=== PATIENT | male | born 1970 | race American Indian/Alaskan Native ===

== ENCOUNTER 2016-04-27 10:09 | Emergency (ER) | payer SELFPAY ==
[2016-04-27 11:15] LABS: Basophils % (Auto) 0.6 % (0.0-1.8); Eosinophils % (Auto) 4.9 % (0.0-4.3); Hematocrit 36.7 % (35.5-45.6); Hemoglobin 12.3 gm/dl (11.8-15.2); Mean Corpuscular HGB Conc 33 % (32-34); Mean Corpuscular Hemoglobin 30 pg (28-32); Mean Corpuscular Volume 91 fl (84-94); Platelet Count 304 K/mm3 (140-440); Red Blood Count 4.06 M/mm3 (3.65-5.03); Red Cell Distribution Width 14.2 % (13.2-15.2); White Blood Count 8.9 K/mm3 (4.5-11.0)
[2016-04-27 11:16] LABS: Anion Gap 15 mmol/L; Blood Urea Nitrogen 4 mg/dL (9-20); Calcium 8.8 mg/dL (8.4-10.2); Carbon Dioxide 24 mmol/L (22-30); Chloride 100.2 mmol/L (98-107); Glucose 64 mg/dL (75-100); Potassium 3.5 mmol/L (3.6-5.0); Sodium 136 mmol/L (137-145)
--- NOTE | 2016-04-27 12:10 | Emergency Department Report ---
HPI - General Chief Complaint: Psych Time Seen by Provider: 04/27/16 11:38 - HPI HPI: Room 14 The patient is a 45-year-old male presenting with chief complaint of auditory and visual hallucinations. Patient has a history of schizophrenia and states she's been on Zyprexa for approximately 1 month. The patient states for the past 3-4 days he's had auditory and visual hallucinations. The patient states the auditory hallucinations with voices that tell him to "give up trying to be somebody in life" and "to give up living." The patient states he has not attempted to harm himself and does not have a plan. The patient states he has had visual hallucinations that include "images of people and alligators." The patient states he went to [facility] last night and was seen in the emergency department both told that he "couldn't get in to [place]." Location: Mental state Duration: 3-4 days Quality: Hallucinations Severity: Severe Modifying factors: [see above] Context: [see above] Mode of transportation: [not driving] ED Past Medical Hx - Past Medical History Hx Psychiatric Treatment: Yes Additional medical history: schizophrenia - Surgical History Additional Surgical History: Back surgery - Family History Family history: no significant - Social History Smoking Status: Current Every Day Smoker Substance Use Type: None - Medications Home Medications: Home Medications Medication Instructions Recorded Confirmed Last Taken Type OLANzapine [ZyPREXA] 30 mg PO QHS 03/16/16 03/16/16 3 Months Ago History ED Review of Systems ROS: Stated complaint: SCHIZOPHRENIA Other details as noted in HPI Comment: All other systems reviewed and negative Constitutional: denies: chills, fever Eyes: denies: eye pain, eye discharge, vision change ENT: denies: ear pain, throat pain Respiratory: denies: cough, shortness of breath, wheezing Cardiovascular: denies: chest pain, palpitations Endocrine: no symptoms reported Gastrointestinal: denies: abdominal pain, nausea, diarrhea Genitourinary: denies: urgency, dysuria Musculoskeletal: denies: back pain, joint swelling, arthralgia Skin: denies: rash, lesions Neurological: denies: headache, weakness, paresthesias Psychiatric: auditory hallucinations, visual hallucinations, suicidal thoughts. denies: anxiety, depression Hematological/Lymphatic: denies: easy bleeding, easy bruising Physical Exam - Physical Exam Vital Signs: Vital Signs 04/27/16 10:20 Temperature 97.8 F Pulse Rate 96 H Respiratory 18 Rate Blood Pressure 138/84 O2 Sat by Pulse 100 Oximetry Physical Exam: GENERAL: The patient is well-developed well-nourished male sleeping on stretcher not appearing to be in acute distress. [] HEENT: Normocephalic. Atraumatic. Extraocular motions are intact. Patient has moist mucous membranes. NECK: Supple. No meningitic signs are noted. There is no adenopathy noted. CHEST/LUNGS: Clear to auscultation. There is no respiratory distress noted. HEART/CARDIOVASCULAR: Regular. There is no tachycardia. There is no gallop rub or murmur. ABDOMEN: Abdomen is soft, nontender. Patient has normal bowel sounds. There is no abdominal distention. SKIN: There is no rash. There is no edema. There is no diaphoresis. NEURO: The patient is awake, alert, and oriented. The patient is cooperative. The patient has normal speech MUSCULOSKELETAL: There is no evidence of acute injury. ED Course Vital Signs 04/27/16 10:20 Temperature 97.8 F Pulse Rate 96 H Respiratory 18 Rate Blood Pressure 138/84 O2 Sat by Pulse 100 Oximetry ED Medical Decision Making - Lab Data Result diagrams: 04/27/16 10:48 04/27/16 10:48 Laboratory Tests 04/27/16 04/27/16 04/27/16 10:48 10:48 10:48 WBC 8.9 RBC 4.06 Hgb 12.3 Hct 36.7 MCV 91 MCH 30 MCHC 33 RDW 14.2 Plt Count 304 Lymph % (Auto) 30.5 [place] % (Auto) 9.0 H Eos % (Auto) 4.9 H Baso % (Auto) 0.6 Lymph # 2.7 [place] # 0.8 Eos # 0.4 Baso # 0.1 Seg Neutrophils % 55.0 Seg Neutrophils # 4.9 Sodium 136 L Potassium 3.5 L Chloride 100.2 Carbon Dioxide 24 Anion Gap 15 BUN 4 L Creatinine 1.0 Estimated GFR > 60 BUN/Creatinine Ratio 4.00 Glucose 64 L Calcium 8.8 Urine Color Urine Turbidity Urine pH Ur Specific [place] Urine Protein Urine Glucose (UA) Urine Ketones Urine Blood Urine Nitrite Urine Bilirubin Urine Urobilinogen Ur Leukocyte Esterase Urine WBC (Auto) Urine RBC (Auto) U Epithel Cells (Auto) Calcium Oxalate Crystal Urine Mucus Salicylates Urine Opiates Screen Urine Methadone Screen Acetaminophen Ur Barbiturates Screen Ur Phencyclidine Scrn Ur Amphetamines Screen U Benzodiazepines Scrn Urine Cocaine Screen U Marijuana (THC) Screen Drugs of Abuse Note Plasma/Serum Alcohol < 0.01 04/27/16 04/27/16 04/27/16 10:48 10:48 12:00 WBC RBC Hgb Hct MCV MCH MCHC RDW Plt Count Lymph % (Auto) [place] % (Auto) Eos % (Auto) Baso % (Auto) Lymph # [place] # Eos # Baso # Seg Neutrophils % Seg Neutrophils # Sodium Potassium Chloride Carbon Dioxide Anion Gap BUN Creatinine Estimated GFR BUN/Creatinine Ratio Glucose Calcium Urine Color Yellow Urine Turbidity Clear Urine pH 5.0 Ur Specific [place] 1.018 Urine Protein <15 mg/dl Urine Glucose (UA) Neg Urine Ketones Tr Urine Blood Sm Urine Nitrite Neg Urine Bilirubin Neg Urine Urobilinogen < 2.0 Ur Leukocyte Esterase Neg Urine WBC (Auto) 3.0 Urine RBC (Auto) 3.0 U Epithel Cells (Auto) < 1.0 Calcium Oxalate Crystal 2+ Urine Mucus Few Salicylates < 0.3 L Urine Opiates Screen Urine Methadone Screen Acetaminophen < 15.0 Ur Barbiturates Screen Ur Phencyclidine Scrn Ur Amphetamines Screen U Benzodiazepines Scrn Urine Cocaine Screen U Marijuana (THC) Screen Drugs of Abuse Note Plasma/Serum Alcohol 04/27/16 12:00 WBC RBC Hgb Hct MCV MCH MCHC RDW Plt Count Lymph % (Auto) [place] % (Auto) Eos % (Auto) Baso % (Auto) Lymph # [place] # Eos # Baso # Seg Neutrophils % Seg Neutrophils # Sodium Potassium Chloride Carbon Dioxide Anion Gap BUN Creatinine Estimated GFR BUN/Creatinine Ratio Glucose Calcium Urine Color Urine Turbidity Urine pH Ur Specific [place] Urine Protein Urine Glucose (UA) Urine Ketones Urine Blood Urine Nitrite Urine Bilirubin Urine Urobilinogen Ur Leukocyte Esterase Urine WBC (Auto) Urine RBC (Auto) U Epithel Cells (Auto) Calcium Oxalate Crystal Urine Mucus Salicylates Urine Opiates Screen Presumptive negative Urine Methadone Screen Presumptive negative Acetaminophen Ur Barbiturates Screen Presumptive negative Ur Phencyclidine Scrn Presumptive negative Ur Amphetamines Screen Presumptive negative U Benzodiazepines Scrn Presumptive negative Urine Cocaine Screen Presumptive negative U Marijuana (THC) Screen Presumptive negative Drugs of Abuse Note Disclamer Plasma/Serum Alcohol - Differential Diagnosis schizophrenia, auditory hallucinations Critical care attestation.: If time is entered above; I have spent that time in minutes in the direct care of this critically ill patient, excluding procedure time. ED Disposition Clinical Impression: Schizophrenia, Hallucination, visual, Auditory hallucinations Disposition: DC/TX PSY HOSP/PSY UNIT Is pt being admited?: No Does the pt Need Aspirin: No Condition: Fair Referrals: PRIMARY CARE, [Primary Care Provider] - 3-5 Days Time of Disposition: 14:17 (awaiting acceptance)
[2016-04-27 12:32] LABS: Urine Drugs of Abuse Note Disclamer
[2016-04-27 12:51] LABS: Bilirubin,Urine NEG (Negative); Blood,Urine SM (Negative); Ketones,Urine TR mg/dL (Negative); Leukocyte Esterase,Urine NEG (Negative); Mucus,Urine FEW /HPF; Nitrite,Urine NEG (Negative); Protein,Urine <15 mg/dL mg/dL (Negative); Urobilinogen,Urine < 2.0 mg/dL (<2.0)
[2016-04-28] MEDS ORDERED: K-DUR PO ONE (13:44)
--- NOTE | 2016-04-28 13:45 | Emergency Department Report ---
Blank Doc - Documentation Documentation: Vital signs reviewed. Pt remains stable. Nurses notes reviwed and pt remains cooperative during ed stay. Continues to Hear voices. PO potassium ordered for mild hypokalemia. Awaiting placement.
--- NOTE | 2016-04-30 17:29 | Emergency Department Report ---
Blank Doc - Documentation Documentation: Nursing notes and vital signs reviewed. Patient awaiting placement.
--- NOTE | 2016-05-01 05:43 | Event Note ---
Date: 05/01/16 Vital signs reviewed. No recent events. Awaiting psychiatric placement. Vital Signs 04/27/16 04/27/16 04/28/16 10:20 20:00 09:10 Temperature 97.8 F 98.4 F 98.3 F Pulse Rate 96 H 75 74 Respiratory 18 18 18 Rate Blood Pressure 138/84 Blood Pressure 98/63 110/55 [Left] O2 Sat by Pulse 100 98 98 Oximetry 04/29/16 04/29/16 04/29/16 08:15 08:30 22:00 Temperature 98.3 F 98.5 F Pulse Rate 73 79 Respiratory 16 16 18 Rate Blood Pressure Blood Pressure 166/105 139/74 [Left] O2 Sat by Pulse 98 98 98 Oximetry 04/30/16 04/30/16 07:37 12:01 Temperature 97.5 F L 97.8 F Pulse Rate 63 75 Respiratory 20 20 Rate Blood Pressure Blood Pressure 186/115 161/94 [Left] O2 Sat by Pulse 99 98 Oximetry
--- NOTE | 2016-05-02 04:52 | Event Note ---
Date: 05/02/16 Vital signs reviewed. Awaiting psychiatric placement. No recent events. Vital Signs 04/27/16 04/27/16 04/28/16 10:20 20:00 09:10 Temperature 97.8 F 98.4 F 98.3 F Pulse Rate 96 H 75 74 Respiratory 18 18 18 Rate Blood Pressure 138/84 Blood Pressure 98/63 110/55 [Left] O2 Sat by Pulse 100 98 98 Oximetry 04/29/16 04/29/16 04/29/16 08:15 08:30 22:00 Temperature 98.3 F 98.5 F Pulse Rate 73 79 Respiratory 16 16 18 Rate Blood Pressure Blood Pressure 166/105 139/74 [Left] O2 Sat by Pulse 98 98 98 Oximetry 04/30/16 04/30/16 05/01/16 07:37 12:01 06:55 Temperature 97.5 F L 97.8 F Pulse Rate 63 75 76 Respiratory 20 20 17 Rate Blood Pressure Blood Pressure 186/115 161/94 175/94 [Left] O2 Sat by Pulse 99 98 99 Oximetry 05/01/16 05/01/16 15:58 21:12 Temperature 97.8 F Pulse Rate 76 66 Respiratory 16 18 Rate Blood Pressure Blood Pressure 154/100 169/103 [Left] O2 Sat by Pulse 99 100 Oximetry
[2016-05-02 17:42] VITALS: BP 144/84
== END 2016-05-02 21:30 ==
LOC: ED 10:09 → EEVIPCON 10:09 → ED 05-02 21:30
DX: F20.9 Schizophrenia, unspecified (principal); R44.0 Auditory hallucinations; R44.1 Visual hallucinations; F17.200 Nicotine dependence, unspecified, uncomplicated
CPT/HCPCS: 36415; 80048; 80307; 81001; 85025; 99285; G0480; 80320

== ENCOUNTER 2016-07-20 02:20 | Emergency (ER) | payer SELFPAY ==
[2016-07-20 03:18] LABS: Basophils % (Auto) 0.8 % (0.0-1.8); Eosinophils % (Auto) 3.9 % (0.0-4.3); Hematocrit 39.1 % (35.5-45.6); Mean Corpuscular HGB Conc 33 % (32-34); Mean Corpuscular Hemoglobin 31 pg (28-32); Mean Corpuscular Volume 93 fl (84-94); Platelet Count 284 K/mm3 (140-440); Red Cell Distribution Width 14.1 % (13.2-15.2); White Blood Count 7.7 K/mm3 (4.5-11.0)
[2016-07-20 03:24] LABS: Anion Gap 17 mmol/L; BUN/Creatinine Ratio 5.55; Blood Urea Nitrogen 5 mg/dL (9-20); Calcium 8.7 mg/dL (8.4-10.2); Carbon Dioxide 23 mmol/L (22-30); Chloride 103.6 mmol/L (98-107); Glucose 113 mg/dL (75-100); Potassium 3.4 mmol/L (3.6-5.0); Sodium 140 mmol/L (137-145)
[2016-07-20] MEDS ORDERED: K-DUR PO ONE (10:24)
--- NOTE | 2016-07-20 13:47 | Emergency Department Report ---
ED Psych HPI - General Chief Complaint: Psych Stated Complaint: MED REFILL PSYCH Time Seen by Provider: 07/20/16 10:23 Source: patient, EMS Mode of arrival: Ambulatory Limitations: No Limitations - History of Present Illness Initial Comments: 45-year-old male with a past medical history schizophrenia presents to the hospital complaining of auditory and visual hallucinations times one month. Patient has been noncompliant with his psychiatric medications 1 month. Patient is supposed to be on Zyprexa and Risperdal. He denies having any current psychiatrist. He doesn't have any physical complaints. He denies suicidal homicidal ideation. - Related Data Home Medications Medication Instructions Recorded Confirmed Last Taken OLANzapine [ZyPREXA] 30 mg PO QHS 03/16/16 07/20/16 3 Months Ago risperiDONE [RisperDAL] 2 mg PO QHS 07/20/16 07/20/16 Unknown Allergies Allergy/AdvReac Type Severity Reaction Status Date / Time egg Allergy Unknown Verified 06/28/15 10:28 ED Review of Systems ROS: Stated complaint: MED REFILL PSYCH Other details as noted in HPI Comment: All other systems reviewed and negative Other: Constitutional: No fevers chills or weight loss Eyes: No eye pain visual changes or discharge ENT: No ear pain or throat pain Neck: Denies pain Respiratory: Denies cough wheezing shortness of breath Cardiovascular: Denies chest pain, palpitations, syncope GI: Denies abdominal pain, nausea, vomiting, diarrhea : Denies dysuria, urinary frequency, or urgency Musculoskeletal: Denies back pain Skin: Denies rash, lesions, erythema Neurologic: Denies headache, numbness, weakness Psychiatric: Denies suicidal ideation ED Past Medical Hx - Past Medical History Previous Medical History?: Yes Hx Psychiatric Treatment: Yes Additional medical history: schizophrenia - Surgical History Past Surgical History?: No Additional Surgical History: Back surgery - Social History Smoking Status: Current Every Day Smoker Substance Use Type: None - Medications Home Medications: Home Medications Medication Instructions Recorded Confirmed Last Taken Type OLANzapine [ZyPREXA] 30 mg PO QHS 03/16/16 07/20/16 3 Months Ago History risperiDONE [RisperDAL] 2 mg PO QHS 07/20/16 07/20/16 Unknown History ED Physical Exam - General Limitations: No Limitations - Other Other exam information: General: No limitations, patient is alert in no acute distress Head exam: Atraumatic, normocephalic Eyes exam: Normal appearance ENT: Moist mucous membrane, normal oropharynx Neck exam: Normal inspection, full range of motion Respiratory exam: Clear to auscultation bilateral, no wheezes, rales, crackles Cardiovascular: Normal rate and rhythm, normal heart sounds Abdomen: Soft, nondistended, and nontender, with normal bowel sounds, no rebound, or guarding Extremity: Full range of motion normal inspection no deformity Back: Normal Inspection, full range of motion, no tenderness Neurologic: Alert, oriented x3, cranial nerves intact, no motor or sensory deficit Psychiatric: normal affect, normal mood Skin: Warm, dry, intact ED Course Vital Signs 07/20/16 07/20/16 02:27 22:49 Temperature 98.4 F 98.0 F Pulse Rate 66 72 Respiratory 18 20 Rate Blood Pressure 155/93 158/95 [Right] O2 Sat by Pulse 100 100 Oximetry - Reevaluation(s) Reevaluation #1: 07/20/16 13:47 Potassium given for mild hypokalemia Reevaluation #2: 07/20/16 13:49 Mental health evaluation was discussed approximately 11 AM. My concern is represcribed Zyprexa in a patient who has poor follow-up. Patient requires monitoring while taking this medication. I'm currently awaiting mental health evaluation by [facility] psychiatrist is the medication recommendation. UA and UDS is pending Reevaluation #3: 07/20/16 14:43 urine results reviewed and unremarkable - Consultations Consultation #1: 07/20/16 13:49 Awaiting mental health evaluation ED Medical Decision Making - Lab Data Result diagrams: 07/20/16 02:52 07/20/16 02:52 Lab Results 07/20/16 07/20/16 07/20/16 Range/Units 02:52 02:52 02:52 WBC 7.7 (4.5-11.0) K/mm3 RBC 4.20 (3.65-5.03) M/mm3 Hgb 13.0 (11.8-15.2) gm/dl Hct 39.1 (35.5-45.6) % MCV 93 (84-94) fl MCH 31 (28-32) pg MCHC 33 (32-34) % RDW 14.1 (13.2-15.2) % Plt Count 284 (140-440) K/mm3 Lymph % (Auto) 29.3 (13.4-35.0) % [place] % (Auto) 6.0 (0.0-7.3) % Eos % (Auto) 3.9 (0.0-4.3) % Baso % (Auto) 0.8 (0.0-1.8) % Lymph # 2.3 (1.2-5.4) K/mm3 [place] # 0.5 (0.0-0.8) K/mm3 Eos # 0.3 (0.0-0.4) K/mm3 Baso # 0.1 (0.0-0.1) K/mm3 Seg Neutrophils % 60.0 (40.0-70.0) % Seg Neutrophils # 4.6 (1.8-7.7) K/mm3 Sodium 140 (137-145) mmol/L Potassium 3.4 L (3.6-5.0) mmol/L Chloride 103.6 (98-107) mmol/L Carbon Dioxide 23 (22-30) mmol/L Anion Gap 17 mmol/L BUN 5 L (9-20) mg/dL Creatinine 0.9 (0.8-1.5) mg/dL Estimated GFR > 60 ml/min BUN/Creatinine Ratio 5.55 % Glucose 113 H (75-100) mg/dL Calcium 8.7 (8.4-10.2) mg/dL Plasma/Serum Alcohol < 0.01 (0-0.07) gm% - Medical Decision Making Patient is stable and resting during ED stay. He is medically cleared for discharge. He denies suicidal homicidal ideation does not need emergent inpatient treatment although he does have psychosis he is calm and cooperative in the ED. Plan to refill his medication pending psychiatric approval given the fact that patient is on Zyprexa as well as Risperdal. - Differential Diagnosis psychosis, medication noncompliance, substance Critical Care Time: No Critical care attestation.: If time is entered above; I have spent that time in minutes in the direct care of this critically ill patient, excluding procedure time. ED Disposition Clinical Impression: Schizophrenia, Hallucinations, Noncompliance with medication regimen Disposition: DISCHARGED TO HOME OR SELFCARE Is pt being admited?: No Condition: Stable Instructions: Schizophrenia (ED) Additional Instructions: Take the medication as prescribed. Follow up with psychiatry as an outpatient. Return if symptoms worsen Referrals: [facility] [Outside] - 3-5 Days md debora [Other] - 3-5 Days Time of Disposition: 15:30 (s/o to Dr Tejada, pt can be d/clem after psych med recomendation)
[2016-07-20 13:57] LABS: Urine Drugs of Abuse Note Disclamer
[2016-07-20 14:02] LABS: Bilirubin,Urine NEG (Negative); Blood,Urine NEG (Negative); Ketones,Urine NEG (Negative); Leukocyte Esterase,Urine TR (Negative); Mucus,Urine FEW /HPF; Nitrite,Urine NEG (Negative); Protein,Urine <15 mg/dL mg/dL (Negative); Urobilinogen,Urine < 2.0 mg/dL (<2.0)
--- NOTE | 2016-07-20 18:47 | Consultation ---
History of Present Illness - Reason for Consult Consult date: 07/20/16 Reason for consult: psychosis Medications and Allergies Allergies Allergy/AdvReac Type Severity Reaction Status Date / Time egg Allergy Unknown Verified 06/28/15 10:28 Home Medications Medication Instructions Recorded Confirmed Last Taken Type OLANzapine [ZyPREXA] 30 mg PO QHS 03/16/16 07/20/16 3 Months Ago History risperiDONE [RisperDAL] 2 mg PO QHS 07/20/16 07/20/16 Unknown History Mental Status Exam - Vital signs Last Vital Signs Temp 98.4 F 07/20/16 02:27 Pulse 66 07/20/16 02:27 Resp 18 07/20/16 02:27 BP 155/93 07/20/16 02:27 Pulse Ox 100 07/20/16 02:27 Results Result Diagrams: 07/20/16 02:52 07/20/16 02:52 Abnormal lab results 07/20/16 Range/Units 02:52 Potassium 3.4 L (3.6-5.0) mmol/L BUN 5 L (9-20) mg/dL Glucose 113 H (75-100) mg/dL All other labs normal. Assessment and Plan Assessment and plan: CHIEF COMPLAINT IN PATIENTS WORDS: " i'm hearing voices" HISTORY OF PRESENT ILLNESS REQUIRING ADMISSION TO INPATIENT LEVEL OF CARE: (Describe the onset of Illness, Intensity of Symptoms, and Circumstances Leading to Admission) This is a 45 year-old undomiciled male who reports a formal PPH of Schizophrenia who presented secondary to increasing symptoms psychosis and contacts of medication nonadherence. Patient notes he has been experiencing worsening mood consistently about 4 weeks, in addition to his voices. Last medication use was about a month ago. Although the patient currently reports he is taking Zyprexa and risperidone he is unable to give a linear timeline of when he last took his medications and what his last medication name and dose was. PSYCHIATRIC REVIEW OF SYSTEMS: Depression: sad/withdrawn, sleep difficulties Jesica: none noted (no euphoria, no grandiosity) Psychosis: +AV, No VH. denies delusions Anxiety/ OCD/ PTSD: Worries about being homeless Suicidality: no SI Other Self-Injurious Behavior: Denies Violent/ Aggressive Behavior: no aggression CURRENT MEDICATIONS: ( Psychiatric and Non-psychiatric ) Not taking any medications currently ALLERGIES: NKDA PAST PSYCHIATRIC HISTORY: ( Prior Treatment, Precipitating Factors, Diagnosis, and Course of Treatment ) Inpatient: Patient does not recall Outpatient: at [facility] Prior SA: patient denies Prior SIB: Denies PAST PSYCHIATRIC MEDICATION TRIALS: Risperidone Zyprexa MEDICAL HISTORY: (Chronic and Acute Illnesses, Current Medical Treatment, Recent Hospitalizations) none noted HISTORY OF TRAUMA/ABUSE: Patient denies on clinical interview DRUG / ALCOHOL ABUSE HISTORY: Denies EtOH use Denies use of other illicit substances Detoxification / Withdrawal: none noted on clinical examination SOCIAL HISTORY: (Educational Level, Employment, Support System, Interpersonal Relationships) Homeless, lives on the streets FAMILY HISTORY: Psychiatric/Substance Abuse Patient denies on clinical interview MENTAL STATUS EXAM: Consciousness: alert and responding to external stimuli General Appearance: casually dressed, no acute distress Eye Contact: limited Attitude / Behavior: cooperative Sensorium: clear Psychomotor & Musculoskeletal Activity: reduced Mood: depressed Affect: constricted Speech / Language: reduced rate Thought Processes: organized, logical, linear Thought Content: no SI, no HI, intrusive thoughts Perception: no AVH Orientation: person, place, time and situation Concentration/Attention WORLD backwards: DLROW Memory Immediate Digit Span (6-5-1-9-3-1-5): [id number] Memory Recent (Objects: Lamp, Umbrella, and Telephone) Patient Response: could not provide Memory Remote (Name as many presidents as you can starting with current one and going backwards) Patient Response: could not provide Judgment What would you do if you smelled smoke in a crowded movie theater?: poor/impulsive Insight: fair Intelligence Vocabulary, general fund of knowledge, educational level : Average Capacity of ADLs: Independent STRENGTHS: seeking help PSYCHOSOCIAL AND ENVIRONMENTAL STRESSORS: Poor overall health due to chronic mental illness, non-Adherence to medications ADMITTING DIAGNOSES Psychiatric: Schizophrenia Plan: - Start risperidone 1 mg hs - Reevaluate tomorrow to obtain further information made in the treatment process - Engage social science teacher to help patient with finding a stable place to live
[2016-07-20] MEDS ORDERED: RisperDAL PO SCH (22:00)
[2016-07-20 22:51] VITALS: BP 158/95
== END 2016-07-20 22:49 | disposition home or self-care (01) ==
LOC: ED 02:20
DX: F20.9 Schizophrenia, unspecified (principal); R44.0 Auditory hallucinations; R44.1 Visual hallucinations; Z91.14 Patient's other noncompliance with medication regimen; F17.200 Nicotine dependence, unspecified, uncomplicated
CPT/HCPCS: 36415; 80048; 80307; 81001; 85025; 99284; G0480; 80320

== ENCOUNTER 2016-11-30 22:40 | Emergency (ER) | payer SELFPAY ==
[2016-12-01 01:14] VITALS: BP 154/100
== END 2016-12-01 02:10 | disposition left against medical advice (07) ==
LOC: ED 22:40
DX: Z53.21 Procedure and treatment not carried out due to patient leaving prior to being seen by health care provider (principal)

== ENCOUNTER 2016-12-06 00:03 | Emergency (ER) | payer SELFPAY ==
[2016-12-06 00:25] VITALS: BP 167/99
[2016-12-06 01:11] LABS: Basophils % (Auto) 0.5 % (0.0-1.8); Eosinophils % (Auto) 3.5 % (0.0-4.3); Hematocrit 38.1 % (35.5-45.6); Hemoglobin 12.5 gm/dl (11.8-15.2); Mean Corpuscular HGB Conc 33 % (32-34); Mean Corpuscular Hemoglobin 30 pg (28-32); Mean Corpuscular Volume 91 fl (84-94); Red Cell Distribution Width 14.6 % (13.2-15.2); White Blood Count 9.7 K/mm3 (4.5-11.0)
[2016-12-06 01:16] LABS: Platelet Count 271 K/mm3 (140-440)
[2016-12-06 01:29] LABS: Anion Gap 16 mmol/L; BUN/Creatinine Ratio 7.77; Blood Urea Nitrogen 7 mg/dL (9-20); Carbon Dioxide 25 mmol/L (22-30); Chloride 102.4 mmol/L (98-107); Glucose 99 mg/dL (75-100); Potassium 3.8 mmol/L (3.6-5.0); Sodium 140 mmol/L (137-145)
== END 2016-12-06 05:45 | disposition left against medical advice (07) ==
LOC: ED 00:03
DX: F20.9 Schizophrenia, unspecified (principal); Z53.21 Procedure and treatment not carried out due to patient leaving prior to being seen by health care provider
CPT/HCPCS: 36415; 80048; 85025; G0480; 80320

== ENCOUNTER 2016-12-06 22:10 | Emergency (ER) | payer SELFPAY ==
[2016-12-06 22:17] VITALS: BP 159/86
[2016-12-06 22:52] LABS: Basophils % (Auto) 0.5 % (0.0-1.8); Eosinophils % (Auto) 3.8 % (0.0-4.3); Hematocrit 36.3 % (35.5-45.6); Mean Corpuscular HGB Conc 33 % (32-34); Mean Corpuscular Hemoglobin 30 pg (28-32); Mean Corpuscular Volume 91 fl (84-94); Platelet Count 276 K/mm3 (140-440); Red Blood Count 3.98 M/mm3 (3.65-5.03); Red Cell Distribution Width 14.6 % (13.2-15.2); White Blood Count 8.4 K/mm3 (4.5-11.0)
[2016-12-06 23:01] LABS: Anion Gap 18 mmol/L; Blood Urea Nitrogen 6 mg/dL (9-20); Calcium 8.7 mg/dL (8.4-10.2); Carbon Dioxide 22 mmol/L (22-30); Chloride 101.2 mmol/L (98-107); Glucose 88 mg/dL (75-100); Potassium 3.4 mmol/L (3.6-5.0); Sodium 138 mmol/L (137-145)
--- NOTE | 2016-12-07 00:44 | Emergency Department Report ---
HPI - General Chief Complaint: Psych Time Seen by Provider: 12/06/16 23:27 - HPI HPI: This is a 46-year-old [place] male presents to the emergency department with the complaint of continued auditory and visual hallucinations secondary to his schizophrenia. He says he used to be on Zyprexa but has not been taking it or had any of this medication since April. He says that this was a time where he receives some type of a referral for both medication and a psychiatrist says he has not received his check at an therefore cannot afford an appointment. He denies any suicidal or homicidal ideations. He says that the hallucinations are not specific and he cannot describe them. ED Past Medical Hx - Past Medical History Hx Psychiatric Treatment: Yes Additional medical history: schizophrenia - Surgical History Additional Surgical History: Back surgery - Social History Smoking Status: Current Every Day Smoker Substance Use Type: None - Medications Home Medications: Home Medications Medication Instructions Recorded Confirmed Last Taken Type OLANzapine [ZyPREXA] 30 mg PO QHS 03/16/16 07/20/16 3 Months Ago History risperiDONE [RisperDAL] 2 mg PO QHS 07/20/16 07/20/16 Unknown History ED Review of Systems ROS: Stated complaint: MH Other details as noted in HPI Comment: All other systems reviewed and negative Constitutional: denies: chills, fever Eyes: denies: eye pain, eye discharge, vision change ENT: denies: ear pain, throat pain Respiratory: denies: cough, shortness of breath, wheezing Cardiovascular: denies: chest pain, palpitations Gastrointestinal: denies: abdominal pain, nausea, diarrhea Genitourinary: denies: urgency, dysuria Musculoskeletal: denies: back pain, joint swelling, arthralgia Skin: denies: rash, lesions Neurological: denies: headache, weakness, paresthesias Psychiatric: auditory hallucinations, visual hallucinations. denies: homicidal thoughts, suicidal thoughts Physical Exam - Physical Exam Vital Signs: Vital Signs 12/06/16 22:15 Temperature 99.3 F Pulse Rate 89 Respiratory 18 Rate Blood Pressure 159/86 O2 Sat by Pulse 95 Oximetry Physical Exam: GENERAL: The patient is well-developed well-nourished. HENT: Normocephalic. Atraumatic. Patient has moist mucous membranes. EYES: Extraocular motions are intact. Pupils equal reactive to light bilaterally. NECK: Supple. Trachea is midline. CHEST/LUNGS: Clear to auscultation. There is no respiratory distress noted. HEART/CARDIOVASCULAR: Regular. There is no tachycardia. There is no gallop rub or murmur. ABDOMEN: Abdomen is soft, nontender. Patient has normal bowel sounds. There is no abdominal distention. SKIN: Skin is warm and dry. NEURO: The patient is awake, alert, and oriented. The patient is cooperative. The patient has no focal neurologic deficits. The patient has normal speech. MUSCULOSKELETAL: There is no tenderness or deformity. There is no limitation range of motion. There is no evidence of acute injury. ED Course Vital Signs 12/06/16 22:15 Temperature 99.3 F Pulse Rate 89 Respiratory 18 Rate Blood Pressure 159/86 O2 Sat by Pulse 95 Oximetry ED Medical Decision Making - Lab Data Result diagrams: 12/06/16 22:24 12/06/16 22:24 - Medical Decision Making 46-year-old male with history of paranoid schizophrenia presents with continued hallucinations. He denies any suicidal or homicidal ideations. He is calm and cognizant and does not appear to be responding to any internal stimuli at this time. Vital signs stable. Labs are unremarkable. He appears to be able to function appropriately. He does not appear to be a candidate A 1013. The behavioral health came in and did an assessment and agrees. He'll be given referrals for a [facility] and any referrals from psych and will be discharged home. Encouraged to return with any worsening symptoms or any acute distress. Critical Care Time: No Critical care attestation.: If time is entered above; I have spent that time in minutes in the direct care of this critically ill patient, excluding procedure time. ED Disposition Clinical Impression: Hallucinations, History of schizophrenia Hypertension Qualifiers: Hypertension type: essential hypertension Qualified Code(s): I10 - Essential ( primary) hypertension Disposition: DC-01 TO HOME OR SELFCARE Is pt being admited?: No Condition: Stable Instructions: Schizophrenia (ED), Hypertension (ED) Additional Instructions: Please follow up with the [facility] facility or any other referrals given to you by the behavioral counselor. I have also given you a referral for a local clinic that you can use as a primary care facility. Return to the emergency Department with any worsening of your symptoms are any acute distress. Referrals: PRIMARY CAREMD [Primary Care Provider] - 3-5 Days [facility] [Outside] - 3-5 Days [facility] [Outside] - 3-5 Days Time of Disposition: 01:55
== END 2016-12-07 03:55 | disposition home or self-care (01) ==
LOC: ED 22:10
DX: F20.9 Schizophrenia, unspecified (principal); I10 Essential (primary) hypertension; F17.210 Nicotine dependence, cigarettes, uncomplicated
CPT/HCPCS: 36415; 80048; 85025; 99284; G0480; 80320

== ENCOUNTER 2016-12-11 21:36 | Emergency (ER) | payer SELFPAY ==
[2016-12-11 22:42] LABS: Basophils % (Auto) 0.6 % (0.0-1.8); Eosinophils % (Auto) 3.8 % (0.0-4.3); Hematocrit 37.3 % (35.5-45.6); Hemoglobin 12.4 gm/dl (11.8-15.2); Mean Corpuscular HGB Conc 33 % (32-34); Mean Corpuscular Hemoglobin 30 pg (28-32); Mean Corpuscular Volume 91 fl (84-94); Platelet Count 290 K/mm3 (140-440); Red Cell Distribution Width 13.9 % (13.2-15.2); White Blood Count 6.7 K/mm3 (4.5-11.0)
[2016-12-11 22:49] LABS: Anion Gap 17 mmol/L; BUN/Creatinine Ratio 4.44; Blood Urea Nitrogen 4 mg/dL (9-20); Calcium 8.8 mg/dL (8.4-10.2); Carbon Dioxide 22 mmol/L (22-30); Glucose 92 mg/dL (75-100); Potassium 3.4 mmol/L (3.6-5.0); Sodium 135 mmol/L (137-145)
[2016-12-12 04:09] LABS: Urine Drugs of Abuse Note Disclamer
[2016-12-12 04:29] LABS: Bilirubin,Urine NEG (Negative); Blood,Urine SM (Negative); Ketones,Urine NEG (Negative); Leukocyte Esterase,Urine NEG (Negative); Mucus,Urine FEW /HPF; Nitrite,Urine NEG (Negative); Protein,Urine <15 mg/dL mg/dL (Negative); Urobilinogen,Urine < 2.0 mg/dL (<2.0); WBC,Urine < 1.0 /HPF (0.0-6.0)
[2016-12-12 07:07] LABS: Albumin 3.9 g/dL (3.9-5); Albumin/Globulin Ratio 1.1 %; Bilirubin,Total 0.4 mg/dL (0.1-1.2); Total Protein 7.6 g/dL (6.3-8.2)
[2016-12-12 07:11] LABS: Bilirubin,Direct 0.2 mg/dL (0-0.2); Bilirubin,Indirect 0.2 mg/dL
--- NOTE | 2016-12-12 07:12 | Cat Scan Report ---
CT scan of head without IV contrast: History: AMS. Findings: Ventricles are normal in size and midline in location. No evidence of acute ischemia, hemorrhage or mass. No extra-axial fluid collection. Normal brainstem and cerebellum. Normal sinuses and mastoid cells. Impression: No acute intracranial abnormality.
--- NOTE | 2016-12-12 07:20 | Emergency Department Report ---
ED General Adult HPI - General Chief complaint: Psych Stated complaint: MED CLEARANCE Time Seen by Provider: 12/12/16 06:28 Source: patient Mode of arrival: Ambulatory Limitations: No Limitations - History of Present Illness Initial comments: Patient is essentially noncommunicative gentleman that lays with his eyes closed. He has a history of schizophrenia. He told triage that he was hearing voices telling him to hurt himself. "Has no plan. States homeless." -: unknown Associated Symptoms: denies other symptoms - Related Data Home Medications Medication Instructions Recorded Confirmed Last Taken OLANzapine [ZyPREXA] 30 mg PO QHS 03/16/16 07/20/16 3 Months Ago risperiDONE [RisperDAL] 2 mg PO QHS 07/20/16 07/20/16 Unknown Allergies Allergy/AdvReac Type Severity Reaction Status Date / Time egg Allergy Unknown Verified 06/28/15 10:28 ED Review of Systems ROS: Stated complaint: MED CLEARANCE Other details as noted in HPI Comment: Unobtainable due to pts medical conditions Respiratory: denies: wheezing Endocrine: no symptoms reported Gastrointestinal: denies: diarrhea Musculoskeletal: denies: joint swelling, arthralgia Neurological: denies: headache, weakness, paresthesias Psychiatric: as per HPI Hematological/Lymphatic: denies: easy bruising ED Past Medical Hx - Past Medical History Hx Arthritis: Yes Hx Psychiatric Treatment: Yes Additional medical history: schizophrenia - Surgical History Past Surgical History?: Yes Additional Surgical History: Back surgery - Social History Smoking Status: Current Every Day Smoker Substance Use Type: None - Medications Home Medications: Home Medications Medication Instructions Recorded Confirmed Last Taken Type OLANzapine [ZyPREXA] 30 mg PO QHS 03/16/16 07/20/16 3 Months Ago History risperiDONE [RisperDAL] 2 mg PO QHS 07/20/16 07/20/16 Unknown History ED Physical Exam - General Limitations: No Limitations General appearance: in no apparent distress, lethargic - Head Head exam: Present: atraumatic, normocephalic - Eye Eye exam: Present: normal appearance. Absent: scleral icterus - ENT ENT exam: Present: mucous membranes moist - Neck Neck exam: Present: normal inspection. Absent: tenderness, meningismus - Respiratory Respiratory exam: Present: normal lung sounds bilaterally. Absent: respiratory distress - Cardiovascular Cardiovascular Exam: Present: regular rate, normal rhythm. Absent: systolic murmur, diastolic murmur, rubs, gallop - GI/Abdominal GI/Abdominal exam: Present: soft, normal bowel sounds. Absent: distended, tenderness, guarding, rebound - Rectal Rectal exam: Present: deferred - Extremities Exam Extremities exam: Present: normal inspection - Back Exam Back exam: Present: normal inspection - Neurological Exam Neurological exam: Present: altered, oriented X3, CN II-XII intact (as testable) . Absent: motor sensory deficit - Psychiatric Psychiatric exam: Present: normal affect, normal mood - Skin Skin exam: Present: warm, dry, intact, normal color. Absent: rash ED Course Vital Signs 12/11/16 12/12/16 12/12/16 22:07 03:42 05:57 Temperature 98.1 F 98.1 F Pulse Rate 89 80 Respiratory 20 18 18 Rate Blood Pressure 167/100 156/101 Blood Pressure [Right] O2 Sat by Pulse 99 99 98 Oximetry 12/12/16 08:26 Temperature 98.6 F Pulse Rate 66 Respiratory 18 Rate Blood Pressure Blood Pressure 105/56 [Right] O2 Sat by Pulse 98 Oximetry - Reevaluation(s) Reevaluation #1: It would appear that the patient's lack of responsiveness and lethargy is likely secondary to his psychiatric disorder. Now with standing that a CT of his head was obtained. Most likely his disposition will be psychiatric. 12/12/16 07:21 ED Medical Decision Making - Lab Data Result diagrams: 12/11/16 22:20 12/11/16 22:20 Laboratory Results - last 24 hr 12/11/16 12/11/16 12/11/16 22:20 22:20 22:20 WBC 6.7 RBC 4.10 Hgb 12.4 Hct 37.3 MCV 91 MCH 30 MCHC 33 RDW 13.9 Plt Count 290 Lymph % (Auto) 35.7 H [place] % (Auto) 7.8 H Eos % (Auto) 3.8 Baso % (Auto) 0.6 Lymph # 2.4 [place] # 0.5 Eos # 0.3 Baso # 0.0 Seg Neutrophils % 52.1 Seg Neutrophils # 3.5 Sodium 135 L Potassium 3.4 L Chloride 99.0 Carbon Dioxide 22 Anion Gap 17 BUN 4 L Creatinine 0.9 Estimated GFR > 60 BUN/Creatinine Ratio 4.44 Glucose 92 Calcium 8.8 Total Bilirubin Direct Bilirubin Indirect Bilirubin AST ALT Alkaline Phosphatase Total Protein Albumin Albumin/Globulin Ratio Urine Color Urine Turbidity Urine pH Ur Specific [place] Urine Protein Urine Glucose (UA) Urine Ketones Urine Blood Urine Nitrite Urine Bilirubin Urine Urobilinogen Ur Leukocyte Esterase Urine WBC (Auto) Urine RBC (Auto) U Epithel Cells (Auto) Urine Mucus Urine Opiates Screen Urine Methadone Screen Ur Barbiturates Screen Ur Phencyclidine Scrn Ur Amphetamines Screen U Benzodiazepines Scrn Urine Cocaine Screen U Marijuana (THC) Screen Drugs of Abuse Note Plasma/Serum Alcohol < 0.01 12/11/16 12/12/16 12/12/16 22:20 03:28 03:28 WBC RBC Hgb Hct MCV MCH MCHC RDW Plt Count Lymph % (Auto) [place] % (Auto) Eos % (Auto) Baso % (Auto) Lymph # [place] # Eos # Baso # Seg Neutrophils % Seg Neutrophils # Sodium Potassium Chloride Carbon Dioxide Anion Gap BUN Creatinine Estimated GFR BUN/Creatinine Ratio Glucose Calcium Total Bilirubin 0.40 Direct Bilirubin 0.2 Indirect Bilirubin 0.2 AST 18 ALT 13 Alkaline Phosphatase 66 Total Protein 7.6 Albumin 3.9 Albumin/Globulin Ratio 1.1 Urine Color Yellow Urine Turbidity Clear Urine pH 6.0 Ur Specific [place] 1.003 Urine Protein <15 mg/dl Urine Glucose (UA) Neg Urine Ketones Neg Urine Blood Sm Urine Nitrite Neg Urine Bilirubin Neg Urine Urobilinogen < 2.0 Ur Leukocyte Esterase Neg Urine WBC (Auto) < 1.0 Urine RBC (Auto) 6.0 U Epithel Cells (Auto) 1.0 Urine Mucus Few Urine Opiates Screen Presumptive negative Urine Methadone Screen Presumptive negative Ur Barbiturates Screen Presumptive negative Ur Phencyclidine Scrn Presumptive negative Ur Amphetamines Screen Presumptive negative U Benzodiazepines Scrn Presumptive negative Urine Cocaine Screen Presumptive negative U Marijuana (THC) Screen Presumptive negative Drugs of Abuse Note Disclamer Plasma/Serum Alcohol - Radiology Data Radiology results: report reviewed (CT of the head no acute process) Critical care attestation.: If time is entered above; I have spent that time in minutes in the direct care of this critically ill patient, excluding procedure time. ED Disposition Clinical Impression: Homelessness, Acute psychosis, Medical clearance for psychiatric admission Schizophrenia Qualifiers: Schizophrenia type: unspecified Qualified Code(s): F20.9 - Schizophrenia, unspecified Disposition: DC/TX-65 PSY HOSP/PSY UNIT Is pt being admited?: No Does the pt Need Aspirin: No Condition: Stable Referrals: PRIMARY CARE, [Primary Care Provider] - 3-5 Days Time of Disposition: 08:49
[2016-12-12] MEDS ORDERED: ALUM-MAG HYDROX-SIMETH 200-200-20MG/5ML PO PRN (08:50)
[2016-12-12] MEDS ORDERED: MILK OF MAGNESIA PO PRN (08:50)
[2016-12-12] MEDS ORDERED: TYLENOL PO PRN (08:50)
[2016-12-12] MEDS: GEODON PO SCH ×2 (09:56→21:58)
[2016-12-13] MEDS: GEODON PO SCH ×2 (10:16→22:14)
--- NOTE | 2016-12-13 12:35 | Consultation ---
History of Present Illness - Reason for Consult Consult date: 12/13/16 Reason for consult: Mental Health Evaluation Requesting physician: JHOAN MCKEON - Chief Complaint Chief complaint: "What do you want" - History of Present Psychiatric Illness Patient is essentially noncommunicative gentleman that lays with his eyes closed. He has a history of schizophrenia. He told triage that he was hearing voices telling him to hurt himself. Today patient is calm and cooperative with a tangential thought process. He stated he was "suicidal" because of the voices that he hear telling him to kill himself. Patient has no plan at this time how he would kill himself. He would not confirm or deny past suicide attempts when asked. During the conversation, the patient was distracted possibly responding to some type of stimuli. His answers to questions were not logical. He did deny HI's and VH's. He stated that the voices can be "loud" in his ear. He would not state if he use recreational drugs and consume alcohol (etoh). UDS is negative and alcohol serum WNL. Medications and Allergies Allergies Allergy/AdvReac Type Severity Reaction Status Date / Time egg Allergy Unknown Verified 06/28/15 10:28 Home Medications Medication Instructions Recorded Confirmed Last Taken Type OLANzapine [ZyPREXA] 30 mg PO QHS 03/16/16 07/20/16 3 Months Ago History risperiDONE [RisperDAL] 2 mg PO QHS 07/20/16 07/20/16 Unknown History Active Meds: Active Medications Acetaminophen (Tylenol) 650 mg PO Q4HR PRN PRN Reason: Pain MILD(1-3)/Fever >100.5/NGUYEN Al Hydrox/Mg Hydrox/Simethicone (Alum-Mag Hydrox-Simeth [id number]/5ml) 30 ml PO Q4HR PRN PRN Reason: Indigestion Magnesium Hydroxide (Milk Of Magnesia) 30 ml PO Q12HR PRN PRN Reason: Constipation Ziprasidone (Geodon) 40 mg PO BID ALFA Last Admin: 12/13/16 10:16 Dose: 40 mg Past psychiatric history - Past Medical History Past Medical History: No medical history Past Surgical History: Other (Back surgery) - past Psychiatric treatment and history Psych: Schizophrenia psychiatric treatment history: Multiple inpatient psy settings. Unable to obtain a [facility] psy hx. - Social History Social history: other (Homeless) Mental Status Exam - Vital signs Last Vital Signs Temp 98.5 F 12/13/16 10:00 Pulse 68 12/13/16 10:00 Resp 20 12/13/16 11:58 BP 141/84 12/13/16 10:00 Pulse Ox 98 12/13/16 11:58 - Exam Narrative exam: ROS: (+) psychosis MSE: Appearance: cooperative Behavior: regular eye contact Speech: low rate and tone Mood: dysphoric Affect: labile Thought Process: tangential Thought Content: denies SI/HI's and VH's, intermittent AH's Motor Activity: ambulatory Cognition: A/O x3 Insight: limited Judgment: limited Results Result Diagrams: 12/11/16 22:20 12/11/16 22:20 All other labs normal. Assessment and Plan Assessment and plan: Impression: Historical Dx: Schizophrenia. Unspecified Mood DO with psychotic features. Today patient is calm and cooperative with a tangential thought process. Patient has SI's. Patient experiencing AH's. DDx: Shizoaffective DO, R/O Bipolar Recommendation/Plan: Continue 1013 with placement to inpatient psy services. Continue Geodon 40 mg PO BID for mood/psychotic symptoms. Discussed possible metabolic side effects of Geodon with patient.
[2016-12-14] MEDS: GEODON PO SCH ×2 (10:30→22:05)
[2016-12-15] MEDS: GEODON PO SCH ×2 (09:50→21:37)
[2016-12-15] MEDS ORDERED: GEODON IM ONE ×2 (15:22→15:26)
--- NOTE | 2016-12-16 10:48 | Progress Note ---
Subjective - Reason for Consult Consult date: 12/16/16 Reason for consult: Psychiatry Follow-up - Chief Complaint Chief complaint: "What is going on" Patient is essentially noncommunicative gentleman that lays with his eyes closed. He has a history of schizophrenia. He told triage that he was hearing voices telling him to hurt himself. Today patient is calm and cooperative with a tangential thought process. He would not confirm or deny SI's. He stated that the voices "come and go sometimes." Patient had to be redirected several times during the conversation to keep him engaged, possibly responding to some type of stimuli. He denies HI's and VH's. He denies any side effects of his medications. Mental Status Exam - Vital signs Last Vital Signs Temp 98.3 F 12/15/16 22:00 Pulse 61 12/15/16 22:00 Resp 18 12/15/16 22:00 BP 149/97 12/15/16 22:00 Pulse Ox 98 12/15/16 22:00 - Exam Narrative exam: MSE: Appearance: cooperative Behavior: regular eye contact Speech: low rate and tone Mood: dysphoric Affect: labile Thought Process: tangential Thought Content: denies HI's and VH's, intermittent AH's, Passive SI's Motor Activity: ambulatory Cognition: A/O x3 Insight: limited Judgment: limited Assessment and Plan Impression: Historical Dx: Schizophrenia. Unspecified Mood DO with psychotic features. Today patient is calm and cooperative with a tangential thought process. Patient has passive SI's. Patient experiencing intermittent AH's. Recommendation/Plan: Continue 1013 with placement to [facility] today. Continue Geodon 40 mg PO BID for mood/psychotic symptoms. Discussed possible metabolic side effects of Geodon with patient.
[2016-12-16 12:29] VITALS: BP 155/91
== END 2016-12-16 12:33 ==
LOC: EEVIPCON 21:36 → ED 21:36
DX: F20.9 Schizophrenia, unspecified (principal); F29 Unspecified psychosis not due to a substance or known physiological condition; Z59.0 Homelessness; M19.90 Unspecified osteoarthritis, unspecified site; F17.200 Nicotine dependence, unspecified, uncomplicated; Z91.012 Allergy to eggs
CPT/HCPCS: 36415; 70450; 80048; 80074; 80307; 81001; 85025; 99285; G0480; J3486; 80320

== ENCOUNTER 2016-12-30 22:41 | Emergency (ER) | payer SELFPAY | END 2016-12-30 23:45 | disposition left against medical advice (07) | LOC: ED 22:41 | DX: Z53.21 Procedure and treatment not carried out due to patient leaving prior to being seen by health care provider (principal) ==

== ENCOUNTER 2017-01-12 23:34 | Emergency (ER) | payer SELFPAY | END 2017-01-13 | disposition left against medical advice (07) | LOC: ED 23:34 | DX: Z00.8 Encounter for other general examination (principal); Z53.21 Procedure and treatment not carried out due to patient leaving prior to being seen by health care provider ==

== ENCOUNTER 2017-07-04 02:01 | Emergency (ER) | payer OTHER ==
[2017-07-04 04:29] LABS: BUN/Creatinine Ratio 8; Blood Urea Nitrogen 7 mg/dL (9-20); Calcium 8.5 mg/dL (8.4-10.2); Hemolysis Index 2
[2017-07-04 04:48] LABS: Basophils % (Auto) 0.5 % (0.0-1.8); Eosinophils # (Auto) 0.3 K/mm3 (0.0-0.4); Eosinophils % (Auto) 3.3 % (0.0-4.3); Hematocrit 36.8 % (35.5-45.6); Hemoglobin 12.4 gm/dl (11.8-15.2); Lymphocytes # (Auto) 2.2 K/mm3 (1.2-5.4); Lymphocytes % (Auto) 26.1 % (13.4-35.0); Mean Corpuscular HGB Conc 34 % (32-34); Mean Corpuscular Hemoglobin 31 pg (28-32); Mean Corpuscular Volume 91 fl (84-94); Monocytes # (Auto) 0.6 K/mm3 (0.0-0.8); Monocytes % (Auto) 6.9 % (0.0-7.3); Platelet Count 272 K/mm3 (140-440); Red Blood Count 4.05 M/mm3 (3.65-5.03); Red Cell Distribution Width 14.2 % (13.2-15.2)
[2017-07-04 06:58] LABS: Amorphous Crystals,Urine Few; Bilirubin,Urine NEG (Negative); Blood,Urine NEG (Negative); Color,Urine Yellow (Yellow); Hyaline Casts,Urine 3 /LPF; Mucus,Urine FEW /HPF; Protein,Urine <15 mg/dL mg/dL (Negative); Urobilinogen,Urine < 2.0 mg/dL (<2.0)
[2017-07-04 07:04] LABS: Amphetamine Screen,Urine PRESUMPTIVE NEGATIVE; Benzodiazepines Screen,Urine PRESUMPTIVE NEGATIVE; Cannabinoid Screen,Urine PRESUMPTIVE NEGATIVE; Cocaine Screen,Urine PRESUMPTIVE NEGATIVE; Methadone Screen,Urine PRESUMPTIVE NEGATIVE; Opiate Screen,Urine PRESUMPTIVE NEGATIVE
--- NOTE | 2017-07-04 07:28 | Emergency Department Report ---
ED Psych HPI - General Chief Complaint: Psych Stated Complaint: MH Time Seen by Provider: 07/04/17 07:23 Source: patient Mode of arrival: Ambulatory - History of Present Illness Initial Comments: History of schizophrenia question compliance with meds here states worsening psychosis with auditory hallucination ? SI ? HI" I need to see the psych doctor ", no very cooperative w/ questions or exam but no med c/o, awake and alert no acute distress afebrile and no airway problems MD Complaint: suicidal ideation, feels depressed -: Gradual, unknown Associated Psychiatric Symptoms: depression, auditory hallucinations Quality: intermittent - Related Data Home Medications Medication Instructions Recorded Confirmed Last Taken No Known Home Medications [No 12/14/16 12/14/16 Unknown Reported Home Medications] Allergies Allergy/AdvReac Type Severity Reaction Status Date / Time egg Allergy Unknown Verified 06/28/15 10:28 ED Review of Systems ROS: Stated complaint: MH Other details as noted in HPI Comment: Unobtainable due to pts medical conditions (patient acutely psychotic " further questioning) Gastrointestinal: denies: diarrhea, constipation, hematemesis, melena Musculoskeletal: denies: joint swelling, arthralgia Skin: denies: pruritus Neurological: denies: headache, weakness, numbness, paresthesias, confusion, abnormal gait, vertigo Psychiatric: anxiety, depression, auditory hallucinations ED Past Medical Hx - Past Medical History Hx Arthritis: Yes Hx Psychiatric Treatment: Yes Additional medical history: schizophrenia - Surgical History Additional Surgical History: Back surgery - Social History Smoking Status: Current Every Day Smoker Substance Use Type: None - Medications Home Medications: Home Medications Medication Instructions Recorded Confirmed Last Taken Type No Known Home Medications [No 12/14/16 12/14/16 Unknown History Reported Home Medications] ED Physical Exam - General Limitations: No Limitations General appearance: alert, in no apparent distress, anxious - Head Head exam: Present: atraumatic, normocephalic - Eye Eye exam: Present: PERRL, EOMI - ENT ENT exam: Present: normal exam, normal orophraynx - Neck Neck exam: Present: normal inspection. Absent: tenderness, meningismus - Respiratory Respiratory exam: Present: normal lung sounds bilaterally. Absent: respiratory distress, wheezes, rales, rhonchi, stridor - Cardiovascular Cardiovascular Exam: Present: regular rate, normal rhythm - GI/Abdominal GI/Abdominal exam: Present: soft. Absent: guarding, rebound, rigid, mass, pulsatile mass - Extremities Exam Extremities exam: Present: normal inspection, normal capillary refill. Absent: pedal edema, joint swelling - Back Exam Back exam: Present: normal inspection. Absent: CVA tenderness (L), muscle spasm , paraspinal tenderness, vertebral tenderness - Neurological Exam Neurological exam: Present: alert, oriented X3, CN II-XII intact. Absent: motor sensory deficit - Psychiatric Psychiatric exam: Present: depressed, agitated, anxious, other (delusional with paranoid and flight of ideas) - Skin Skin exam: Absent: cyanosis, diaphoretic, erythema, urticaria, vesicles ED Course Vital Signs 07/04/17 07/04/17 03:48 06:42 Temperature 98.5 F Pulse Rate 80 Respiratory 18 18 Rate Blood Pressure 142/89 O2 Sat by Pulse 100 Oximetry ED Medical Decision Making - Lab Data Result diagrams: 07/04/17 03:59 07/04/17 03:59 - Medical Decision Making Patient is medically cleared he will need psych evaluation he was placed on 1013 given the nature of his psychosis with possible SIADH and gravely disabled Critical care attestation.: If time is entered above; I have spent that time in minutes in the direct care of this critically ill patient, excluding procedure time. ED Disposition Clinical Impression: Schizophrenia, Medical clearance for psychiatric admission, Acute psychosis Disposition: DC/TX-65 PSY HOSP/PSY UNIT Is pt being admited?: No Condition: Stable Referrals: PRIMARY CARE, [Primary Care Provider] - 3-5 Days Time of Disposition: 11:05
--- NOTE | 2017-07-04 12:24 | Consultation ---
History of Present Illness - Reason for Consult Consult date: 07/04/17 Reason for consult: Mental Health Evaluation Requesting physician: KRUNAL ALMODOVAR - Chief Complaint Chief complaint: "The voices" - History of Present Psychiatric Illness 46 y.o. AA male presenting to [facility] for AH's. This patient is known to me. Today the patient is calm, but vague during the assessment. He is adamant about hearing voices, but could not say what the voices are saying. He stated that he cannot think because of the voices. He did state taking Zyprexa in the past, but have not taken his medication in weeks. He denies SI/HI's and VH's. He would not confirm or deny recreational drug use or alcohol consumption (etoh). He kept his head underneath the bed sheets the entire interview. Medications and Allergies Allergies Allergy/AdvReac Type Severity Reaction Status Date / Time egg Allergy Unknown Verified 06/28/15 10:28 Home Medications Medication Instructions Recorded Confirmed Last Taken Type No Known Home Medications [No 12/14/16 12/14/16 Unknown History Reported Home Medications] Past psychiatric history - Past Medical History Past Medical History: No medical history Past Surgical History: Other (Back Surgery) - past Psychiatric treatment and history psychiatric treatment history: Multiple Inpatient settings. He cannot confirm or deny a fam psy hx. - Social History Social history: other (Homeless) Mental Status Exam - Vital signs Last Vital Signs Temp 98.5 F 07/04/17 03:48 Pulse 80 07/04/17 03:48 Resp 18 07/04/17 06:42 BP 142/89 07/04/17 03:48 Pulse Ox 100 07/04/17 03:48 - Exam Narrative exam: MSE: Appearance: calm Behavior: regular eye contact Speech: regular rate and tone Mood: "I don't know" Affect: normal Thought Process: circumstantial Thought Content: denies SI/HI's and VH's Motor Activity: ambulatory Cognition: A/O x 3 Insight: poor Judgment: poor Results Result Diagrams: 07/04/17 03:59 07/04/17 03:59 Abnormal lab results 07/04/17 07/04/17 07/04/17 Range/Units 03:59 03:59 03:59 BUN 7 L (9-20) mg/dL Glucose 101 H (75-100) mg/dL Salicylates < 0.3 L (2.8-20.0) mg/dL Acetaminophen < 5.0 L (10.0-30.0) ug/mL All other labs normal. Assessment and Plan Assessment and plan: Impression: Unspecified Psychosis. Today the patient is calm, but vague during the assessment. UDS is negative. DDx: R/O Bipolar DO, Schizophrenia Recommendation/Plan: Continue 1013 with placement to inpatient psy services. Start Zyprexa 5 mg PO HS for psychosis. Discussed possible metabolic side effects of Zyprexa with patient.
--- NOTE | 2017-07-06 11:53 | Progress Note ---
Subjective - Reason for Consult Consult date: 07/06/17 Reason for consult: Psychiatry Follow-up - Chief Complaint Chief complaint: "I am okay" 46 y.o. AA male presenting to [facility] for AH's. This patient is known to me. Today the patient is calm and cooperative during the assessment. He stated that the voices has "ceased." Per the staff, no behavioral disturbances since his admission. Also, they stated that the patient is completing his ADL's. He denies SI/HI's and AVH's. He denies any side effects of his medication. He stated being homeless. Mental Status Exam - Vital signs Last Vital Signs Temp 98.4 F 07/05/17 21:00 Pulse 72 07/05/17 21:00 Resp 18 07/05/17 21:00 BP 142/86 07/05/17 21:00 Pulse Ox 97 07/05/17 21:00 - Exam Narrative exam: MSE: Appearance: calm, cooperative Behavior: regular eye contact Speech: regular rate and tone Mood: "a lot better" Affect: normal Thought Process: linear Thought Content: denies SI/HI's and AVH's Motor Activity: ambulatory Cognition: A/O x 3 Insight: fair Judgment: fair Assessment and Plan Impression: Unspecified Psychosis. Today the patient is calm and cooperative during the assessment. UDS is negative. DDx: R/O Bipolar DO, Schizophrenia Recommendation/Plan: Rescind 1013. Continue Zyprexa 5 mg PO HS for psychosis. Discussed possible metabolic side effects of Zyprexa with patient. The patient can follow up with [facility] for outpatient psy services. Veterinary Epidemiologist involvement, the patient is homeless.
[2017-07-07 11:10] VITALS: BP 129/70
== END 2017-07-07 09:30 | disposition home or self-care (01) ==
LOC: ED 02:01
DX: F20.9 Schizophrenia, unspecified (principal); M19.90 Unspecified osteoarthritis, unspecified site; F17.200 Nicotine dependence, unspecified, uncomplicated; Z91.012 Allergy to eggs; Z59.0 Homelessness; Z79.899 Other long term (current) drug therapy
CPT/HCPCS: 36415; 80048; 80307; 81001; 85025; 99284; G0480; 80320

== ENCOUNTER 2017-07-10 00:48 | Emergency (ER) | payer SELFPAY ==
[2017-07-10 03:50] LABS: Basophils % (Auto) 0.6 % (0.0-1.8); Eosinophils # (Auto) 0.3 K/mm3 (0.0-0.4); Eosinophils % (Auto) 4.2 % (0.0-4.3); Hematocrit 38.3 % (35.5-45.6); Hemoglobin 13.2 gm/dl (11.8-15.2); Lymphocytes # (Auto) 2.2 K/mm3 (1.2-5.4); Lymphocytes % (Auto) 32.5 % (13.4-35.0); Mean Corpuscular HGB Conc 34 % (32-34); Mean Corpuscular Hemoglobin 31 pg (28-32); Mean Corpuscular Volume 91 fl (84-94); Monocytes # (Auto) 0.5 K/mm3 (0.0-0.8); Monocytes % (Auto) 7.4 % (0.0-7.3); Platelet Count 268 K/mm3 (140-440); Red Blood Count 4.23 M/mm3 (3.65-5.03); Red Cell Distribution Width 13.9 % (13.2-15.2)
[2017-07-10 03:59] LABS: BUN/Creatinine Ratio 9; Blood Urea Nitrogen 7 mg/dL (9-20); Calcium 8.6 mg/dL (8.4-10.2); Hemolysis Index 2
--- NOTE | 2017-07-10 06:26 | Emergency Department Report ---
HPI - HPI HPI: The patient is a 46-year-old male with a history of schizophrenia, who presents for evaluation of mental health. The patient reports 1 day of constant and severe auditory or visual hallucinations. The patient denies fever, headache, unexplained weight loss or weight gain, heat or cold intolerance, skin, hair, or nail changes, neuro deficits, homicidal ideations, or or suicidal ideations. <JOESPH BOBO P - Last Filed: 07/10/17 06:26> <MAIK DUENAS - Last Filed: 07/10/17 12:20> - General Chief Complaint: Psych Time Seen by Provider: 07/10/17 06:13 ED Past Medical Hx - Past Medical History Previous Medical History?: Yes Hx Arthritis: Yes Hx Psychiatric Treatment: Yes Additional medical history: schizophrenia - Surgical History Past Surgical History?: Yes Additional Surgical History: Back surgery - Social History Smoking Status: Former Smoker Substance Use Type: None <JOESPH BOBO - Last Filed: 07/10/17 06:26> <MAIK DUENAS - Last Filed: 07/10/17 12:20> - Medications Home Medications: Home Medications Medication Instructions Recorded Confirmed Last Taken Type No Known Home Medications [No 12/14/16 07/05/17 Unknown History Reported Home Medications] ED Review of Systems ROS: Stated complaint: MH EVAL Other details as noted in HPI Constitutional: denies: fever ENT: denies: throat or neck pain Respiratory: denies: cough, shortness of breath Cardiovascular: denies: chest pain Endocrine: denies unexplained weight loss or gain Gastrointestinal: denies: abdominal pain, nausea Genitourinary: denies: dysuria Musculoskeletal: denies: leg swelling Skin: denies: rash Neurological: denies: headache Hematological/Lymphatic: denies: easy bleeding or easy bruising Psych: Reports hallucinations denies sadness or hopelessness <JOESPH BOBO - Last Filed: 07/10/17 06:26> ROS: Stated complaint: MH EVAL Other details as noted in HPI <MAIK DUENAS - Last Filed: 07/10/17 12:20> Physical Exam - Physical Exam Vital Signs: Vital Signs 07/10/17 07/10/17 01:38 03:52 Temperature 97.9 F Pulse Rate 77 Respiratory 16 16 Rate Blood Pressure 158/100 O2 Sat by Pulse 98 Oximetry Physical Exam: General: well-nourished, well-developed, no acute distress Head: Normocephalic, atraumatic Eyes: normal sclera ENT: Mucous membranes are pink and moist Neck: trachea midline, neck supple, No neck stiffness, no cervical adenopathy Respiratory: Breath sounds equal bilaterally, no wheezing, rales, or rhonchi Cardio: S1 and S2 present, no murmurs, rubs, gallops, capillary refill is brisk Abdomen: Normoactive bowel sounds, soft abdomen, no rigidity, no guarding or rebound tenderness Chest WALL/Back: No tenderness to palpation of the chest wall, no CVA tenderness with percussion Musc: No pitting edema Skin: No rash Neuro: no facial drooping, normal speech Psych: Flat affect, normal insight, no delusions, no suicidal or homicidal ideations at this time <JOESPH BOBO P - Last Filed: 07/10/17 06:26> - Physical Exam Vital Signs: Vital Signs 07/10/17 07/10/17 07/10/17 01:38 03:52 08:52 Temperature 97.9 F 98.2 F Pulse Rate 77 71 Respiratory 16 16 16 Rate Blood Pressure 158/100 Blood Pressure 127/71 [Right] O2 Sat by Pulse 98 94 Oximetry <MAIK DUENAS C - Last Filed: 07/10/17 12:20> ED Course Vital Signs 07/10/17 07/10/17 01:38 03:52 Temperature 97.9 F Pulse Rate 77 Respiratory 16 16 Rate Blood Pressure 158/100 O2 Sat by Pulse 98 Oximetry <JOESPH BOBO P - Last Filed: 07/10/17 06:26> Vital Signs 07/10/17 07/10/17 07/10/17 01:38 03:52 08:52 Temperature 97.9 F 98.2 F Pulse Rate 77 71 Respiratory 16 16 16 Rate Blood Pressure 158/100 Blood Pressure 127/71 [Right] O2 Sat by Pulse 98 94 Oximetry - Consultations Consultation #1: 07/10/17 11:17 Pt was seen and evaluated by mental health and is 1013 was not deemed necessary by mental health provider. Dr. Bobo initial physician and also did not sign a 1013. Patient will be provided outpatient referral admitted to health services as provided by mental health provider. <MAIK DUENAS - Last Filed: 07/10/17 12:20> ED Medical Decision Making - Lab Data Result diagrams: 07/10/17 03:23 07/10/17 03:23 - Medical Decision Making The patient was seen and examined by myself. The patient is placed on a gambling monitor and continuous pulse ox. On initial evaluation, the patient was found to be in no distress. Labs are obtained. Lab results are grossly unremarkable. The patient is medically clear. Mental health is consulted. Mental health evaluation and urinalysis is pending. If found to be at baseline and not exhibiting signs or symptoms consistent with acute psychosis or risk of harm to himself or others on evaluation by mental health, I would agree that the patient is stable for discharge and outpatient follow-up. Assess, a 1013 will not be completely at this time, unless deemed necessary by mental health. The patient's care is transferred to the [facility] morning shift ED physician. <JOESPH BOBO P - Last Filed: 07/10/17 06:26> - Lab Data Result diagrams: 07/10/17 03:23 07/10/17 03:23 <MAIK DUENAS - Last Filed: 07/10/17 12:20> Critical care attestation.: If time is entered above; I have spent that time in minutes in the direct care of this critically ill patient, excluding procedure time. <JOESPH BOBO P - Last Filed: 07/10/17 06:26> Critical care attestation.: If time is entered above; I have spent that time in minutes in the direct care of this critically ill patient, excluding procedure time. <MAIK DUENAS - Last Filed: 07/10/17 12:20> ED Disposition Is pt being admited?: No Does the pt Need Aspirin: No <JOESPH BOBO P - Last Filed: 07/10/17 06:26> Is pt being admited?: No Does the pt Need Aspirin: No Time of Disposition: 12:19 <MAIK DUENAS - Last Filed: 07/10/17 12:20> Clinical Impression: Schizophrenia Disposition: DC-01 TO HOME OR SELFCARE Condition: Undetermined Instructions: Schizophrenia (ED) Additional Instructions: Follow-up with any of the mental health clinics provided. [facility] - [facility]-5 Days
[2017-07-10 09:13] LABS: Bilirubin,Urine NEG (Negative); Blood,Urine SM (Negative); Color,Urine Yellow (Yellow); Mucus,Urine FEW /HPF; Protein,Urine <15 mg/dL mg/dL (Negative); Urobilinogen,Urine < 2.0 mg/dL (<2.0)
[2017-07-10 09:32] LABS: Amphetamine Screen,Urine PRESUMPTIVE NEGATIVE; Benzodiazepines Screen,Urine PRESUMPTIVE NEGATIVE; Cannabinoid Screen,Urine PRESUMPTIVE NEGATIVE; Cocaine Screen,Urine PRESUMPTIVE NEGATIVE; Methadone Screen,Urine PRESUMPTIVE NEGATIVE; Opiate Screen,Urine PRESUMPTIVE NEGATIVE
--- NOTE | 2017-07-10 12:05 | Emergency Department Report ---
Blank Doc - Documentation Documentation: Patient is a 46-year-old man was evaluated by mental health and deemed to be a nonsuicidal risk non-homicidal risk no need for a 1013 and stable for discharge for outpatient psychiatric care. Patient denies suicidal or homicidal ideation patient denies audio and visual hallucinations. Patient appears to be psychiatrically stable. Patient is ready for discharge. 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 He is once again being provided OP resources for continuous psych care. It is incumbent upon this pt to exhibit self care. SDM Following is a list of referral facilities for your convenience, please contact the facility of your choice for your continued psychological and psychosocial concerns.
[2017-07-10 15:11] VITALS: BP 122/82
== END 2017-07-10 11:00 | disposition home or self-care (01) ==
LOC: ED 00:48 → EEVIPCON 00:48 → ED 11:00
DX: F20.9 Schizophrenia, unspecified (principal); M19.90 Unspecified osteoarthritis, unspecified site; Z87.891 Personal history of nicotine dependence
CPT/HCPCS: 36415; 80048; 80307; 81001; 85025; 99284; G0480; 80320

== ENCOUNTER → 2017-07-28 22:52 | Emergency (ER) | payer SELFPAY | END | disposition left against medical advice (07) | LOC: ED 22:52 | DX: Z00.8 Encounter for other general examination (principal); Z53.21 Procedure and treatment not carried out due to patient leaving prior to being seen by health care provider ==

== ENCOUNTER 2017-08-04 22:14 | Emergency (ER) | payer OTHER ==
[2017-08-05 01:48] LABS: Basophils # (Auto) 0.1 K/mm3 (0.0-0.1); Basophils % (Auto) 0.9 % (0.0-1.8); Eosinophils # (Auto) 0.4 K/mm3 (0.0-0.4); Eosinophils % (Auto) 4.7 % (0.0-4.3); Hematocrit 34.4 % (35.5-45.6); Lymphocytes # (Auto) 2.2 K/mm3 (1.2-5.4); Lymphocytes % (Auto) 28.2 % (13.4-35.0); Mean Corpuscular HGB Conc 35 % (32-34); Mean Corpuscular Hemoglobin 32 pg (28-32); Mean Corpuscular Volume 90 fl (84-94); Monocytes # (Auto) 0.5 K/mm3 (0.0-0.8); Monocytes % (Auto) 6.9 % (0.0-7.3); Platelet Count 234 K/mm3 (140-440); Red Blood Count 3.82 M/mm3 (3.65-5.03); Red Cell Distribution Width 14.2 % (13.2-15.2)
[2017-08-05 01:56] LABS: BUN/Creatinine Ratio 7; Blood Urea Nitrogen 6 mg/dL (9-20); Calcium 8.6 mg/dL (8.4-10.2); Hemolysis Index 7
[2017-08-05 02:32] LABS: Bilirubin,Urine NEG (Negative); Blood,Urine NEG (Negative); Color,Urine Yellow (Yellow); Mucus,Urine FEW /HPF; Protein,Urine <15 mg/dL mg/dL (Negative)
[2017-08-05 02:34] LABS: Amphetamine Screen,Urine PRESUMPTIVE NEGATIVE; Benzodiazepines Screen,Urine PRESUMPTIVE NEGATIVE; Cannabinoid Screen,Urine PRESUMPTIVE NEGATIVE; Cocaine Screen,Urine PRESUMPTIVE NEGATIVE; Methadone Screen,Urine PRESUMPTIVE NEGATIVE; Opiate Screen,Urine PRESUMPTIVE NEGATIVE
--- NOTE | 2017-08-05 05:15 | Emergency Department Report ---
ED Psych HPI - General Chief Complaint: Psych Stated Complaint: MH Time Seen by Provider: 08/05/17 01:57 Source: patient Mode of arrival: Ambulatory - History of Present Illness Initial Comments: We'll speak admitted for worsening auditory hallucinations with suicidal ideation was recently discharged and had his neuroleptic but says he is getting worse it's not having any medical complaints of chest pain no abdominal pain no headache no focal neural complaints MD Complaint: suicidal ideation, feels depressed -: Gradual, days(s) Associated Psychiatric Symptoms: depression, racing thoughts, auditory hallucinations Quality: intermittent Improves With: none Worsens With: none If Self Harm: admits thoughts of - Related Data Home Medications Medication Instructions Recorded Confirmed Last Taken No Known Home Medications [No 12/14/16 07/05/17 Unknown Reported Home Medications] Allergies Allergy/AdvReac Type Severity Reaction Status Date / Time egg Allergy Unknown Verified 06/28/15 10:28 ED Review of Systems ROS: Stated complaint: MH Other details as noted in HPI Comment: All other systems reviewed and negative Constitutional: denies: diaphoresis, fever, malaise Eyes: denies: eye discharge, vision change ENT: denies: dental pain, hearing loss, epistaxis Respiratory: denies: shortness of breath, SOB with exertion, SOB at rest, stridor Cardiovascular: denies: chest pain, palpitations, dyspnea on exertion, orthopnea , edema, syncope Gastrointestinal: denies: abdominal pain, nausea, vomiting, diarrhea, constipation, hematemesis, melena, hematochezia Genitourinary: denies: testicular pain Musculoskeletal: denies: joint swelling, arthralgia Neurological: denies: headache, weakness, numbness, paresthesias, confusion, abnormal gait Psychiatric: anxiety, depression, auditory hallucinations, suicidal thoughts ED Past Medical Hx - Past Medical History Previous Medical History?: Yes Hx Arthritis: Yes Hx Psychiatric Treatment: Yes (schizophrenic) Additional medical history: schizophrenia - Surgical History Past Surgical History?: Yes Additional Surgical History: Back surgery - Social History Smoking Status: Current Every Day Smoker - Medications Home Medications: Home Medications Medication Instructions Recorded Confirmed Last Taken Type No Known Home Medications [No 12/14/16 07/05/17 Unknown History Reported Home Medications] ED Physical Exam - General Limitations: No Limitations General appearance: alert, in no apparent distress, anxious - Head Head exam: Present: atraumatic, normocephalic - Eye Eye exam: Present: PERRL, EOMI - ENT ENT exam: Present: normal exam, normal orophraynx - Neck Neck exam: Present: normal inspection. Absent: tenderness, meningismus - Respiratory Respiratory exam: Present: normal lung sounds bilaterally. Absent: respiratory distress, wheezes, rales, rhonchi, stridor, chest wall tenderness, accessory muscle use, decreased breath sounds, prolonged expiratory - Cardiovascular Cardiovascular Exam: Present: regular rate, normal rhythm - GI/Abdominal GI/Abdominal exam: Present: soft. Absent: distended, tenderness, guarding, rebound, rigid, mass, pulsatile mass - Extremities Exam Extremities exam: Present: normal inspection, full ROM, normal capillary refill. Absent: tenderness, pedal edema, joint swelling, calf tenderness - Back Exam Back exam: Present: normal inspection - Neurological Exam Neurological exam: Present: alert, oriented X3, CN II-XII intact. Absent: motor sensory deficit - Psychiatric Psychiatric exam: Present: depressed, agitated, anxious, manic, suicidal ideation - Skin Skin exam: Absent: cyanosis, diaphoretic, erythema, urticaria, vesicles, petechiae ED Course Vital Signs 08/04/17 08/05/17 23:50 00:09 Temperature 98.9 F 98.9 F Pulse Rate 94 H 94 H Respiratory 18 18 Rate Blood Pressure 165/99 165/99 O2 Sat by Pulse 98 96 Oximetry ED Medical Decision Making - Lab Data Result diagrams: 08/05/17 01:23 08/05/17 01:23 - Medical Decision Making Left wrist studies are unremarkable patient is medically cleared for psychiatric evaluation for worsening and progression of his psychosis with his suicidal ideation Critical care attestation.: If time is entered above; I have spent that time in minutes in the direct care of this critically ill patient, excluding procedure time. ED Disposition Clinical Impression: Suicidal ideation, Psychosis Disposition: DC/TX-65 PSY HOSP/PSY UNIT Is pt being admited?: No Condition: Stable Referrals: PRIMARY CARE, [Primary Care Provider] - 3-5 Days Time of Disposition: 05:15
--- NOTE | 2017-08-06 13:13 | Progress Note ---
Subjective - Reason for Consult Consult date: 08/06/17 Reason for consult: Initial Psychiatric Evaluation Mental Status Exam - Vital signs Last Vital Signs Temp 98 F 08/06/17 07:30 Pulse 80 08/06/17 07:30 Resp 16 08/06/17 07:30 BP 129/69 08/06/17 07:30 Pulse Ox 100 08/06/17 07:30
--- NOTE | 2017-08-07 06:44 | Consultation ---
History of Present Illness - Reason for Consult Consult date: 08/06/17 Reason for consult: Initial Psychiatric Evaluation - Chief Complaint Chief complaint: " Hearing voices and seeing things real bad" - History of Present Psychiatric Illness Patient is a 46 year old AAM who presents to the emergency room with psychosis. PPHx of Schizophrenia. Patient is known to provider. Patient has multiple inpatient psychiatric hospitalizations. Patient is anxious to discharge. During the assessment patient is responding to internal stimuli. Today patient endorses visual hallucinations of images of people on the wall. He reports medication compliance with Invega Sustenna Qmonthly injections. Per patient he received last dose 2 weeks ago. Thought content impoverished. He reports good energy, good appetite, and good sleep. He denies SI/HI. Current Psychiatric Medication: Invega Sustenna- dose unknown Past Psychiatric History: Schizophrenia ( Age 23); More than 20 inpatient psychiatric hospitalizations; No outpatient psychiatrist per patient; 1-2 suicide attempts (jump over bridge and attempted to shoot self). History of Trauma/Abuse: Patient denies sexual, physical, and mental abuse. Drug/Alcohol Abuse: Patient denies sexual, physical, and mental abuse. Social History: Some college; social Security- $600; lives in hotel at extended stay on [facility]; no children; single. Family History: Patient denies. Medications and Allergies Allergies Allergy/AdvReac Type Severity Reaction Status Date / Time egg Allergy Unknown Verified 06/28/15 10:28 Home Medications Medication Instructions Recorded Confirmed Last Taken Type No Known Home Medications [No 12/14/16 08/06/17 Unknown History Reported Home Medications] Mental Status Exam - Vital signs Last Vital Signs Temp 99.0 F 08/07/17 03:09 Pulse 78 08/07/17 03:09 Resp 18 08/07/17 03:09 BP 136/84 08/07/17 03:09 Pulse Ox 98 08/07/17 03:09 - Exam Narrative exam: Mental Status Exam General Appearance: Causally Dressed-hospital gown, poorly groomed Eye Contact: Intermittent Orientation: Alert and oriented x 3 ( person, place, time) Attitude/Behavior: Cooperative Sensorium: Distracted Psychomotor & Musculoskeletal Activity: WNL Mood: "Ready to go." Anxious. Affect: Constricted Speech/Language: Mumbling, evasive/guarded Thought Processes: Circumstantial, tangential Thought Content: Impoverished Perception: + AH ( responding to internal stimuli/internally preoccupied) + VH ( images of people on the wall) Concentration/Attention: Impaired Suicidal Ideations/Plan: Patient denies Homicidal Ideations/Plan: Patient denies Results Result Diagrams: 08/05/17 01:23 08/05/17 01:23 All other labs normal. Assessment and Plan Assessment and plan: Impression: Patient is a 46 year old AAM who presents to the emergency room with psychosis. PPHx of Schizophrenia. Today patient presents anxious and psychotic. During the assessment patient is responding to internal stimuli. He denies SI/HI. DDx: Schizophrenia Recommendations/Plan: 1. Continue 1013 and reassess in 24 hours. 2. Assist with placement to inpatient psychiatric services. 3. Continue with his Invega Sustenna monthly injections. 4. Add Zyprexa 5mg po QHS for mood/psychosis. 5. Patient educated on metabolic side effects to medication. Patient verbalizes full understanding. 6. Will monitor mood, psychosis, sleep, appetite, compliance, and side effects.
--- NOTE | 2017-08-07 13:15 | Progress Note ---
Subjective - Reason for Consult Consult date: 08/07/17 Reason for consult: Psychiatry Follow-up - Chief Complaint Chief complaint: "I am ready to go" 46 y.o. AA male presenting to the ER for hearing voices and SI's. This patient is known to me. Today the patient is calm and cooperative during the assessment. He stated that he came to he ER to get his Invega injection. He stated once he arrived to the ER he felt suicidal. He stated that the voices was loud in his ear. The patient stated that the voices have "ceased" and he is no longer suicidal. He denies SI/HI's and AVH's. Mental Status Exam - Vital signs Last Vital Signs Temp 97.5 F L 08/07/17 10:00 Pulse 75 08/07/17 10:00 Resp 18 08/07/17 12:54 BP 156/99 08/07/17 10:00 Pulse Ox 98 08/07/17 10:00 - Exam Narrative exam: MSE: Appearance: calm, cooperative, disheveled Behavior: regular eye contact Speech: regular rate and tone Mood: "okay" Affect: normal Thought Process: circumstantial Thought Content: denies SI/HI's and AVH's Motor Activity: lying in bed Cognition: A/O x 3 Insight: variable Judgment: variable Assessment and Plan Impression: Unspecified Psychosis. Today the patient is calm and cooperative during the assessment. UDS is negative. DDx: R/O Bipolar DO, Schizophrenia, Schizoaffective DO, R/O MDD with psychosis Recommendation/Plan: Evaluate 1013 in 24 hours to determine proper dispo. Continue Zyprexa 5 mg PO HS for mood/psychosis. Discussed possible metabolic side effects of Zyprexa with patient.
--- NOTE | 2017-08-08 10:38 | Progress Note ---
Subjective - Reason for Consult Consult date: 08/08/17 Reason for consult: Psychiatry Follow-up - Chief Complaint Chief complaint: "Can I leave today" 46 y.o. AA male presenting to the ER for hearing voices and SI's. This patient is known to me. Today the patient is calm and cooperative during the assessment. He stated that he refused the Zyprexa last night because he thought he would be discharged. He stated that he will follow up with [facility] for his monthly Invega injection. He denies SI/HI's and AVH's. Mental Status Exam - Vital signs Last Vital Signs Temp 98.5 F 08/07/17 21:42 Pulse 75 08/07/17 21:42 Resp 14 08/07/17 21:42 BP 157/99 08/07/17 21:42 Pulse Ox 95 08/07/17 21:42 - Exam Narrative exam: MSE: Appearance: calm, cooperative Behavior: regular eye contact Speech: regular rate and tone Mood: "okay" Affect: normal Thought Process: circumstantial Thought Content: denies SI/HI's and AVH's Motor Activity: lying in bed Cognition: A/O x 3 Insight: fair Judgment: fair Assessment and Plan Impression: Unspecified Psychosis. Today the patient is calm and cooperative during the assessment. UDS is negative. The patient is no threat to self. DDx: R/O Bipolar DO, Schizophrenia, Schizoaffective DO, R/O MDD with psychosis Recommendation/Plan: Rescind 1013. The patient receives the monthly Invega injection. Per the patient, his last injection was 2 weeks ago ([facility]). He stated that he will return to the [facility] for his monthly Invega Injection. Also, he can follow up with [facility] for outpatient psy services.
[2017-08-08 12:10] VITALS: BP 151/98
== END 2017-08-08 12:41 ==
LOC: ED 22:14 → EEVIPCON 22:14 → ED 08-08 12:41
DX: F29 Unspecified psychosis not due to a substance or known physiological condition (principal); F32.9 Major depressive disorder, single episode, unspecified; M19.90 Unspecified osteoarthritis, unspecified site; F20.9 Schizophrenia, unspecified; F17.200 Nicotine dependence, unspecified, uncomplicated; Z91.012 Allergy to eggs
CPT/HCPCS: 36415; 80048; 80307; 81001; 85025; 99284; G0480; 80320

== ENCOUNTER 2017-08-27 19:25 | Emergency (ER) | payer SELFPAY | END 2017-08-27 19:27 | disposition left against medical advice (07) | LOC: ED 19:25 | DX: Z00.8 Encounter for other general examination (principal); Z53.21 Procedure and treatment not carried out due to patient leaving prior to being seen by health care provider ==

== ENCOUNTER 2017-09-01 23:36 | Emergency (ER) | payer SELFPAY ==
[2017-09-02 04:46] VITALS: BP 130/83
== END 2017-09-01 23:40 | disposition left against medical advice (07) ==
LOC: ED 23:36
DX: Z00.8 Encounter for other general examination (principal); Z53.21 Procedure and treatment not carried out due to patient leaving prior to being seen by health care provider

== ENCOUNTER → 2017-09-10 21:35 | Emergency (ER) | payer SELFPAY | END | disposition left against medical advice (07) | LOC: ED 21:35 | DX: Z00.8 Encounter for other general examination (principal); Z53.21 Procedure and treatment not carried out due to patient leaving prior to being seen by health care provider ==

== ENCOUNTER 2017-09-13 00:01 | Emergency (ER) | payer SELFPAY | END 2017-09-13 00:30 | disposition left against medical advice (07) | LOC: ED 00:01 | DX: Z00.8 Encounter for other general examination (principal); Z53.21 Procedure and treatment not carried out due to patient leaving prior to being seen by health care provider ==

== ENCOUNTER → 2017-09-15 03:35 | Emergency (ER) | payer SELFPAY | END | disposition left against medical advice (07) | LOC: ED 03:35 | DX: Z00.8 Encounter for other general examination (principal); Z91.012 Allergy to eggs; Z53.21 Procedure and treatment not carried out due to patient leaving prior to being seen by health care provider ==

== ENCOUNTER 2017-09-21 20:50 | Emergency (ER) | payer SELFPAY ==
[2017-09-22 02:41] VITALS: BP 160/89
== END 2017-09-22 02:54 | disposition left against medical advice (07) ==
LOC: ED 20:50
DX: Z00.8 Encounter for other general examination (principal); Z53.21 Procedure and treatment not carried out due to patient leaving prior to being seen by health care provider

== ENCOUNTER 2017-09-25 21:35 | Emergency (ER) | payer SELFPAY | END 2017-09-25 22:00 | disposition left against medical advice (07) | LOC: ED 21:35 | DX: J00 Acute nasopharyngitis [common cold] (principal); Z53.21 Procedure and treatment not carried out due to patient leaving prior to being seen by health care provider ==

== ENCOUNTER 2017-09-28 22:30 | Emergency (ER) | payer SELFPAY | END 2017-09-29 00:19 | disposition left against medical advice (07) | LOC: ED 22:30 | DX: J00 Acute nasopharyngitis [common cold] (principal); Z53.21 Procedure and treatment not carried out due to patient leaving prior to being seen by health care provider ==

== ENCOUNTER 2017-10-22 21:11 | Emergency (ER) | payer SELFPAY ==
[2017-10-22 22:24] VITALS: BP 148/88
== END 2017-10-23 | disposition left against medical advice (07) ==
LOC: ED 21:11
DX: J00 Acute nasopharyngitis [common cold] (principal); Z53.21 Procedure and treatment not carried out due to patient leaving prior to being seen by health care provider

== ENCOUNTER 2018-01-01 20:05 | Emergency (ER) | payer OTHER ==
[2018-01-01 23:34] LABS: Basophils % (Auto) 0.5 % (0.0-1.8); Eosinophils # (Auto) 0.4 K/mm3 (0.0-0.4); Eosinophils % (Auto) 5.3 % (0.0-4.3); Hematocrit 35.4 % (35.5-45.6); Hemoglobin 12.1 gm/dl (11.8-15.2); Lymphocytes % (Auto) 26.6 % (13.4-35.0); Mean Corpuscular HGB Conc 34 % (32-34); Mean Corpuscular Hemoglobin 31 pg (28-32); Mean Corpuscular Volume 91 fl (84-94); Monocytes # (Auto) 0.7 K/mm3 (0.0-0.8); Monocytes % (Auto) 9.5 % (0.0-7.3); Platelet Count 279 K/mm3 (140-440); Red Blood Count 3.91 M/mm3 (3.65-5.03); Red Cell Distribution Width 14.7 % (13.2-15.2)
--- NOTE | 2018-01-01 23:43 | Emergency Department Report ---
HPI - General Chief Complaint: Psych Time Seen by Provider: 01/01/18 23:34 - HPI HPI: Room 14 The patient is a 47-year-old male presenting with chief complaint auditory and visual hallucinations. The patient states she has a history of schizophrenia but has been off Zyprexa for 2 years. The patient states he comes in today because he's had auditory hallucinations where he hears people or whether or not he should live or . The patient states he wonders if he should go on living. Patient also states he's has visual hallucinations which is people in the [place]. Patient denies any attempts at harming himself Location: Mental state Duration: 2 years Quality: Auditory and visual hallucinations, suicidal ideation Severity:. Severe Modifying factors: [see above] Context: [see above] Mode of transportation: [not driving] ED Past Medical Hx - Past Medical History Previous Medical History?: Yes Hx Arthritis: Yes Hx Psychiatric Treatment: Yes (schizophrenic) Additional medical history: schizophrenia - Surgical History Past Surgical History?: No Additional Surgical History: Back surgery - Family History Family history: no significant - Social History Smoking Status: Heavy Tobacco Smoker (3 packs daily) Substance Use Type: None (denies illicit drug use), Alcohol (occasional) - Medications Home Medications: Home Medications Medication Instructions Recorded Confirmed Last Taken Type No Known Home Medications [No 12/14/16 08/06/17 Unknown History Reported Home Medications] ED Review of Systems ROS: Stated complaint: COLD SX Other details as noted in HPI Constitutional: no symptoms reported Eyes: denies: eye pain ENT: denies: throat pain Respiratory: no symptoms reported Cardiovascular: denies: chest pain Endocrine: no symptoms reported Gastrointestinal: denies: abdominal pain Genitourinary: denies: dysuria Musculoskeletal: denies: back pain Neurological: denies: headache Psychiatric: auditory hallucinations, visual hallucinations Physical Exam - Physical Exam Vital Signs: Vital Signs 01/01/18 01/01/18 21:28 23:06 Temperature 98.5 F 98.5 F Pulse Rate 82 82 Respiratory 16 18 Rate Blood Pressure 143/84 Blood Pressure 143/84 [Right] O2 Sat by Pulse 99 99 Oximetry Physical Exam: GENERAL: The patient is well-developed male sitting on stretcher not appearing to be in acute distress. Poor hygiene HEENT: Normocephalic. Atraumatic. Extraocular motions are intact. Patient has moist mucous membranes. NECK: Supple. Trachea midline CHEST/LUNGS: Clear to auscultation. There is no respiratory distress noted. HEART/CARDIOVASCULAR: Regular. There is no tachycardia. There is no gallop rub or murmur. ABDOMEN: Abdomen is soft, nontender. Patient has normal bowel sounds. There is no abdominal distention. SKIN: There is no rash. There is no edema. There is no diaphoresis. NEURO: The patient is awake, alert, and oriented. The patient is cooperative. The patient has normal speech MUSCULOSKELETAL: There is no evidence of acute injury. ED Course Vital Signs 01/01/18 01/01/18 21:28 23:06 Temperature 98.5 F 98.5 F Pulse Rate 82 82 Respiratory 16 18 Rate Blood Pressure 143/84 Blood Pressure 143/84 [Right] O2 Sat by Pulse 99 99 Oximetry ED Medical Decision Making - Lab Data Result diagrams: 01/01/18 23:12 01/01/18 23:12 Laboratory Tests 01/01/18 01/01/18 01/01/18 23:12 23:12 23:12 WBC RBC Hgb Hct MCV MCH MCHC RDW Plt Count Lymph % (Auto) [place] % (Auto) Eos % (Auto) Baso % (Auto) Lymph # [place] # Eos # Baso # Seg Neutrophils % Seg Neutrophils # Sodium 138 Potassium 3.3 L Chloride 102.0 Carbon Dioxide 28 Anion Gap 11 BUN 7 L Creatinine 1.1 Estimated GFR > 60 BUN/Creatinine Ratio 6 Glucose 113 H Calcium 8.8 Urine Color Urine Turbidity Urine pH Ur Specific [place] Urine Protein Urine Glucose (UA) Urine Ketones Urine Blood Urine Nitrite Urine Bilirubin Urine Urobilinogen Ur Leukocyte Esterase Urine WBC (Auto) Urine RBC (Auto) U Epithel Cells (Auto) Urine Mucus Salicylates < 0.3 L Urine Opiates Screen Urine Methadone Screen Acetaminophen < 5.0 L Ur Barbiturates Screen Ur Phencyclidine Scrn Ur Amphetamines Screen U Benzodiazepines Scrn Urine Cocaine Screen U Marijuana (THC) Screen Drugs of Abuse Note Plasma/Serum Alcohol 01/01/18 01/01/18 01/01/18 23:12 23:12 Unknown WBC 7.3 RBC 3.91 Hgb 12.1 Hct 35.4 L MCV 91 MCH 31 MCHC 34 RDW 14.7 Plt Count 279 Lymph % (Auto) 26.6 [place] % (Auto) 9.5 H Eos % (Auto) 5.3 H Baso % (Auto) 0.5 Lymph # 2.0 [place] # 0.7 Eos # 0.4 Baso # 0.0 Seg Neutrophils % 58.1 Seg Neutrophils # 4.3 Sodium Potassium Chloride Carbon Dioxide Anion Gap BUN Creatinine Estimated GFR BUN/Creatinine Ratio Glucose Calcium Urine Color Yellow Urine Turbidity Clear Urine pH 6.0 Ur Specific [place] 1.017 Urine Protein <15 mg/dl Urine Glucose (UA) Neg Urine Ketones Neg Urine Blood Neg Urine Nitrite Neg Urine Bilirubin Neg Urine Urobilinogen 4.0 Ur Leukocyte Esterase Neg Urine WBC (Auto) < 1.0 Urine RBC (Auto) 2.0 U Epithel Cells (Auto) 1.0 Urine Mucus Few Salicylates Urine Opiates Screen Urine Methadone Screen Acetaminophen Ur Barbiturates Screen Ur Phencyclidine Scrn Ur Amphetamines Screen U Benzodiazepines Scrn Urine Cocaine Screen U Marijuana (THC) Screen Drugs of Abuse Note Plasma/Serum Alcohol < 0.01 01/01/18 Unknown WBC RBC Hgb Hct MCV MCH MCHC RDW Plt Count Lymph % (Auto) [place] % (Auto) Eos % (Auto) Baso % (Auto) Lymph # [place] # Eos # Baso # Seg Neutrophils % Seg Neutrophils # Sodium Potassium Chloride Carbon Dioxide Anion Gap BUN Creatinine Estimated GFR BUN/Creatinine Ratio Glucose Calcium Urine Color Urine Turbidity Urine pH Ur Specific [place] Urine Protein Urine Glucose (UA) Urine Ketones Urine Blood Urine Nitrite Urine Bilirubin Urine Urobilinogen Ur Leukocyte Esterase Urine WBC (Auto) Urine RBC (Auto) U Epithel Cells (Auto) Urine Mucus Salicylates Urine Opiates Screen Presumptive negative Urine Methadone Screen Presumptive negative Acetaminophen Ur Barbiturates Screen Presumptive negative Ur Phencyclidine Scrn Presumptive negative Ur Amphetamines Screen Presumptive negative U Benzodiazepines Scrn Presumptive negative Urine Cocaine Screen Presumptive negative U Marijuana (THC) Screen Presumptive negative Drugs of Abuse Note Disclamer Plasma/Serum Alcohol - Differential Diagnosis schizophrenia, Critical care attestation.: If time is entered above; I have spent that time in minutes in the direct care of this critically ill patient, excluding procedure time. ED Disposition Clinical Impression: Hallucination, visual, Schizophrenia, Medical clearance for psychiatric admission, Passive suicidal ideations, Hypokalemia Disposition: DC/TX-65 PSY HOSP/PSY UNIT Is pt being admited?: No Does the pt Need Aspirin: No Condition: Serious Referrals: PRIMARY CARE, [Primary Care Provider] - 3-5 Days Time of Disposition: 01:46 (awaiting acceptance)
[2018-01-02 00:02] LABS: BUN/Creatinine Ratio 6; Blood Urea Nitrogen 7 mg/dL (9-20); Calcium 8.8 mg/dL (8.4-10.2); Hemolysis Index 0
[2018-01-02 00:41] LABS: Bilirubin,Urine NEG (Negative); Blood,Urine NEG (Negative); Color,Urine Yellow (Yellow); Mucus,Urine FEW /HPF; Protein,Urine <15 mg/dL mg/dL (Negative); WBC,Urine < 1.0 /HPF (0.0-6.0)
[2018-01-02 00:49] LABS: Amphetamine Screen,Urine PRESUMPTIVE NEGATIVE; Benzodiazepines Screen,Urine PRESUMPTIVE NEGATIVE; Cannabinoid Screen,Urine PRESUMPTIVE NEGATIVE; Cocaine Screen,Urine PRESUMPTIVE NEGATIVE; Methadone Screen,Urine PRESUMPTIVE NEGATIVE; Opiate Screen,Urine PRESUMPTIVE NEGATIVE
[2018-01-02] MEDS ORDERED: K-DUR PO ONE (01:45)
[2018-01-02 14:15] VITALS: BP 131/77
--- NOTE | 2018-01-02 14:15 | Consultation ---
History of Present Illness - Reason for Consult Consult date: 01/02/18 Reason for consult: Mental Health Evaluation Requesting physician: RONY GALVIN - Chief Complaint Chief complaint: 'I'm hearing voices" - History of Present Psychiatric Illness 47-year-old AA male presenting to the ER for psychosis. Today the patient is calm, but disorganized during the assessment. He looked away the entire time during the interview. His answers to questions were not logical. He stated that the voices are driving him "crazy." The patient had to be redirected several times to keep him on topic. He would not confirm or deny SI's. He denies HI's and VH's. He stated that his sleep have been altered the past couple days. He denies a poor appetite. He denies recreational drug use and alcohol consumption (etoh). He stated that he have not taken his medications (Zyprexa) in weeks. Medications and Allergies Allergies Allergy/AdvReac Type Severity Reaction Status Date / Time egg Allergy Unknown Verified 09/22/17 02:22 Home Medications Medication Instructions Recorded Confirmed Last Taken Type No Known Home Medications [No 12/14/16 01/02/18 Unknown History Reported Home Medications] Active Meds: Active Medications Olanzapine (Zyprexa) 20 mg PO QHS ALFA Last Admin: 01/02/18 01:17 Dose: 20 mg Past psychiatric history - Past Medical History Past Medical History: arthritis Past Surgical History: No surgical history - past Psychiatric treatment and history psychiatric treatment history: Several inpatient psy services. Denies a fam psy hx. - Social History Social history: other (Homeless) Mental Status Exam - Vital signs Last Vital Signs Temp 97.7 F 01/02/18 08:00 Pulse 63 01/02/18 08:00 Resp 20 01/02/18 08:00 BP 120/76 01/02/18 08:00 Pulse Ox 96 01/02/18 08:00 - Exam Narrative exam: MSE: Appearance: calm, disheveled Behavior: poor eye contact Speech: regular rate and low tone Mood: "alright" Affect: flat Thought Process: disorganized Thought Content: denies HI's and VH's, delusional Motor Activity: sitting up in the bed Cognition: A/O x3 Insight: poor Judgment: poor Results Result Diagrams: 01/01/18 23:12 01/01/18 23:12 Abnormal lab results 01/01/18 01/01/18 01/01/18 Range/Units 23:12 23:12 23:12 Hct (35.5-45.6) % [place] % (Auto) (0.0-7.3) % Eos % (Auto) (0.0-4.3) % Potassium 3.3 L (3.6-5.0) mmol/L BUN 7 L (9-20) mg/dL Glucose 113 H (75-100) mg/dL Salicylates < 0.3 L (2.8-20.0) mg/dL Acetaminophen < 5.0 L (10.0-30.0) ug/mL 01/01/18 Range/Units 23:12 Hct 35.4 L (35.5-45.6) % [place] % (Auto) 9.5 H (0.0-7.3) % Eos % (Auto) 5.3 H (0.0-4.3) % Potassium (3.6-5.0) mmol/L BUN (9-20) mg/dL Glucose (75-100) mg/dL Salicylates (2.8-20.0) mg/dL Acetaminophen (10.0-30.0) ug/mL All other labs normal. Assessment and Plan Assessment and plan: Impression: Unspecified Psychosis. Today the patient is calm, but disorganized during the assessment. UDS is negative. DDx: Schizophrenia, R/O Bipolar DO with psychosis Recommendation/Plan: Continue 1013. Dispo: The patient will be transferred to [facility] today for outpatient psy services. Will staff with Dr Kemp.
== END 2018-01-02 15:15 ==
LOC: EEVIPCON 20:05 → ED 20:05
DX: F20.9 Schizophrenia, unspecified (principal); E87.6 Hypokalemia; M19.90 Unspecified osteoarthritis, unspecified site; F17.200 Nicotine dependence, unspecified, uncomplicated; F10.10 Alcohol abuse, uncomplicated; Z91.012 Allergy to eggs
CPT/HCPCS: 36415; 80048; 80307; 81001; 85025; 99285; G0480; 80320

== ENCOUNTER 2018-05-10 01:43 | Emergency (ER) | payer OTHER ==
[2018-05-10 03:21] LABS: Basophils # (Auto) 0.1 K/mm3 (0.0-0.1); Basophils % (Auto) 0.9 % (0.0-1.8); Eosinophils # (Auto) 0.4 K/mm3 (0.0-0.4); Eosinophils % (Auto) 6.5 % (0.0-4.3); Hematocrit 40.3 % (35.5-45.6); Hemoglobin 13.4 gm/dl (11.8-15.2); Lymphocytes # (Auto) 2.3 K/mm3 (1.2-5.4); Lymphocytes % (Auto) 39.9 % (13.4-35.0); Mean Corpuscular HGB Conc 33 % (32-34); Mean Corpuscular Volume 92 fl (84-94); Monocytes # (Auto) 0.5 K/mm3 (0.0-0.8); Monocytes % (Auto) 9.3 % (0.0-7.3); Platelet Count 293 K/mm3 (140-440); Red Blood Count 4.36 M/mm3 (3.65-5.03); Red Cell Distribution Width 14.4 % (13.2-15.2)
[2018-05-10 03:55] LABS: BUN/Creatinine Ratio 8; Blood Urea Nitrogen 8 mg/dL (9-20); Calcium 9.3 mg/dL (8.4-10.2); Hemolysis Index 5
--- NOTE | 2018-05-10 04:08 | Emergency Department Report ---
HPI - General Chief Complaint: Psych Time Seen by Provider: 05/10/18 03:55 - HPI HPI: Room 11 The patient is a 47-year-old male presenting with a chief complaint of auditory and visual hallucinations. The patient states she has a history of paranoid josiah izophrenia but has been out of Zyprexa for approximately 3 months. The patient states for the past 3 months he's had auditory and visual hallucinations. The patient states his auditory hallucinations including voices telling him about how to live his life and about his quality of life. The patient states his visual hallucinations including seeing images people and sometimes a [place]. Patient denies suicidal or homicidal ideation Location: Mental state Duration: [See above] Quality: Hallucinations Severity:. Moderate Modifying factors: [see above] Context: [see above] Mode of transportation: [not driving] ED Past Medical Hx - Past Medical History Hx Psychiatric Treatment: Yes (schizophrenia) Additional medical history: schizophrenia - Family History Family history: no significant - Social History Smoking Status: Current Every Day Smoker (2 packs per day) Substance Use Type: None (denies illicit drug use) - Medications Home Medications: Home Medications Medication Instructions Recorded Confirmed Last Taken Type RX: No Known Home Medications [No 12/14/16 01/02/18 Unknown History Reported Home Medications] ED Review of Systems ROS: Stated complaint: SCHIZOPHRENIA Other details as noted in HPI Constitutional: no symptoms reported Eyes: denies: eye pain ENT: denies: throat pain Respiratory: no symptoms reported Cardiovascular: denies: chest pain Endocrine: no symptoms reported Gastrointestinal: denies: abdominal pain Genitourinary: denies: dysuria Musculoskeletal: denies: back pain Neurological: denies: headache Psychiatric: auditory hallucinations, visual hallucinations. denies: homicidal thoughts, suicidal thoughts Physical Exam - Physical Exam Vital Signs: Vital Signs 05/10/18 05/10/18 05/10/18 01:56 02:17 03:54 Temperature 97.7 F 97.7 F 98.8 F Pulse Rate 81 83 84 Respiratory 18 18 18 Rate Blood Pressure 161/109 161/109 Blood Pressure 130/81 [Right] O2 Sat by Pulse 100 100 98 Oximetry Physical Exam: GENERAL: The patient is well-developed well-nourished male lying on stretcher not appearing to be in acute distress. Poor Hygiene HEENT: Normocephalic. Atraumatic. Extraocular motions are intact. Patient has moist mucous membranes. NECK: Supple. Trachea midline CHEST/LUNGS: Clear to auscultation. There is no respiratory distress noted. HEART/CARDIOVASCULAR: Regular. There is no tachycardia. There is no gallop rub or murmur. ABDOMEN: Abdomen is soft, nontender. Patient has normal bowel sounds. There is no abdominal distention. SKIN: There is no rash. There is no diaphoresis. NEURO: The patient is awake, alert, and oriented. The patient is cooperative. The patient has normal speech and gait. MUSCULOSKELETAL: There is no evidence of acute injury. ED Course Vital Signs 05/10/18 05/10/18 05/10/18 01:56 02:17 03:54 Temperature 97.7 F 97.7 F 98.8 F Pulse Rate 81 83 84 Respiratory 18 18 18 Rate Blood Pressure 161/109 161/109 Blood Pressure 130/81 [Right] O2 Sat by Pulse 100 100 98 Oximetry ED Medical Decision Making - Lab Data Result diagrams: 05/10/18 02:26 05/10/18 02:26 - Differential Diagnosis schizophrenia Critical care attestation.: If time is entered above; I have spent that time in minutes in the direct care of this critically ill patient, excluding procedure time. ED Disposition Clinical Impression: Schizophrenia, Psychosis Disposition: DC-01 TO HOME OR SELFCARE Is pt being admited?: No Does the pt Need Aspirin: No Condition: Stable Instructions: Brief Psychotic Disorder (ED) Additional Instructions: Return if your suicidal or homicidal or if you're having auditory or visual hallucinations Referrals: [facility] [Outside] - 3-5 Days PRIMARY CARE, [Primary Care Provider] - 3-5 Days
[2018-05-10 12:31] LABS: Bilirubin,Urine NEG (Negative); Blood,Urine NEG (Negative); Color,Urine Yellow (Yellow); Hyaline Casts,Urine 6 /LPF; Mucus,Urine 1+ /HPF; Protein,Urine <15 mg/dL mg/dL (Negative)
[2018-05-10 12:39] LABS: Amphetamine Screen,Urine PRESUMPTIVE NEGATIVE; Benzodiazepines Screen,Urine PRESUMPTIVE NEGATIVE; Cannabinoid Screen,Urine PRESUMPTIVE NEGATIVE; Cocaine Screen,Urine PRESUMPTIVE NEGATIVE; Methadone Screen,Urine PRESUMPTIVE NEGATIVE; Opiate Screen,Urine PRESUMPTIVE NEGATIVE
--- NOTE | 2018-05-10 13:09 | Consultation ---
History of Present Illness - Reason for Consult Consult date: 05/10/18 Reason for consult: Initial Psychiatric Evaluation - Chief Complaint Chief complaint: " Hearing voices and seeing things" - History of Present Psychiatric Illness The patient is a 47-year-old male that presents to [facility] with auditory and visual hallucinations. Patient is known to provider. Patient has PPHx of schizophrenia, paranoid type. Today the patient is calm and cooperative during the assessment. Patient is very lethargic throughout the assessment. Patient has been without Zyprexa for approximately 3 months. Patient states the auditory hallucinations are telling him to commit suicide. Patient endorses paranoid delusions that people are out to harm him and visual hallucinations of "women." He reports appropriate sleep and appetite. He denies SI/HI's. Current Psychiatric Medications: Zyprexa 30mg po QHS- mood/psychosis. Noncompliant x 3 months. Past Psychiatric History: schizophrenia, paranoid type (age 25); More than 15 previous inpatient psychiatric hospitalizations ( [facility], [facility]); no outpatient psychiatrist; no previous suicide attempts. Past Medication Trials: Zyprexa " that's it." History of Substance Abuse/Drugs: Patient denies hx of drug/substance abuse. UDS negative. History of Abuse/Trauma: Patient denies sexual, physical, and mental abuse. 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 Medications and Allergies Allergies Allergy/AdvReac Type Severity Reaction Status Date / Time egg Allergy Unknown Verified 09/22/17 02:22 Home Medications Medication Instructions Recorded Confirmed Last Taken Type No Known Home Medications [No 12/14/16 01/02/18 Unknown History Reported Home Medications] Mental Status Exam - Vital signs Last Vital Signs Temp 98.6 F 05/10/18 07:00 Pulse 54 L 05/10/18 07:00 Resp 18 05/10/18 07:00 BP 101/54 05/10/18 07:00 Pulse Ox 99 05/10/18 07:00 - Exam Narrative exam: Mental Status Exam Appearance: casually dressed, malodorous Behavior: poor eye contact Speech: regular rate and tone Mood: lethargic "I'm alright. " Affect: congruent to mood Thought Process: circumstantial Thought Content: denies SI/HI's; + A/VH's and paranoid delusions Motor Activity: sitting in chair Cognition: A/O x3 Insight: variable Judgment: variable Results Result Diagrams: 05/10/18 02:05/10/18 02:26 Abnormal lab results 05/10/18 05/10/18 05/10/18 Range/Units 02:26 02:26 02:26 Lymph % (Auto) (13.4-35.0) % [place] % (Auto) (0.0-7.3) % Eos % (Auto) (0.0-4.3) % BUN 8 L (9-20) mg/dL Salicylates < 0.3 L (2.8-20.0) mg/dL Acetaminophen < 5.0 L (10.0-30.0) ug/mL 05/10/18 Range/Units 02:26 Lymph % (Auto) 39.9 H (13.4-35.0) % [place] % (Auto) 9.3 H (0.0-7.3) % Eos % (Auto) 6.5 H (0.0-4.3) % BUN (9-20) mg/dL Salicylates (2.8-20.0) mg/dL Acetaminophen (10.0-30.0) ug/mL All other labs normal. Assessment and Plan Assessment and plan: Impression: PPHx schizophrenia, paranoid type. Psychosis Unspecified. Today the patient is calm and cooperative the assessment. Patient is very lethargic throughout the assessment. He endorses psychosis. UDS negative. Recommendation/Plan: 1. Will initiate 1013. 2. Start Zyprexa 10mg po QHS mood/psychosis. Discussed metabolic side effects of medication. Patient verbalizes understanding. Disposition: Will reassess in 24 hours. Refer to inpatient psychiatric services. Staffed with Dr. Speedy Jacobson
--- NOTE | 2018-05-11 11:17 | Progress Note ---
Subjective - Reason for Consult Consult date: 05/11/18 Reason for consult: Psychiatry Follow-up - Chief Complaint Chief complaint: "When can I leave" 47-year-old male that presents to [facility] with auditory and visual hallucinations. This patient is known to me. Today the patient is calm and cooperative during the assessment. He stated that he came to the hospital because he didn't know if he had enough money to continue to reside in a hotel. The patient is known to come to ER for these reasons (homeless). He stated that he is seen at [facility] for outpatient psy services. He denies SI/HI's and AVH's. He denies any side effects of his medications. Mental Status Exam - Vital signs Last Vital Signs Temp 97.7 F 05/11/18 01:30 Pulse 62 05/11/18 01:30 Resp 18 05/11/18 01:30 BP 126/69 05/11/18 01:30 Pulse Ox 96 05/11/18 01:30 - Exam Narrative exam: MSE: Appearance: calm, disheveled Behavior: regular eye contact Speech: regular rate and tone Mood: "okay" Affect: congruent to mood Thought Process: circumstantial Thought Content: denies SI/HI's and AVH's Motor Activity: sitting up in the bed Cognition: A/O x3 Insight: fair Judgment: fair Assessment and Plan Impression: Unspecified Psychosis. Today the patient is calm and cooperative during the assessment. UDS is negative. DDx: Schizophrenia, R/O Bipolar DO with psychosis Recommendation/Plan: Rescind 1013 and continue Zyprex 10 mg PO HS. Discussed pissible metabolic side effects of Zyprexa with the patient. Dispo: The patient can follow up with [facility] for outpatient psy services. Will staff with Dr Speedy Jacobson.
[2018-05-11 11:33] VITALS: BP 132/82
--- NOTE | 2018-05-11 14:56 | Emergency Department Report ---
Blank Doc - Documentation Documentation: 1013 rescinded by psychiatry and the patient she'll follow up with outpatient services provided to them.
== END 2018-05-11 15:05 | disposition home or self-care (01) ==
LOC: EEVIPCON 01:43 → ED 01:43
DX: F20.9 Schizophrenia, unspecified (principal); F17.200 Nicotine dependence, unspecified, uncomplicated; Z91.012 Allergy to eggs
CPT/HCPCS: 36415; 80048; 80307; 81001; 85025; 99284; G0480; 80320

== ENCOUNTER 2018-08-31 20:07 | Emergency (ER) | payer SELFPAY ==
[2018-08-31 20:52] LABS: Basophils % (Auto) 0.7 % (0.0-1.8); Eosinophils # (Auto) 0.3 K/mm3 (0.0-0.4); Eosinophils % (Auto) 5.2 % (0.0-4.3); Hemoglobin 11.4 gm/dl (11.8-15.2); Lymphocytes # (Auto) 1.8 K/mm3 (1.2-5.4); Lymphocytes % (Auto) 27.1 % (13.4-35.0); Mean Corpuscular HGB Conc 34 % (32-34); Mean Corpuscular Volume 91 fl (84-94); Monocytes # (Auto) 0.6 K/mm3 (0.0-0.8); Monocytes % (Auto) 9.2 % (0.0-7.3); Platelet Count 265 K/mm3 (140-440); Red Blood Count 3.72 M/mm3 (3.65-5.03)
[2018-08-31 21:13] LABS: Bilirubin,Urine NEG (Negative); Blood,Urine SM (Negative); Color,Urine Straw (Yellow); Mucus,Urine FEW /HPF; Protein,Urine <15 mg/dL mg/dL (Negative); Urobilinogen,Urine < 2.0 mg/dL (<2.0)
[2018-08-31 21:13] LABS: BUN/Creatinine Ratio 10; Blood Urea Nitrogen 11 mg/dL (9-20); Calcium 8.6 mg/dL (8.4-10.2); Hemolysis Index 0
[2018-08-31 21:18] LABS: Amphetamine Screen,Urine PRESUMPTIVE NEGATIVE; Benzodiazepines Screen,Urine PRESUMPTIVE NEGATIVE; Cannabinoid Screen,Urine PRESUMPTIVE NEGATIVE; Cocaine Screen,Urine PRESUMPTIVE NEGATIVE; Methadone Screen,Urine PRESUMPTIVE NEGATIVE; Opiate Screen,Urine PRESUMPTIVE NEGATIVE
[2018-08-31 21:34] VITALS: BP 132/78
--- NOTE | 2018-08-31 22:18 | Emergency Department Report ---
HPI - General Chief Complaint: Psych Time Seen by Provider: 08/31/18 22:13 - [facility] HPI: [facility] The patient is a 47-year-old male presented with a chief complaint of auditory and visual hallucinations. The patient has a history of schizophrenia states she's been off medication for the past 2-3 months. The patient states for the past 3 months he's had auditory hallucinations and visual hallucinations. Patient states he hears voices telling him he's "never going to be nothing" and visual hallucinations includes seen "images of people in the [place]." Patient denies suicidal or homicidal ideation Location: Mental state Duration: 3 months Quality: Auditory and visual hallucinations Severity: Moderate Modifying factors: [see above] Context: [see above] Mode of transportation: [not driving] ED Past Medical Hx - Past Medical History Previous Medical History?: Yes Hx Psychiatric Treatment: Yes (schizophrenia) Additional medical history: schizophrenia - Surgical History Past Surgical History?: Yes Additional Surgical History: Back surgery - Family History Family history: no significant - Social History Smoking Status: Current Every Day Smoker (1 pack per day) Substance Use Type: None (denies illicit drug use), Alcohol (occasional) - Medications Home Medications: Home Medications Medication Instructions Recorded Confirmed Last Taken Type OLANzapine [ZyPREXA] 5 mg PO QDAY #60 tablet 09/01/18 Unknown Rx risperiDONE [RisperDAL] 1 mg PO DAILY #60 tablet 09/01/18 Unknown Rx ED Review of Systems ROS: Stated complaint: MH Other details as noted in HPI Constitutional: no symptoms reported Eyes: denies: eye pain ENT: denies: throat pain Respiratory: no symptoms reported Cardiovascular: denies: chest pain Endocrine: no symptoms reported Gastrointestinal: denies: abdominal pain Genitourinary: denies: dysuria Musculoskeletal: denies: back pain Neurological: denies: headache Psychiatric: auditory hallucinations, visual hallucinations. denies: homicidal thoughts, suicidal thoughts Physical Exam - Physical Exam Vital Signs: Vital Signs 08/31/18 08/31/18 20:15 21:32 Temperature 98.3 F 98.7 F Pulse Rate 94 H 93 H Respiratory 18 20 Rate Blood Pressure 158/88 Blood Pressure 132/78 [Left] O2 Sat by Pulse 99 96 Oximetry Physical Exam: GENERAL: The patient is well-developed male with poor hygiene lying on stretcher not appearing to be in acute distress HEENT: Normocephalic. Atraumatic. Extraocular motions are intact. Patient has moist mucous membranes. NECK: Supple. Trachea midline CHEST/LUNGS: Clear to auscultation. There is no respiratory distress noted. HEART/CARDIOVASCULAR: Regular. There is no tachycardia. There is no gallop rub or murmur. ABDOMEN: Abdomen is soft, nontender. Patient has normal bowel sounds. There is no abdominal distention. SKIN: There is no rash. There is no edema. There is no diaphoresis. NEURO: The patient is awake, alert, and oriented. The patient is cooperative. The patient has normal speech MUSCULOSKELETAL: There is no evidence of acute injury. ED Course Vital Signs 08/31/18 08/31/18 20:15 21:32 Temperature 98.3 F 98.7 F Pulse Rate 94 H 93 H Respiratory 18 20 Rate Blood Pressure 158/88 Blood Pressure 132/78 [Left] O2 Sat by Pulse 99 96 Oximetry ED Medical Decision Making - Lab Data Result diagrams: 08/31/18 20:31 08/31/18 20:31 Laboratory Tests 08/31/18 08/31/18 08/31/18 20:31 20:31 20:31 WBC RBC Hgb Hct MCV MCH MCHC RDW Plt Count Lymph % (Auto) [place] % (Auto) Eos % (Auto) Baso % (Auto) Lymph # [place] # Eos # Baso # Seg Neutrophils % Seg Neutrophils # Sodium 138 Potassium 3.5 L Chloride 100.8 Carbon Dioxide 25 Anion Gap 16 BUN 11 Creatinine 1.1 Estimated GFR > 60 BUN/Creatinine Ratio 10 Glucose 146 H Calcium 8.6 Urine Color Urine Turbidity Urine pH Ur Specific [place] Urine Protein Urine Glucose (UA) Urine Ketones Urine Blood Urine Nitrite Urine Bilirubin Urine Urobilinogen Ur Leukocyte Esterase Urine WBC (Auto) Urine RBC (Auto) U Epithel Cells (Auto) Urine Mucus Salicylates < 0.3 L Urine Opiates Screen Urine Methadone Screen Acetaminophen < 5.0 L Ur Barbiturates Screen Ur Phencyclidine Scrn Ur Amphetamines Screen U Benzodiazepines Scrn Urine Cocaine Screen U Marijuana (THC) Screen Drugs of Abuse Note Plasma/Serum Alcohol 08/31/18 08/31/18 08/31/18 20:31 20:31 Unknown WBC 6.6 RBC 3.72 Hgb 11.4 L Hct 34.0 L MCV 91 MCH 31 MCHC 34 RDW 15.0 Plt Count 265 Lymph % (Auto) 27.1 [place] % (Auto) 9.2 H Eos % (Auto) 5.2 H Baso % (Auto) 0.7 Lymph # 1.8 [place] # 0.6 Eos # 0.3 Baso # 0.0 Seg Neutrophils % 57.8 Seg Neutrophils # 3.8 Sodium Potassium Chloride Carbon Dioxide Anion Gap BUN Creatinine Estimated GFR BUN/Creatinine Ratio Glucose Calcium Urine Color Straw Urine Turbidity Clear Urine pH 5.0 Ur Specific [place] 1.009 Urine Protein <15 mg/dl Urine Glucose (UA) Neg Urine Ketones Neg Urine Blood Sm Urine Nitrite Neg Urine Bilirubin Neg Urine Urobilinogen < 2.0 Ur Leukocyte Esterase Tr Urine WBC (Auto) 9.0 H Urine RBC (Auto) 2.0 U Epithel Cells (Auto) 2.0 Urine Mucus Few Salicylates Urine Opiates Screen Urine Methadone Screen Acetaminophen Ur Barbiturates Screen Ur Phencyclidine Scrn Ur Amphetamines Screen U Benzodiazepines Scrn Urine Cocaine Screen U Marijuana (THC) Screen Drugs of Abuse Note Plasma/Serum Alcohol < 0.01 08/31/18 Unknown WBC RBC Hgb Hct MCV MCH MCHC RDW Plt Count Lymph % (Auto) [place] % (Auto) Eos % (Auto) Baso % (Auto) Lymph # [place] # Eos # Baso # Seg Neutrophils % Seg Neutrophils # Sodium Potassium Chloride Carbon Dioxide Anion Gap BUN Creatinine Estimated GFR BUN/Creatinine Ratio Glucose Calcium Urine Color Urine Turbidity Urine pH Ur Specific [place] Urine Protein Urine Glucose (UA) Urine Ketones Urine Blood Urine Nitrite Urine Bilirubin Urine Urobilinogen Ur Leukocyte Esterase Urine WBC (Auto) Urine RBC (Auto) U Epithel Cells (Auto) Urine Mucus Salicylates Urine Opiates Screen Presumptive negative Urine Methadone Screen Presumptive negative Acetaminophen Ur Barbiturates Screen Presumptive negative Ur Phencyclidine Scrn Presumptive negative Ur Amphetamines Screen Presumptive negative U Benzodiazepines Scrn Presumptive negative Urine Cocaine Screen Presumptive negative U Marijuana (THC) Screen Presumptive negative Drugs of Abuse Note Disclamer Plasma/Serum Alcohol - Differential Diagnosis schizophrenia Critical care attestation.: If time is entered above; I have spent that time in minutes in the direct care of this critically ill patient, excluding procedure time. ED Disposition Clinical Impression: Schizophrenia Disposition: DC-01 TO HOME OR SELFCARE Is pt being admited?: No Does the pt Need Aspirin: No Condition: Stable Instructions: Schizophrenia (ED) Additional Instructions: Return to the emergency department immediately should you develop worsening symptoms, fever, inability to tolerate food or liquid or any other concerns. Prescriptions: risperiDONE [RisperDAL] 1 mg PO DAILY #60 tablet OLANzapine [ZyPREXA] 5 mg PO QDAY #60 tablet Referrals: MAYA THOMSON MD [Primary Care Provider] - 3-5 Days [facility] [Outside] - 3-5 Days Time of Disposition: 01:44
[2018-09-01] MEDS ORDERED: RisperDAL PO ONE (01:42)
== END 2018-09-01 02:10 | disposition home or self-care (01) ==
LOC: ED 20:07 → EEVIPCON 20:07 → ED 09-01 02:10
DX: F20.9 Schizophrenia, unspecified (principal); F17.200 Nicotine dependence, unspecified, uncomplicated; Z98.890 Other specified postprocedural states; Z91.012 Allergy to eggs
CPT/HCPCS: 36415; 80048; 80307; 81001; 85025; 87086; 99284; G0480; 80320; 87076; 87186

== ENCOUNTER 2018-09-25 00:04 | Emergency (ER) | payer SELFPAY ==
[2018-09-25 01:01] VITALS: BP 149/87
== END 2018-09-25 00:45 | disposition left against medical advice (07) ==
LOC: ED 00:04
DX: R44.0 Auditory hallucinations (principal); Z53.21 Procedure and treatment not carried out due to patient leaving prior to being seen by health care provider

== ENCOUNTER 2018-09-26 21:48 | Emergency (ER) | payer OTHER ==
--- NOTE | 2018-09-26 22:52 | Emergency Department Report ---
HPI - General Chief Complaint: Psych Time Seen by Provider: 09/26/18 22:39 - HPI HPI: [facility] [facility] The patient is a 48-year-old male presented with a chief complaint auditory and visual hallucinations. The patient has a history of schizophrenia and states sh e's been out of his medication for several months. Patient states for the past 4 months he's had auditory and visual hallucinations. The patient states auditory hallucinations are voices that are again about his quality of life and how he is living. The patient states his visual hallucinations includes images of people in the [place] and wolves. Patient denies suicidal or homicidal ideation Location: [See above] Duration: [See above] Quality: [See above] Severity: [See above] Modifying factors: [see above] Context: [see above] Mode of transportation: [not driving] ED Past Medical Hx - Past Medical History Previous Medical History?: Yes Hx Psychiatric Treatment: Yes (schizophrenia) Additional medical history: schizophrenia - Surgical History Past Surgical History?: Yes Additional Surgical History: Back surgery - Family History Family history: no significant - Social History Smoking Status: Heavy Tobacco Smoker (2 packs per day) Substance Use Type: None (denies illicit drug use), Alcohol (occasional) - Medications Home Medications: Home Medications Medication Instructions Recorded Confirmed Last Taken Type OLANzapine [ZyPREXA] 5 mg PO QDAY #60 tablet 09/01/18 Unknown Rx risperiDONE [RisperDAL] 1 mg PO DAILY #60 tablet 09/01/18 Unknown Rx ED Review of Systems ROS: Stated complaint: MH EVAL Other details as noted in HPI Constitutional: no symptoms reported Eyes: denies: eye pain ENT: denies: throat pain Respiratory: no symptoms reported Cardiovascular: denies: chest pain Endocrine: no symptoms reported Gastrointestinal: denies: abdominal pain Genitourinary: denies: dysuria Musculoskeletal: denies: back pain Neurological: denies: headache Psychiatric: auditory hallucinations, visual hallucinations. denies: homicidal thoughts, suicidal thoughts Physical Exam - Physical Exam Vital Signs: Vital Signs 09/26/18 09/26/18 22:02 22:16 Temperature 98.6 F 98.6 F Pulse Rate 89 88 Respiratory 18 18 Rate Blood Pressure 158/98 158/98 O2 Sat by Pulse 99 99 Oximetry Physical Exam: GENERAL: The patient is well-developed well-nourished male lying on stretcher not appearing to be in acute distress. Flat affect HEENT: Normocephalic. Atraumatic. Extraocular motions are intact. Patient has moist mucous membranes. NECK: Supple. Trachea midline CHEST/LUNGS: Clear to auscultation. There is no respiratory distress noted. HEART/CARDIOVASCULAR: Regular. There is no tachycardia. There is no gallop rub or murmur. ABDOMEN: Abdomen is soft, nontender. Patient has normal bowel sounds. There is no abdominal distention. SKIN: There is no rash. There is no edema. There is no diaphoresis. NEURO: The patient is awake, alert, and oriented. The patient is cooperative. The patient has normal speech MUSCULOSKELETAL: There is no evidence of acute injury. ED Course Vital Signs 09/26/18 09/26/18 22:02 22:16 Temperature 98.6 F 98.6 F Pulse Rate 89 88 Respiratory 18 18 Rate Blood Pressure 158/98 158/98 O2 Sat by Pulse 99 99 Oximetry ED Medical Decision Making - Lab Data Result diagrams: 09/26/18 22:44 09/26/18 22:44 Laboratory Tests 09/26/18 09/26/18 09/26/18 22:44 22:44 22:44 WBC RBC Hgb Hct MCV MCH MCHC RDW Plt Count Lymph % (Auto) [place] % (Auto) Eos % (Auto) Baso % (Auto) Lymph # [place] # Eos # Baso # Seg Neutrophils % Seg Neutrophils # Sodium 140 Potassium 4.0 Chloride 105.3 Carbon Dioxide 24 Anion Gap 15 BUN 11 Creatinine 1.1 Estimated GFR > 60 BUN/Creatinine Ratio 10 Glucose 96 Calcium 9.0 Urine Color Urine Turbidity Urine pH Ur Specific [address] Urine Protein Urine Glucose (UA) Urine Ketones Urine Blood Urine Nitrite Urine Bilirubin Urine Urobilinogen Ur Leukocyte Esterase Urine WBC (Auto) Urine RBC (Auto) U Epithel Cells (Auto) Salicylates < 0.3 L Urine Opiates Screen Urine Methadone Screen Acetaminophen < 5.0 L Ur Barbiturates Screen Ur Phencyclidine Scrn Ur Amphetamines Screen U Benzodiazepines Scrn Urine Cocaine Screen U Marijuana (THC) Screen Drugs of Abuse Note Plasma/Serum Alcohol 09/26/18 09/26/18 09/27/18 22:44 22:44 00:35 WBC 7.5 RBC 3.71 Hgb 11.4 L Hct 33.4 L MCV 90 MCH 31 MCHC 34 RDW 15.2 Plt Count 250 Lymph % (Auto) 24.3 [place] % (Auto) 9.6 H Eos % (Auto) 4.8 H Baso % (Auto) 0.6 Lymph # 1.8 [place] # 0.7 Eos # 0.4 Baso # 0.0 Seg Neutrophils % 60.7 Seg Neutrophils # 4.5 Sodium Potassium Chloride Carbon Dioxide Anion Gap BUN Creatinine Estimated GFR BUN/Creatinine Ratio Glucose Calcium Urine Color Colorless Urine Turbidity Clear Urine pH 7.[address] 1.003 Urine Protein <15 mg/dl Urine Glucose (UA) Neg Urine Ketones Neg Urine Blood Neg Urine Nitrite Neg Urine Bilirubin Neg Urine Urobilinogen < 2.0 Ur Leukocyte Esterase Sm Urine WBC (Auto) 7.0 H Urine RBC (Auto) < 1.0 U Epithel Cells (Auto) 2.0 Salicylates Urine Opiates Screen Urine Methadone Screen Acetaminophen Ur Barbiturates Screen Ur Phencyclidine Scrn Ur Amphetamines Screen U Benzodiazepines Scrn Urine Cocaine Screen U Marijuana (THC) Screen Drugs of Abuse Note Plasma/Serum Alcohol < 0.01 09/27/18 00:35 WBC RBC Hgb Hct MCV MCH MCHC RDW Plt Count Lymph % (Auto) [place] % (Auto) Eos % (Auto) Baso % (Auto) Lymph # [place] # Eos # Baso # Seg Neutrophils % Seg Neutrophils # Sodium Potassium Chloride Carbon Dioxide Anion Gap BUN Creatinine Estimated GFR BUN/Creatinine Ratio Glucose Calcium Urine Color Urine Turbidity Urine pH Ur Specific [address] Urine Protein Urine Glucose (UA) Urine Ketones Urine Blood Urine Nitrite Urine Bilirubin Urine Urobilinogen Ur Leukocyte Esterase Urine WBC (Auto) Urine RBC (Auto) U Epithel Cells (Auto) Salicylates Urine Opiates Screen Presumptive negative Urine Methadone Screen Presumptive negative Acetaminophen Ur Barbiturates Screen Presumptive negative Ur Phencyclidine Scrn Presumptive negative Ur Amphetamines Screen Presumptive negative U Benzodiazepines Scrn Presumptive negative Urine Cocaine Screen Presumptive negative U Marijuana (THC) Screen Presumptive negative Drugs of Abuse Note Disclamer Plasma/Serum Alcohol - Differential Diagnosis schizophrenia Critical care attestation.: If time is entered above; I have spent that time in minutes in the direct care of this critically ill patient, excluding procedure time. ED Disposition Clinical Impression: Schizophrenia Disposition: DC/TX-65 PSY HOSP/PSY UNIT Is pt being admited?: No Does the pt Need Aspirin: No Condition: Fair Referrals: MAYA THOMSON MD [Primary Care Provider] - 3-5 Days
[2018-09-26] MEDS ORDERED: RisperDAL ONE (22:53)
[2018-09-26] MEDS ORDERED: RisperDAL PO SCH (22:54)
[2018-09-26] MEDS ORDERED: RisperDAL PO ONE (23:00)
[2018-09-26 23:04] LABS: Basophils % (Auto) 0.6 % (0.0-1.8); Eosinophils # (Auto) 0.4 K/mm3 (0.0-0.4); Eosinophils % (Auto) 4.8 % (0.0-4.3); Hematocrit 33.4 % (35.5-45.6); Hemoglobin 11.4 gm/dl (11.8-15.2); Lymphocytes # (Auto) 1.8 K/mm3 (1.2-5.4); Lymphocytes % (Auto) 24.3 % (13.4-35.0); Mean Corpuscular HGB Conc 34 % (32-34); Mean Corpuscular Volume 90 fl (84-94); Monocytes # (Auto) 0.7 K/mm3 (0.0-0.8); Monocytes % (Auto) 9.6 % (0.0-7.3); Platelet Count 250 K/mm3 (140-440); Red Blood Count 3.71 M/mm3 (3.65-5.03); Red Cell Distribution Width 15.2 % (13.2-15.2)
[2018-09-26 23:06] LABS: BUN/Creatinine Ratio 10; Blood Urea Nitrogen 11 mg/dL (9-20); Hemolysis Index 6
[2018-09-27 00:55] LABS: Bilirubin,Urine NEG (Negative); Blood,Urine NEG (Negative); Color,Urine Colorless (Yellow); Protein,Urine <15 mg/dL mg/dL (Negative); RBC,Urine < 1.0 /HPF (0.0-6.0); Urobilinogen,Urine < 2.0 mg/dL (<2.0)
[2018-09-27 01:04] LABS: Amphetamine Screen,Urine PRESUMPTIVE NEGATIVE; Benzodiazepines Screen,Urine PRESUMPTIVE NEGATIVE; Cannabinoid Screen,Urine PRESUMPTIVE NEGATIVE; Cocaine Screen,Urine PRESUMPTIVE NEGATIVE; Methadone Screen,Urine PRESUMPTIVE NEGATIVE; Opiate Screen,Urine PRESUMPTIVE NEGATIVE
--- NOTE | 2018-09-27 17:42 | Consultation ---
History of Present Illness - Reason for Consult Consult date: 09/27/18 Reason for consult: psych evaluation - Chief Complaint Chief complaint: "hearing voices and seeing things" - History of Present Psychiatric Illness 48-year-old AA male presenting to the ER for auditory and visual hallucinations. He had 11 similar visits in the last 12 months. He states that he is hearing voices and seeing "people in the [place]". He does not specify the content exact of auditory hallucinations but denies receiving commands. He states that the voices are talking to him about the "quality" of his life. He denies any desire to harm himself or others. He is disheveled/unkempt and it is questionable if he can care for himself. He denies recreational drug use and alcohol consumption (etoh). He stated that he has not taken risperdal in weeks. - Past Medical History Past Medical History: arthritis Past Surgical History: back surgery - past Psychiatric treatment and history psychiatric treatment history: Several inpatient psy services. dx schizophrenia - Social History Social history: other (Homeless) Medications and Allergies Allergies Allergy/AdvReac Type Severity Reaction Status Date / Time egg Allergy Unknown Verified 09/22/17 02:22 Home Medications Medication Instructions Recorded Confirmed Last Taken Type OLANzapine [ZyPREXA] 5 mg PO QDAY #60 tablet 09/01/18 Unknown Rx risperiDONE [RisperDAL] 1 mg PO DAILY #60 tablet 09/01/18 Unknown Rx Mental Status Exam - Vital signs Last Vital Signs Temp 98.6 F 09/26/18 22:16 Pulse 74 09/27/18 08:56 Resp 18 09/27/18 08:56 BP 122/66 09/27/18 08:56 Pulse Ox 100 09/27/18 08:56 - Exam Narrative exam: Appearance: poor hygiene, disheveled, malodorous Behavior: poor eye contact Speech: low tone Mood: indifferent Affect: flat Thought Process: disorganized Thought Content: would not discuss except to say he is hearing voices and seeing people who aren't there Motor Activity: lying in bed/rolled away from provider Cognition: A/O x3 Insight: poor Judgment: poor Results Result Diagrams: 09/26/18 22:44 09/26/18 22:44 Abnormal lab results 09/26/18 09/26/18 09/26/18 Range/Units 22:44 22:44 22:44 Hgb 11.4 L (11.8-15.2) gm/dl Hct 33.4 L (35.5-45.6) % [place] % (Auto) 9.6 H (0.0-7.3) % Eos % (Auto) 4.8 H (0.0-4.3) % Urine WBC (Auto) (0.0-6.0) /HPF Salicylates < 0.3 L (2.8-20.0) mg/dL Acetaminophen < 5.0 L (10.0-30.0) ug/mL 09/27/18 Range/Units 00:35 Hgb (11.8-15.2) gm/dl Hct (35.5-45.6) % [place] % (Auto) (0.0-7.3) % Eos % (Auto) (0.0-4.3) % Urine WBC (Auto) 7.0 H (0.0-6.0) /HPF Salicylates (2.8-20.0) mg/dL Acetaminophen (10.0-30.0) ug/mL All other labs normal. Assessment and Plan Assessment and plan: Impression: hx schizophrenia. He did not want to be interviewed but did says he is hearing and seeing things and needs medication. UDS is negative. He appears unable to care for his needs. Recommendation/Plan: Continue 1013. resume home meds of risperdal 1 mg hs. Attempted to discuss metabolic risks and risk of eps. Dispo: follow up in 24 hours to determine if he meets inpatient criteria. currently, proceed with attempts to transfer for inpatient psych treatment. Will staff with Dr. Jacobson
[2018-09-27] MEDS ORDERED: RisperDAL PO SCH (22:47)
[2018-09-28 08:01] VITALS: BP 143/79
--- NOTE | 2018-09-28 08:56 | Progress Note ---
Subjective - Reason for Consult Consult date: 09/28/18 Reason for consult: Pscyhaitary Follow-up - Chief Complaint Chief complaint: 'I am fine" 48-year-old AA male who presented to the ER for AVH's. This patient is known to me. Today the patient was calm and cooperative during the assessment. He stated that he is feeling fine and would like to leave. He stated that he needed rest. He stated that he is seen at [facility] for outpatient psy services and take Zyprexa. He denies SI/HI's and AVH's. Mental Status Exam - Vital signs Last Vital Signs Temp 98.2 F 09/28/18 08:00 Pulse 86 09/28/18 08:00 Resp 18 09/28/18 08:00 BP 143/79 09/28/18 08:00 Pulse Ox 96 09/28/18 08:00 - Exam Narrative exam: MSE: Appearance: calm, disheveled Behavior: regular eye contact Speech: regular rate and tone Mood: "fine" Affect: congruent to mood Thought Process: circumstantial Thought Content: denies SI/HI's and AVH's Motor Activity: sitting up in the bed Cognition: A/O x3 Insight: fair Judgment: fair Assessment and Plan Impression: No Overt psychosis with the patient. Hx of Schizophrenia. Today the patient was calm and cooperative during the assessment. Recommendation/Plan: Rescind 1013. The patient do not need a prescription, he has medication (Zyprexa) , Dispo: The patient can follow up with [facility] for outpatient psy services. Will staff with Dr Speedy Jacobson.
== END 2018-09-28 10:36 | disposition home or self-care (01) ==
LOC: EEVIPCON 21:48 → ED 21:48
DX: F20.9 Schizophrenia, unspecified (principal); F17.200 Nicotine dependence, unspecified, uncomplicated; Z91.012 Allergy to eggs; Z79.899 Other long term (current) drug therapy
CPT/HCPCS: 36415; 80048; 80307; 81001; 85025; 99284; G0480; 80320

== ENCOUNTER 2018-10-02 21:27 | Emergency (ER) | payer SELFPAY | END 2018-10-02 21:37 | disposition left against medical advice (07) | LOC: ED 21:27 | DX: F20.9 Schizophrenia, unspecified (principal); Z53.21 Procedure and treatment not carried out due to patient leaving prior to being seen by health care provider ==

== ENCOUNTER 2019-05-07 06:31 | Emergency (ER) | payer OTHER ==
--- NOTE | 2019-05-07 08:35 | Emergency Department Report ---
ED Psych HPI - General Chief Complaint: Psych Stated Complaint: MH EVALUATION(SCHIZOPHRENIC EPIDOSE) Time Seen by Provider: 05/07/19 08:23 Source: patient Mode of arrival: Ambulatory - History of Present Illness Initial Comments: This is a 48-year-old man who states he would like to be admitted to a psychiatric facility. He denies overdose, suicidal ideation or violent. He adm its to noncompliance with his medication for at least a month. He is currently prescribed Risperdal. He is not actively hallucinating. He is homeless. He is not complaining of active hallucinosis. Patient has been previously evaluated here by psychiatric nurse practitioner. He remained under observation was released from the emergency department last time. MD Complaint: other ("I am here for schizophrenia") Associated Psychiatric Symptoms: other History of same: Yes Quality: intermittent Improves With: none Worsens With: none Associated Symptoms: denies other symptoms Treatments Prior to Arrival: none - Related Data Previous Rx's Medication Instructions Recorded Last Taken Type OLANzapine [ZyPREXA] 5 mg PO QDAY #60 tablet 09/01/18 Unknown Rx risperiDONE [RisperDAL] 1 mg PO DAILY #60 tablet 09/01/18 Unknown Rx Allergies Allergy/AdvReac Type Severity Reaction Status Date / Time egg Allergy Unknown Verified 05/07/19 07:12 ED Review of Systems ROS: Stated complaint: MH EVALUATION(SCHIZOPHRENIC EPIDOSE) Other details as noted in HPI Comment: All other systems reviewed and negative ED Past Medical Hx - Past Medical History Hx Arthritis: No Hx Psychiatric Treatment: Yes (schizophrenia) Additional medical history: schizophrenia - Surgical History Additional Surgical History: Back surgery - Social History Smoking Status: Current Every Day Smoker Substance Use Type: None - Medications Home Medications: Home Medications Medication Instructions Recorded Confirmed Last Taken Type OLANzapine [ZyPREXA] 5 mg PO QDAY #60 tablet 09/01/18 Unknown Rx risperiDONE [RisperDAL] 1 mg PO DAILY #60 tablet 09/01/18 Unknown Rx ED Physical Exam - General Limitations: No Limitations General appearance: alert, in no apparent distress - Head Head exam: Present: atraumatic, normocephalic - Eye Eye exam: Present: normal appearance. Absent: scleral icterus - ENT ENT exam: Present: mucous membranes moist - Neck Neck exam: Present: normal inspection - Respiratory Respiratory exam: Present: normal lung sounds bilaterally. Absent: respiratory distress - Cardiovascular Cardiovascular Exam: Present: regular rate, normal rhythm. Absent: systolic murmur, diastolic murmur, rubs, gallop - GI/Abdominal GI/Abdominal exam: Present: soft, normal bowel sounds. Absent: distended, tenderness, guarding, rebound - Rectal Rectal exam: Present: deferred - Extremities Exam Extremities exam: Present: normal inspection - Back Exam Back exam: Present: normal inspection - Neurological Exam Neurological exam: Present: alert, oriented X3, CN II-XII intact. Absent: motor sensory deficit - Psychiatric Psychiatric exam: Present: normal affect, normal mood - Skin Skin exam: Present: warm, dry, intact, normal color. Absent: rash ED Course Vital Signs 05/07/19 07:16 Temperature 98.0 F Pulse Rate 65 Respiratory 18 Rate Blood Pressure 161/94 O2 Sat by Pulse 100 Oximetry - Reevaluation(s) Reevaluation #1: Patient was found to be hypertensive. This will be monitored. He will be seen by mental health. He will have screening laboratory testing and social service consultation. 05/07/19 08:34 Reevaluation #2: I did not find that the patient met any criteria for psychiatric or medical admission. He is pending psychiatric assessment and social work advisement. 05/07/19 14:19 ED Medical Decision Making - Lab Data Result diagrams: 05/07/19 10:31 05/07/19 10:31 Laboratory Results - last 24 hr 05/07/19 05/07/19 05/07/19 10:31 10:31 10:31 WBC 4.8 RBC 4.13 Hgb 12.1 Hct 36.8 MCV 89 MCH 29 MCHC 33 RDW 14.1 Plt Count 217 Lymph % (Auto) [employer] Weld % (Auto) [employer] Eos % (Auto) [employer] Baso % (Auto) [employer] Lymph # [employer] Weld # [employer] Eos # [employer] Baso # [employer] Seg Neutrophils % [employer] Seg Neutrophils # [employer] Sodium 138 Potassium 3.6 Chloride 104.1 Carbon Dioxide 21 L Anion Gap 17 BUN 5 L Creatinine 0.8 Estimated GFR > 60 BUN/Creatinine Ratio 6 Glucose 103 H Calcium 8.8 Urine Color Urine Turbidity Urine pH Ur Specific [place] Urine Protein Urine Glucose (UA) Urine Ketones Urine Blood Urine Nitrite Urine Bilirubin Urine Urobilinogen Ur Leukocyte Esterase Urine WBC (Auto) Urine RBC (Auto) Urine Mucus Salicylates < 0.3 L Urine Opiates Screen Urine Methadone Screen Acetaminophen Ur Barbiturates Screen Ur Phencyclidine Scrn Ur Amphetamines Screen U Benzodiazepines Scrn Urine Cocaine Screen U Marijuana (THC) Screen Drugs of Abuse Note 05/07/19 05/07/19 05/07/19 10:31 11:53 11:53 WBC RBC Hgb Hct MCV MCH MCHC RDW Plt Count Lymph % (Auto) Weld % (Auto) Eos % (Auto) Baso % (Auto) Lymph # Weld # Eos # Baso # Seg Neutrophils % Seg Neutrophils # Sodium Potassium Chloride Carbon Dioxide Anion Gap BUN Creatinine Estimated GFR BUN/Creatinine Ratio Glucose Calcium Urine Color Straw Urine Turbidity Clear Urine pH 6.0 Ur Specific [place] 1.003 Urine Protein <15 mg/dl Urine Glucose (UA) Neg Urine Ketones Neg Urine Blood Neg Urine Nitrite Neg Urine Bilirubin Neg Urine Urobilinogen < 2.0 Ur Leukocyte Esterase Neg Urine WBC (Auto) < 1.0 Urine RBC (Auto) 2.0 Urine Mucus Few Salicylates Urine Opiates Screen Presumptive negative Urine Methadone Screen Presumptive negative Acetaminophen < 5.0 L Ur Barbiturates Screen Presumptive negative Ur Phencyclidine Scrn Presumptive negative Ur Amphetamines Screen Presumptive negative U Benzodiazepines Scrn Presumptive negative Urine Cocaine Screen Presumptive negative U Marijuana (THC) Screen Presumptive negative Drugs of Abuse Note Disclamer Critical care attestation.: If time is entered above; I have spent that time in minutes in the direct care of this critically ill patient, excluding procedure time. ED Disposition Clinical Impression: Homelessness Schizophrenia Qualifiers: Schizophrenia type: unspecified Qualified Code(s): F20.9 - Schizophrenia, unspecified Disposition: DC-01 TO HOME OR SELFCARE Is pt being admited?: No Does the pt Need Aspirin: No Condition: Stable Referrals: PRIMARY CARE, [Primary Care Provider] - 3-5 Days
[2019-05-07] MEDS ORDERED: risperiDONE 1 MG TAB PO SCH (09:00)
[2019-05-07 11:04] LABS: BUN/Creatinine Ratio 6; Blood Urea Nitrogen 5 mg/dL (9-20); Calcium 8.8 mg/dL (8.4-10.2); Hemolysis Index 14
[2019-05-07 11:21] LABS: Hematocrit 36.8 % (35.5-45.6); Hemoglobin 12.1 gm/dl (11.8-15.2); Mean Corpuscular HGB Conc 33 % (32-34); Mean Corpuscular Volume 89 fl (84-94); Platelet Count 217 K/mm3 (140-440); Red Blood Count 4.13 M/mm3 (3.65-5.03); Red Cell Distribution Width 14.1 % (13.2-15.2)
[2019-05-07 12:07] LABS: Bilirubin,Urine NEG (Negative); Blood,Urine NEG (Negative); Color,Urine Straw (Yellow); Mucus,Urine FEW /HPF; Protein,Urine <15 mg/dL mg/dL (Negative); Urobilinogen,Urine < 2.0 mg/dL (<2.0)
[2019-05-07 12:17] LABS: WBC,Urine < 1.0 /HPF (0.0-6.0)
[2019-05-07 12:32] LABS: Amphetamine Screen,Urine PRESUMPTIVE NEGATIVE; Benzodiazepines Screen,Urine PRESUMPTIVE NEGATIVE; Cannabinoid Screen,Urine PRESUMPTIVE NEGATIVE; Cocaine Screen,Urine PRESUMPTIVE NEGATIVE; Methadone Screen,Urine PRESUMPTIVE NEGATIVE; Opiate Screen,Urine PRESUMPTIVE NEGATIVE
[2019-05-07 17:20] VITALS: BP 162/93
== END 2019-05-07 16:29 | disposition home or self-care (01) ==
LOC: ED 06:31 → EEVIPCON 06:31 → ED 16:29
DX: F20.9 Schizophrenia, unspecified (principal); F17.200 Nicotine dependence, unspecified, uncomplicated; Z59.0 Homelessness; Z79.899 Other long term (current) drug therapy; Z91.012 Allergy to eggs
CPT/HCPCS: 36415; 80048; 80307; 80320; 81001; 85025; G0480

== ENCOUNTER 2019-06-28 23:04 | Emergency (ER) | payer MEDICARE, OTHER ==
[2019-06-28 23:48] LABS: Basophils # (Auto) 0.1 K/mm3 (0.0-0.1); Basophils % (Auto) 1.5 % (0.0-1.8); Eosinophils # (Auto) 0.4 K/mm3 (0.0-0.4); Hematocrit 36.6 % (35.5-45.6); Lymphocytes # (Auto) 2.2 K/mm3 (1.2-5.4); Mean Corpuscular HGB Conc 33 % (32-34); Mean Corpuscular Volume 90 fl (84-94); Monocytes # (Auto) 0.8 K/mm3 (0.0-0.8); Monocytes % (Auto) 10.9 % (0.0-7.3); Platelet Count 286 K/mm3 (140-440); Red Blood Count 4.06 M/mm3 (3.65-5.03); Red Cell Distribution Width 16.5 % (13.2-15.2)
--- NOTE | 2019-06-28 23:52 | Emergency Department Report ---
HPI - General Chief Complaint: Psych Time Seen by Provider: 06/28/19 23:22 - HPI HPI: 48-year-old -[place] male presents to the emergency department with complaint of auditory and visual hallucinations, as well as suicidal ideations. He has a history of schizophrenia and is on Zyprexa and Risperdal. However he does not have any of his medication and says he only gets it when he "checks and to a hospital." He says that someone has been stealing his insurance and it is keeping him from getting help. He says the voices are telling him to harm himself and "get it over with." The visual hallucinations appear to be people that are trying to harm him. He denies any homicidal ideations. ED Past Medical Hx - Past Medical History Previous Medical History?: Yes Hx Arthritis: No Hx Psychiatric Treatment: Yes (schizophrenia) Additional medical history: schizophrenia - Surgical History Past Surgical History?: Yes Additional Surgical History: Back surgery - Social History Smoking Status: Current Every Day Smoker Substance Use Type: Alcohol, Marijuana - Medications Home Medications: Home Medications Medication Instructions Recorded Confirmed Last Taken Type OLANzapine [ZyPREXA] 5 mg PO QDAY #60 tablet 09/01/18 06/28/19 Unknown Rx risperiDONE [RisperDAL] 1 mg PO DAILY #60 tablet 09/01/18 06/28/19 Unknown Rx ED Review of Systems ROS: Stated complaint: MH Other details as noted in HPI Comment: All other systems reviewed and negative Constitutional: denies: chills, fever Eyes: denies: eye pain, vision change ENT: denies: ear pain, throat pain Respiratory: denies: shortness of breath, wheezing Cardiovascular: denies: chest pain, palpitations Gastrointestinal: denies: abdominal pain, vomiting Musculoskeletal: denies: back pain, arthralgia Neurological: denies: headache, weakness Psychiatric: auditory hallucinations, visual hallucinations, suicidal thoughts. denies: homicidal thoughts Physical Exam - Physical Exam Physical Exam: GENERAL: The patient is well-developed well-nourished. HENT: Normocephalic. Atraumatic. Patient has moist mucous membranes. EYES: Extraocular motions are intact. NECK: Supple. Trachea is midline. CHEST/LUNGS: Clear to auscultation. There is no respiratory distress noted. HEART/CARDIOVASCULAR: Regular. There is no tachycardia. ABDOMEN: Abdomen is soft, nontender. Patient has normal bowel sounds. SKIN: Skin is warm and dry. NEURO: The patient is awake, alert, and cooperative. The patient has no focal neurologic deficits. Normal speech. MUSCULOSKELETAL: There is no tenderness or deformity. There is no evidence of acute injury. ED Medical Decision Making - Lab Data Result diagrams: 06/28/19 23:19 06/28/19 23:19 - Medical Decision Making This patient, with a history of schizophrenia, presents with auditory and visual hallucinations as well as command hallucinations causing suicidal ideations. For this reason the patient has been made a 1013. His labs have been unremarkable including CBC, metabolic panel, blood alcohol level, urine drug screen. Vital signs stable throughout his ED course thus far. Patient is medically cleared for psychiatric placement. Critical Care Time: No Critical care attestation.: If time is entered above; I have spent that time in minutes in the direct care of this critically ill patient, excluding procedure time. ED Disposition Clinical Impression: Hallucination, visual, Schizophrenia, Medical clearance for psychiatric admission, History of command hallucinations, Suicidal ideations Disposition: DC/TX-65 PSY HOSP/PSY UNIT Is pt being admited?: No Condition: Stable Referrals: PRIMARY CARE, [Primary Care Provider] - 3-5 Days Time of Disposition: 00:50
[2019-06-29 00:04] LABS: BUN/Creatinine Ratio 13; Blood Urea Nitrogen 14 mg/dL (9-20); Calcium 9.1 mg/dL (8.4-10.2); Hemolysis Index 11
[2019-06-29 00:42] LABS: Bacteria,Urine 1+ /HPF (Negative); Bilirubin,Urine NEG (Negative); Blood,Urine SM (Negative); Color,Urine Yellow (Yellow); Mucus,Urine FEW /HPF; Protein,Urine <15 mg/dL mg/dL (Negative)
[2019-06-29 00:47] LABS: Amphetamine Screen,Urine PRESUMPTIVE NEGATIVE; Benzodiazepines Screen,Urine PRESUMPTIVE NEGATIVE; Cannabinoid Screen,Urine PRESUMPTIVE NEGATIVE; Cocaine Screen,Urine PRESUMPTIVE NEGATIVE; Methadone Screen,Urine PRESUMPTIVE NEGATIVE; Opiate Screen,Urine PRESUMPTIVE NEGATIVE
[2019-06-29 20:05] VITALS: BP 140/84
== END 2019-06-29 22:46 ==
LOC: ED 23:04
DX: F20.9 Schizophrenia, unspecified (principal); R45.851 Suicidal ideations; F17.200 Nicotine dependence, unspecified, uncomplicated; F12.90 Cannabis use, unspecified, uncomplicated; Z79.899 Other long term (current) drug therapy; Z98.890 Other specified postprocedural states; Z91.012 Allergy to eggs; Z91.018 Allergy to other foods; Z04.6 Encounter for general psychiatric examination, requested by authority; Z86.59 Personal history of other mental and behavioral disorders
CPT/HCPCS: 36415; 80048; 80307; 80320; 81001; 85025; G0480

== ENCOUNTER 2019-07-20 22:36 | Emergency (ER) | payer SELFPAY ==
[2019-07-20 23:01] LABS: Basophils # (Auto) 0.1 K/mm3 (0.0-0.1); Basophils % (Auto) 0.7 % (0.0-1.8); Eosinophils # (Auto) 0.4 K/mm3 (0.0-0.4); Eosinophils % (Auto) 5.4 % (0.0-4.3); Hematocrit 37.3 % (35.5-45.6); Hemoglobin 12.1 gm/dl (11.8-15.2); Lymphocytes # (Auto) 2.1 K/mm3 (1.2-5.4); Lymphocytes % (Auto) 26.1 % (13.4-35.0); Mean Corpuscular HGB Conc 33 % (32-34); Mean Corpuscular Volume 90 fl (84-94); Monocytes # (Auto) 0.7 K/mm3 (0.0-0.8); Monocytes % (Auto) 9.1 % (0.0-7.3); Platelet Count 292 K/mm3 (140-440); Red Blood Count 4.15 M/mm3 (3.65-5.03); Red Cell Distribution Width 15.6 % (13.2-15.2)
[2019-07-20 23:05] LABS: Bilirubin,Urine NEG (Negative); Blood,Urine NEG (Negative); Color,Urine Straw (Yellow); Protein,Urine <15 mg/dL mg/dL (Negative); Urobilinogen,Urine < 2.0 mg/dL (<2.0)
--- NOTE | 2019-07-20 23:05 | Emergency Department Report ---
HPI - HPI HPI: 48-year-old -Citizen Of [place] male presents to the emergency department with a complaint of auditory and visual hallucinations and generalized suicidal ideations without a plan. The patient was seen by me here about 3 weeks ago for similar symptoms and was sent to [facility] psych. Since that time the patient has been noncompliant with his medications because he says "I am not going to have any money until about October." He says that he has visual hallucinations in which she sees "people in the [place]" and he has auditory hallucinations in which "the voices are arguing with me and telling me to give up." He does not have any particular plan as to how he would harm himself and says "I have been this way since I was 23." <DAYAN SHARPE - Last Filed: 07/21/19 01:02> <AMELIA ARAUZ - Last Filed: 07/21/19 14:04> - General Chief Complaint: Psych Time Seen by Provider: 07/20/19 22:49 ED Past Medical Hx - Past Medical History Previous Medical History?: Yes Hx Arthritis: No Hx Psychiatric Treatment: Yes (schizophrenia) Additional medical history: schizophrenia - Surgical History Past Surgical History?: No Additional Surgical History: y - Social History Smoking Status: Current Every Day Smoker Substance Use Type: Alcohol <DAYAN SHARPE - Last Filed: 07/21/19 01:02> <AMELIA ARAUZ - Last Filed: 07/21/19 14:04> - Medications Home Medications: Home Medications Medication Instructions Recorded Confirmed Last Taken Type Nicotine [Habitrol] 21 mg TD QDAY #30 patch 07/02/19 Unknown Rx OLANzapine [ZyPREXA] 5 mg PO QDAY #60 tablet 07/02/19 Unknown Rx risperiDONE [RisperDAL] 1 mg PO DAILY #60 tablet 07/02/19 Unknown Rx ED Review of Systems ROS: Stated complaint: SCHIZOPHRENIA Other details as noted in HPI Comment: All other systems reviewed and negative Constitutional: denies: chills, fever Eyes: denies: eye pain, vision change ENT: denies: ear pain, throat pain Respiratory: denies: cough, shortness of breath Cardiovascular: denies: chest pain, palpitations Gastrointestinal: denies: abdominal pain, vomiting Musculoskeletal: denies: back pain, arthralgia Neurological: denies: headache, weakness Psychiatric: auditory hallucinations, visual hallucinations, suicidal thoughts <DAYAN SHARPE - Last Filed: 07/21/19 01:02> ROS: Stated complaint: SCHIZOPHRENIA Other details as noted in HPI <AMELIA ARAUZ - Last Filed: 07/21/19 14:04> Physical Exam - Physical Exam Vital Signs: Vital Signs 07/20/19 07/20/19 22:43 22:54 Temperature 98.6 F Pulse Rate 79 Respiratory 20 14 Rate Blood Pressure 157/97 O2 Sat by Pulse 94 Oximetry Physical Exam: GENERAL: The patient is well-developed well-nourished. HENT: Normocephalic. Atraumatic. Patient has moist mucous membranes. EYES: Extraocular motions are intact. NECK: Supple. Trachea is midline. CHEST/LUNGS: Clear to auscultation. There is no respiratory distress noted. HEART/CARDIOVASCULAR: Regular. There is no tachycardia. ABDOMEN: Abdomen is soft, nontender. Patient has normal bowel sounds. SKIN: Skin is warm and dry. NEURO: The patient is awake, alert, and oriented. The patient is cooperative. N ormal speech. MUSCULOSKELETAL: There is no tenderness or deformity. There is no evidence of acute injury. <DAYAN SHARPE - Last Filed: 07/21/19 01:02> - Physical Exam Vital Signs: Vital Signs 07/20/19 07/20/19 07/21/19 22:43 22:54 08:41 Temperature 98.6 F 98.1 F Pulse Rate 79 68 Respiratory 20 14 20 Rate Blood Pressure 157/97 Blood Pressure 144/94 [Left] O2 Sat by Pulse 94 96 Oximetry <AMELIA ARAUZ - Last Filed: 07/21/19 14:04> ED Course Vital Signs 07/20/19 07/20/19 22:43 22:54 Temperature 98.6 F Pulse Rate 79 Respiratory 20 14 Rate Blood Pressure 157/97 O2 Sat by Pulse 94 Oximetry <DAYAN SHARPE - Last Filed: 07/21/19 01:02> Vital Signs 07/20/19 07/20/19 07/21/19 22:43 22:54 08:41 Temperature 98.6 F 98.1 F Pulse Rate 79 68 Respiratory 20 14 20 Rate Blood Pressure 157/97 Blood Pressure 144/94 [Left] O2 Sat by Pulse 94 96 Oximetry <AMELIA ARAUZ - Last Filed: 07/21/19 14:04> ED Medical Decision Making - Lab Data Result diagrams: 07/20/19 22:50 07/20/19 22:50 - Medical Decision Making This patient, with a history of schizophrenia, presents with auditory and visual hallucinations and nonspecific suicidal ideations. Because of the suicidal ideations the patient was made a 1013. His labs have been unremarkable including CBC, metabolic panel, blood alcohol level, urinalysis and urine drug screen. His vital signs been stable throughout his ED course. So far the patient has had a calm and pleasant demeanor. He will be seen by the psychiatric assessment team in the morning and at this time I would consider this patient to be medically cleared for psychiatric placement. <DAYAN SHARPE - Last Filed: 07/21/19 01:02> - Lab Data Result diagrams: 07/20/19 22:50 07/20/19 22:50 - Medical Decision Making Pt seen and evaluated by mental health facility manager histology. Pt felt to be seeking inpatient treatment for secondary gain of housing. I spoke with pt and he denies feeling suicidal. 1013 will be rescinded. Pt given out pt resources by facility manager histology. Return precautions given. <AMELIA ARAUZ - Last Filed: 07/21/19 14:04> Critical Care Time: No Critical care attestation.: If time is entered above; I have spent that time in minutes in the direct care of this critically ill patient, excluding procedure time. <DAYAN SHARPE - Last Filed: 07/21/19 01:02> Critical care attestation.: If time is entered above; I have spent that time in minutes in the direct care of this critically ill patient, excluding procedure time. <AMELIA ARAUZ - Last Filed: 07/21/19 14:04> ED Disposition Is pt being admited?: No Time of Disposition: 01:04 <DAYAN SHARPE - Last Filed: 07/21/19 01:02> Is pt being admited?: No Time of Disposition: 14:04 <AMELIA ARAUZ - Last Filed: 07/21/19 14:04> Clinical Impression: Schizophrenia Qualifiers: Schizophrenia type: unspecified Qualified Code(s): F20.9 - Schizophrenia, unspecified Disposition: DC-01 TO HOME OR SELFCARE Condition: Stable Instructions: Schizophrenia (ED) Referrals: PRIMARY CARE, [Primary Care Provider] - 3-5 Days
[2019-07-20 23:10] LABS: Amphetamine Screen,Urine PRESUMPTIVE NEGATIVE; Benzodiazepines Screen,Urine PRESUMPTIVE NEGATIVE; Cannabinoid Screen,Urine PRESUMPTIVE NEGATIVE; Cocaine Screen,Urine PRESUMPTIVE NEGATIVE; Methadone Screen,Urine PRESUMPTIVE NEGATIVE; Opiate Screen,Urine PRESUMPTIVE NEGATIVE
[2019-07-20 23:22] LABS: BUN/Creatinine Ratio 9; Blood Urea Nitrogen 8 mg/dL (9-20); Calcium 9.5 mg/dL (8.4-10.2); Hemolysis Index 5
[2019-07-21 08:43] VITALS: BP 144/94
== END 2019-07-21 14:45 | disposition home or self-care (01) ==
LOC: ED 22:36
DX: F20.9 Schizophrenia, unspecified (principal); F17.200 Nicotine dependence, unspecified, uncomplicated; Z79.899 Other long term (current) drug therapy; Z91.012 Allergy to eggs; Z88.8 Allergy status to other drugs, medicaments and biological substances
CPT/HCPCS: 36415; 80048; 80307; 80320; 81001; 85025; G0480

== ENCOUNTER 2019-08-04 02:02 | Emergency (ER) | payer SELFPAY ==
--- NOTE | 2019-08-04 02:11 | Emergency Department Report ---
ED Psych HPI - General Stated Complaint: SI Time Seen by Provider: 08/04/19 02:05 Source: patient, EMS, old records reviewed Mode of arrival: Ambulatory Limitations: No Limitations - History of Present Illness Initial Comments: Mr. Seaman is a 48-year-old male with history of schizophrenia and congestive heart failure who presents with suicidal ideation and auditory hallucinations. He is currently homeless. He called 911 from [facility] for assistance. He has not taken his psychiatric medications. He denies any other physical complaints. He states that "I am hearing voices." He does not have a plan to harm himself. MD Complaint: suicidal ideation, feels depressed, other (Auditory hallucinations) Associated Psychiatric Symptoms: none, depression, auditory hallucinations History of same: Yes Quality: constant Improves With: none Worsens With: none Context: not taking psychiatric Associated Symptoms: denies other symptoms Treatments Prior to Arrival: none If Self Harm: admits thoughts of - Related Data Home Medications Medication Instructions Recorded Confirmed Last Taken Furosemide [Lasix] 20 mg PO QDAY 08/10/19 08/10/19 Unknown Lisinopril [Zestril] 5 mg PO QDAY 08/10/19 08/10/19 Unknown Metoprolol SUCCINATE ER TAB 25 mg PO QDAY 08/10/19 08/10/19 Unknown Previous Rx's Medication Instructions Recorded Last Taken Type Nicotine [Habitrol] 21 mg TD QDAY #30 patch 07/02/19 Unknown Rx OLANzapine [ZyPREXA] 5 mg PO QDAY #60 tablet 07/02/19 Unknown Rx risperiDONE [RisperDAL] 1 mg PO DAILY #60 tablet 07/02/19 Unknown Rx Allergies Allergy/AdvReac Type Severity Reaction Status Date / Time egg Allergy Unknown Verified 05/07/19 07:12 mayonnaise Allergy Unknown Verified 06/30/19 01:44 ED Review of Systems ROS: Stated complaint: SI Other details as noted in HPI Comment: All other systems reviewed and negative Constitutional: denies: fever, malaise Respiratory: denies: shortness of breath Cardiovascular: denies: chest pain ED Past Medical Hx - Past Medical History Previous Medical History?: Yes Hx Congestive Heart Failure: No Hx Diabetes: No Hx Arthritis: No Hx Psychiatric Treatment: Yes (schizophrenia) Hx Asthma: No Hx COPD: No Additional medical history: schizophrenia - Surgical History Additional Surgical History: y - Social History Smoking Status: Current Every Day Smoker Substance Use Type: Alcohol - Medications Home Medications: Home Medications Medication Instructions Recorded Confirmed Last Taken Type Nicotine [Habitrol] 21 mg TD QDAY #30 patch 07/02/19 Unknown Rx OLANzapine [ZyPREXA] 5 mg PO QDAY #60 tablet 07/02/19 08/10/19 Unknown Rx risperiDONE [RisperDAL] 1 mg PO DAILY #60 tablet 07/02/19 08/10/19 Unknown Rx Furosemide [Lasix] 20 mg PO QDAY 08/10/19 08/10/19 Unknown History Lisinopril [Zestril] 5 mg PO QDAY 08/10/19 08/10/19 Unknown History Metoprolol SUCCINATE ER TAB 25 mg PO QDAY 08/10/19 08/10/19 Unknown History ED Physical Exam - General General appearance: alert, in no apparent distress, other (Dirty disheveled clothing) - Head Head exam: Present: atraumatic, normocephalic - Eye Eye exam: Present: normal appearance - ENT ENT exam: Present: mucous membranes moist - Neck Neck exam: Present: normal inspection, full ROM - Respiratory Respiratory exam: Present: normal lung sounds bilaterally. Absent: respiratory distress, wheezes, rales, rhonchi - Cardiovascular Cardiovascular Exam: Present: regular rate, normal rhythm, normal heart sounds. Absent: systolic murmur, diastolic murmur, rubs, gallop - GI/Abdominal GI/Abdominal exam: Present: soft, normal bowel sounds. Absent: distended, tenderness, guarding, rebound - Rectal Rectal exam: Present: deferred - Extremities Exam Extremities exam: Present: normal inspection - Back Exam Back exam: Present: normal inspection - Neurological Exam Neurological exam: Present: alert, oriented X3 - Psychiatric Psychiatric exam: Present: depressed, flat affect - Skin Skin exam: Present: warm, dry, intact, normal color. Absent: rash ED Course Vital Signs 08/04/19 08/04/19 02:13 09:13 Temperature 98 F 98 F Pulse Rate 76 72 Respiratory 18 18 Rate Blood Pressure 152/94 138/83 [Left] O2 Sat by Pulse 99 99 Oximetry ED Medical Decision Making - Lab Data Result diagrams: 08/04/19 02:26 08/04/19 02:26 - Medical Decision Making Mr. Seaman has history of schizophrenia. He reports suicidal ideation, depre ssed mood and auditory hallucinations. He appears well. He appears insightful. He does not appear to respond to internal stimuli. He is medically clear for psychiatric care. Currently awaiting treatment recommendations by our psychiatric team. I have reviewed the labs obtained including CBC chemistry serum toxicology urinalysis urine drug screen. All labs obtained are within normal limits. Mr. Seaman is discharged home. Critical care attestation.: If time is entered above; I have spent that time in minutes in the direct care of this critically ill patient, excluding procedure time. ED Disposition Clinical Impression: Schizophrenia, Suicidal ideations, Auditory hallucinations Disposition: DC-01 TO HOME OR SELFCARE Is pt being admited?: No Does the pt Need Aspirin: No Condition: Stable
[2019-08-04 02:39] LABS: Basophils # (Auto) 0.1 K/mm3 (0.0-0.1); Basophils % (Auto) 0.8 % (0.0-1.8); Eosinophils # (Auto) 0.4 K/mm3 (0.0-0.4); Eosinophils % (Auto) 5.4 % (0.0-4.3); Hematocrit 35.8 % (35.5-45.6); Hemoglobin 11.8 gm/dl (11.8-15.2); Lymphocytes # (Auto) 1.9 K/mm3 (1.2-5.4); Lymphocytes % (Auto) 24.9 % (13.4-35.0); Mean Corpuscular HGB Conc 33 % (32-34); Mean Corpuscular Volume 91 fl (84-94); Monocytes # (Auto) 0.8 K/mm3 (0.0-0.8); Monocytes % (Auto) 10.5 % (0.0-7.3); Platelet Count 291 K/mm3 (140-440); Red Blood Count 3.93 M/mm3 (3.65-5.03); Red Cell Distribution Width 15.6 % (13.2-15.2)
[2019-08-04 02:59] LABS: Bilirubin,Urine NEG (Negative); Blood,Urine NEG (Negative); Color,Urine Yellow (Yellow); Protein,Urine <15 mg/dL mg/dL (Negative)
[2019-08-04 03:04] LABS: Alanine Aminotransferase 21 units/L (7-56); BUN/Creatinine Ratio 11; Blood Urea Nitrogen 11 mg/dL (9-20); Calcium 8.9 mg/dL (8.4-10.2); Hemolysis Index 1
[2019-08-04 03:06] LABS: Amphetamine Screen,Urine PRESUMPTIVE NEGATIVE; Benzodiazepines Screen,Urine PRESUMPTIVE NEGATIVE; Cannabinoid Screen,Urine PRESUMPTIVE NEGATIVE; Cocaine Screen,Urine PRESUMPTIVE NEGATIVE; Methadone Screen,Urine PRESUMPTIVE NEGATIVE; Opiate Screen,Urine PRESUMPTIVE NEGATIVE
[2019-08-04 09:14] VITALS: BP 138/83
== END 2019-08-04 14:30 | disposition home or self-care (01) ==
LOC: ED 02:02 → EEVIPCON 02:02 → ED 14:30
DX: F20.9 Schizophrenia, unspecified (principal); R45.851 Suicidal ideations; R44.0 Auditory hallucinations; Z79.899 Other long term (current) drug therapy; Z91.018 Allergy to other foods; F17.200 Nicotine dependence, unspecified, uncomplicated
CPT/HCPCS: 36415; 80053; 80307; 80320; 81001; 85025; G0480

== ENCOUNTER 2019-08-10 22:17 | Emergency (ER) | payer SELFPAY ==
[2019-08-10] MEDS ORDERED: BENZONATATE 100 MG CAP PO ONE (23:06)
[2019-08-10 23:09] LABS: Basophils # (Auto) 0.1 K/mm3 (0.0-0.1); Eosinophils # (Auto) 0.3 K/mm3 (0.0-0.4); Eosinophils % (Auto) 4.3 % (0.0-4.3); Hematocrit 34.2 % (35.5-45.6); Hemoglobin 11.4 gm/dl (11.8-15.2); Lymphocytes # (Auto) 1.4 K/mm3 (1.2-5.4); Lymphocytes % (Auto) 19.3 % (13.4-35.0); Mean Corpuscular HGB Conc 34 % (32-34); Mean Corpuscular Volume 90 fl (84-94); Monocytes # (Auto) 0.6 K/mm3 (0.0-0.8); Platelet Count 275 K/mm3 (140-440); Red Cell Distribution Width 15.4 % (13.2-15.2)
[2019-08-10 23:12] LABS: Bilirubin,Urine NEG (Negative); Blood,Urine NEG (Negative); Color,Urine Straw (Yellow); Protein,Urine <15 mg/dL mg/dL (Negative); WBC,Urine < 1.0 /HPF (0.0-6.0)
[2019-08-10 23:14] LABS: Amphetamine Screen,Urine PRESUMPTIVE NEGATIVE; Benzodiazepines Screen,Urine PRESUMPTIVE NEGATIVE; Cannabinoid Screen,Urine PRESUMPTIVE NEGATIVE; Cocaine Screen,Urine PRESUMPTIVE NEGATIVE; Methadone Screen,Urine PRESUMPTIVE NEGATIVE; Opiate Screen,Urine PRESUMPTIVE NEGATIVE
--- NOTE | 2019-08-10 23:36 | Emergency Department Report ---
<SHEY GOMES - Last Filed: 08/11/19 01:07> ED Psych HPI - General Chief Complaint: Psych Stated Complaint: MH Time Seen by Provider: 08/10/19 22:58 Source: patient Mode of arrival: Ambulatory - History of Present Illness Initial Comments: Patient is a 48-year-old F [place] Citizen male with schizophrenia and congestive heart failure hypertension who is presenting with auditory command hallucinations. Patient states that the voices are telling him he should give up and stop try and kill himself. Patient states he came in because he wanted help resisting these voices. He denies homicidal ideations. Patient also states he is had a nonproductive cough for the last 4 days with mild shortness of breath. Denies nausea vomiting diarrhea sore throat or neck stiffness. - Related Data Home Medications Medication Instructions Recorded Confirmed Last Taken Furosemide [Lasix] 20 mg PO QDAY 08/10/19 08/10/19 Unknown Lisinopril [Zestril] 5 mg PO QDAY 08/10/19 08/10/19 Unknown Metoprolol SUCCINATE ER TAB 25 mg PO QDAY 08/10/19 08/10/19 Unknown Previous Rx's Medication Instructions Recorded Last Taken Type Nicotine [Habitrol] 21 mg TD QDAY #30 patch 07/02/19 Unknown Rx OLANzapine [ZyPREXA] 5 mg PO QDAY #60 tablet 07/02/19 Unknown Rx risperiDONE [RisperDAL] 1 mg PO DAILY #60 tablet 07/02/19 Unknown Rx Allergies Allergy/AdvReac Type Severity Reaction Status Date / Time egg Allergy Unknown Verified 05/07/19 07:12 mayonnaise Allergy Unknown Verified 06/30/19 01:44 ED Review of Systems Comment: All other systems reviewed and negative ED Past Medical Hx - Past Medical History Hx Congestive Heart Failure: No Hx Diabetes: No Hx Arthritis: No Hx Psychiatric Treatment: Yes (schizophrenia) Hx Asthma: No Hx COPD: No Additional medical history: schizophrenia - Surgical History Additional Surgical History: y - Social History Smoking Status: Current Every Day Smoker Substance Use Type: Alcohol - Medications Home Medications: Home Medications Medication Instructions Recorded Confirmed Last Taken Type Nicotine [Habitrol] 21 mg TD QDAY #30 patch 07/02/19 Unknown Rx OLANzapine [ZyPREXA] 5 mg PO QDAY #60 tablet 07/02/19 08/10/19 Unknown Rx risperiDONE [RisperDAL] 1 mg PO DAILY #60 tablet 07/02/19 08/10/19 Unknown Rx Furosemide [Lasix] 20 mg PO QDAY 08/10/19 08/10/19 Unknown History Lisinopril [Zestril] 5 mg PO QDAY 08/10/19 08/10/19 Unknown History Metoprolol SUCCINATE ER TAB 25 mg PO QDAY 08/10/19 08/10/19 Unknown History ED Physical Exam - General Limitations: No Limitations General appearance: alert, in no apparent distress - Head Head exam: Present: atraumatic, normocephalic - Eye Eye exam: Present: normal appearance - ENT ENT exam: Present: mucous membranes moist - Neck Neck exam: Present: normal inspection - Respiratory Respiratory exam: Present: normal lung sounds bilaterally. Absent: respiratory distress, wheezes, rales, rhonchi, chest wall tenderness - Cardiovascular Cardiovascular Exam: Present: regular rate, normal rhythm, normal heart sounds. Absent: systolic murmur, diastolic murmur, rubs, gallop - GI/Abdominal GI/Abdominal exam: Present: soft, normal bowel sounds. Absent: distended, tenderness, guarding - Rectal Rectal exam: Present: deferred - Extremities Exam Extremities exam: Present: normal inspection - Back Exam Back exam: Present: normal inspection - Neurological Exam Neurological exam: Present: alert, oriented X3 - Psychiatric Psychiatric exam: Present: normal mood, flat affect, suicidal ideation - Skin Skin exam: Present: warm, dry, intact, normal color. Absent: rash ED Course - Reevaluation(s) Reevaluation #1: 08/11/19 01:08 Patient is medically cleared at this time. He does have some very mild pulmonary vascular congestion consistent with history of heart failure. Given the extra dose of Lasix. ED Medical Decision Making - Lab Data Result diagrams: 08/10/19 22:35 08/10/19 22:35 Lab Results 08/10/19 08/10/19 08/10/19 Range/Units 22:35 22:35 22:35 WBC (4.5-11.0) K/mm3 RBC (3.65-5.03) M/mm3 Hgb (11.8-15.2) gm/dl Hct (35.5-45.6) % MCV (84-94) fl MCH (28-32) pg MCHC (32-34) % RDW (13.2-15.2) % Plt Count (140-440) K/mm3 Lymph % (Auto) (13.4-35.0) % Dougherty % (Auto) (0.0-7.3) % Eos % (Auto) (0.0-4.3) % Baso % (Auto) (0.0-1.8) % Lymph # (1.2-5.4) K/mm3 Dougherty # (0.0-0.8) K/mm3 Eos # (0.0-0.4) K/mm3 Baso # (0.0-0.1) K/mm3 Seg Neutrophils % (40.0-70.0) % Seg Neutrophils # (1.8-7.7) K/mm3 Sodium 140 (137-145) mmol/L Potassium 3.6 (3.6-5.0) mmol/L Chloride 101.5 (98-107) mmol/L Carbon Dioxide 25 (22-30) mmol/L Anion Gap 17 mmol/L BUN 9 (9-20) mg/dL Creatinine 1.1 (0.8-1.5) mg/dL Estimated GFR > 60 ml/min BUN/Creatinine Ratio 8 % Glucose 88 (75-100) mg/dL Calcium 8.7 (8.4-10.2) mg/dL NT-Pro-B Natriuret Pep (0-900) pg/mL Urine Color (Yellow) Urine Turbidity (Clear) Urine pH (5.0-7.0) Ur Specific Montgomery (1.003-1.030) Urine Protein (Negative) mg/dL Urine Glucose (UA) (Negative) mg/dL Urine Ketones (Negative) mg/dL Urine Blood (Negative) Urine Nitrite (Negative) Urine Bilirubin (Negative) Urine Urobilinogen (<2.0) mg/dL Ur Leukocyte Esterase (Negative) Urine WBC (Auto) (0.0-6.0) /HPF Urine RBC (Auto) (0.0-6.0) /HPF U Epithel Cells (Auto) (0-13.0) /HPF Salicylates < 0.3 L (2.8-20.0) mg/dL Urine Opiates Screen Urine Methadone Screen Acetaminophen < 5.0 L (10.0-30.0) ug/mL Ur Barbiturates Screen Ur Phencyclidine Scrn Ur Amphetamines Screen U Benzodiazepines Scrn Urine Cocaine Screen U Marijuana (THC) Screen Drugs of Abuse Note Plasma/Serum Alcohol (0-0.07) % 08/10/19 08/10/19 08/10/19 Range/Units 22:35 22:35 22:35 WBC 7.3 (4.5-11.0) K/mm3 RBC 3.80 (3.65-5.03) M/mm3 Hgb 11.4 L (11.8-15.2) gm/dl Hct 34.2 L (35.5-45.6) % MCV 90 (84-94) fl MCH 30 (28-32) pg MCHC 34 (32-34) % RDW 15.4 H (13.2-15.2) % Plt Count 275 (140-440) K/mm3 Lymph % (Auto) 19.3 (13.4-35.0) % Dougherty % (Auto) 8.0 H (0.0-7.3) % Eos % (Auto) 4.3 (0.0-4.3) % Baso % (Auto) 1.0 (0.0-1.8) % Lymph # 1.4 (1.2-5.4) K/mm3 Dougherty # 0.6 (0.0-0.8) K/mm3 Eos # 0.3 (0.0-0.4) K/mm3 Baso # 0.1 (0.0-0.1) K/mm3 Seg Neutrophils % 67.4 (40.0-70.0) % Seg Neutrophils # 5.0 (1.8-7.7) K/mm3 Sodium (137-145) mmol/L Potassium (3.6-5.0) mmol/L Chloride (98-107) mmol/L Carbon Dioxide (22-30) mmol/L Anion Gap mmol/L BUN (9-20) mg/dL Creatinine (0.8-1.5) mg/dL Estimated GFR ml/min BUN/Creatinine Ratio % Glucose (75-100) mg/dL Calcium (8.4-10.2) mg/dL NT-Pro-B Natriuret Pep 909.7 H (0-900) pg/mL Urine Color (Yellow) Urine Turbidity (Clear) Urine pH (5.0-7.0) Ur Specific Montgomery (1.003-1.030) Urine Protein (Negative) mg/dL Urine Glucose (UA) (Negative) mg/dL Urine Ketones (Negative) mg/dL Urine Blood (Negative) Urine Nitrite (Negative) Urine Bilirubin (Negative) Urine Urobilinogen (<2.0) mg/dL Ur Leukocyte Esterase (Negative) Urine WBC (Auto) (0.0-6.0) /HPF Urine RBC (Auto) (0.0-6.0) /HPF U Epithel Cells (Auto) (0-13.0) /HPF Salicylates (2.8-20.0) mg/dL Urine Opiates Screen Urine Methadone Screen Acetaminophen (10.0-30.0) ug/mL Ur Barbiturates Screen Ur Phencyclidine Scrn Ur Amphetamines Screen U Benzodiazepines Scrn Urine Cocaine Screen U Marijuana (THC) Screen Drugs of Abuse Note Plasma/Serum Alcohol < 0.01 (0-0.07) % 08/10/19 08/10/19 Range/Units Unknown Unknown WBC (4.5-11.0) K/mm3 RBC (3.65-5.03) M/mm3 Hgb (11.8-15.2) gm/dl Hct (35.5-45.6) % MCV (84-94) fl MCH (28-32) pg MCHC (32-34) % RDW (13.2-15.2) % Plt Count (140-440) K/mm3 Lymph % (Auto) (13.4-35.0) % Dougherty % (Auto) (0.0-7.3) % Eos % (Auto) (0.0-4.3) % Baso % (Auto) (0.0-1.8) % Lymph # (1.2-5.4) K/mm3 Dougherty # (0.0-0.8) K/mm3 Eos # (0.0-0.4) K/mm3 Baso # (0.0-0.1) K/mm3 Seg Neutrophils % (40.0-70.0) % Seg Neutrophils # (1.8-7.7) K/mm3 Sodium (137-145) mmol/L Potassium (3.6-5.0) mmol/L Chloride (98-107) mmol/L Carbon Dioxide (22-30) mmol/L Anion Gap mmol/L BUN (9-20) mg/dL Creatinine (0.8-1.5) mg/dL Estimated GFR ml/min BUN/Creatinine Ratio % Glucose (75-100) mg/dL Calcium (8.4-10.2) mg/dL NT-Pro-B Natriuret Pep (0-900) pg/mL Urine Color Straw (Yellow) Urine Turbidity Clear (Clear) Urine pH 6.0 (5.0-7.0) Ur Specific Montgomery 1.005 (1.003-1.030) Urine Protein <15 mg/dl (Negative) mg/dL Urine Glucose (UA) Neg (Negative) mg/dL Urine Ketones Neg (Negative) mg/dL Urine Blood Neg (Negative) Urine Nitrite Neg (Negative) Urine Bilirubin Neg (Negative) Urine Urobilinogen 4.0 (<2.0) mg/dL Ur Leukocyte Esterase Neg (Negative) Urine WBC (Auto) < 1.0 (0.0-6.0) /HPF Urine RBC (Auto) 2.0 (0.0-6.0) /HPF U Epithel Cells (Auto) < 1.0 (0-13.0) /HPF Salicylates (2.8-20.0) mg/dL Urine Opiates Screen Presumptive negative Urine Methadone Screen Presumptive negative Acetaminophen (10.0-30.0) ug/mL Ur Barbiturates Screen Presumptive negative Ur Phencyclidine Scrn Presumptive negative Ur Amphetamines Screen Presumptive negative U Benzodiazepines Scrn Presumptive negative Urine Cocaine Screen Presumptive negative U Marijuana (THC) Screen Presumptive negative Drugs of Abuse Note Disclamer Plasma/Serum Alcohol (0-0.07) % - Radiology Data CHEST 2 VIEWS, 08/10/2019 11:36 PM INDICATION: Cough COMPARISON: Chest radiograph, 10/30/2012 FINDINGS: Support devices: None. Heart: The cardiac silhouette is moderately enlarged. Lungs/pleura: Mildly prominent interstitial markings are noted bilaterally. No focal consolidation or significant pleural effusion is visualized. Additional findings: Evaluation of bony structures demonstrates no evidence of acute bony abnormality. IMPRESSION: 1. Moderate enlargement of the cardiac silhouette with mild interstitial prominence suggesting pulmonary venous hypertension. Signer Name: Johanny Johnston MD Signed: 08/11/2019 12:45 AM Workstation Name: [id number] ED Disposition Clinical Impression: Schizophrenia Disposition: DC-01 TO HOME OR SELFCARE Condition: Stable Additional Instructions: Professional and Agency Contacts To help Resolve Crises(07/10) [place] Crisis Line: Suicide Prevention Line: Crisis Text Line: Text START to 644461 Emergency: 911 Outpatient [facility] Behavioral Health Resources: DEYAKELINLB: [facility] [address] [place], [place] [address] BETTE: [facility] - [address] [place] [address] Friday thru Friday - 8am - 5pm MARTINEZ: [facility] Address: [address] [place] [address] Friday thru Friday- 7am-2pm [facility] Address: [address] [place] [address] Friday thru Friday: 8:30AM-5PM HOMELESS RESOURCES: [facility] NEED HELP? People experiencing homelessness seek refuge at [facility] five days a week in need of help for a wide range of problems, ranging from the working poor sleeping in a car, women and children escaping domestic violence, and people who have no means of detention. If you are in need of help or know someone who does, please contact us at [email or web address] call , or come to our offices at [address] [place] [address], Friday-Friday beginning at 8AM. [facility] Address: [address] [place] [address] Client Engagement [phone] Regular program admission occurs Friday through Friday at 7:00 amand operates on a first come, first serve basis.Because we cant anticipate program availability in advance andprogram spots are in high demand, we recommend arriving early. Space fills up fast! Next steps can include: Assignment to a [facility] program bed Connection to and placement in a partner program, or Referral to a partner agency City of Refuge: [facility] Address: [address] [place] [address] Referrals: PRIMARY CAREMD [Primary Care Provider] - 3-5 Days <AUGSTINA GOMES - Last Filed: 08/11/19 08:41> ED Review of Systems ROS: Stated complaint: MH Other details as noted in HPI ED Course Vital Signs 08/10/19 08/11/19 22:20 01:57 Temperature 97.6 F 97.9 F Pulse Rate 95 H 84 Respiratory 18 18 Rate Blood Pressure 166/89 Blood Pressure 123/71 [Right] O2 Sat by Pulse 98 96 Oximetry ED Medical Decision Making - Lab Data Result diagrams: 08/10/19 22:35 08/10/19 22:35 - Medical Decision Making psychiatric team has recommended discharge. Patient was provided outpatient resources. Critical care attestation.: If time is entered above; I have spent that time in minutes in the direct care of this critically ill patient, excluding procedure time. ED Disposition Is pt being admited?: No Does the pt Need Aspirin: No
[2019-08-10 23:38] LABS: BUN/Creatinine Ratio 8; Blood Urea Nitrogen 9 mg/dL (9-20); Calcium 8.7 mg/dL (8.4-10.2); Hemolysis Index 0
--- NOTE | 2019-08-11 00:50 | XRay Report ---
CHEST 2 VIEWS, 08/10/2019 11:36 PM INDICATION: Cough COMPARISON: Chest radiograph, 10/30/2012 FINDINGS: Support devices: None. Heart: The cardiac silhouette is moderately enlarged. Lungs/pleura: Mildly prominent interstitial markings are noted bilaterally. No focal consolidation or significant pleural effusion is visualized. Additional findings: Evaluation of bony structures demonstrates no evidence of acute bony abnormality . IMPRESSION: 1. Moderate enlargement of the cardiac silhouette with mild interstitial prominence suggesting pulmon clarence venous hypertension. Signer Name: Johanny Johnston MD Signed: 08/11/2019 12:45 AM Workstation Name: [id number]
[2019-08-11] MEDS ORDERED: FUROSEMIDE 20 MG TAB PO ONE (00:54)
[2019-08-11 01:59] VITALS: BP 123/71
[2019-08-11] MEDS ORDERED: NON-FORMULARY EACH (Metoprolol Succinate Er Tab 25 MG) PO SCH (10:00)
[2019-08-11] MEDS ORDERED: FUROSEMIDE 20 MG TAB PO SCH (10:00)
[2019-08-11] MEDS ORDERED: LISINOPRIL 5 MG TAB PO SCH (10:00)
[2019-08-11] MEDS ORDERED: NICOTINE 21 MG/24 HR PATCH TD SCH (10:00)
[2019-08-11] MEDS ORDERED: METOPROLOL SUCCINATE XL 25 MG TAB PO SCH (10:00)
[2019-08-11] MEDS ORDERED: risperiDONE 1 MG TAB PO SCH (10:00)
== END 2019-08-11 08:46 | disposition home or self-care (01) ==
LOC: ED 22:17
DX: F20.9 Schizophrenia, unspecified (principal); I11.0 Hypertensive heart disease with heart failure; I50.9 Heart failure, unspecified; F17.200 Nicotine dependence, unspecified, uncomplicated; Z79.899 Other long term (current) drug therapy; Z91.018 Allergy to other foods; Z91.012 Allergy to eggs
CPT/HCPCS: 36415; 71046; 80048; 80307; 80320; 81001; 83880; 85025; G0480

== ENCOUNTER 2019-09-18 00:09 | Emergency (ER) | payer MEDICARE ==
--- NOTE | 2019-09-18 01:05 | Emergency Department Report ---
<NAYELY NAYAK - Last Filed: 09/18/19 01:03> ED Psych HPI - General Chief Complaint: Psych Stated Complaint: MH EVAL, COLD SYMPTOMS Time Seen by Provider: 09/18/19 00:56 Source: patient Mode of arrival: Ambulatory - History of Present Illness Initial Comments: Mr. Seaman is 49 years old male with history of schizophrenia. Patient presented to the ER stating that he is hearing voices asking him to give up his life. Patient stated that he has active suicidal thoughts but does not have a clear plan. Patient admitted both auditory and visual hallucination. Patient denied homicidal ideation. MD Complaint: suicidal ideation - Related Data Home Medications Medication Instructions Recorded Confirmed Last Taken Furosemide [Lasix] 20 mg PO QDAY 08/10/19 08/10/19 Unknown Lisinopril [Zestril] 5 mg PO QDAY 08/10/19 08/10/19 Unknown Metoprolol SUCCINATE ER TAB 25 mg PO QDAY 08/10/19 08/10/19 Unknown Previous Rx's Medication Instructions Recorded Last Taken Type Nicotine [Habitrol] 21 mg TD QDAY #30 patch 07/02/19 Unknown Rx OLANzapine [ZyPREXA] 5 mg PO QDAY #60 tablet 07/02/19 Unknown Rx risperiDONE [RisperDAL] 1 mg PO DAILY #60 tablet 07/02/19 Unknown Rx Allergies Allergy/AdvReac Type Severity Reaction Status Date / Time egg Allergy Unknown Verified 05/07/19 07:12 mayonnaise Allergy Unknown Verified 06/30/19 01:44 ED Review of Systems Comment: All other systems reviewed and negative Constitutional: denies: chills, fever Respiratory: cough. denies: shortness of breath, SOB with exertion, SOB at rest, wheezing Cardiovascular: denies: chest pain, palpitations Gastrointestinal: denies: abdominal pain, nausea, vomiting, diarrhea, constipation, hematemesis, melena, hematochezia Musculoskeletal: denies: back pain Neurological: denies: headache, weakness, numbness, paresthesias, confusion, abnormal gait Psychiatric: auditory hallucinations, visual hallucinations, suicidal thoughts. denies: homicidal thoughts ED Past Medical Hx - Past Medical History Previous Medical History?: Yes Hx Congestive Heart Failure: No Hx Diabetes: No Hx Arthritis: No Hx Psychiatric Treatment: Yes (schizophrenia) Hx Asthma: No Hx COPD: No Additional medical history: schizophrenia - Surgical History Past Surgical History?: No Additional Surgical History: y - Social History Smoking Status: Current Every Day Smoker Substance Use Type: None - Medications Home Medications: Home Medications Medication Instructions Recorded Confirmed Last Taken Type Nicotine [Habitrol] 21 mg TD QDAY #30 patch 07/02/19 Unknown Rx OLANzapine [ZyPREXA] 5 mg PO QDAY #60 tablet 07/02/19 08/10/19 Unknown Rx risperiDONE [RisperDAL] 1 mg PO DAILY #60 tablet 07/02/19 08/10/19 Unknown Rx Furosemide [Lasix] 20 mg PO QDAY 08/10/19 08/10/19 Unknown History Lisinopril [Zestril] 5 mg PO QDAY 08/10/19 08/10/19 Unknown History Metoprolol SUCCINATE ER TAB 25 mg PO QDAY 08/10/19 08/10/19 Unknown History ED Physical Exam - General Limitations: No Limitations General appearance: alert, in no apparent distress - Head Head exam: Present: atraumatic, normocephalic, normal inspection - Eye Eye exam: Present: normal appearance - ENT ENT exam: Present: normal exam, normal orophraynx, mucous membranes moist - Neck Neck exam: Present: normal inspection, full ROM. Absent: tenderness, meningismus - Respiratory Respiratory exam: Present: normal lung sounds bilaterally - Cardiovascular Cardiovascular Exam: Present: regular rate, normal rhythm, normal heart sounds - GI/Abdominal GI/Abdominal exam: Present: soft, normal bowel sounds. Absent: distended, tenderness, guarding, rebound, rigid, organomegaly, mass, bruit, hernia - Extremities Exam Extremities exam: Present: normal inspection, full ROM, normal capillary refill. Absent: pedal edema, calf tenderness - Back Exam Back exam: Present: normal inspection, full ROM. Absent: CVA tenderness (R), CVA tenderness (L) - Neurological Exam Neurological exam: Present: alert, oriented X3, CN II-XII intact, normal gait, reflexes normal. Absent: motor sensory deficit - Psychiatric Psychiatric exam: Present: suicidal ideation. Absent: homicidal ideation - Skin Skin exam: Present: warm, intact, normal color ED Disposition Clinical Impression: Schizophrenia, Medical clearance for psychiatric admission Disposition: TO HOME OR SELFCARE Condition: Stable Instructions: Schizophrenia (ED) Additional Instructions: Please follow-up with the [facility], or any of the outpatient referrals given to you by the psychiatric team. Return to the emergency department with any worsening of your symptoms, thoughts of harming herself or others, or with any acute distress. Referrals: PRIMARY CARE, [Primary Care Provider] - 2-3 Days [facility] [Outside] - 2-3 Days <DAYAN SHARPE S - Last Filed: 09/18/19 13:07> ED Review of Systems ROS: Stated complaint: MH EVAL, COLD SYMPTOMS Other details as noted in HPI ED Course Vital Signs 09/18/19 09/18/19 00:34 07:57 Temperature 98.6 F 98.0 F Pulse Rate 86 77 Respiratory 18 18 Rate Blood Pressure 159/97 Blood Pressure 122/68 [Right] O2 Sat by Pulse 97 96 Oximetry ED Medical Decision Making - Lab Data Result diagrams: 09/18/19 00:58 09/18/19 00:58 - Medical Decision Making This patient initially came in for some nonspecific suicidal ideations. He was seen by the psychiatric assessment team and he has been cleared for discharge. The patient has told his nurse, the psychiatric supervisor line department, and myself, that he has no suicidal ideations. The patient has been instructed to follow-up with the [facility], or any of the outpatient referrals given to him by the psychiatric team. He is also been instructed to return to the emergency department with any worsening of his symptoms, thoughts of harming himself or others, or with any acute distress. Critical care attestation.: If time is entered above; I have spent that time in minutes in the direct care of this critically ill patient, excluding procedure time. ED Disposition Is pt being admited?: No Time of Disposition: 13:05
[2019-09-18 01:19] LABS: Basophils # (Auto) 0.1 K/mm3 (0.0-0.1); Basophils % (Auto) 0.7 % (0.0-1.8); Eosinophils # (Auto) 0.3 K/mm3 (0.0-0.4); Eosinophils % (Auto) 4.3 % (0.0-4.3); Hematocrit 33.7 % (35.5-45.6); Hemoglobin 11.6 gm/dl (11.8-15.2); Lymphocytes # (Auto) 1.8 K/mm3 (1.2-5.4); Mean Corpuscular HGB Conc 35 % (32-34); Mean Corpuscular Volume 91 fl (84-94); Monocytes # (Auto) 0.7 K/mm3 (0.0-0.8); Monocytes % (Auto) 9.3 % (0.0-7.3); Platelet Count 270 K/mm3 (140-440); Red Blood Count 3.72 M/mm3 (3.65-5.03); Red Cell Distribution Width 15.5 % (13.2-15.2)
[2019-09-18 01:39] LABS: BUN/Creatinine Ratio 7; Blood Urea Nitrogen 6 mg/dL (9-20); Calcium 8.5 mg/dL (8.4-10.2); Hemolysis Index 3
[2019-09-18 04:56] LABS: Bilirubin,Urine NEG (Negative); Blood,Urine NEG (Negative); Color,Urine Straw (Yellow); Protein,Urine <15 mg/dL mg/dL (Negative); RBC,Urine < 1.0 /HPF (0.0-6.0); Urobilinogen,Urine < 2.0 mg/dL (<2.0)
[2019-09-18 05:16] LABS: Amphetamine Screen,Urine PRESUMPTIVE NEGATIVE; Benzodiazepines Screen,Urine PRESUMPTIVE NEGATIVE; Cannabinoid Screen,Urine PRESUMPTIVE NEGATIVE; Cocaine Screen,Urine PRESUMPTIVE NEGATIVE; Methadone Screen,Urine PRESUMPTIVE NEGATIVE; Opiate Screen,Urine PRESUMPTIVE NEGATIVE
[2019-09-18 07:59] VITALS: BP 122/68
== END 2019-09-18 14:45 | disposition home or self-care (01) ==
LOC: EEVIPCON 00:09 → ED 00:09
DX: F20.9 Schizophrenia, unspecified (principal); F17.200 Nicotine dependence, unspecified, uncomplicated; Z79.899 Other long term (current) drug therapy; Z91.012 Allergy to eggs; Z88.8 Allergy status to other drugs, medicaments and biological substances
CPT/HCPCS: 36415; 80048; 80307; 80320; 81001; 85025; G0480

== ENCOUNTER 2019-10-05 16:27 | Emergency (ER) | payer SELFPAY ==
--- NOTE | 2019-10-05 18:49 | Event Note ---
ED Screening Note ED Screening Note: PARANOID PAROLE..CHECK... RESPONDING TO INTERNAL COMMANDS SCHIZO NO SI NO HI OUT OF ZYPREXA NO This initial assessment/diagnostic orders/clinical plan/treatment(s) is/are subject to change based on patients health status, clinical progression and re- assessment by fellow clinical providers in the ED. Further treatment and workup at subsequent clinical providers discretion. Patient/guardian urged not to elope from the ED as their condition may be serious if not clinically assessed and managed. Initial orders include: LABS/URINE ER FOR EVAL
[2019-10-05 19:29] LABS: Basophils # (Auto) 0.1 K/mm3 (0.0-0.1); Basophils % (Auto) 0.9 % (0.0-1.8); Eosinophils # (Auto) 0.3 K/mm3 (0.0-0.4); Eosinophils % (Auto) 4.6 % (0.0-4.3); Hematocrit 37.1 % (35.5-45.6); Hemoglobin 11.9 gm/dl (11.8-15.2); Lymphocytes # (Auto) 1.7 K/mm3 (1.2-5.4); Lymphocytes % (Auto) 23.3 % (13.4-35.0); Mean Corpuscular HGB Conc 32 % (32-34); Mean Corpuscular Volume 90 fl (84-94); Monocytes # (Auto) 0.7 K/mm3 (0.0-0.8); Platelet Count 304 K/mm3 (140-440); Red Blood Count 4.11 M/mm3 (3.65-5.03); Red Cell Distribution Width 15.6 % (13.2-15.2)
[2019-10-05 19:54] LABS: Alanine Aminotransferase 14 units/L (7-56); Albumin 3.7 g/dL (3.9-5); BUN/Creatinine Ratio 12; Blood Urea Nitrogen 11 mg/dL (9-20); Calcium 8.5 mg/dL (8.4-10.2); Hemolysis Index 8
== END 2019-10-05 19:55 | disposition left against medical advice (07) ==
LOC: ED 16:27
DX: F20.0 Paranoid schizophrenia (principal); Z76.0 Encounter for issue of repeat prescription; Z53.21 Procedure and treatment not carried out due to patient leaving prior to being seen by health care provider
CPT/HCPCS: 36415; 80053; 80320; 85025; G0480

== ENCOUNTER 2019-12-02 00:03 | Emergency (ER) | payer MEDICARE ==
[2019-12-02 00:49] VITALS: BP 145/100
[2019-12-02 01:41] LABS: Basophils # (Auto) 0.1 K/mm3 (0.0-0.1); Eosinophils # (Auto) 0.3 K/mm3 (0.0-0.4); Eosinophils % (Auto) 4.3 % (0.0-4.3); Hematocrit 35.2 % (35.5-45.6); Hemoglobin 11.5 gm/dl (11.8-15.2); Lymphocytes # (Auto) 1.4 K/mm3 (1.2-5.4); Lymphocytes % (Auto) 20.8 % (13.4-35.0); Mean Corpuscular HGB Conc 33 % (32-34); Mean Corpuscular Volume 90 fl (84-94); Monocytes # (Auto) 0.6 K/mm3 (0.0-0.8); Monocytes % (Auto) 9.4 % (0.0-7.3); Platelet Count 316 K/mm3 (140-440); Red Blood Count 3.93 M/mm3 (3.65-5.03)
[2019-12-02 01:56] LABS: BUN/Creatinine Ratio 9; Blood Urea Nitrogen 10 mg/dL (9-20); Calcium 8.7 mg/dL (8.4-10.2); Hemolysis Index 0
[2019-12-02 02:35] LABS: Bilirubin,Urine NEG (Negative); Blood,Urine NEG (Negative); Urobilinogen,Urine < 2.0 mg/dL (<2.0)
[2019-12-02 02:44] LABS: Color,Urine Straw (Yellow); Mucus,Urine FEW /HPF
[2019-12-02 03:01] LABS: Amphetamine Screen,Urine PRESUMPTIVE NEGATIVE; Benzodiazepines Screen,Urine PRESUMPTIVE NEGATIVE; Cannabinoid Screen,Urine PRESUMPTIVE NEGATIVE; Cocaine Screen,Urine PRESUMPTIVE NEGATIVE; Methadone Screen,Urine PRESUMPTIVE NEGATIVE; Opiate Screen,Urine PRESUMPTIVE NEGATIVE
== END 2019-12-02 01:30 | disposition left against medical advice (07) ==
LOC: ED 00:03
DX: R05 Cough (principal); R09.89 Other specified symptoms and signs involving the circulatory and respiratory systems; Z53.21 Procedure and treatment not carried out due to patient leaving prior to being seen by health care provider
CPT/HCPCS: 36415; 80048; 80307; 80320; 81001; 85025; G0480

== ENCOUNTER 2019-12-28 19:44 | Emergency (ER) | payer SELFPAY ==
[2019-12-28 23:00] LABS: Basophils # (Auto) 0.1 K/mm3 (0.0-0.1); Basophils % (Auto) 1.8 % (0.0-1.8); Eosinophils # (Auto) 0.3 K/mm3 (0.0-0.4); Eosinophils % (Auto) 5.5 % (0.0-4.3); Hematocrit 33.9 % (35.5-45.6); Hemoglobin 10.9 gm/dl (11.8-15.2); Lymphocytes % (Auto) 16.5 % (13.4-35.0); Mean Corpuscular HGB Conc 32 % (32-34); Mean Corpuscular Volume 87 fl (84-94); Monocytes # (Auto) 0.6 K/mm3 (0.0-0.8); Monocytes % (Auto) 9.9 % (0.0-7.3); Platelet Count 303 K/mm3 (140-440); Red Cell Distribution Width 16.9 % (13.2-15.2)
[2019-12-28 23:19] LABS: BUN/Creatinine Ratio 10; Blood Urea Nitrogen 9 mg/dL (9-20); Calcium 8.5 mg/dL (8.4-10.2); Hemolysis Index 3
--- NOTE | 2019-12-29 02:12 | Emergency Department Report ---
ED General Adult HPI - General Chief complaint: Psych Stated complaint: MH EVALUATION, FLU LIKE SYMPTOMS PUI?: No Time Seen by Provider: 12/29/19 02:08 Source: patient, RN notes reviewed, old records reviewed Mode of arrival: Ambulatory Limitations: No Limitations - History of Present Illness Initial comments: The patient was evaluated in the emergency department for symptoms described in the history of present illness. He/she was evaluated in the context of the global COVID-19 pandemic, which necessitated consideration that the patient might be at risk for infection with the virus that causes COVID-19. Institutional protocols and algorithms that pertain to the evaluation of patients at risk for COVID-19 are in a state of rapid change based on information released by regulatory bodies including the CDC and federal and state organizations. These policies and algorithms were followed during the patient's care in the emergency department. Please note that these policies, procedures and recommendations changed on a rapid basis. Patient is a 49-year-old gentleman, with a history of homelessness and psychiatric disease. He was seen multiple times in this department last month. He was specifically seen by psychiatry, who offered and recommended that the patient is likely malingering for secondary gain. He was seen for nonspecific psychiatric symptoms, as well as nonspecific viral syndrome. Today, the patient presents to the ER with a complaint of weeks of dry cough, no complaint of loss of taste, loss of smell, and report of nausea. He denies physical pain. He is not homicidal or suicidal. The patient is asking for warm blanket and for something to eat or drink. He does not describe exacerbating or relieving factors. -: week(s) Consistency: intermittent Improves with: none Worsens with: none - Related Data Home Medications Medication Instructions Recorded Confirmed Last Taken Furosemide [Lasix] 20 mg PO QDAY 08/10/19 12/05/19 Unknown Lisinopril [Zestril] 5 mg PO QDAY 08/10/19 12/05/19 Unknown Metoprolol SUCCINATE ER TAB 25 mg PO QDAY 08/10/19 12/05/19 Unknown Previous Rx's Medication Instructions Recorded Last Taken Type OLANzapine [ZyPREXA] 5 mg PO QDAY #60 tablet 07/02/19 Unknown Rx risperiDONE [RisperDAL] 1 mg PO DAILY #60 tablet 07/02/19 Unknown Rx Caro Root [Caro] 250 mg PO QID PRN #30 capsule 10/14/20 Unknown Rx Allergies Allergy/AdvReac Type Severity Reaction Status Date / Time egg Allergy Unknown Verified 10/05/19 18:18 mayonnaise Allergy Unknown Verified 10/05/19 18:18 ED Review of Systems ROS: Stated complaint: MH EVALUATION, FLU LIKE SYMPTOMS Other details as noted in HPI Constitutional: denies: fever Eyes: denies: eye discharge ENT: congestion Respiratory: cough Cardiovascular: denies: chest pain Gastrointestinal: nausea, vomiting. denies: abdominal pain Musculoskeletal: denies: back pain Psychiatric: denies: homicidal thoughts, suicidal thoughts ED Past Medical Hx - Past Medical History Hx Congestive Heart Failure: No Hx Diabetes: No Hx Arthritis: No Hx Psychiatric Treatment: Yes (schizophrenia) Hx Asthma: No Hx COPD: No Additional medical history: schizophrenia - Surgical History Additional Surgical History: y - Social History Smoking Status: Never Smoker Substance Use Type: None - Medications Home Medications: Home Medications Medication Instructions Recorded Confirmed Last Taken Type OLANzapine [ZyPREXA] 5 mg PO QDAY #60 tablet 07/02/19 12/05/19 Unknown Rx risperiDONE [RisperDAL] 1 mg PO DAILY #60 tablet 07/02/19 12/05/19 Unknown Rx Furosemide [Lasix] 20 mg PO QDAY 08/10/19 12/05/19 Unknown History Lisinopril [Zestril] 5 mg PO QDAY 08/10/19 12/05/19 Unknown History Metoprolol SUCCINATE ER TAB 25 mg PO QDAY 08/10/19 12/05/19 Unknown History Caro Root [Caro] 250 mg PO QID PRN #30 capsule 12/29/19 Unknown Rx ED Physical Exam - General Limitations: No Limitations General appearance: alert, in no apparent distress - Head Head exam: Present: atraumatic, normocephalic - Eye Eye exam: Present: normal appearance, EOMI. Absent: nystagmus - ENT ENT exam: Present: normal exam, normal orophraynx, mucous membranes moist, normal external ear exam - Neck Neck exam: Present: normal inspection, full ROM. Absent: tenderness, meningismus - Respiratory Respiratory exam: Present: normal lung sounds bilaterally. Absent: respiratory distress, wheezes, rales, rhonchi, stridor, decreased breath sounds - Cardiovascular Cardiovascular Exam: Present: regular rate, normal rhythm, normal heart sounds. Absent: bradycardia, tachycardia, irregular rhythm, systolic murmur, diastolic murmur, rubs, gallop - GI/Abdominal GI/Abdominal exam: Present: soft, normal bowel sounds. Absent: distended, tenderness, guarding, rebound, rigid, pulsatile mass - Rectal Rectal exam: Present: deferred - Extremities Exam Extremities exam: Present: normal inspection, full ROM, other (2+ pulses noted in the bilateral upper and lower extremities. There is no palpable cord. negative Homans sign. Muscular compartments are soft. The pelvis is stable.). Absent: calf tenderness - Back Exam Back exam: Present: normal inspection, full ROM. Absent: tenderness, CVA tenderness (R), CVA tenderness (L), paraspinal tenderness, vertebral tenderness - Neurological Exam Neurological exam: Present: alert, normal gait, other (No facial droop. Tongue midline. Extraocular movements intact bilaterally. Facial sensation intact to light touch in V1, V2, V3 distribution bilaterally. 5 and a 5 strength in 4 extremities. Sensation intact to light touch in 4 extremities.). Absent: motor sensory deficit - Psychiatric Psychiatric exam: Present: flat affect. Absent: homicidal ideation, suicidal ideation - Skin Skin exam: Present: warm, dry, intact, normal color. Absent: rash ED Course Vital Signs 12/28/19 21:07 Temperature 98.6 F Pulse Rate 98 H Respiratory 20 Rate Blood Pressure 150/102 O2 Sat by Pulse 95 Oximetry ED Medical Decision Making - Lab Data Result diagrams: 12/28/19 22:42 12/28/19 22:42 Vital Signs 12/28/19 21:07 Temperature 98.6 F Pulse Rate 98 H Respiratory 20 Rate Blood Pressure 150/102 O2 Sat by Pulse 95 Oximetry Lab Results 12/28/19 12/28/19 12/28/19 Range/Units 22:42 22:42 22:42 WBC (4.5-11.0) K/mm3 RBC (3.65-5.03) M/mm3 Hgb (11.8-15.2) gm/dl Hct (35.5-45.6) % MCV (84-94) fl MCH (28-32) pg MCHC (32-34) % RDW (13.2-15.2) % Plt Count (140-440) K/mm3 Lymph % (Auto) (13.4-35.0) % [place] % (Auto) (0.0-7.3) % Eos % (Auto) (0.0-4.3) % Baso % (Auto) (0.0-1.8) % Lymph # (Auto) (1.2-5.4) K/mm3 [place] # (Auto) (0.0-0.8) K/mm3 Eos # (Auto) (0.0-0.4) K/mm3 Baso # (Auto) (0.0-0.1) K/mm3 Seg Neutrophils % (40.0-70.0) % Seg Neutrophils # (1.8-7.7) K/mm3 Sodium 135 L (137-145) mmol/L Potassium 3.9 (3.6-5.0) mmol/L Chloride 99.9 (98-107) mmol/L Carbon Dioxide 23 (22-30) mmol/L Anion Gap 16 mmol/L BUN 9 (9-20) mg/dL Creatinine 0.9 (0.8-1.3) mg/dL Estimated GFR > 60 ml/min BUN/Creatinine Ratio 10 % Glucose 111 H (75-100) mg/dL Calcium 8.5 (8.4-10.2) mg/dL Salicylates < 0.3 L (2.8-20.0) mg/dL Acetaminophen 5.0 L (10.0-30.0) ug/mL Plasma/Serum Alcohol (0-0.07) % 12/28/19 12/28/19 Range/Units 22:42 22:42 WBC 6.3 (4.5-11.0) K/mm3 RBC 3.90 (3.65-5.03) M/mm3 Hgb 10.9 L (11.8-15.2) gm/dl Hct 33.9 L (35.5-45.6) % MCV 87 (84-94) fl MCH 28 (28-32) pg MCHC 32 (32-34) % RDW 16.9 H (13.2-15.2) % Plt Count 303 (140-440) K/mm3 Lymph % (Auto) 16.5 (13.4-35.0) % [place] % (Auto) 9.9 H (0.0-7.3) % Eos % (Auto) 5.5 H (0.0-4.3) % Baso % (Auto) 1.8 (0.0-1.8) % Lymph # (Auto) 1.0 L (1.2-5.4) K/mm3 [place] # (Auto) 0.6 (0.0-0.8) K/mm3 Eos # (Auto) 0.3 (0.0-0.4) K/mm3 Baso # (Auto) 0.1 (0.0-0.1) K/mm3 Seg Neutrophils % 66.3 (40.0-70.0) % Seg Neutrophils # 4.2 (1.8-7.7) K/mm3 Sodium (137-145) mmol/L Potassium (3.6-5.0) mmol/L Chloride (98-107) mmol/L Carbon Dioxide (22-30) mmol/L Anion Gap mmol/L BUN (9-20) mg/dL Creatinine (0.8-1.3) mg/dL Estimated GFR ml/min BUN/Creatinine Ratio % Glucose (75-100) mg/dL Calcium (8.4-10.2) mg/dL Salicylates (2.8-20.0) mg/dL Acetaminophen (10.0-30.0) ug/mL Plasma/Serum Alcohol < 0.01 (0-0.07) % - Medical Decision Making Differential diagnosis, including but not limited to: Homelessness, malingering, viral syndrome, general medical exam Assessment and plan: 49-year-old gentleman, who is afebrile with reassuring vital signs with exception of chronically elevated asymptomatic elevated blood pressure (please reference the [employer] clinical policy on asymptomatic hypertension), with a complaint of nausea and vomiting, no active vomiting at this time, not homicidal, not suicidal, does not meet criteria for 1013, who has been evaluated in this department in the past by psychiatry, and deemed to be malingering likely secondary to homelessness. The patient does not have a condition at this time which would require emergent hospitalization. Even if the patient has an atypical presentation of COVID, which as per review of chart, he has been describing nonspecific viral symptoms for weeks, he is hypoxic, in no acute distress, and therefore does not meet criteria for medical hospitalization. He does not meet criteria for 1013. Patient medically suitable for discharge with outpatient follow-up. Critical care attestation.: If time is entered above; I have spent that time in minutes in the direct care of this critically ill patient, excluding procedure time. ED Disposition Clinical Impression: General medical exam Disposition: DC-01 TO HOME OR SELFCARE Is pt being admited?: No Does the pt Need Aspirin: No Condition: Stable Additional Instructions: Please continue current home patient medications. Avoid consumption of Motrin, ibuprofen, Naprosyn, Aleve, heavy and spicy foods. Patient may take the nausea medication as needed and directed, and patient may initiate gentle diet, starting with bread, rice, apples, toast. Please follow-up with an outpatient primary care doctor or psychiatrist within the next month. Please return to the emergency room right away with new pain, worsening, migration of pain, projectile vomiting, change in mental status, confusion, inability to tolerate liquid feeds, new, worsened or different symptoms not present on the initial emergency room evaluation Referrals: [facility] [Outside] - 3-5 Days [facility] [Provider Group] - 3-5 Days
[2019-12-29 04:05] VITALS: BP 121/81
== END 2019-12-29 03:05 | disposition home or self-care (01) ==
LOC: ED 19:44
DX: R05 Cough (principal); R11.0 Nausea; J34.89 Other specified disorders of nose and nasal sinuses; Z91.018 Allergy to other foods; Z91.012 Allergy to eggs
CPT/HCPCS: 36415; 80048; 80320; 85025; G0480

== ENCOUNTER 2020-02-02 00:57 | Emergency (ER) | payer SELFPAY ==
[2020-02-02 04:47] LABS: Bilirubin,Urine NEG (Negative); Blood,Urine NEG (Negative); Color,Urine Yellow (Yellow); Mucus,Urine FEW /HPF; Protein,Urine <15 mg/dL mg/dL (Negative); Urobilinogen,Urine < 2.0 mg/dL (<2.0)
[2020-02-02 04:50] LABS: Amphetamine Screen,Urine PRESUMPTIVE NEGATIVE; Benzodiazepines Screen,Urine PRESUMPTIVE NEGATIVE; Cannabinoid Screen,Urine PRESUMPTIVE NEGATIVE; Cocaine Screen,Urine PRESUMPTIVE NEGATIVE; Methadone Screen,Urine PRESUMPTIVE NEGATIVE; Opiate Screen,Urine PRESUMPTIVE NEGATIVE
--- NOTE | 2020-02-02 06:01 | Emergency Department Report ---
ED Psych HPI - General Chief Complaint: Psych Time Seen by Provider: 02/02/20 04:57 Source: patient Mode of arrival: Ambulatory - History of Present Illness Initial Comments: 49-year-old -[place]ian male with a past medical history of schizophrenia on risperidone, presents the ED with the chief complaint of hearing voices, telling him to do stuff however nonsuicidal, nonhomicidal. He also complained of a cough, nonproductive, no fever, chills or night sweats. No sick contacts or recent travel. Wants to see psych. - Related Data Home Medications Medication Instructions Recorded Confirmed Last Taken Furosemide [Lasix] 20 mg PO QDAY 08/10/19 12/05/19 Unknown Lisinopril [Zestril] 5 mg PO QDAY 08/10/19 12/05/19 Unknown Metoprolol SUCCINATE ER TAB 25 mg PO QDAY 08/10/19 12/05/19 Unknown Previous Rx's Medication Instructions Recorded Last Taken Type OLANzapine [ZyPREXA] 5 mg PO QDAY #60 tablet 07/02/19 Unknown Rx risperiDONE [RisperDAL] 1 mg PO DAILY #60 tablet 07/02/19 Unknown Rx Caro Root [Caro] 250 mg PO QID PRN #30 capsule 12/29/19 Unknown Rx Allergies Allergy/AdvReac Type Severity Reaction Status Date / Time egg Allergy Unknown Verified 10/05/19 18:18 mayonnaise Allergy Unknown Verified 10/05/19 18:18 ED Review of Systems ROS: Stated complaint: Other details as noted in HPI Constitutional: denies: chills, fever Eyes: denies: eye pain, eye discharge, vision change ENT: denies: ear pain, throat pain Respiratory: denies: cough, shortness of breath, wheezing Cardiovascular: denies: chest pain, palpitations Endocrine: no symptoms reported Gastrointestinal: denies: abdominal pain, nausea, diarrhea Genitourinary: denies: urgency, dysuria Musculoskeletal: denies: back pain, joint swelling, arthralgia Skin: denies: rash, lesions Neurological: denies: headache, weakness, paresthesias Psychiatric: anxiety, depression, auditory hallucinations Hematological/Lymphatic: denies: easy bleeding, easy bruising ED Past Medical Hx - Past Medical History Hx Congestive Heart Failure: No Hx Diabetes: No Hx Arthritis: No Hx Psychiatric Treatment: Yes (schizophrenia) Hx Asthma: No Hx COPD: No Additional medical history: schizophrenia - Surgical History Additional Surgical History: y - Social History Smoking Status: Never Smoker Substance Use Type: None - Medications Home Medications: Home Medications Medication Instructions Recorded Confirmed Last Taken Type OLANzapine [ZyPREXA] 5 mg PO QDAY #60 tablet 07/02/19 12/05/19 Unknown Rx risperiDONE [RisperDAL] 1 mg PO DAILY #60 tablet 07/02/19 12/05/19 Unknown Rx Furosemide [Lasix] 20 mg PO QDAY 08/10/19 12/05/19 Unknown History Lisinopril [Zestril] 5 mg PO QDAY 08/10/19 12/05/19 Unknown History Metoprolol SUCCINATE ER TAB 25 mg PO QDAY 08/10/19 12/05/19 Unknown History Caro Root [Caro] 250 mg PO QID PRN #30 capsule 12/29/19 Unknown Rx ED Physical Exam - General Limitations: No Limitations General appearance: alert, in no apparent distress - Head Head exam: Present: atraumatic, normocephalic - Eye Eye exam: Present: normal appearance - ENT ENT exam: Present: mucous membranes moist - Neck Neck exam: Present: normal inspection - Respiratory Respiratory exam: Present: normal lung sounds bilaterally. Absent: respiratory distress - Cardiovascular Cardiovascular Exam: Present: regular rate, normal rhythm. Absent: systolic murmur, diastolic murmur, rubs, gallop - GI/Abdominal GI/Abdominal exam: Present: soft, normal bowel sounds - Rectal Rectal exam: Present: deferred - Extremities Exam Extremities exam: Present: normal inspection - Back Exam Back exam: Present: normal inspection - Neurological Exam Neurological exam: Present: alert, oriented X3 - Psychiatric Psychiatric exam: Present: normal mood, flat affect - Skin Skin exam: Present: warm, dry, intact, normal color. Absent: rash ED Course Vital Signs 02/02/20 04:19 Temperature 98.7 F Pulse Rate 88 Respiratory 20 Rate Blood Pressure 132/91 [Right] O2 Sat by Pulse 99 Oximetry Critical care attestation.: If time is entered above; I have spent that time in minutes in the direct care of this critically ill patient, excluding procedure time. ED Disposition Clinical Impression: Medical clearance for psychiatric admission Schizophrenia Qualifiers: Schizophrenia type: unspecified Qualified Code(s): F20.9 - Schizophrenia, unspecified Disposition: DC/TX-65 PSY HOSP/PSY UNIT Is pt being admited?: No Does the pt Need Aspirin: No Condition: Stable Referrals: PRIMARY CARE, [Primary Care Provider] - 3-5 Days
[2020-02-02 07:36] VITALS: BP 135/93
[2020-02-02 07:43] LABS: Eosinophils # (Auto) 0.3 K/mm3 (0.0-0.4); Eosinophils % (Auto) 5.8 % (0.0-4.3); Hematocrit 30.7 % (35.5-45.6); Hemoglobin 10.2 gm/dl (11.8-15.2); Lymphocytes # (Auto) 1.1 K/mm3 (1.2-5.4); Lymphocytes % (Auto) 23.1 % (13.4-35.0); Mean Corpuscular HGB Conc 33 % (32-34); Mean Corpuscular Volume 85 fl (84-94); Monocytes # (Auto) 0.6 K/mm3 (0.0-0.8); Monocytes % (Auto) 11.5 % (0.0-7.3); Platelet Count 246 K/mm3 (140-440); Red Blood Count 3.63 M/mm3 (3.65-5.03); Red Cell Distribution Width 17.3 % (13.2-15.2)
[2020-02-02 07:52] LABS: INR 1.38 (0.87-1.13); Partial Thromboplastin Time 32.2 Sec. (24.2-36.6)
[2020-02-02 08:06] LABS: BUN/Creatinine Ratio 11; Blood Urea Nitrogen 11 mg/dL (9-20); Calcium 8.4 mg/dL (8.4-10.2); Hemolysis Index 1
[2020-02-02 08:10] LABS: Alanine Aminotransferase 16 units/L (7-56); Albumin 3.1 g/dL (3.9-5); Bilirubin,Direct 0.4 mg/dL (0-0.2)
== END 2020-02-02 16:38 ==
LOC: ED 00:57
DX: F20.9 Schizophrenia, unspecified (principal); Z00.8 Encounter for other general examination; Z91.012 Allergy to eggs; Z91.018 Allergy to other foods; Z79.899 Other long term (current) drug therapy; Z20.828 Contact with and (suspected) exposure to other viral communicable diseases
CPT/HCPCS: 36415; 71045; 80048; 80076; 80307; 81001; 82550; 82553; 82728; 83615; 83735; 83880; 84145; 84484; 85025; 85379; 85610; 85730; 86140; 99284; U0003; 80320; G0480

== ENCOUNTER 2020-02-07 22:20 | Emergency (ER) | payer SELFPAY ==
[2020-02-07 23:50] LABS: BUN/Creatinine Ratio 9; Blood Urea Nitrogen 9 mg/dL (9-20); Calcium 8.9 mg/dL (8.4-10.2); Hemolysis Index 3
[2020-02-07 23:56] LABS: Basophils # (Auto) 0.1 K/mm3 (0.0-0.1); Basophils % (Auto) 2.2 % (0.0-1.8); Eosinophils # (Auto) 0.4 K/mm3 (0.0-0.4); Eosinophils % (Auto) 6.9 % (0.0-4.3); Hematocrit 35.8 % (35.5-45.6); Hemoglobin 11.5 gm/dl (11.8-15.2); Lymphocytes # (Auto) 1.1 K/mm3 (1.2-5.4); Lymphocytes % (Auto) 18.9 % (13.4-35.0); Mean Corpuscular HGB Conc 32 % (32-34); Mean Corpuscular Volume 86 fl (84-94); Monocytes # (Auto) 0.7 K/mm3 (0.0-0.8); Platelet Count 280 K/mm3 (140-440); Red Blood Count 4.16 M/mm3 (3.65-5.03); Red Cell Distribution Width 18.3 % (13.2-15.2)
--- NOTE | 2020-02-08 01:08 | Emergency Department Report ---
ED Psych HPI - General Chief Complaint: Psych Stated Complaint: MH EVAL Time Seen by Provider: 02/08/20 00:20 Source: patient Mode of arrival: Ambulatory Limitations: No Limitations - History of Present Illness Initial Comments: 49-year-old male with a past medical history of schizophrenia homelessness presents to the hospital planing of persistent auditory visual hallucinations. Patient has chronic auditory visual hallucinations and is not currently taking his Risperdal and Zyprexa. Patient states he has not taken his medication since his last ED visit here on February 01. He is unsure if he has a prescriptions of the medications. Patient states he is here because it is cold outside he was suffering from hypothermia. Patient states he is having trouble getting around and has nowhere else to go. He does not endorse suicidal or homicidal ideation. - Related Data Home Medications Medication Instructions Recorded Confirmed Last Taken Furosemide [Lasix] 20 mg PO QDAY 08/10/19 12/05/19 Unknown Metoprolol SUCCINATE ER TAB 25 mg PO QDAY 08/10/19 12/05/19 Unknown RX: Lisinopril [Zestril] 5 mg PO QDAY 08/10/19 12/05/19 Unknown Previous Rx's Medication Instructions Recorded Last Taken Type Caro Root [Caro] 250 mg PO QID PRN #30 capsule 12/29/19 Unknown Rx RX: OLANzapine [ZyPREXA] 5 mg PO QDAY #30 tablet 02/08/20 Unknown Rx RX: risperiDONE [RisperDAL] 1 mg PO DAILY #30 tablet 02/08/20 Unknown Rx Allergies Allergy/AdvReac Type Severity Reaction Status Date / Time egg Allergy Unknown Verified 10/05/19 18:18 mayonnaise Allergy Unknown Verified 10/05/19 18:18 ED Review of Systems ROS: Stated complaint: MH EVAL Other details as noted in HPI Comment: All other systems reviewed and negative ED Past Medical Hx - Past Medical History Hx Congestive Heart Failure: No Hx Diabetes: No Hx Arthritis: No Hx Psychiatric Treatment: Yes (schizophrenia) Hx Asthma: No Hx COPD: No Additional medical history: schizophrenia - Surgical History Additional Surgical History: y - Social History Smoking Status: Never Smoker Substance Use Type: None - Medications Home Medications: Home Medications Medication Instructions Recorded Confirmed Last Taken Type Furosemide [Lasix] 20 mg PO QDAY 08/10/19 12/05/19 Unknown History Metoprolol SUCCINATE ER TAB 25 mg PO QDAY 08/10/19 12/05/19 Unknown History RX: Lisinopril [Zestril] 5 mg PO QDAY 08/10/19 12/05/19 Unknown History Caro Root [Caro] 250 mg PO QID PRN #30 capsule 12/29/19 Unknown Rx RX: OLANzapine [ZyPREXA] 5 mg PO QDAY #30 tablet 02/08/20 Unknown Rx RX: risperiDONE [RisperDAL] 1 mg PO DAILY #30 tablet 02/08/20 Unknown Rx ED Physical Exam - General Limitations: No Limitations - Other Other exam information: General: No acute distress Head: Atraumatic Eyes: normal appearance ENT: Moist mucous membranes Neck: Normal appearance, no midline tenderness Chest: Clear to auscultation bilaterally CV: Regular rate and rhythm Abdomen: Soft, normal bowel sounds, nontender, nondistended, no rebound or guarding Back: Normal inspection Extremity: Normal inspection, full range of motion Neuro: Alert O x 3, no facial asymmetry, speech clear, no gross motor sensory deficit Psych: Appropriate behavior Skin: No rash ED Course Vital Signs 02/07/20 02/07/20 23:10 23:50 Temperature 98.2 F 98.1 F Pulse Rate 79 77 Respiratory 18 18 Rate Blood Pressure 126/90 Blood Pressure 127/88 [Left] O2 Sat by Pulse 100 96 Oximetry ED Medical Decision Making - Lab Data Result diagrams: 02/07/20 23:15 02/07/20 23:15 Lab Results 02/07/20 02/07/20 02/07/20 Range/Units 23:15 23:15 23:15 WBC (4.5-11.0) K/mm3 RBC (3.65-5.03) M/mm3 Hgb (11.8-15.2) gm/dl Hct (35.5-45.6) % MCV (84-94) fl MCH (28-32) pg MCHC (32-34) % RDW (13.2-15.2) % Plt Count (140-440) K/mm3 Lymph % (Auto) (13.4-35.0) % [place] % (Auto) (0.0-7.3) % Eos % (Auto) (0.0-4.3) % Baso % (Auto) (0.0-1.8) % Lymph # (Auto) (1.2-5.4) K/mm3 [place] # (Auto) (0.0-0.8) K/mm3 Eos # (Auto) (0.0-0.4) K/mm3 Baso # (Auto) (0.0-0.1) K/mm3 Seg Neutrophils % (40.0-70.0) % Seg Neutrophils # (1.8-7.7) K/mm3 Sodium 137 (137-145) mmol/L Potassium 3.8 (3.6-5.0) mmol/L Chloride 102.1 (98-107) mmol/L Carbon Dioxide 25 (22-30) mmol/L Anion Gap 14 mmol/L BUN 9 (9-20) mg/dL Creatinine 1.0 (0.8-1.3) mg/dL Estimated GFR > 60 ml/min BUN/Creatinine Ratio 9 % Glucose 94 (75-100) mg/dL Calcium 8.9 (8.4-10.2) mg/dL Urine Color (Yellow) Urine Turbidity (Clear) Urine pH (5.0-7.0) Ur Specific [place] (1.003-1.030) Urine Protein (Negative) mg/dL Urine Glucose (UA) (Negative) mg/dL Urine Ketones (Negative) mg/dL Urine Blood (Negative) Urine Nitrite (Negative) Urine Bilirubin (Negative) Urine Urobilinogen (<2.0) mg/dL Ur Leukocyte Esterase (Negative) Urine WBC (Auto) (0.0-6.0) /HPF Urine RBC (Auto) (0.0-6.0) /HPF U Epithel Cells (Auto) (0-13.0) /HPF Urine Mucus /HPF Salicylates < 0.3 L (2.8-20.0) mg/dL Urine Opiates Screen Urine Methadone Screen Acetaminophen 5.0 L (10.0-30.0) ug/mL Ur Barbiturates Screen Ur Phencyclidine Scrn Ur Amphetamines Screen U Benzodiazepines Scrn Urine Cocaine Screen U Marijuana (THC) Screen Drugs of Abuse Note Plasma/Serum Alcohol (0-0.07) % 02/07/20 02/07/20 02/08/20 Range/Units 23:15 23:15 00:47 WBC 5.9 (4.5-11.0) K/mm3 RBC 4.16 (3.65-5.03) M/mm3 Hgb 11.5 L (11.8-15.2) gm/dl Hct 35.8 (35.5-45.6) % MCV 86 (84-94) fl MCH 28 (28-32) pg MCHC 32 (32-34) % RDW 18.3 H (13.2-15.2) % Plt Count 280 (140-440) K/mm3 Lymph % (Auto) 18.9 (13.4-35.0) % [place] % (Auto) 12.0 H (0.0-7.3) % Eos % (Auto) 6.9 H (0.0-4.3) % Baso % (Auto) 2.2 H (0.0-1.8) % Lymph # (Auto) 1.1 L (1.2-5.4) K/mm3 [place] # (Auto) 0.7 (0.0-0.8) K/mm3 Eos # (Auto) 0.4 (0.0-0.4) K/mm3 Baso # (Auto) 0.1 (0.0-0.1) K/mm3 Seg Neutrophils % 60.0 (40.0-70.0) % Seg Neutrophils # 3.5 (1.8-7.7) K/mm3 Sodium (137-145) mmol/L Potassium (3.6-5.0) mmol/L Chloride (98-107) mmol/L Carbon Dioxide (22-30) mmol/L Anion Gap mmol/L BUN (9-20) mg/dL Creatinine (0.8-1.3) mg/dL Estimated GFR ml/min BUN/Creatinine Ratio % Glucose (75-100) mg/dL Calcium (8.4-10.2) mg/dL Urine Color Yellow (Yellow) Urine Turbidity Clear (Clear) Urine pH 6.0 (5.0-7.0) Ur Specific [place] 1.011 (1.003-1.030) Urine Protein <15 mg/dl (Negative) mg/dL Urine Glucose (UA) Neg (Negative) mg/dL Urine Ketones Neg (Negative) mg/dL Urine Blood Neg (Negative) Urine Nitrite Neg (Negative) Urine Bilirubin Neg (Negative) Urine Urobilinogen 2.0 (<2.0) mg/dL Ur Leukocyte Esterase Neg (Negative) Urine WBC (Auto) 6.0 (0.0-6.0) /HPF Urine RBC (Auto) 2.0 (0.0-6.0) /HPF U Epithel Cells (Auto) < 1.0 (0-13.0) /HPF Urine Mucus Few /HPF Salicylates (2.8-20.0) mg/dL Urine Opiates Screen Urine Methadone Screen Acetaminophen (10.0-30.0) ug/mL Ur Barbiturates Screen Ur Phencyclidine Scrn Ur Amphetamines Screen U Benzodiazepines Scrn Urine Cocaine Screen U Marijuana (THC) Screen Drugs of Abuse Note Plasma/Serum Alcohol < 0.01 (0-0.07) % 02/08/20 Range/Units 00:47 WBC (4.5-11.0) K/mm3 RBC (3.65-5.03) M/mm3 Hgb (11.8-15.2) gm/dl Hct (35.5-45.6) % MCV (84-94) fl MCH (28-32) pg MCHC (32-34) % RDW (13.2-15.2) % Plt Count (140-440) K/mm3 Lymph % (Auto) (13.4-35.0) % [place] % (Auto) (0.0-7.3) % Eos % (Auto) (0.0-4.3) % Baso % (Auto) (0.0-1.8) % Lymph # (Auto) (1.2-5.4) K/mm3 [place] # (Auto) (0.0-0.8) K/mm3 Eos # (Auto) (0.0-0.4) K/mm3 Baso # (Auto) (0.0-0.1) K/mm3 Seg Neutrophils % (40.0-70.0) % Seg Neutrophils # (1.8-7.7) K/mm3 Sodium (137-145) mmol/L Potassium (3.6-5.0) mmol/L Chloride (98-107) mmol/L Carbon Dioxide (22-30) mmol/L Anion Gap mmol/L BUN (9-20) mg/dL Creatinine (0.8-1.3) mg/dL Estimated GFR ml/min BUN/Creatinine Ratio % Glucose (75-100) mg/dL Calcium (8.4-10.2) mg/dL Urine Color (Yellow) Urine Turbidity (Clear) Urine pH (5.0-7.0) Ur Specific [place] (1.003-1.030) Urine Protein (Negative) mg/dL Urine Glucose (UA) (Negative) mg/dL Urine Ketones (Negative) mg/dL Urine Blood (Negative) Urine Nitrite (Negative) Urine Bilirubin (Negative) Urine Urobilinogen (<2.0) mg/dL Ur Leukocyte Esterase (Negative) Urine WBC (Auto) (0.0-6.0) /HPF Urine RBC (Auto) (0.0-6.0) /HPF U Epithel Cells (Auto) (0-13.0) /HPF Urine Mucus /HPF Salicylates (2.8-20.0) mg/dL Urine Opiates Screen Presumptive negative Urine Methadone Screen Presumptive negative Acetaminophen (10.0-30.0) ug/mL Ur Barbiturates Screen Presumptive negative Ur Phencyclidine Scrn Presumptive negative Ur Amphetamines Screen Presumptive negative U Benzodiazepines Scrn Presumptive negative Urine Cocaine Screen Presumptive negative U Marijuana (THC) Screen Presumptive negative Drugs of Abuse Note Disclamer Plasma/Serum Alcohol (0-0.07) % - Medical Decision Making Patient presents to the ED with homelessness and chronic hallucinations secondary to schizophrenia. Patient was just here on February 01 with similar complaints and was cleared by mental health. It is documented patient has chronic auditory visual hallucinations for at least 10 years. Patient admits to coming to the ED today because it is cold and he had nowhere to go. Patient does not meet 1013 criteria. He does not have any physical complaints and his labs and UA do not show any acute abnormality. He will be discharged in the a.m. with list of homeless shelters and outpatient psychiatric resources as well as a prescription of his medications but he is chronically noncompliant. Critical Care Time: No Critical care attestation.: If time is entered above; I have spent that time in minutes in the direct care of this critically ill patient, excluding procedure time. ED Disposition Clinical Impression: Schizophrenia, Homeless, Noncompliance with medication regimen Is pt being admited?: No Does the pt Need Aspirin: No Condition: Stable Instructions: Schizophrenia Additional Instructions: Take the medication as prescribed. Follow-up with your doctor or doctor/clinic provided. Return if symptoms worsen as indicated by your discharge instructions. Prescriptions: RX: risperiDONE [RisperDAL] 1 mg PO DAILY #30 tablet RX: OLANzapine [ZyPREXA] 5 mg PO QDAY #30 tablet Referrals: PRIMARY CARE, [Primary Care Provider] - 3-5 Days [facility] [Outside] - 3-5 Days Time of Disposition: 07:00
[2020-02-08 01:13] LABS: Bilirubin,Urine NEG (Negative); Blood,Urine NEG (Negative); Color,Urine Yellow (Yellow); Mucus,Urine FEW /HPF; Protein,Urine <15 mg/dL mg/dL (Negative)
[2020-02-08 01:21] LABS: Amphetamine Screen,Urine PRESUMPTIVE NEGATIVE; Benzodiazepines Screen,Urine PRESUMPTIVE NEGATIVE; Cannabinoid Screen,Urine PRESUMPTIVE NEGATIVE; Cocaine Screen,Urine PRESUMPTIVE NEGATIVE; Methadone Screen,Urine PRESUMPTIVE NEGATIVE; Opiate Screen,Urine PRESUMPTIVE NEGATIVE
[2020-02-08 03:31] VITALS: BP 111/68
--- NOTE | 2020-02-08 09:39 | Consultation ---
History of Present Illness - Reason for Consult Consult date: 02/08/20 Reason for consult: hallucinations - History of Present Psychiatric Illness Jurgen Chun is a 49y/o male patient who presented to the ER for auditory hallucinations. During my visit with the patient today, he is calm and cooperative. He is lucid. The patient denies any drug use. He denies any tomlinson ucinations at this time. He also denies SI/HI. The patient states, "where am I going? Did yall find me somewhere to go? PAST PSYCHIATRIC HISTORY: Diagnoses: Paranoid Schizophrenia Suicide attempts or Self-harm behavior: Yes Prior psychiatric hospitalizations: Yes Substance Abuse history: Patient denies Family Psychiatric History None reported or documented SOCIAL HISTORY Marital Status: Single Living Arrangements: Homeless Employment Status: disabled Access to guns/weapons: Patient denies History of Abuse: Patient denies Legal History: On parole for murder REVIEW OF SYSTEMS Constitutional: Negative for weight loss ENT: Negative for stridor Respiratory: Negative for cough or hemoptysis All other systems reviewed and are negative MENTAL STATUS General Appearance and Behavior: age appropriate, good eye contact, cooperative with questioning and polite Cooperation: Cooperative Psychomotor Behavior: within normal limits Mood: "better" Affect and affective range: Congruent with stated mood Thought Process: Fluent/Logical and Goal-directed Thought Content: Auditory hallucinations Speech: Normal volume and Regular rate and rhythm Intellectual Functioning Average Suicidal Ideation: Denies Homicidal Ideation: Denies Impulse Control: intact Insight and Judgment: normal insight and judgment Memory: Normal Attention: Normal Orientation: alert and oriented Diagnoses: Paranoid Schizophrenia PLAN Continue previously prescribed medications. No scripts given. Sitter: Defer to primary Medical: Per primary Disposition: Do not meet criteria for acute inpatient treatment at this time. The patient may discharge once medically clear. The assess to further discuss the safety plan with the patient. The assess to give the patient outpatient resources for psychiatry, cognitive behavioral therapy, drug and alcohol rehab and med assistance. The [employer] to provide the patient with shelters and assisted numbers. The patient to follow up with outpatient psych in 7 to 14 days upon discharge The patient to abstain from all illicit drug use and alcohol Will sign off. Thank you for this consult Medications and Allergies Allergies Allergy/AdvReac Type Severity Reaction Status Date / Time egg Allergy Unknown Verified 10/05/19 18:18 mayonnaise Allergy Unknown Verified 10/05/19 18:18 Home Medications Medication Instructions Recorded Confirmed Last Taken Type Furosemide [Lasix] 20 mg PO QDAY 08/10/19 12/05/19 Unknown History Lisinopril [Zestril] 5 mg PO QDAY 08/10/19 12/05/19 Unknown History Metoprolol SUCCINATE ER TAB 25 mg PO QDAY 08/10/19 12/05/19 Unknown History Caro Root [Caro] 250 mg PO QID PRN #30 capsule 12/29/19 Unknown Rx OLANzapine [ZyPREXA] 5 mg PO QDAY #30 tablet 02/08/20 Unknown Rx risperiDONE [RisperDAL] 1 mg PO DAILY #30 tablet 02/08/20 Unknown Rx Mental Status Exam - Vital signs Last Vital Signs Temp 98.1 F 02/08/20 03:30 Pulse 79 02/08/20 03:30 Resp 18 02/08/20 03:30 BP 111/68 02/08/20 03:30 Pulse Ox 96 02/08/20 03:30 Results Result Diagrams: 02/07/20 23:15 02/07/20 23:15 Abnormal lab results 02/07/20 02/07/20 02/07/20 Range/Units 23:15 23:15 23:15 Hgb 11.5 L (11.8-15.2) gm/dl RDW 18.3 H (13.2-15.2) % [place] % (Auto) 12.0 H (0.0-7.3) % Eos % (Auto) 6.9 H (0.0-4.3) % Baso % (Auto) 2.2 H (0.0-1.8) % Lymph # (Auto) 1.1 L (1.2-5.4) K/mm3 Salicylates < 0.3 L (2.8-20.0) mg/dL Acetaminophen 5.0 L (10.0-30.0) ug/mL All other labs normal.
== END 2020-02-08 10:15 | disposition home or self-care (01) ==
LOC: ED 22:20
DX: F20.89 Other schizophrenia (principal); Z59.0 Homelessness; Z91.012 Allergy to eggs; Z91.018 Allergy to other foods
CPT/HCPCS: 36415; 80048; 80307; 80320; 81001; 85025; G0480

== ENCOUNTER 2020-02-09 13:38 | Emergency (ER) | payer SELFPAY ==
[2020-02-09 14:25] VITALS: BP 128/82
== END 2020-02-09 16:59 | disposition left against medical advice (07) ==
LOC: ED 13:38
DX: F20.9 Schizophrenia, unspecified (principal); Z53.21 Procedure and treatment not carried out due to patient leaving prior to being seen by health care provider

== ENCOUNTER 2020-02-10 20:43 | Emergency (ER) | payer SELFPAY ==
[2020-02-10 21:44] LABS: Basophils # (Auto) 0.1 K/mm3 (0.0-0.1); Basophils % (Auto) 0.8 % (0.0-1.8); Eosinophils # (Auto) 0.3 K/mm3 (0.0-0.4); Eosinophils % (Auto) 4.5 % (0.0-4.3); Hematocrit 34.5 % (35.5-45.6); Lymphocytes # (Auto) 1.1 K/mm3 (1.2-5.4); Lymphocytes % (Auto) 17.3 % (13.4-35.0); Mean Corpuscular HGB Conc 32 % (32-34); Mean Corpuscular Volume 86 fl (84-94); Monocytes # (Auto) 0.6 K/mm3 (0.0-0.8); Monocytes % (Auto) 9.2 % (0.0-7.3); Platelet Count 268 K/mm3 (140-440); Red Blood Count 4.01 M/mm3 (3.65-5.03); Red Cell Distribution Width 18.8 % (13.2-15.2)
[2020-02-10 22:03] LABS: BUN/Creatinine Ratio 10; Blood Urea Nitrogen 11 mg/dL (9-20); Calcium 8.8 mg/dL (8.4-10.2); Hemolysis Index 6
[2020-02-10 22:38] LABS: Bilirubin,Urine NEG (Negative); Blood,Urine NEG (Negative); Color,Urine Yellow (Yellow); Protein,Urine <15 mg/dL mg/dL (Negative); RBC,Urine < 1.0 /HPF (0.0-6.0)
[2020-02-10 22:40] LABS: Amphetamine Screen,Urine Negative; Benzodiazepines Screen,Urine Negative; Cannabinoid Screen,Urine Negative; Cocaine Screen,Urine Negative; Methadone Screen,Urine Negative; Opiate Screen,Urine Negative
[2020-02-10 23:19] VITALS: BP 140/95
--- NOTE | 2020-02-10 23:21 | Emergency Department Report ---
ED General Adult HPI - General Chief complaint: Psych Stated complaint: AMS PUI?: No Time Seen by Provider: 02/10/20 22:33 Source: patient, RN notes reviewed, old records reviewed Mode of arrival: Ambulatory Limitations: No Limitations - History of Present Illness Initial comments: The patient was evaluated in the emergency department for symptoms described in the history of present illness. He/she was evaluated in the context of the global COVID-19 pandemic, which necessitated consideration that the patient might be at risk for infection with the virus that causes COVID-19. Institutional protocols and algorithms that pertain to the evaluation of patients at risk for COVID-19 are in a state of rapid change based on inf ormation released by regulatory bodies including the CDC and federal and state organizations. These policies and algorithms were followed during the patient's care in the emergency department. Please note that these policies, procedures and recommendations changed on a rapid basis. Patient is a 49-year-old gentleman who I am very familiar with. The patient is a frequent utilizer of this emergency department. He typically presents with painless complaint of hallucinations, without homicidality or suicidality. In addition, he occasionally complains of cough, and nonspecific viral symptoms. He is homeless, and has been suspected of malingering for secondary gain by the psychiatry team. He was seen in this department 3 days ago, and seen by psychiatry. He was recommended for outpatient discharge. Today, the patient presents with his usual complaints of painless hallucinations, and dry cough. He is not homicidal, he is not suicidal, he does not have access to guns or to firearms, he does not want to overdose. He does not describe exacerbating or relieving factors. His presentation today is similar to prior presentations, for which I have personally evaluated this patient. Severity scale (0 -10): 0 Improves with: none Worsens with: none Associated Symptoms: cough - Related Data Home Medications Medication Instructions Recorded Confirmed Last Taken Furosemide [Lasix] 20 mg PO QDAY 08/10/19 12/05/19 Unknown Lisinopril [Zestril] 5 mg PO QDAY 08/10/19 12/05/19 Unknown Metoprolol SUCCINATE ER TAB 25 mg PO QDAY 08/10/19 12/05/19 Unknown Previous Rx's Medication Instructions Recorded Last Taken Type Caro Root [Caro] 250 mg PO QID PRN #30 capsule 12/29/19 Unknown Rx OLANzapine [ZyPREXA] 5 mg PO QDAY #30 tablet 02/10/20 Unknown Rx risperiDONE [RisperDAL] 1 mg PO DAILY #30 tablet 02/10/20 Unknown Rx Allergies Allergy/AdvReac Type Severity Reaction Status Date / Time egg Allergy Unknown Verified 10/05/19 18:18 mayonnaise Allergy Unknown Verified 10/05/19 18:18 ED Review of Systems ROS: Stated complaint: AMS Other details as noted in HPI Respiratory: cough Psychiatric: denies: homicidal thoughts, suicidal thoughts ED Past Medical Hx - Past Medical History Previous Medical History?: Yes Hx Congestive Heart Failure: No Hx Diabetes: No Hx Arthritis: No Hx Psychiatric Treatment: Yes (schizophrenia) Hx Asthma: No Hx COPD: No Additional medical history: schizophrenia - Surgical History Past Surgical History?: No Additional Surgical History: y - Social History Smoking Status: Current Every Day Smoker Substance Use Type: None - Medications Home Medications: Home Medications Medication Instructions Recorded Confirmed Last Taken Type Furosemide [Lasix] 20 mg PO QDAY 08/10/19 12/05/19 Unknown History Lisinopril [Zestril] 5 mg PO QDAY 08/10/19 12/05/19 Unknown History Metoprolol SUCCINATE ER TAB 25 mg PO QDAY 08/10/19 12/05/19 Unknown History Caro Root [Caro] 250 mg PO QID PRN #30 capsule 12/29/19 Unknown Rx OLANzapine [ZyPREXA] 5 mg PO QDAY #30 tablet 02/10/20 Unknown Rx risperiDONE [RisperDAL] 1 mg PO DAILY #30 tablet 02/10/20 Unknown Rx ED Physical Exam - General Limitations: No Limitations General appearance: alert, in no apparent distress, obese - Head Head exam: Present: atraumatic, normocephalic - Eye Eye exam: Present: normal appearance, EOMI. Absent: nystagmus - ENT ENT exam: Present: normal exam, normal orophraynx, mucous membranes moist, normal external ear exam - Neck Neck exam: Present: normal inspection, full ROM. Absent: tenderness, meningismus - Respiratory Respiratory exam: Present: normal lung sounds bilaterally. Absent: respiratory distress, wheezes, rales, rhonchi, stridor - Cardiovascular Cardiovascular Exam: Present: regular rate, normal rhythm, normal heart sounds. Absent: bradycardia, tachycardia, irregular rhythm, systolic murmur, diastolic murmur, rubs, gallop - GI/Abdominal GI/Abdominal exam: Present: soft. Absent: distended, tenderness, guarding, rebound, rigid, pulsatile mass - Rectal Rectal exam: Present: deferred - Extremities Exam Extremities exam: Present: normal inspection, full ROM, other (2+ pulses noted in the bilateral upper extremities) - Back Exam Back exam: Present: normal inspection. Absent: tenderness, CVA tenderness (R), CVA tenderness (L), paraspinal tenderness, vertebral tenderness - Neurological Exam Neurological exam: Present: alert, oriented X3, normal gait, other (No facial droop. Tongue midline. Extraocular movements intact bilaterally. Facial sensation intact to light touch in V1, V2, V3 distribution bilaterally. 5 and a 5 strength in 4 extremities. Sensation intact to light touch in 4 e xtremities.). Absent: motor sensory deficit - Psychiatric Psychiatric exam: Absent: homicidal ideation, suicidal ideation - Skin Skin exam: Present: warm, dry, intact, normal color. Absent: rash ED Course Vital Signs 02/10/20 20:58 Temperature 98.1 F Pulse Rate 108 H Respiratory 18 Rate Blood Pressure 137/91 [Left] O2 Sat by Pulse 100 Oximetry ED Medical Decision Making - Lab Data Result diagrams: 02/10/20 21:31 02/10/20 21:31 Vital Signs 02/10/20 02/10/20 20:58 23:17 Temperature 98.1 F 98.8 F Pulse Rate 108 H 94 H Respiratory 18 18 Rate Blood Pressure 137/91 140/95 [Left] O2 Sat by Pulse 100 96 Oximetry Lab Results 02/10/20 02/10/20 02/10/20 Range/Units 21:31 21:31 21:31 WBC (4.5-11.0) K/mm3 RBC (3.65-5.03) M/mm3 Hgb (11.8-15.2) gm/dl Hct (35.5-45.6) % MCV (84-94) fl MCH (28-32) pg MCHC (32-34) % RDW (13.2-15.2) % Plt Count (140-440) K/mm3 Lymph % (Auto) (13.4-35.0) % Hinds % (Auto) (0.0-7.3) % Eos % (Auto) (0.0-4.3) % Baso % (Auto) (0.0-1.8) % Lymph # (Auto) (1.2-5.4) K/mm3 Hinds # (Auto) (0.0-0.8) K/mm3 Eos # (Auto) (0.0-0.4) K/mm3 Baso # (Auto) (0.0-0.1) K/mm3 Seg Neutrophils % (40.0-70.0) % Seg Neutrophils # (1.8-7.7) K/mm3 Sodium 133 L (137-145) mmol/L Potassium 4.1 (3.6-5.0) mmol/L Chloride 99.7 (98-107) mmol/L Carbon Dioxide 22 (22-30) mmol/L Anion Gap 15 mmol/L BUN 11 (9-20) mg/dL Creatinine 1.1 (0.8-1.3) mg/dL Estimated GFR > 60 ml/min BUN/Creatinine Ratio 10 % Glucose 95 (75-100) mg/dL Calcium 8.8 (8.4-10.2) mg/dL Urine Color (Yellow) Urine Turbidity (Clear) Urine pH (5.0-7.0) Ur Specific [place] (1.003-1.030) Urine Protein (Negative) mg/dL Urine Glucose (UA) (Negative) mg/dL Urine Ketones (Negative) mg/dL Urine Blood (Negative) Urine Nitrite (Negative) Urine Bilirubin (Negative) Urine Urobilinogen (<2.0) mg/dL Ur Leukocyte Esterase (Negative) Urine WBC (Auto) (0.0-6.0) /HPF Urine RBC (Auto) (0.0-6.0) /HPF U Epithel Cells (Auto) (0-13.0) /HPF Salicylates < 0.3 L (2.8-20.0) mg/dL Urine Opiates Screen Urine Methadone Screen Acetaminophen 5.0 L (10.0-30.0) ug/mL Ur Barbiturates Screen Ur Phencyclidine Scrn Ur Amphetamines Screen U Benzodiazepines Scrn Urine Cocaine Screen U Marijuana (THC) Screen Drugs of Abuse Note Plasma/Serum Alcohol (0-0.07) % 02/10/20 02/10/20 02/10/20 Range/Units 21:31 21:31 22:00 WBC 6.5 (4.5-11.0) K/mm3 RBC 4.01 (3.65-5.03) M/mm3 Hgb 11.0 L (11.8-15.2) gm/dl Hct 34.5 L (35.5-45.6) % MCV 86 (84-94) fl MCH 27 L (28-32) pg MCHC 32 (32-34) % RDW 18.8 H (13.2-15.2) % Plt Count 268 (140-440) K/mm3 Lymph % (Auto) 17.3 (13.4-35.0) % Hinds % (Auto) 9.2 H (0.0-7.3) % Eos % (Auto) 4.5 H (0.0-4.3) % Baso % (Auto) 0.8 (0.0-1.8) % Lymph # (Auto) 1.1 L (1.2-5.4) K/mm3 Hinds # (Auto) 0.6 (0.0-0.8) K/mm3 Eos # (Auto) 0.3 (0.0-0.4) K/mm3 Baso # (Auto) 0.1 (0.0-0.1) K/mm3 Seg Neutrophils % 68.2 (40.0-70.0) % Seg Neutrophils # 4.5 (1.8-7.7) K/mm3 Sodium (137-145) mmol/L Potassium (3.6-5.0) mmol/L Chloride (98-107) mmol/L Carbon Dioxide (22-30) mmol/L Anion Gap mmol/L BUN (9-20) mg/dL Creatinine (0.8-1.3) mg/dL Estimated GFR ml/min BUN/Creatinine Ratio % Glucose (75-100) mg/dL Calcium (8.4-10.2) mg/dL Urine Color Yellow (Yellow) Urine Turbidity Clear (Clear) Urine pH 6.0 (5.0-7.0) Ur Specific [place] 1.011 (1.003-1.030) Urine Protein <15 mg/dl (Negative) mg/dL Urine Glucose (UA) Neg (Negative) mg/dL Urine Ketones Neg (Negative) mg/dL Urine Blood Neg (Negative) Urine Nitrite Neg (Negative) Urine Bilirubin Neg (Negative) Urine Urobilinogen 4.0 (<2.0) mg/dL Ur Leukocyte Esterase Neg (Negative) Urine WBC (Auto) 1.0 (0.0-6.0) /HPF Urine RBC (Auto) < 1.0 (0.0-6.0) /HPF U Epithel Cells (Auto) 1.0 (0-13.0) /HPF Salicylates (2.8-20.0) mg/dL Urine Opiates Screen Urine Methadone Screen Acetaminophen (10.0-30.0) ug/mL Ur Barbiturates Screen Ur Phencyclidine Scrn Ur Amphetamines Screen U Benzodiazepines Scrn Urine Cocaine Screen U Marijuana (THC) Screen Drugs of Abuse Note Plasma/Serum Alcohol < 0.01 (0-0.07) % 02/10/20 Range/Units 22:00 WBC (4.5-11.0) K/mm3 RBC (3.65-5.03) M/mm3 Hgb (11.8-15.2) gm/dl Hct (35.5-45.6) % MCV (84-94) fl MCH (28-32) pg MCHC (32-34) % RDW (13.2-15.2) % Plt Count (140-440) K/mm3 Lymph % (Auto) (13.4-35.0) % Hinds % (Auto) (0.0-7.3) % Eos % (Auto) (0.0-4.3) % Baso % (Auto) (0.0-1.8) % Lymph # (Auto) (1.2-5.4) K/mm3 Hinds # (Auto) (0.0-0.8) K/mm3 Eos # (Auto) (0.0-0.4) K/mm3 Baso # (Auto) (0.0-0.1) K/mm3 Seg Neutrophils % (40.0-70.0) % Seg Neutrophils # (1.8-7.7) K/mm3 Sodium (137-145) mmol/L Potassium (3.6-5.0) mmol/L Chloride (98-107) mmol/L Carbon Dioxide (22-30) mmol/L Anion Gap mmol/L BUN (9-20) mg/dL Creatinine (0.8-1.3) mg/dL Estimated GFR ml/min BUN/Creatinine Ratio % Glucose (75-100) mg/dL Calcium (8.4-10.2) mg/dL Urine Color (Yellow) Urine Turbidity (Clear) Urine pH (5.0-7.0) Ur Specific [place] (1.003-1.030) Urine Protein (Negative) mg/dL Urine Glucose (UA) (Negative) mg/dL Urine Ketones (Negative) mg/dL Urine Blood (Negative) Urine Nitrite (Negative) Urine Bilirubin (Negative) Urine Urobilinogen (<2.0) mg/dL Ur Leukocyte Esterase (Negative) Urine WBC (Auto) (0.0-6.0) /HPF Urine RBC (Auto) (0.0-6.0) /HPF U Epithel Cells (Auto) (0-13.0) /HPF Salicylates (2.8-20.0) mg/dL Urine Opiates Screen Negative Urine Methadone Screen Negative Acetaminophen (10.0-30.0) ug/mL Ur Barbiturates Screen Negative Ur Phencyclidine Scrn Negative Ur Amphetamines Screen Negative U Benzodiazepines Scrn Negative Urine Cocaine Screen Negative U Marijuana (THC) Screen Negative Drugs of Abuse Note Disclamer Plasma/Serum Alcohol (0-0.07) % - Medical Decision Making Differential diagnosis, including but not limited to: Homelessness, general medical exam, malingering, chronic hallucinations Assessment and plan: 49-year-old gentleman presenting with a typical complaints of chronic hallucinations. He is afebrile, with reassuring vital signs, with resolved tachycardia. He presents multiple times for this complaint. He is likely malingering for the purposes of secondary gain. 1013 hold/involuntary confinement will unfortunately not be of any utility in this case, as it will not repair/fix his homelessness. Placing this patient on a hold or 1013 would also serve to reinforce maladaptive behaviors and coping mechanisms. Patient can be discharged with outpatient resources in my opinion. This was also the recommendation from the psychiatric team 3 days ago, and from today. Prescriptions were written for the patient 3 days ago which he tells me he lost. I will therefore rewrite for them. Patient will also be provided with outpatient resources, once again. He does not appear to have an emergent medical condition present at this time that requires inpatient hospitalization or stabilization. He does not have any emergent condition at this time which requires further evaluation, stabilization, or management from the emergency room. His other chronic issues can be managed appropriately as an outpatient. However, the patient will need to follow-up with Critical care attestation.: If time is entered above; I have spent that time in minutes in the direct care of this critically ill patient, excluding procedure time. ED Disposition Clinical Impression: Homeless, General medical exam Disposition: DC TO HOME OR SELFCARE Is pt being admited?: No Does the pt Need Aspirin: No Condition: Stable Additional Instructions: Please continue current outpatient medications. Please follow-up with outpatient primary care doctor or psychiatrist within the next month. Please follow-up with outpatient resources that have been provided to the patient. Please return to the emergency room right away with new, worsened or different symptoms, or symptoms not present on the initial emergency room evaluation. Referrals: JOSE RIDDLE MD [Staff Physician] - 3-5 Days [facility] [Outside] - 3-5 Days
== END 2020-02-11 00:30 | disposition home or self-care (01) ==
LOC: ED 20:43
DX: R44.3 Hallucinations, unspecified (principal); R41.82 Altered mental status, unspecified; F17.200 Nicotine dependence, unspecified, uncomplicated; Z59.0 Homelessness; Z00.00 Encounter for general adult medical examination without abnormal findings; Z79.899 Other long term (current) drug therapy; Z91.012 Allergy to eggs; Z91.018 Allergy to other foods
CPT/HCPCS: 36415; 80048; 80307; 80320; 81001; 85025; G0480

== ENCOUNTER 2020-02-24 21:31 | Emergency (ER) | payer SELFPAY | END 2020-02-24 22:00 | disposition left against medical advice (07) | LOC: ED 21:31 | DX: M79.18 Myalgia, other site (principal); Z53.21 Procedure and treatment not carried out due to patient leaving prior to being seen by health care provider ==

== ENCOUNTER 2020-02-25 18:54 | Emergency (ER) | payer SELFPAY ==
[2020-02-25 19:04] VITALS: BP 158/101
--- NOTE | 2020-02-25 19:57 | Event Note ---
ED Screening Note Date of service: 02/25/20 Time: 19:56 ED Screening Note: 49-year-old -Swazi male presents to the emergency room complaining of swelling to both legs and shortness of breath. Patient has a history of schizophrenia and homelessness and was here yesterday but was not seen secondary to not hearing his name per patient. This initial assessment/diagnostic orders/clinical plan/treatment(s) is/are subject to change based on patients health status, clinical progression and re- assessment by fellow clinical providers in the ED. Further treatment and workup at subsequent clinical providers discretion. Patient/guardian urged not to elope from the ED as their condition may be serious if not clinically assessed and managed. Initial orders include:
[2020-02-25 20:19] LABS: Basophils # (Auto) 0.1 K/mm3 (0.0-0.1); Basophils % (Auto) 1.1 % (0.0-1.8); Eosinophils # (Auto) 0.2 K/mm3 (0.0-0.4); Eosinophils % (Auto) 2.4 % (0.0-4.3); Hemoglobin 10.7 gm/dl (11.8-15.2); Lymphocytes # (Auto) 0.8 K/mm3 (1.2-5.4); Mean Corpuscular HGB Conc 34 % (32-34); Mean Corpuscular Volume 84 fl (84-94); Monocytes # (Auto) 0.6 K/mm3 (0.0-0.8); Monocytes % (Auto) 9.8 % (0.0-7.3); Platelet Count 303 K/mm3 (140-440); Red Blood Count 3.79 M/mm3 (3.65-5.03)
--- NOTE | 2020-02-25 20:36 | XRay Report ---
CHEST 2 VIEWS INDICATION / CLINICAL INFORMATION: sob. Bilateral lower extremity swelling. History of CHF. COMPARISON: 02/02/20 FINDINGS: SUPPORT DEVICES: None. HEART / MEDIASTINUM: Heart is moderately enlarged and stable. Mild pulmonary venous hypertension. LUNGS / PLEURA: Mild interstitial pulmonary edema. No pneumothorax. ADDITIONAL FINDINGS: No significant additional findings. IMPRESSION: 1. Congestive heart failure. Signer Name: Speedy Awad MD Signed: 02/25/2020 8:31 PM Workstation Name: [id number]
[2020-02-25 20:43] LABS: BUN/Creatinine Ratio 8; Blood Urea Nitrogen 9 mg/dL (9-20); Calcium 8.9 mg/dL (8.4-10.2); Hemolysis Index 5
== END 2020-02-26 00:02 | disposition left against medical advice (07) ==
LOC: ED 18:54
DX: M79.89 Other specified soft tissue disorders (principal); R06.02 Shortness of breath; Z53.21 Procedure and treatment not carried out due to patient leaving prior to being seen by health care provider
CPT/HCPCS: 36415; 71046; 80048; 83880; 85025

== ENCOUNTER 2020-02-26 20:20 | Emergency (ER) | payer SELFPAY ==
[2020-02-26 22:26] VITALS: BP 172/117
== END 2020-02-26 23:00 | disposition left against medical advice (07) ==
LOC: ED 20:20
DX: R05 Cough (principal); Z53.21 Procedure and treatment not carried out due to patient leaving prior to being seen by health care provider

== ENCOUNTER 2020-02-27 19:29 | Inpatient (IN) | payer MEDICARE ==
--- NOTE | 2020-02-27 21:10 | Event Note ---
ED Screening Note Date of service: 02/27/20 Time: 21:07 ED Screening Note: 49-year-old irregular [place]ian male presents to the emergency room for shortness of breath and swelling of his body. X1-1/2 months. Patient does have a history of schizophrenia and bipolar. Patient reports has been taking all of his chronic medications. This initial assessment/diagnostic orders/clinical plan/treatment(s) is/are subject to change based on patients health status, clinical progression and re-assessment by fellow clinical providers in the ED. Further treatment and workup at subsequent clinical providers discretion. Patient/guardian urged not to elope from the ED as their condition may be serious if not clinically assessed and managed. Initial orders include:
[2020-02-27 21:34] LABS: Basophils # (Auto) 0.1 K/mm3 (0.0-0.1); Eosinophils # (Auto) 0.2 K/mm3 (0.0-0.4); Eosinophils % (Auto) 3.7 % (0.0-4.3); Hematocrit 33.6 % (35.5-45.6); Hemoglobin 10.8 gm/dl (11.8-15.2); Lymphocytes # (Auto) 1.2 K/mm3 (1.2-5.4); Lymphocytes % (Auto) 19.6 % (13.4-35.0); Mean Corpuscular HGB Conc 32 % (32-34); Mean Corpuscular Volume 86 fl (84-94); Monocytes # (Auto) 0.7 K/mm3 (0.0-0.8); Monocytes % (Auto) 11.2 % (0.0-7.3); Platelet Count 298 K/mm3 (140-440); Red Blood Count 3.92 M/mm3 (3.65-5.03)
[2020-02-27 21:53] LABS: Alanine Aminotransferase 17 units/L (7-56); Albumin 3.4 g/dL (3.9-5); BUN/Creatinine Ratio 10; Blood Urea Nitrogen 12 mg/dL (9-20); Calcium 8.8 mg/dL (8.4-10.2); Hemolysis Index 4
--- NOTE | 2020-02-27 23:24 | Emergency Department Report ---
ED Shortness of Breath HPI - General Chief Complaint: Dyspnea/Respdistress Stated Complaint: BODY SWELLING, SOB Time Seen by Provider: 02/27/20 23:07 Source: patient Mode of arrival: Ambulatory Limitations: No Limitations - History of Present Illness Initial Comments: 49-year-old male, history of CHF, bipolar disorder, schizophrenia, presents to ED with complaint of shortness of breath and lower extremity swelling. Patient states over the last proximately 6 weeks, he has been having progressive shortness of breath and swelling and bilateral lower extremities. Patient denies any chest pain, fever, cough. He reports being unable to lie flat secon miriam to dyspnea. Patient states he ran out of his Lasix yesterday. 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 MD Complaint: shortness of breath -: week(s) (6) Severity: moderate Consistency: intermittent Improves With: rest, upright position Worsens With: lying flat, exertion Known History Of: congestive heart failure - Related Data Home Oxygen Therapy: No Home Medications Medication Instructions Recorded Confirmed Last Taken Furosemide [Lasix] 20 mg PO QDAY 08/10/19 12/05/19 Unknown Lisinopril [Zestril] 5 mg PO QDAY 08/10/19 12/05/19 Unknown Metoprolol SUCCINATE ER TAB 25 mg PO QDAY 08/10/19 12/05/19 Unknown Previous Rx's Medication Instructions Recorded Last Taken Type Caro Root [Caro] 250 mg PO QID PRN #30 capsule 12/29/19 Unknown Rx OLANzapine [ZyPREXA] 5 mg PO QDAY #30 tablet 02/10/20 Unknown Rx risperiDONE [RisperDAL] 1 mg PO DAILY #30 tablet 02/10/20 Unknown Rx Allergies Allergy/AdvReac Type Severity Reaction Status Date / Time egg Allergy Unknown Verified 10/05/19 18:18 mayonnaise Allergy Unknown Verified 10/05/19 18:18 ED Review of Systems ROS: Stated complaint: BODY SWELLING, SOB Other details as noted in HPI Comment: All other systems reviewed and negative Constitutional: denies: chills, fever Respiratory: orthopnea, SOB with exertion Cardiovascular: edema. denies: chest pain ED Past Medical Hx - Past Medical History Previous Medical History?: Yes Hx Congestive Heart Failure: No Hx Diabetes: No Hx Arthritis: No Hx Psychiatric Treatment: Yes (schizophrenia) Hx Asthma: No Hx COPD: No Additional medical history: schizophrenia - Surgical History Past Surgical History?: No Additional Surgical History: y - Social History Smoking Status: Current Every Day Smoker - Medications Home Medications: Home Medications Medication Instructions Recorded Confirmed Last Taken Type Furosemide [Lasix] 20 mg PO QDAY 08/10/19 12/05/19 Unknown History Lisinopril [Zestril] 5 mg PO QDAY 08/10/19 12/05/19 Unknown History Metoprolol SUCCINATE ER TAB 25 mg PO QDAY 08/10/19 12/05/19 Unknown History Caro Root [Caro] 250 mg PO QID PRN #30 capsule 12/29/19 Unknown Rx OLANzapine [ZyPREXA] 5 mg PO QDAY #30 tablet 02/10/20 Unknown Rx risperiDONE [RisperDAL] 1 mg PO DAILY #30 tablet 02/10/20 Unknown Rx ED Physical Exam - General Limitations: No Limitations General appearance: alert, in no apparent distress - Head Head exam: Present: atraumatic, normocephalic - Eye Eye exam: Present: normal appearance, EOMI - ENT ENT exam: Present: mucous membranes moist - Neck Neck exam: Present: normal inspection - Respiratory Respiratory exam: Present: normal lung sounds bilaterally. Absent: respiratory distress - Cardiovascular Cardiovascular Exam: Present: regular rate, normal rhythm - GI/Abdominal GI/Abdominal exam: Present: soft. Absent: distended, tenderness - Extremities Exam Extremities exam: Present: other (2+ pitting edema bilateral lower extremities) - Neurological Exam Neurological exam: Present: alert, oriented X3 - Psychiatric Psychiatric exam: Present: normal affect, normal mood - Skin Skin exam: Present: warm, dry, intact, normal color ED Course Vital Signs 02/27/20 02/28/20 02/28/20 20:38 00:04 00:30 Temperature 98.0 F Pulse Rate 79 Respiratory 18 Rate Blood Pressure Blood Pressure 152/99 [Right] O2 Sat by Pulse 98 94 97 Oximetry 02/28/20 02/28/20 02/28/20 00:47 00:48 01:00 Temperature Pulse Rate 97 H Respiratory 25 H Rate Blood Pressure 135/96 Blood Pressure 121/92 [Right] O2 Sat by Pulse 98 96 92 Oximetry 02/28/20 01:30 Temperature Pulse Rate Respiratory Rate Blood Pressure 129/92 Blood Pressure [Right] O2 Sat by Pulse 98 Oximetry ED Medical Decision Making - Lab Data Result diagrams: 02/27/20 21:14 02/27/20 21:14 - EKG Data -: EKG Interpreted by Me EKG shows normal: QRS complexes, ST-T waves Rate: normal - EKG Data Interpretation: other (accelerated junctional rhythm, right axis deviation) - Radiology Data Radiology results: report reviewed, image reviewed - Medical Decision Making 49-year-old male presents to ED with acute CHF exacerbation. BNP is elevated, chest x-ray shows presence of pulmonary edema. O2 sats are normal, however patient does get quite tachypneic with movement. He is requesting a chair so that he can sit completely upright as he feels uncomfortable in the stretcher. IV Lasix given. EKG shows accelerated junctional rhythm with no ST changes. Troponin is normal. Patient will be admitted to hospitalist, Dr. Kimbrough, for further management. - Differential Diagnosis Pulmonary edema, pneumonia, ACS Critical care attestation.: If time is entered above; I have spent that time in minutes in the direct care of this critically ill patient, excluding procedure time. ED Disposition Clinical Impression: Acute exacerbation of CHF (congestive heart failure) Disposition: OP ADMIT IP TO THIS HOSP Is pt being admited?: Yes Condition: Stable Time of Disposition: 00:55
--- NOTE | 2020-02-27 23:55 | XRay Report ---
CHEST 1 VIEW, 02/27/2020 11:35 PM CLINICAL INFORMATION/INDICATION: Shortness of breath. COMPARISON: Chest radiograph, 02/25/2020 at 8:25 PM. FINDINGS: SUPPORT DEVICES: None. HEART: There is stable enlargement of the cardiac silhouette. LUNGS/PLEURA: Faint interstitial pulmonary edema is unchanged. ADDITIONAL FINDINGS: No additional acute findings. IMPRESSION: 1. Stable enlargement of the cardiac silhouette. 2. Stable faint pulmonary edema. Signer Name: Johanny Johnston MD Signed: 02/27/2020 11:50 PM Workstation Name: [id number]
[2020-02-28] MEDS ORDERED: FUROSEMIDE 40 MG/4 ML INJ IV ONE ×2 (00:33→00:38)
[2020-02-28] MEDS ORDERED: FUROSEMIDE 20 MG TAB PO ONE (00:38)
[2020-02-28] MEDS ORDERED: ACETAMINOPHEN 325 MG TAB PO PRN (01:09)
[2020-02-28] MEDS ORDERED: ONDANSETRON 4 MG/2 ML INJ IV PRN (01:09)
[2020-02-28] MEDS ORDERED: MORPHINE 2 MG/1 ML INJ IV PRN (01:09)
[2020-02-28] MEDS ORDERED: MAGNESIUM HYDROXIDE (MOM) ORAL LIQD UDC PO PRN (01:09)
--- NOTE | 2020-02-28 01:21 | History and Physical Report ---
History of Present Illness Date of examination: 02/28/20 Date of admission: 02/28/2020 Chief complaint: Shortness of Breath Lower Extremity swelling History of present illness: 49-year-old -Ind[place]ian male with known history of CHF, bipolar disorder and schizophrenia presenting to the emergency room today complaining of shortness of breath and progressive swelling of his lower extremities which has been ongoing for about 6 weeks. Patient indicates that he gets short of breath on minimal exertion. He has been having orthopnea but denies any chest pain. D enies any fever or chills, no headache or dizziness. 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 He also indicates that he is currently homeless. Work-up today chest x-ray reveals some pulmonary edema, BNP was elevated. Patient has been admitted for CHF exacerbation. Past History Past Medical History: heart failure, other (Schizophrenia) Past Surgical History: No surgical history Social history: smoking (Current daily smoker), other (Patient is homeless) Family history: no significant family history Medications and Allergies Allergies Allergy/AdvReac Type Severity Reaction Status Date / Time egg Allergy Unknown Verified 10/05/19 18:18 mayonnaise Allergy Unknown Verified 10/05/19 18:18 Home Medications Medication Instructions Recorded Confirmed Last Taken Type Furosemide [Lasix] 20 mg PO QDAY 08/10/19 12/05/19 Unknown History Lisinopril [Zestril] 5 mg PO QDAY 08/10/19 12/05/19 Unknown History Metoprolol SUCCINATE ER TAB 25 mg PO QDAY 08/10/19 12/05/19 Unknown History Caro Root [Caro] 250 mg PO QID PRN #30 capsule 12/29/19 Unknown Rx OLANzapine [ZyPREXA] 5 mg PO QDAY #30 tablet 02/10/20 Unknown Rx risperiDONE [RisperDAL] 1 mg PO DAILY #30 tablet 02/10/20 Unknown Rx Review of Systems Constitutional: no fever, no chills Ears, nose, mouth and throat: no nasal congestion, no sore throat Cardiovascular: orthopnea, no chest pain, no palpitations Respiratory: shortness of breath, no cough Gastrointestinal: no abdominal pain, no nausea, no vomiting, no diarrhea Genitourinary Male: no dysuria, no hematuria, no flank pain Musculoskeletal: no neck pain, no low back pain Integumentary: no rash, no pruritis Neurological: no headaches, no confusion Psychiatric: no anxiety, no depression Exam - Constitutional Vitals: Temp Pulse Resp BP Pulse Ox 98.0 F 97 H 25 H 121/92 96 02/27/20 20:38 02/28/20 00:47 02/28/20 00:47 02/28/20 00:47 02/28/20 00:48 General appearance: Present: no acute distress, well-nourished - EENT Eyes: Present: PERRL, EOM intact. Absent: scleral icterus ENT: hearing intact, clear oral mucosa, dentition normal - Neck Neck: Present: supple, normal ROM - Respiratory Respiratory effort: normal Respiratory: bilateral: rales - Cardiovascular Rhythm: regular Heart Sounds: Present: S1 & S2. Absent: gallop, systolic murmur, diastolic murmur, rub - Extremities Extremities: no ischemia, pulses intact, pulses symmetrical, No edema, Full ROM Peripheral Pulses: within normal limits - Abdominal General gastrointestinal: Present: soft, non-tender, non-distended, normal bowel sounds. Absent: mass - Integumentary Integumentary: Present: clear, warm, dry. Absent: rash - Musculoskeletal Musculoskeletal: strength equal bilaterally - Psychiatric Psychiatric: appropriate mood/affect, intact judgment & insight, memory intact, cooperative - Neurologic Neurologic: CNII-XII intact, no focal deficits, moves all extremities HEART Score - HEART Score Troponin: Troponin T < 0.010 ng/mL (0.00-0.029) 02/27/20 23:32 Results - Labs CBC & Chem 7: 02/27/20 21:14 02/27/20 21:14 Labs: Abnormal lab results 02/27/20 02/27/20 Range/Units 21:14 21:14 Hgb 10.8 L (11.8-15.2) gm/dl Hct 33.6 L (35.5-45.6) % RDW 19.0 H (13.2-15.2) % [place] % (Auto) 11.2 H (0.0-7.3) % Sodium 135 L (137-145) mmol/L Carbon Dioxide 19 L (22-30) mmol/L Glucose 122 H (75-100) mg/dL Alkaline Phosphatase 134 H (35-129) units/L NT-Pro-B Natriuret Pep 3766 H (0-900) pg/mL Albumin 3.4 L (3.9-5) g/dL Assessment and Plan - Patient Problems (1) Acute exacerbation of CHF (congestive heart failure) Current Visit: Yes Status: Acute Plan to address problem: Patient admitted and placed on diuretics. Will monitor inputs and outputs and also monitor daily weights. He will be scheduled for echocardiogram. We will place a consult to cardiology for evaluation. (2) Schizophrenia Current Visit: No Status: Acute Qualifiers: Plan to address problem: We will resume routine home medications once reconciled. (3) Homelessness Current Visit: Yes Status: Acute Plan to address problem: We will place a consult to case management for evaluation. (4) DVT prophylaxis Current Visit: Yes Status: Acute Plan to address problem: Patient placed on subcutaneous Lovenox. (5) Full code status Current Visit: Yes Status: Acute
[2020-02-28] MEDS: FUROSEMIDE 40 MG/4 ML INJ IV SCH ×2 (05:27→17:26)
--- NOTE | 2020-02-28 09:38 | Event Note ---
Date: 02/28/20 Patient seen and examined remains in dental is. States that he is homeless has not been taking his medication. Will restart some of his home dose medication while awaiting cardiology monitoring. Continue current management monitor intake and take counseling provided her. Case management also consulted to assist with placement.
[2020-02-28] MEDS ORDERED: NON-FORMULARY EACH (Metoprolol Succinate Er Tab 25 MG) PO SCH (10:00)
--- NOTE | 2020-02-28 10:32 | Consultation ---
History of Present Illness Consult date: 02/28/20 Requesting physician: YOVANY DAILEY Consult reason: congestive heart failure History of present illness: The pt is a 49-year-old -Citizen Of [place] male with known history of "CHF", bipolar disorder and schizophrenia. He is previously unknown to our practice and reports that he does not regularly see doctors. He presented with c/o progressively worsening SOB and BLE swelling for approx 6 weeks prior to arrival. He is a rather poor historian and does not provide any additional details. He states that he is currently homeless, is sleeping on his father's couch when he is allowed. Cardiac PET done at [facility] 01/2020 was negative for ischemia or scar, EF 32% at rest and 34% with stress. Past History Past Medical History: heart failure, other (Schizophrenia) Past Surgical History: No surgical history Social history: smoking (Current daily smoker), other (Patient is homeless) Family history: no significant family history Medications and Allergies Allergies Allergy/AdvReac Type Severity Reaction Status Date / Time egg Allergy Unknown Verified 10/05/19 18:18 mayonnaise Allergy Unknown Verified 10/05/19 18:18 Home Medications Medication Instructions Recorded Confirmed Last Taken Type Furosemide [Lasix] 20 mg PO QDAY 08/10/19 02/28/20 02/27/20 History Lisinopril [Zestril] 5 mg PO QDAY 08/10/19 02/28/20 02/27/20 History Metoprolol SUCCINATE ER TAB 25 mg PO QDAY 08/10/19 02/28/20 Unknown History Caro Root [Caro] 250 mg PO QID PRN #30 capsule 12/29/19 02/28/20 Unknown Rx OLANzapine [ZyPREXA] 5 mg PO QDAY #30 tablet 02/10/20 02/28/20 Unknown Rx risperiDONE [RisperDAL] 1 mg PO DAILY #30 tablet 02/10/20 02/28/20 02/27/20 Rx Active Meds: Active Medications Acetaminophen (Acetaminophen 325 Mg Tab) 650 mg PO Q4H PRN PRN Reason: Pain MILD(1-3)/Fever >100.5/NGUYEN Enoxaparin Sodium (Enoxaparin 40 Mg/0.4 Ml Inj) 40 mg SUB-Q QDAY@2200 ALFA; Protocol Furosemide (Furosemide 40 Mg/4 Ml Inj) 40 mg IV BID@0600,1800 [facility] Last Admin: 02/28/20 05:27 Dose: 40 mg Documented by: Lisinopril (Lisinopril 5 Mg Tab) 5 mg PO QDAY [facility] Magnesium Hydroxide (Magnesium Hydroxide (Mom) Oral Liqd Udc) 30 ml PO Q4H PRN PRN Reason: Constipation Metoprolol Succinate (Metoprolol Succinate Xl 25 Mg Tab) 25 mg PO QDAY [facility] Morphine Sulfate (Morphine 2 Mg/1 Ml Inj) 2 mg IV Q4H PRN PRN Reason: Pain, Moderate (4-6) Olanzapine (Olanzapine 5 Mg Tab) 5 mg PO QDAY [facility] Ondansetron HCl (Ondansetron 4 Mg/2 Ml Inj) 4 mg IV Q8H PRN PRN Reason: Nausea And Vomiting Risperidone (Risperidone 1 Mg Tab) 1 mg PO DAILY [facility] Sodium Chloride (Sodium Chloride 0.9% 10 Ml Flush Syringe) 10 ml IV BID [facility] Last Admin: 02/28/20 09:16 Dose: 10 ml Documented by: Sodium Chloride (Sodium Chloride 0.9% 10 Ml Flush Syringe) 10 ml IV PRN PRN PRN Reason: LINE FLUSH Last Admin: 02/28/20 05:28 Dose: 10 ml Documented by: Review of Systems Constitutional: no fever, no chills, no sweats Ears, nose, mouth and throat: no ear pain, no nose pain, no sinus pressure, no sinus pain Cardiovascular: edema, shortness of breath, dyspnea on exertion, leg edema, no chest pain, no palpitations, no rapid/irregular heart beat, no syncope, no lightheadedness Respiratory: no cough Gastrointestinal: no abdominal pain, no nausea, no vomiting, no diarrhea, no constipation, no change in bowel habits Genitourinary Male: no dysuria, no hematuria, no flank pain, no discharge, no urinary frequency, no urinary hesitancy Musculoskeletal: no neck stiffness, no neck pain, no shooting arm pain, no arm numbness/tingling, no low back pain, no shooting leg pain Integumentary: no rash, no pruritis, no redness, no sores, no wounds Neurological: no head injury, no paralysis, no weakness, no parathesias, no numbness, no tingling, no seizures Endocrine: no cold intolerance, no heat intolerance Hematologic/Lymphatic: no easy bruising, no easy bleeding Allergic/Immunologic: no urticaria Physical Examination Vital Signs Temp Pulse Resp BP Pulse Ox 98.0 F 79 18 152/99 98 02/27/20 20:38 02/27/20 20:38 02/27/20 20:38 02/27/20 20:38 02/27/20 20:38 General appearance: no acute distress HEENT: Positive: PERRL, Normocephaly, Mucus Membranes Moist Neck: Positive: neck supple, trachea midline Cardiac: Positive: Reg Rate and Rhythm, S1/S2 Lungs: Positive: Decreased Breath Sounds Neuro: Positive: Grossly Intact Abdomen: Negative: Tender Skin: Negative: Rash Musculoskeletal: No Pain Extremities: Present: +1 Edema (BLE) Results 02/27/20 21:14 02/27/20 21:14 Cardiac Enzymes 02/27/20 Range/Units 21:14 AST 26 (5-40) units/L CBC 02/27/20 Range/Units 21:14 WBC 6.3 (4.5-11.0) K/mm3 RBC 3.92 (3.65-5.03) M/mm3 Hgb 10.8 L (11.8-15.2) gm/dl Hct 33.6 L (35.5-45.6) % Plt Count 298 (140-440) K/mm3 Lymph # (Auto) 1.2 (1.2-5.4) K/mm3 [place] # (Auto) 0.7 (0.0-0.8) K/mm3 Eos # (Auto) 0.2 (0.0-0.4) K/mm3 Baso # (Auto) 0.1 (0.0-0.1) K/mm3 Comprehensive Metabolic Panel 02/27/20 Range/Units 21:14 Sodium 135 L (137-145) mmol/L Potassium 4.2 (3.6-5.0) mmol/L Chloride 102.6 (98-107) mmol/L Carbon Dioxide 19 L (22-30) mmol/L BUN 12 (9-20) mg/dL Creatinine 1.2 (0.8-1.3) mg/dL Glucose 122 H (75-100) mg/dL Calcium 8.8 (8.4-10.2) mg/dL AST 26 (5-40) units/L ALT 17 (7-56) units/L Alkaline Phosphatase 134 H (35-129) units/L Total Protein 7.5 (6.3-8.2) g/dL Albumin 3.4 L (3.9-5) g/dL - Imaging and Cardiology Echo: pending EKG: report reviewed, image reviewed EKG interpretations - Telemetry EKG Rhythm: Sinus Rhythm - EKG Sinus rhythms and dysrhythmias: sinus rhythm Assessment and Plan Cardiac PET done at [facility] 01/2020 was negative for ischemia or scar, EF 32% at rest and 34% with stress. Agree with GDMT and IV lasix. Await echo. The patient has been seen in conjunction with Dr. Bahman East who agrees with the assessment and plan of care. - Patient Problems (1) Acute HFrEF (heart failure with reduced ejection fraction) Current Visit: Yes Status: Acute (2) Uncontrolled hypertension Current Visit: Yes Status: Chronic (3) Schizophrenia Current Visit: Yes Status: Acute Qualifiers: (4) Homelessness Current Visit: Yes Status: Chronic
[2020-02-28] MEDS: LISINOPRIL 5 MG TAB PO SCH (10:42)
[2020-02-28] MEDS: METOPROLOL SUCCINATE XL 25 MG TAB PO SCH (10:43)
[2020-02-28] MEDS: risperiDONE 1 MG TAB PO SCH (10:43)
[2020-02-28] MEDS: ENOXAPARIN 40 MG/0.4 ML INJ SUB-Q SCH (22:05)
[2020-02-29 05:25] LABS: Basophils # (Auto) 0.1 K/mm3 (0.0-0.1); Basophils % (Auto) 1.1 % (0.0-1.8); Eosinophils # (Auto) 0.2 K/mm3 (0.0-0.4); Eosinophils % (Auto) 4.4 % (0.0-4.3); Hematocrit 30.6 % (35.5-45.6); Lymphocytes # (Auto) 1.1 K/mm3 (1.2-5.4); Lymphocytes % (Auto) 20.6 % (13.4-35.0); Mean Corpuscular HGB Conc 33 % (32-34); Mean Corpuscular Volume 85 fl (84-94); Monocytes # (Auto) 0.6 K/mm3 (0.0-0.8); Monocytes % (Auto) 11.2 % (0.0-7.3); Platelet Count 244 K/mm3 (140-440); Red Blood Count 3.61 M/mm3 (3.65-5.03); Red Cell Distribution Width 18.6 % (13.2-15.2)
[2020-02-29 05:27] LABS: INR 1.36 (0.87-1.13)
[2020-02-29 05:33] LABS: BUN/Creatinine Ratio 13; Blood Urea Nitrogen 15 mg/dL (9-20); Calcium 8.4 mg/dL (8.4-10.2); Hemolysis Index 2
[2020-02-29] MEDS: FUROSEMIDE 40 MG/4 ML INJ IV SCH ×2 (07:01→17:39)
[2020-02-29] MEDS ORDERED: POTASSIUM CHLORIDE ER 20 MEQ TAB PO ONE (08:00)
--- NOTE | 2020-02-29 09:49 | Progress Note ---
Assessment and Plan Cardiac PET done at [facility] 01/2020 was negative for ischemia or scar, EF 32% at rest and 34% with stress. tte reviewed - EF 30-35%, LV mildly dilated, impaired relaxation, mild to mod MR, mod pulm HTN with RVSP 53mmHg. Cont GDMT and IV lasix. Anticipate d/c tomorrow AM. The patient has been seen in conjunction with Dr. Bahman East who agrees with the assessment and plan of care. - Patient Problems (1) Acute HFrEF (heart failure with reduced ejection fraction) Current Visit: Yes Status: Acute (2) Cardiomyopathy Current Visit: Yes Status: Chronic (3) Uncontrolled hypertension Current Visit: Yes Status: Chronic (4) Schizophrenia Current Visit: Yes Status: Acute Qualifiers: (5) Homelessness Current Visit: Yes Status: Chronic Subjective Date of service: 02/29/20 Principal diagnosis: HF Interval history: pt lying flat in bed, feeling better. tele reviewed - in SR HR 70s. Objective Last Vital Signs Temp 98.3 F 02/29/20 07:34 Pulse 70 02/29/20 07:45 Resp 18 02/29/20 07:34 BP 148/94 02/29/20 07:34 Pulse Ox 93 02/29/20 07:34 - Physical Examination General: No Apparent Distress HEENT: Positive: PERRL, Normocephaly, Mucus Membranes Moist Neck: Positive: neck supple, trachea midline Cardiac: Positive: Reg Rate and Rhythm, S1/S2 Lungs: Positive: Decreased Breath Sounds Neuro: Positive: Grossly Intact Abdomen: Negative: Tender Skin: Negative: Rash Musculoskeletal: No Pain Extremities: Present: +1 Edema (BLE) - Labs and Meds Coagulation 02/29/20 Range/Units 04:43 PT 16.8 H (12.2-14.9) Sec. INR 1.36 H (0.87-1.13) CBC 02/29/20 Range/Units 04:43 WBC 5.4 (4.5-11.0) K/mm3 RBC 3.61 L (3.65-5.03) M/mm3 Hgb 10.0 L (11.8-15.2) gm/dl Hct 30.6 L (35.5-45.6) % Plt Count 244 (140-440) K/mm3 Lymph # (Auto) 1.1 L (1.2-5.4) K/mm3 [place] # (Auto) 0.6 (0.0-0.8) K/mm3 Eos # (Auto) 0.2 (0.0-0.4) K/mm3 Baso # (Auto) 0.1 (0.0-0.1) K/mm3 Comprehensive Metabolic Panel 02/29/20 Range/Units 04:43 Sodium 134 L (137-145) mmol/L Potassium 3.4 L (3.6-5.0) mmol/L Chloride 97.7 L (98-107) mmol/L Carbon Dioxide 29 D (22-30) mmol/L BUN 15 (9-20) mg/dL Creatinine 1.2 (0.8-1.3) mg/dL Glucose 88 (75-100) mg/dL Calcium 8.4 (8.4-10.2) mg/dL - Imaging and Cardiology EKG: report reviewed, image reviewed Echo: pending - EKG Sinus rhythms and dysrhythmias: sinus rhythm
[2020-02-29] MEDS: LISINOPRIL 5 MG TAB PO SCH (09:51)
[2020-02-29] MEDS: METOPROLOL SUCCINATE XL 25 MG TAB PO SCH (09:51)
[2020-02-29] MEDS: risperiDONE 1 MG TAB PO SCH (09:51)
--- NOTE | 2020-02-29 16:26 | Progress Note ---
Subjective Date of service: 02/29/20 Principal diagnosis: HF Interval history: 49-year-old -Burkin[place] male with known history of CHF, bipolar disorder and schizophrenia presenting to the emergency room today complaining of shortness of breath and progressive swelling of his lower extremities which has been ongoing for about 6 weeks. Patient indicates that he gets short of breath on minimal exertion. He has been having orthopnea but denies any chest pain. Denies any fever or chills, no headache or dizziness. 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 He also indicates that he is currently homeless. Work-up today chest x-ray reveals some pulmonary edema, BNP was elevated. Patient has been admitted for CHF exacerbation. 02/28 patient is awake and alert and states that his shortness of breath is better. He offers no specific complaints except mild cough. Denies any chest pain or palpitations or dizziness. Cardiology note reviewed Lab results reviewed Assessment and plan Acute CHF with reduced ejection fraction Cardiology note reviewed Cardiac PET done at [facility] 01/2020 was negative for ischemia or scar, EF 32% at rest and 34% with stress. - EF 30-35%, LV mildly dilated, impaired relaxation, mild to mod MR, mod pulm HTN with RVSP 53mmHg. Continue management per cardiology Continue Lasix, beta-emanuel, and low-dose ZENON inhibitor Hypertension fair Chronic schizophrenia Well controlled continue present medications Hypokalemia Mild Potassium supplemented Recheck electrolytes in a.m. Possible discharge tomorrow - Objective - Constitutional Vitals: Vital Signs - 12hr 02/29/20 02/29/20 07:34 07:45 Temperature 98.3 F Pulse Rate 75 70 Respiratory 18 Rate Blood Pressure 148/94 O2 Sat by Pulse 93 Oximetry General appearance: Present: no acute distress - EENT Eyes: PERRL, EOM intact ENT: hearing intact, clear oral mucosa - Neck Neck: supple, normal ROM - Respiratory Respiratory effort: normal Respiratory: bilateral: CTA - Cardiovascular Rhythm: regular Heart Sounds: Present: S1 & S2 Extremity abnormal: edema (2+ bilateral pitting leg and pedal edema) - Gastrointestinal General gastrointestinal: Present: soft, non-tender, distended Rectal Exam: deferred - Genitourinary Male genitourinary: deferred - Integumentary Integumentary: clear, warm - Musculoskeletal Musculoskeletal: strength equal bilaterally - Neurologic Neurologic: moves all extremities - Psychiatric Psychiatric: appropriate mood/affect - Labs CBC & Chem 7: 02/29/20 04:43 02/29/20 04:43 Labs: Abnormal lab results 02/29/20 02/29/20 02/29/20 Range/Units 04:43 04:43 04:43 RBC 3.61 L (3.65-5.03) M/mm3 Hgb 10.0 L (11.8-15.2) gm/dl Hct 30.6 L (35.5-45.6) % RDW 18.6 H (13.2-15.2) % [place] % (Auto) 11.2 H (0.0-7.3) % Eos % (Auto) 4.4 H (0.0-4.3) % Lymph # (Auto) 1.1 L (1.2-5.4) K/mm3 PT 16.8 H (12.2-14.9) Sec. INR 1.36 H (0.87-1.13) Sodium 134 L (137-145) mmol/L Potassium 3.4 L (3.6-5.0) mmol/L Chloride 97.7 L (98-107) mmol/L HEART Score - HEART Score Troponin: Troponin T < 0.010 ng/mL (0.00-0.029) 02/27/20 23:32
[2020-02-29] MEDS: ENOXAPARIN 40 MG/0.4 ML INJ SUB-Q SCH (22:29)
[2020-03-01] MEDS: FUROSEMIDE 40 MG/4 ML INJ IV SCH (05:13)
[2020-03-01 05:50] LABS: BUN/Creatinine Ratio 13; Blood Urea Nitrogen 15 mg/dL (9-20); Calcium 8.8 mg/dL (8.4-10.2); Hemolysis Index 0
--- NOTE | 2020-03-01 10:19 | Progress Note ---
Assessment and Plan tele reviewed - in SR HR 70s-80s with SB noted overnight, HR low 44bpm, and 2.3 sec sinus pause noted this morning while pt was asleep, pt asymptomatic. Suspect r/t sleep apnea. Recommend OP sleep study per primary team. Currently stable cardiac status. Pt may discharge from cardiology standpoint. At discharge, recommend PO lasix 40mg daily and cont Toprol XL and lisinopril. Pt states he would prefer to follow up with [facility] team. Recommend follow up with [facility]ology within 1-2 weeks. Pt verbalizes understanding. The patient has been seen in conjunction with Dr. Bahman East who agrees with the assessment and plan of care. - Patient Problems (1) Acute HFrEF (heart failure with reduced ejection fraction) Current Visit: Yes Status: Acute (2) Cardiomyopathy Current Visit: Yes Status: Chronic (3) Uncontrolled hypertension Current Visit: Yes Status: Chronic (4) Schizophrenia Current Visit: Yes Status: Acute Qualifiers: (5) HANSA (obstructive sleep apnea) Current Visit: Yes Status: Suspected (6) Homelessness Current Visit: Yes Status: Chronic Subjective Date of service: 03/01/20 Principal diagnosis: HF Interval history: pt lying flat in bed, no current cardiac complaints. tele reviewed - in SR HR 70s-80s with SB noted overnight, HR low 44bpm, and 2.3 sec sinus pause noted this morning while pt was asleep, pt asymptomatic. Objective Last Vital Signs Temp 97.5 F L 03/01/20 04:03 Pulse 76 03/01/20 04:03 Resp 20 03/01/20 04:03 BP 120/73 03/01/20 04:03 Pulse Ox 96 03/01/20 04:03 - Physical Examination General: No Apparent Distress HEENT: Positive: PERRL, Normocephaly, Mucus Membranes Moist Neck: Positive: neck supple, trachea midline Cardiac: Positive: Reg Rate and Rhythm, S1/S2 Lungs: Positive: Decreased Breath Sounds Neuro: Positive: Grossly Intact Abdomen: Negative: Tender Skin: Negative: Rash Musculoskeletal: No Pain Extremities: Present: +1 Edema (BLE) - Labs and Meds Comprehensive Metabolic Panel 03/01/20 Range/Units 04:55 Sodium 136 L (137-145) mmol/L Potassium 3.6 (3.6-5.0) mmol/L Chloride 97.2 L (98-107) mmol/L Carbon Dioxide 28 (22-30) mmol/L BUN 15 (9-20) mg/dL Creatinine 1.2 (0.8-1.3) mg/dL Glucose 85 (75-100) mg/dL Calcium 8.8 (8.4-10.2) mg/dL - Imaging and Cardiology EKG: report reviewed, image reviewed Echo: report reviewed (EF 30-35%, LV mildly dilated, impaired relaxation, mild to mod MR, mod pulm HTN with RVSP 53mmHg. ) - Telemetry EKG Rhythm: Sinus Rhythm - EKG Sinus rhythms and dysrhythmias: sinus rhythm
[2020-03-01] MEDS: LISINOPRIL 5 MG TAB PO SCH (11:01)
[2020-03-01] MEDS: risperiDONE 1 MG TAB PO SCH (11:01)
[2020-03-01] MEDS: METOPROLOL SUCCINATE XL 25 MG TAB PO SCH (11:03)
[2020-03-01 11:07] VITALS: BP 143/96
--- NOTE | 2020-03-01 11:21 | Discharge Summary ---
Providers - Providers Date of Admission: 02/28/20 12:59 Date of discharge: 03/01/20 Attending physician: TU STAPLETON 02/28/20 Consult to Case Management [CONS] Routine Services Needed at Discharge: Medical Support Specialist Notified:: cm notified Comment:: PATIENT IS HOMELESS. 02/28/20 03:12 Consult to Cardiology [CONS] Routine Consulting Provider: FRANKLIN DIAZ Reason For Exam: CHF Exacerbation Primary care physician: IV RN Hospitalization Condition: Stable Hospital course: 49-year-old -Malawian male with known history of CHF, bipolar disorder and schizophrenia presenting to the emergency room today complaining of shortness of breath and progressive swelling of his lower extremities which has been ongoing for about 6 weeks. Patient indicates that he gets short of breath on minimal exertion. He has been having orthopnea but denies any chest pain. Denies any fever or chills, no headache or dizziness. 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 He also indicates that he is currently homeless. Work-up today chest x-ray reveals some pulmonary edema, BNP was elevated. Patient has been admitted for CHF exacerbation. 02/28 patient is awake and alert and states that his shortness of breath is better. He offers no specific complaints except mild cough. Denies any chest pain or palpitations or dizziness. Cardiology note reviewed Lab results reviewed 03/01 patient is resting in the bed, no complaints, per RN patient had a 2.3- second sinus pause on pvc monitor. Per cardiology no further work-up at this time. medically stable for discharge, cardiology note reviewed and discussed with nurse practitioner Seda Malave. He will follow up with [facility] Assessment and plan Acute CHF with reduced ejection fraction Cardiology note reviewed Cardiac PET done at [facility] 01/2020 was negative for ischemia or scar, EF 32% at rest and 34% with stress. - EF 30-35%, LV mildly dilated, impaired relaxation, mild to mod MR, mod pulm HTN with RVSP 53mmHg. Continue Lasix, beta-emanuel, and low-dose ZENON inhibitor Hypertension fair Chronic schizophrenia Well controlled continue present medications Patient states that he does not need any refills on his medications for his schizophrenia Hypokalemia Mild Improved with supplements Class II obesity-due to excess calories Counseled on diet, weight loss and daily exercise Patient will follow up with [facility] and outpatient sleep study to rule out HANSA Disposition: DC-01 TO HOME OR SELFCARE Time spent for discharge: 38 min Core Measure Documentation - Palliative Care Palliative Care/ Comfort Measures: Not Applicable - Core Measures Any of the following diagnoses?: none Exam - Constitutional Vitals: Temp Pulse Resp BP Pulse Ox 98.0 F 78 18 143/96 94 03/01/20 07:42 03/01/20 11:03 03/01/20 07:42 03/01/20 07:42 03/01/20 07:42 General appearance: Present: no acute distress, obese - EENT Eyes: Present: PERRL, EOM intact ENT: hearing intact, clear oral mucosa - Neck Neck: Present: supple, normal ROM. Absent: masses or JVD - Respiratory Respiratory effort: normal Respiratory: bilateral: CTA, diminished - Cardiovascular Rhythm: regular Heart Sounds: Present: S1 & S2 - Extremities Extremity abnormal: edema (Trace bilateral leg edema) - Abdominal General gastrointestinal: Present: soft, non-tender Male genitourinary: Present: deferred - Rectal Rectal Exam: deferred - Integumentary Integumentary: Present: clear - Musculoskeletal Musculoskeletal: strength equal bilaterally - Psychiatric Psychiatric: appropriate mood/affect - Neurologic Neurologic: no focal deficits Plan Activity: advance as tolerated Weight Bearing Status: Full Weight Bearing Diet: regular, low fat, low cholesterol, low salt Special Instructions: restrict fluid intake to (1500 mL/day) Additional Instructions: Follow-up with [facility] Follow up with: PRIMARY CARE, [Primary Care Provider] - 3-5 Days Prescriptions: Furosemide [Lasix TAB] 40 mg PO QDAY #30 tablet Metoprolol Xl [Metoprolol SUCCINATE ER TAB] 25 mg PO QDAY #30 tablet Potassium Chloride 10 meq PO DAILY #30 tablet.er Lisinopril [Zestril] 5 mg PO QDAY #30
== END 2020-03-01 15:15 | disposition home or self-care (01) | DRG 293 ==
LOC: ED 19:29 → 4A 02-28 00:56 → OBSVTOIN 02-28 12:59
PROVIDERS: ADMIT Internal Medicine Geriatric Medicine; ATTEND Internal Medicine
DX: I11.0 Hypertensive heart disease with heart failure (principal); E87.6 Hypokalemia; I50.23 Acute on chronic systolic (congestive) heart failure; I42.9 Cardiomyopathy, unspecified; F31.9 Bipolar disorder, unspecified; F20.9 Schizophrenia, unspecified; E66.8 Other obesity; G47.33 Obstructive sleep apnea (adult) (pediatric); F17.200 Nicotine dependence, unspecified, uncomplicated; Z79.899 Other long term (current) drug therapy; Z91.012 Allergy to eggs; Z59.0 Homelessness; Z71.3 Dietary counseling and surveillance; Z68.37 Body mass index [BMI] 37.0-37.9, adult
CPT/HCPCS: 36415; 71045; 80048; 80053; 83880; 84484; 85025; 85610; 93005; 93306; G0378; J1650; J1940

== ENCOUNTER 2020-03-02 19:27 | Emergency (ER) | payer MEDICARE ==
--- NOTE | 2020-03-02 20:36 | Emergency Department Report ---
Blank Doc - Documentation Documentation: This is a 33-year-old male that presents with schizophrenia. Denies any SI or HI This initial assessment/diagnostic orders/clinical plan/treatment(s) is/are subject to change based on patient's health status, clinical progression and re- assessment by fellow clinical providers in the ED. Further treatment and workup at subsequent clinical providers discretion. Patient/guardians urged not to elope from the ED as their condition may be serious if not clinically assessed and managed. Initial orders include: 1- Patient sent to MAIN ED for further evaluation and treatment 2- cashier general was notified to have patient be brought back MEGAN. 3- RN was notified to keep patient as close range and observation until room available
[2020-03-02 21:19] LABS: Hematocrit 36.2 % (35.5-45.6); Hemoglobin 11.5 gm/dl (11.8-15.2); Mean Corpuscular HGB Conc 32 % (32-34); Mean Corpuscular Volume 85 fl (84-94); Platelet Count 267 K/mm3 (140-440); Red Blood Count 4.25 M/mm3 (3.65-5.03); Red Cell Distribution Width 18.8 % (13.2-15.2)
[2020-03-02 21:32] LABS: BUN/Creatinine Ratio 13; Blood Urea Nitrogen 14 mg/dL (9-20); Calcium 9.5 mg/dL (8.4-10.2); Hemolysis Index 4
[2020-03-02 22:25] LABS: RBC Morphology Normal; Total Cells Counted 100
== END 2020-03-03 03:48 | disposition left against medical advice (07) ==
LOC: ED 19:27
DX: F20.9 Schizophrenia, unspecified (principal); Z53.21 Procedure and treatment not carried out due to patient leaving prior to being seen by health care provider
CPT/HCPCS: 36415; 80048; 80320; 85007; 85025; G0480

== ENCOUNTER 2020-03-03 19:35 | Emergency (ER) | payer SELFPAY | END 2020-03-03 20:00 | disposition left against medical advice (07) | LOC: ED 19:35 | DX: Z53.21 Procedure and treatment not carried out due to patient leaving prior to being seen by health care provider (principal) ==

== ENCOUNTER 2020-03-08 18:54 | Emergency (ER) | payer SELFPAY | END 2020-03-08 19:30 | disposition left against medical advice (07) | LOC: ED 18:54 | DX: F20.9 Schizophrenia, unspecified (principal); Z53.21 Procedure and treatment not carried out due to patient leaving prior to being seen by health care provider ==

== ENCOUNTER 2020-03-10 19:53 | Emergency (ER) | payer SELFPAY ==
[2020-03-11 07:41] VITALS: BP 141/98
== END 2020-03-12 | disposition left against medical advice (07) ==
LOC: ED 19:53
DX: F20.9 Schizophrenia, unspecified (principal); Z53.21 Procedure and treatment not carried out due to patient leaving prior to being seen by health care provider

== ENCOUNTER 2020-03-13 18:46 | Emergency (ER) | payer SELFPAY ==
--- NOTE | 2020-03-13 19:07 | Emergency Department Report ---
Blank Doc - Documentation Documentation: 49-year-old male that presents with hearing voices. Denies any SI/HI. This initial assessment/diagnostic orders/clinical plan/treatment(s) is/are subject to change based on patient's health status, clinical progression and re- assessment by fellow clinical providers in the ED. Further treatment and workup at subsequent clinical providers discretion. Patient/guardians urged not to elope from the ED as their condition may be serious if not clinically assessed and managed. Initial orders include: 1- Patient sent to MAIN ED for further evaluation and treatment 2- die grinder was notified to have patient be brought back MEGAN. 3- RN was notified to keep patient as close range and observation until room available 4- Patient presents with substantial risk of imminent harm to self, appears to be so unable to care for his/her own physical health and safety as to create an imminently life-endangering crisis, and has committed/expressed life endangering crisis to self. Due to this and other complaints, patient is put on psych hold.
[2020-03-13 19:08] VITALS: BP 133/81
[2020-03-13 19:58] LABS: Basophils # (Auto) 0.1 K/mm3 (0.0-0.1); Eosinophils # (Auto) 0.2 K/mm3 (0.0-0.4); Eosinophils % (Auto) 5.5 % (0.0-4.3); Hematocrit 37.9 % (35.5-45.6); Hemoglobin 12.5 gm/dl (11.8-15.2); Lymphocytes # (Auto) 1.1 K/mm3 (1.2-5.4); Mean Corpuscular HGB Conc 33 % (32-34); Mean Corpuscular Volume 84 fl (84-94); Monocytes # (Auto) 0.4 K/mm3 (0.0-0.8); Platelet Count 358 K/mm3 (140-440); Red Blood Count 4.49 M/mm3 (3.65-5.03); Red Cell Distribution Width 18.7 % (13.2-15.2)
[2020-03-13 20:04] LABS: BUN/Creatinine Ratio 9; Blood Urea Nitrogen 9 mg/dL (9-20); Calcium 9.1 mg/dL (8.4-10.2); Hemolysis Index 3
== END 2020-03-13 20:00 | disposition left against medical advice (07) ==
LOC: ED 18:46
DX: R44.0 Auditory hallucinations (principal); Z53.21 Procedure and treatment not carried out due to patient leaving prior to being seen by health care provider
CPT/HCPCS: 36415; 80048; 80320; 85025; G0480

== ENCOUNTER 2020-03-14 18:48 | Emergency (ER) | payer SELFPAY ==
[2020-03-14 20:58] VITALS: BP 148/104
== END 2020-03-14 22:00 | disposition left against medical advice (07) ==
LOC: ED 18:48
DX: Z00.8 Encounter for other general examination (principal); Z53.21 Procedure and treatment not carried out due to patient leaving prior to being seen by health care provider

== ENCOUNTER 2020-03-15 16:40 | Emergency (ER) | payer SELFPAY ==
[2020-03-15 17:19] VITALS: BP 141/87
== END 2020-03-15 17:20 | disposition left against medical advice (07) ==
LOC: ED 16:40
DX: Z00.8 Encounter for other general examination (principal); Z53.21 Procedure and treatment not carried out due to patient leaving prior to being seen by health care provider

== ENCOUNTER 2020-04-03 19:10 | Emergency (ER) | payer SELFPAY ==
--- NOTE | 2020-04-03 19:49 | Emergency Department Report ---
Blank Doc - Documentation Documentation: This is a 49-year-old male that presents with hearing voices and seeing things. Denies any SI/HI. This initial assessment/diagnostic orders/clinical plan/treatment(s) is/are subject to change based on patient's health status, clinical progression and re- assessment by fellow clinical providers in the ED. Further treatment and workup at subsequent clinical providers discretion. Patient/guardians urged not to elope from the ED as their condition may be serious if not clinically assessed and managed. Initial orders include: 1- Patient sent to MAIN ED for further evaluation and treatment 2- RN was notified to have patient be brought back MEGAN on psych hold. 3- RN was notified to keep patient as close range and observation until room available 4- Patient presents with substantial risk of imminent harm to self, appears to be so unable to care for his/her own physical health and safety as to create an imminently life-endangering crisis, and has committed/expressed life endangering crisis to self. Due to this and other complaints, patient is put on psych hold.
[2020-04-03 20:17] LABS: Basophils # (Auto) 0.1 K/mm3 (0.0-0.1); Basophils % (Auto) 1.2 % (0.0-1.8); Eosinophils # (Auto) 0.1 K/mm3 (0.0-0.4); Hematocrit 36.9 % (35.5-45.6); Hemoglobin 12.1 gm/dl (11.8-15.2); Lymphocytes # (Auto) 0.8 K/mm3 (1.2-5.4); Lymphocytes % (Auto) 15.5 % (13.4-35.0); Mean Corpuscular HGB Conc 33 % (32-34); Mean Corpuscular Volume 86 fl (84-94); Monocytes # (Auto) 0.5 K/mm3 (0.0-0.8); Platelet Count 274 K/mm3 (140-440); Red Blood Count 4.29 M/mm3 (3.65-5.03)
[2020-04-03 20:19] LABS: Red Cell Distribution Width 20.6 % (13.2-15.2)
[2020-04-03 20:23] LABS: BUN/Creatinine Ratio 7; Blood Urea Nitrogen 8 mg/dL (9-20); Hemolysis Index 0
--- NOTE | 2020-04-03 21:34 | Emergency Department Report ---
<NAYELY NAYAK - Last Filed: 04/04/20 05:50> ED Psych HPI - General Chief Complaint: Psych Stated Complaint: MENTAL HEALTH Time Seen by Provider: 04/03/20 19:48 Source: patient Mode of arrival: Ambulatory - History of Present Illness Initial Comments: Patient is 49 years old male with history of schizophrenia. Patient presented to the ER stating that he is hearing voices and having visual hallucination. Patient stated that voices are asking him to give up but he does not want to give up. Patient does not have a suicidal plan. He also denied any homicidal ideation. Patient stated that he is trying to get himself admitted to inpatient psychiatric facilities but they just keep turning him down. Patient slightly agitated. Patient is talking to himself and he will get very loud and then will come down. Patient is obviously responding to internal stimuli. MD Complaint: altered mental status -: days(s) Associated Psychiatric Symptoms: racing thoughts, auditory hallucinations, visual hallucinations History of same: Yes Quality: constant - Related Data Home Medications Medication Instructions Recorded Confirmed Last Taken Furosemide [Lasix TAB] 40 mg PO QDAY 04/04/20 04/04/20 Unknown risperiDONE [RisperDAL] 2 mg PO DAILY 04/04/20 04/04/20 Unknown Previous Rx's Medication Instructions Recorded Last Taken Type OLANzapine [ZyPREXA] 5 mg PO QDAY #30 tablet 02/10/20 Unknown Rx Lisinopril [Zestril] 5 mg PO QDAY #30 03/01/20 Unknown Rx Metoprolol Xl [Metoprolol 25 mg PO QDAY #30 tablet 03/01/20 Unknown Rx SUCCINATE ER TAB] Potassium Chloride 10 meq PO DAILY #30 tablet.er 03/01/20 Unknown Rx Allergies Allergy/AdvReac Type Severity Reaction Status Date / Time egg Allergy Unknown Verified 03/15/20 17:17 mayonnaise Allergy Unknown Verified 03/15/20 17:17 ED Review of Systems Comment: All other systems reviewed and negative Constitutional: denies: chills, fever Respiratory: denies: cough, shortness of breath, SOB with exertion, SOB at rest Cardiovascular: denies: chest pain, palpitations Gastrointestinal: denies: abdominal pain, nausea, vomiting Musculoskeletal: denies: back pain Neurological: denies: headache, weakness, numbness, paresthesias, confusion Psychiatric: auditory hallucinations, visual hallucinations. denies: homicidal thoughts, suicidal thoughts ED Past Medical Hx - Past Medical History Previous Medical History?: Yes Hx Congestive Heart Failure: Yes Hx Diabetes: No Hx Arthritis: No Hx Psychiatric Treatment: Yes (schizophrenia) Hx Asthma: No Hx COPD: No Additional medical history: schizophrenia - Surgical History Past Surgical History?: No Additional Surgical History: y - Social History Smoking Status: Current Every Day Smoker Substance Use Type: None - Medications Home Medications: Home Medications Medication Instructions Recorded Confirmed Last Taken Type OLANzapine [ZyPREXA] 5 mg PO QDAY #30 tablet 02/10/20 04/04/20 Unknown Rx Lisinopril [Zestril] 5 mg PO QDAY #30 03/01/20 04/04/20 Unknown Rx Metoprolol Xl [Metoprolol 25 mg PO QDAY #30 tablet 03/01/20 04/04/20 Unknown Rx SUCCINATE ER TAB] Potassium Chloride 10 meq PO DAILY #30 tablet.er 03/01/20 04/04/20 Unknown Rx Furosemide [Lasix TAB] 40 mg PO QDAY 04/04/20 04/04/20 Unknown History risperiDONE [RisperDAL] 2 mg PO DAILY 04/04/20 04/04/20 Unknown History ED Physical Exam - General Limitations: No Limitations General appearance: alert, in no apparent distress - Head Head exam: Present: atraumatic, normocephalic, normal inspection - Eye Eye exam: Present: normal appearance, PERRL - ENT ENT exam: Present: normal exam, normal orophraynx, mucous membranes moist - Neck Neck exam: Present: normal inspection, full ROM. Absent: tenderness, meningismus - Respiratory Respiratory exam: Present: normal lung sounds bilaterally - Cardiovascular Cardiovascular Exam: Present: regular rate, normal rhythm, normal heart sounds - GI/Abdominal GI/Abdominal exam: Present: soft, normal bowel sounds. Absent: distended, tenderness, guarding, rebound, rigid, organomegaly, mass, bruit, pulsatile mass, hernia - Extremities Exam Extremities exam: Present: normal inspection, full ROM, normal capillary refill. Absent: tenderness, pedal edema, joint swelling, calf tenderness - Back Exam Back exam: Present: normal inspection, full ROM. Absent: CVA tenderness (R), CVA tenderness (L) - Neurological Exam Neurological exam: Present: alert, oriented X3, CN II-XII intact, normal gait, reflexes normal. Absent: motor sensory deficit - Psychiatric Psychiatric exam: Present: flat affect. Absent: agitated, anxious, homicidal ideation, suicidal ideation - Skin Skin exam: Present: warm, intact, normal color ED Medical Decision Making - Lab Data Result diagrams: 04/03/20 19:54 04/03/20 19:54 - Medical Decision Making Patient is 49 years old male with history of schizophrenia. Patient presented to the ER stating that he is hearing voices and having visual hallucination. Patient stated that voices are asking him to give up but he does not want to give up. Patient does not have a suicidal plan. He also denied any homicidal ideation. Patient stated that he is trying to get himself admitted to inpatient psychiatric facilities but they just keep turning him down. Patient slightly agitated. Patient is talking to himself and he will get very loud and then will come down. Patient is obviously responding to internal stimuli. Labs reviewed and is unremarkable. Patient is medically cleared to be assessed by psychiatric team. ED Disposition Clinical Impression: Schizophrenia Disposition: [id number]/TX-[id number] PSY HOSP/PSY UNIT Condition: Stable Referrals: PRIMARY CARE, [Primary Care Provider] - 3-5 Days <LORI HUTSON - Last Filed: 04/04/20 12:25> ED Review of Systems ROS: Stated complaint: MENTAL HEALTH Other details as noted in HPI ED Course Vital Signs 04/03/20 04/04/20 19:48 07:35 Temperature 97.9 F Pulse Rate 99 H Respiratory 17 18 Rate Blood Pressure 145/107 O2 Sat by Pulse 96 100 Oximetry ED Medical Decision Making - Lab Data Result diagrams: 04/03/20 19:54 04/03/20 19:54 Labs 04/03/20 04/03/20 04/03/20 19:54 19:54 19:54 WBC 5.3 RBC 4.29 Hgb 12.1 Hct 36.9 MCV 86 MCH 28 MCHC 33 RDW 20.6 H Plt Count 274 Lymph % (Auto) 15.5 [place] % (Auto) 9.0 H Eos % (Auto) 2.0 Baso % (Auto) 1.2 Lymph # (Auto) 0.8 L [place] # (Auto) 0.5 Eos # (Auto) 0.1 Baso # (Auto) 0.1 Seg Neutrophils % 72.3 H Seg Neutrophils # 3.8 Sodium 134 L Potassium 3.6 Chloride 99.4 Carbon Dioxide 25 Anion Gap 13 BUN 8 L Creatinine 1.2 Estimated GFR > 60 BUN/Creatinine Ratio 7 Glucose 101 H Calcium 9.0 Urine Color Urine Turbidity Urine pH Ur Specific [place] Urine Protein Urine Glucose (UA) Urine Ketones Urine Blood Urine Nitrite Urine Bilirubin Urine Ictotest Urine Urobilinogen Ur Leukocyte Esterase Urine WBC (Auto) Urine RBC (Auto) U Epithel Cells (Auto) Urine Mucus Salicylates < 0.3 L Urine Opiates Screen Urine Methadone Screen Acetaminophen Ur Barbiturates Screen Ur Phencyclidine Scrn Ur Amphetamines Screen U Benzodiazepines Scrn Urine Cocaine Screen U Marijuana (THC) Screen Drugs of Abuse Note Plasma/Serum Alcohol 04/03/20 04/03/20 04/03/20 19:54 19:54 21:52 WBC RBC Hgb Hct MCV MCH MCHC RDW Plt Count Lymph % (Auto) [place] % (Auto) Eos % (Auto) Baso % (Auto) Lymph # (Auto) [place] # (Auto) Eos # (Auto) Baso # (Auto) Seg Neutrophils % Seg Neutrophils # Sodium Potassium Chloride Carbon Dioxide Anion Gap BUN Creatinine Estimated GFR BUN/Creatinine Ratio Glucose Calcium Urine Color [place] Urine Turbidity Clear Urine pH 6.0 Ur Specific [place] 1.011 Urine Protein >500 Urine Glucose (UA) Neg Urine Ketones Neg Urine Blood Neg Urine Nitrite Neg Urine Bilirubin Sm Urine Ictotest Negative Urine Urobilinogen 4.0 Ur Leukocyte Esterase Neg Urine WBC (Auto) 2.0 Urine RBC (Auto) 1.0 U Epithel Cells (Auto) 3.0 Urine Mucus Few Salicylates Urine Opiates Screen Urine Methadone Screen Acetaminophen 5.0 L Ur Barbiturates Screen Ur Phencyclidine Scrn Ur Amphetamines Screen U Benzodiazepines Scrn Urine Cocaine Screen U Marijuana (THC) Screen Drugs of Abuse Note Plasma/Serum Alcohol < 0.01 04/03/20 21:52 WBC RBC Hgb Hct MCV MCH MCHC RDW Plt Count Lymph % (Auto) [place] % (Auto) Eos % (Auto) Baso % (Auto) Lymph # (Auto) [place] # (Auto) Eos # (Auto) Baso # (Auto) Seg Neutrophils % Seg Neutrophils # Sodium Potassium Chloride Carbon Dioxide Anion Gap BUN Creatinine Estimated GFR BUN/Creatinine Ratio Glucose Calcium Urine Color Urine Turbidity Urine pH Ur Specific [place] Urine Protein Urine Glucose (UA) Urine Ketones Urine Blood Urine Nitrite Urine Bilirubin Urine Ictotest Urine Urobilinogen Ur Leukocyte Esterase Urine WBC (Auto) Urine RBC (Auto) U Epithel Cells (Auto) Urine Mucus Salicylates Urine Opiates Screen Presumptive negative Urine Methadone Screen Presumptive negative Acetaminophen Ur Barbiturates Screen Presumptive negative Ur Phencyclidine Scrn Presumptive negative Ur Amphetamines Screen Presumptive negative U Benzodiazepines Scrn Presumptive negative Urine Cocaine Screen Presumptive negative U Marijuana (THC) Screen Presumptive negative Drugs of Abuse Note Disclamer Plasma/Serum Alcohol Vital Signs 04/03/20 04/04/20 19:48 07:35 Temperature 97.9 F Pulse Rate 99 H Respiratory 17 18 Rate Blood Pressure 145/107 O2 Sat by Pulse 96 100 Oximetry Critical care attestation.: If time is entered above; I have spent that time in minutes in the direct care of this critically ill patient, excluding procedure time. ED Disposition Is pt being admited?: Yes
[2020-04-03 21:59] LABS: Bilirubin,Urine SM (Negative); Blood,Urine NEG (Negative); Color,Urine Amber (Yellow); Mucus,Urine FEW /HPF
[2020-04-03 22:00] LABS: Protein,Urine >500 mg/dL (Negative)
[2020-04-03 22:07] LABS: Amphetamine Screen,Urine PRESUMPTIVE NEGATIVE; Benzodiazepines Screen,Urine PRESUMPTIVE NEGATIVE; Cannabinoid Screen,Urine PRESUMPTIVE NEGATIVE; Cocaine Screen,Urine PRESUMPTIVE NEGATIVE; Methadone Screen,Urine PRESUMPTIVE NEGATIVE; Opiate Screen,Urine PRESUMPTIVE NEGATIVE
[2020-04-03 22:17] LABS: Ictotest,Urine Negative (Negative)
--- NOTE | 2020-04-04 10:29 | Consultation ---
History of Present Illness - Reason for Consult Consult date: 04/04/20 Reason for consult: psychosis - History of Present Psychiatric Illness Per ER note: "Patient is 49 years old male with history of schizophrenia. Patient presented to the ER stating that he is hearing voices and having visual hallucination. Patient stated that voices are asking him to give up but he does not want to give up. Patient does not have a suicidal plan. He also denied any homicidal ideation. Patient stated that he is trying to get himself admitted to inpatient psychiatric facilities but they just keep turning him down. Patient slightly agitated. Patient is talking to himself and he will get very loud and then will come down. Patient is obviously responding to internal stimuli." During my interview with 49y/o Adiel Seaman, he is asleep. He easily arouses. The patient is oriented x 3. He makes poor eye contact. He says he has a history of schizophrenia and has been off his meds for about three weeks. He says he was taking risperidone. The patient appears to have passive suicidal thoughts. He denies SI/HI, but states voices are arguing with him about if he should give up on life. He also says he "se[place]." He denies any past suicidal attempts. The patient denies any illicit drug use, alcohol or nicotine. PAST PSYCHIATRIC HISTORY Diagnoses: schizophrenia Suicide attempts or Self-harm behavior: Denies Prior psychiatric hospitalizations: Yes Substance Abuse history: Denies Previous psychiatric medications tried: Risperidone Outpatient treatment: Yes, but not at present PAST MEDICAL HISTORY: none reported Family Psychiatric History: None reported or documented SOCIAL HISTORY Marital Status: Single Living Arrangements: Hotel Employment Status: Disabled Access to guns/weapons: Denies Education: college History of Abuse: none reported Legal History: none reported REVIEW OF SYSTEMS Constitutional: Negative for weight loss ENT: Negative for stridor Respiratory: Negative for cough or hemoptysis All other systems reviewed and are negative MENTAL STATUS EXAMINATION General Appearance and Behavior: Age appropriate, good hygiene, wearing appropriate clothes, poor eye contact, cooperative polite with questioning. Cooperation: Participating/engaged Psychomotor Behavior: unremarkable and within normal limits Mood: "down" Affect and affective range: congruent with mood Thought Process: illogical Thought Content: responding to internal stimuli Speech: Normal volume, Regular rate and rhythm, Suicidal Ideation: Denies, but appears to be passive Homicidal Ideation: Denies Hallucinations: A/V Delusions: None elicited Impulse Control: Unimpaired Insight and Judgment: Limited insight and judgment, Memory: Normal, Attention: Normal Orientation: Alert, oriented Assessment and Plan (1) Schizophrenia Current Visit: Yes Status: Acute Treatment plan 1013 Risperidone 0.5mg p BID Start Trazodone 50mg po qhs Start Melatonin 5mg po qhs prn Sitter: Defer to primary Medical: per primary Disposition: Recommend acute psychiatric inpatient Will follow. Thank you for this consult Case staffed with Dr. De La Garza Medications and Allergies Allergies Allergy/AdvReac Type Severity Reaction Status Date / Time egg Allergy Unknown Verified 03/15/20 17:17 mayonnaise Allergy Unknown Verified 03/15/20 17:17 Home Medications Medication Instructions Recorded Confirmed Last Taken Type Metoprolol SUCCINATE ER TAB 25 mg PO QDAY 08/10/19 02/28/20 Unknown History Caro Root [Caro] 250 mg PO QID PRN #30 capsule 12/29/19 02/28/20 Unknown Rx OLANzapine [ZyPREXA] 5 mg PO QDAY #30 tablet 02/10/20 02/28/20 Unknown Rx risperiDONE [RisperDAL] 1 mg PO DAILY #30 tablet 02/10/20 02/28/20 02/27/20 Rx Furosemide [Lasix TAB] 40 mg PO QDAY #30 tablet 03/01/20 Unknown Rx Lisinopril [Zestril] 5 mg PO QDAY #30 03/01/20 Unknown Rx Metoprolol Xl [Metoprolol 25 mg PO QDAY #30 tablet 03/01/20 Unknown Rx SUCCINATE ER TAB] Potassium Chloride 10 meq PO DAILY #30 tablet.er 03/01/20 Unknown Rx Mental Status Exam - Vital signs Last Vital Signs Temp 97.9 F 04/03/20 19:48 Pulse 99 H 04/03/20 19:48 Resp 18 04/04/20 07:35 BP 145/107 04/03/20 19:48 Pulse Ox 100 04/04/20 07:35 Results Result Diagrams: 04/03/20 19:54 04/03/20 19:54 Abnormal lab results 04/03/20 04/03/20 04/03/20 Range/Units 19:54 19:54 19:54 RDW 20.6 H (13.2-15.2) % [place] % (Auto) 9.0 H (0.0-7.3) % Lymph # (Auto) 0.8 L (1.2-5.4) K/mm3 Seg Neutrophils % 72.3 H (40.0-70.0) % Sodium 134 L (137-145) mmol/L BUN 8 L (9-20) mg/dL Glucose 101 H (75-100) mg/dL Salicylates < 0.3 L (2.8-20.0) mg/dL Acetaminophen (10.0-30.0) ug/mL 04/03/20 Range/Units 19:54 RDW (13.2-15.2) % [place] % (Auto) (0.0-7.3) % Lymph # (Auto) (1.2-5.4) K/mm3 Seg Neutrophils % (40.0-70.0) % Sodium (137-145) mmol/L BUN (9-20) mg/dL Glucose (75-100) mg/dL Salicylates (2.8-20.0) mg/dL Acetaminophen 5.0 L (10.0-30.0) ug/mL All other labs normal.
[2020-04-04] MEDS: risperiDONE 0.25 MG TAB PO SCH ×2 (14:31→21:46)
[2020-04-04] MEDS: traZODone 50 MG TAB PO SCH (21:47)
[2020-04-04] MEDS ORDERED: MELATONIN 5 MG TAB PO PRN (22:00)
--- NOTE | 2020-04-05 08:58 | Progress Note ---
Subjective - Reason for Consult Consult date: 04/05/20 Reason for consult: psychosis - Chief Complaint Chief complaint: During my interview with the patient today, he is standing at the window adjusting the blind. He says he feels a little better, but still hearing the voices. The patient says "they just keep battling with me about if I want to live or ." He denies SI/HI but appears to have some passive thoughts. He says "I don't know what they want me to do," speaking of the voices. He also says he's still seeing people [place]. REVIEW OF SYSTEMS Constitutional: Negative for weight loss ENT: Negative for stridor Respiratory: Negative for cough or hemoptysis All other systems reviewed and are negative MENTAL STATUS EXAMINATION General Appearance and Behavior: Age appropriate, good hygiene, wearing appropriate clothes, poor eye contact, cooperative polite with questioning. Cooperation: Participating/engaged Psychomotor Behavior: unremarkable and within normal limits Mood: "down" Affect and affective range: congruent with mood Thought Process: illogical Thought Content: responding to internal stimuli Speech: Normal volume, Regular rate and rhythm, Suicidal Ideation: Denies, but appears to be passive Homicidal Ideation: Denies Hallucinations: A/V Delusions: None elicited Impulse Control: Unimpaired Insight and Judgment: Limited insight and judgment, Memory: Normal, Attention: Normal Orientation: Alert, oriented Assessment and Plan (1) Schizophrenia Current Visit: Yes Status: Acute Treatment plan 1013 Increased Risperidone 1mg p BID Start Depakote DR 125mg po BID Sitter: Defer to primary Medical: per primary Disposition: Recommend acute psychiatric inpatient Will follow. Thank you for this consult Case staffed with Dr. De La Garza Mental Status Exam - Vital signs Last Vital Signs Temp 97.9 F 04/05/20 02:12 Pulse 78 04/05/20 02:12 Resp 16 04/05/20 02:12 BP 136/88 04/05/20 02:12 Pulse Ox 98 04/05/20 02:12
[2020-04-05] MEDS: DIVALPROEX DR 125 MG TAB PO SCH ×2 (11:10→22:29)
[2020-04-05] MEDS: risperiDONE 1 MG TAB PO SCH ×2 (11:10→22:29)
[2020-04-05] MEDS: traZODone 50 MG TAB PO SCH (22:29)
[2020-04-06 08:07] VITALS: BP 171/117
--- NOTE | 2020-04-06 09:38 | Progress Note ---
Subjective - Reason for Consult Consult date: 04/06/20 Reason for consult: hallucinations, passive si - Chief Complaint Chief complaint: During my interview with the patient today, he is lying down. He is a/o x 3. The patient says he's feeling better, and that the meds has been helping him. He says "since I've been on those meds I felt better." The patient also verbalizes sleeping better. He denies SI/HI. He also denies any negative voices at present. REVIEW OF SYSTEMS Constitutional: Negative for weight loss ENT: Negative for stridor Respiratory: Negative for cough or hemoptysis All other systems reviewed and are negative MENTAL STATUS EXAMINATION General Appearance and Behavior: Age appropriate, good hygiene, wearing appropriate clothes, poor eye contact, cooperative polite with questioning. Cooperation: Participating/engaged Psychomotor Behavior: unremarkable and within normal limits Mood: "better" Affect and affective range: congruent with mood Thought Process: logical Thought Content: none Speech: Normal volume, Regular rate and rhythm, Suicidal Ideation: Denies Homicidal Ideation: Denies Hallucinations: Denies Delusions: None elicited Impulse Control: Unimpaired Insight and Judgment: Limited insight and judgment, Memory: Normal, Attention: Normal Orientation: Alert, oriented Assessment and Plan (1) Schizophrenia Current Visit: Yes Status: Acute Treatment plan d/c 1013 Scripts Risperidone 1mg p BID Depakote DR 125mg po BID Trazodone 50mg po qhs Melatonin 5mg po qhs prn Sitter: Defer to primary Medical: per primary Medical: per primary Disposition: Do not Recommend acute psychiatric inpatient. The patient understands that if suicidal thoughts are to arise he is to seek immediate assistance including but not limited to 911/ER, crisis hotline. He is to follow up with outpatient psych in 7 to 14 days upon discharge The clinical psychologist private practice is to provide outpatient resources, and safety plan. Will sign off. Thank you for this consult Case staffed with Dr. De La Garza Mental Status Exam - Vital signs Last Vital Signs Temp 97.6 F 04/06/20 08:06 Pulse 91 H 04/06/20 08:06 Resp 20 04/06/20 08:06 BP 171/117 04/06/20 08:06 Pulse Ox 96 04/06/20 08:06
[2020-04-06] MEDS: DIVALPROEX DR 125 MG TAB PO SCH (11:31)
[2020-04-06] MEDS: risperiDONE 1 MG TAB PO SCH (11:31)
== END 2020-04-06 12:30 ==
LOC: ED 19:10
DX: F20.9 Schizophrenia, unspecified (principal); I50.9 Heart failure, unspecified; F17.200 Nicotine dependence, unspecified, uncomplicated; Z91.012 Allergy to eggs; Z91.018 Allergy to other foods; Z79.899 Other long term (current) drug therapy
CPT/HCPCS: 36415; 80048; 80307; 80320; 81001; 84295; 85025; G0480

== ENCOUNTER 2020-04-06 21:33 | Emergency (ER) | payer SELFPAY ==
--- NOTE | 2020-04-07 01:14 | Emergency Department Report ---
ED General Adult HPI - General Stated complaint: BODY COLD Time Seen by Provider: 04/07/20 00:52 - History of Present Illness Initial comments: 49-year-old F [place] male recently discharged from hospital presents emerged department complaining of needing a place to stay due to him not being able to pay for the hotel tonight he asked if he could be admitted for hypothermia because it was cold outside. The patient appears stable no acute no acute dis tress no injuries Severity scale (0 -10): 0 Improves with: none Worsens with: none Associated Symptoms: denies other symptoms - Related Data Home Medications Medication Instructions Recorded Confirmed Last Taken Furosemide [Lasix TAB] 40 mg PO QDAY 04/04/20 04/04/20 Unknown carvediloL [Coreg] 6.25 mg PO BID 04/04/20 04/04/20 Unknown risperiDONE [RisperDAL] 2 mg PO DAILY 04/04/20 04/04/20 Unknown Previous Rx's Medication Instructions Recorded Last Taken Type OLANzapine [ZyPREXA] 5 mg PO QDAY #30 tablet 02/10/20 Unknown Rx Lisinopril [Zestril] 5 mg PO QDAY #30 03/01/20 Unknown Rx Metoprolol Xl [Metoprolol 25 mg PO QDAY #30 tablet 03/01/20 Unknown Rx SUCCINATE ER TAB] Potassium Chloride 10 meq PO DAILY #30 tablet.er 03/01/[address] [DepaKOTE DR] 125 mg PO BID #60 tablet 04/06/20 Unknown Rx Melatonin [Melatonin 5MG CAP] 5 mg PO QHS PRN #30 capsule 04/06/20 Unknown Rx risperiDONE [RisperDAL] 1 mg PO BID #60 tablet 04/06/20 Unknown Rx traZODone [Desyrel] 50 mg PO QHS #30 tab 04/06/20 Unknown Rx Allergies Allergy/AdvReac Type Severity Reaction Status Date / Time egg Allergy Unknown Verified 03/15/20 17:17 mayonnaise Allergy Unknown Verified 03/15/20 17:17 ED Review of Systems ROS: Stated complaint: BODY COLD Other details as noted in HPI Comment: All other systems reviewed and negative ED Past Medical Hx - Past Medical History Hx Congestive Heart Failure: Yes Hx Diabetes: No Hx Arthritis: No Hx Psychiatric Treatment: Yes (schizophrenia) Hx Asthma: No Hx COPD: No Additional medical history: schizophrenia - Surgical History Additional Surgical History: y - Social History Smoking Status: Current Every Day Smoker Substance Use Type: None - Medications Home Medications: Home Medications Medication Instructions Recorded Confirmed Last Taken Type OLANzapine [ZyPREXA] 5 mg PO QDAY #30 tablet 02/10/20 04/04/20 Unknown Rx Lisinopril [Zestril] 5 mg PO QDAY #30 03/01/20 04/04/20 Unknown Rx Metoprolol Xl [Metoprolol 25 mg PO QDAY #30 tablet 03/01/20 04/04/20 Unknown Rx SUCCINATE ER TAB] Potassium Chloride 10 meq PO DAILY #30 tablet.er 03/01/20 04/04/20 Unknown Rx Furosemide [Lasix TAB] 40 mg PO QDAY 04/04/20 04/04/20 Unknown History carvediloL [Coreg] 6.25 mg PO BID 04/04/20 04/04/20 Unknown History risperiDONE [RisperDAL] 2 mg PO DAILY 04/04/20 04/04/[address] [Meghan IRAHETA] 125 mg PO BID #60 tablet 04/06/20 Unknown Rx Melatonin [Melatonin 5MG CAP] 5 mg PO QHS PRN #30 capsule 04/06/20 Unknown Rx risperiDONE [RisperDAL] 1 mg PO BID #60 tablet 04/06/20 Unknown Rx traZODone [Desyrel] 50 mg PO QHS #30 tab 04/06/20 Unknown Rx ED Physical Exam - General General appearance: alert, in no apparent distress - Head Head exam: Present: atraumatic, normocephalic - Eye Eye exam: Present: normal appearance - ENT ENT exam: Present: mucous membranes moist - Neck Neck exam: Present: normal inspection - Respiratory Respiratory exam: Present: normal lung sounds bilaterally. Absent: respiratory distress - Cardiovascular Cardiovascular Exam: Present: regular rate, normal rhythm. Absent: systolic murmur, diastolic murmur, rubs, gallop - GI/Abdominal GI/Abdominal exam: Present: soft, normal bowel sounds - Rectal Rectal exam: Present: deferred - Extremities Exam Extremities exam: Present: normal inspection - Back Exam Back exam: Present: normal inspection - Neurological Exam Neurological exam: Present: alert, oriented X3 - Psychiatric Psychiatric exam: Present: normal affect, normal mood - Skin Skin exam: Present: warm, dry, intact, normal color. Absent: rash Critical care attestation.: If time is entered above; I have spent that time in minutes in the direct care of this critically ill patient, excluding procedure time. ED Disposition Clinical Impression: No problem, feared complaint unfounded Disposition: Z- MED SCREENING EXAM-LEFT Is pt being admited?: No Does the pt Need Aspirin: No Condition: Stable Referrals: PRIMARY CARE, [Primary Care Provider] - 3-5 Days
[2020-04-07 04:59] VITALS: BP 154/108
== END 2020-04-07 01:31 | disposition left against medical advice (07) ==
LOC: ED 21:33
DX: Z71.1 Person with feared health complaint in whom no diagnosis is made (principal); Z53.21 Procedure and treatment not carried out due to patient leaving prior to being seen by health care provider

== ENCOUNTER 2020-04-18 19:11 | Emergency (ER) | payer SELFPAY ==
--- NOTE | 2020-04-18 19:58 | Emergency Department Report ---
Chief Complaint: Upper Respiratory Infection Stated Complaint: EXTREMELY COLD Time Seen by Provider: 04/18/20 19:49 - HPI History of Present Illness: pt presents for feeling cold x 2 months seen last month for same with normal evaluation, state he is homeless and has no place to go, pt states hx of depression denies HI or SI today, he denies sob, no cp, no n/v ,no fever or chills. Pt ambulated into ed today , with nad. - ROS Review of Systems: pt is A/o x 3, denies fever, no chills, no n/v, no n/v , no cp, no sob, no diphoresis, no back pain. pt is toleratin po intake symptoms, there has bee no change in bowel or bladder function. - Exam Physical Exam: pt appears well nourished, well hydrated, is a/o x 3, ambulatory with steady gait, with nad, lungs are clear throughout with even and non labored respirations, cv: S1, S2, no rub, gallop or murmur, abd soft nontender normal bowel sounds, rom intact and unrestricted, pt with nad. MSE screening note: Focused history and physical exam performed. Due to findings the following was ordered: pt has had a MSE exam and determined to not have an emergency medical condition at this time. pt will follow up with primary care doctor as needed. pt has elected to depart ed to self after this evaluation , and no emergent medical conditions being present. ED Medical Decision Making - Medical Decision Making pt has had a MSE exam and determined to not have an emergency medical condition at this time. pt will follow up with primary care doctor as needed. pt has elected to depart ed to self after this evaluation , and no emergent medical conditions being present. ED Disposition for MSE Clinical Impression: Chills (without fever) Disposition: Z MED SCREENING EXAM-LEFT Is pt being admited?: No Does the pt Need Aspirin: No Condition: Stable Referrals: PRIMARY CARE [Primary Care Provider] - 3-[address] [facility] [Provider Group] - 3-5 Days Time of Disposition: 20:43
[2020-04-18 20:21] VITALS: BP 150/80
== END 2020-04-18 21:00 | disposition left against medical advice (07) ==
LOC: ED 19:11
DX: J00 Acute nasopharyngitis [common cold] (principal); Z53.21 Procedure and treatment not carried out due to patient leaving prior to being seen by health care provider

== ENCOUNTER 2020-04-28 07:12 | Emergency (ER) | payer SELFPAY ==
[2020-04-28 07:19] VITALS: BP 145/99
[2020-04-28] MEDS ORDERED: IPRATROPIUM/ALBUTEROL SULFATE 3 ML AMPUL.NEB IH ONE ×2 (07:33→10:09)
--- NOTE | 2020-04-28 07:36 | Emergency Department Report ---
HPI - General Chief Complaint: Psych Time Seen by Provider: 04/28/20 07:27 - HPI HPI: This is a 49-year-old -Portuguese male presents to the emergency department with complaints of hypothermia and schizophrenia. Patient says that he feels hypothermic, because he feels very cold, as he is homeless and lives outside. The patient says that he is unable to stay at a fpc because he receives a Social Security check. Patient says that he has been having both auditory and visual hallucinations consistent with his history of schizophrenia. Although patient denies current suicidal ideations, he says that he has been having them intermittently and that he feels depressed and wants to "give up." Patient also has a past medical history of CHF and hypertension. The patient says he is compliant with his psychiatric medication, Risperdal. He denies having a primary care physician or psychiatrist, or a behavioral center, for follow-up. ED Past Medical Hx - Past Medical History Hx Congestive Heart Failure: Yes Hx Diabetes: No Hx Arthritis: No Hx Psychiatric Treatment: Yes (schizophrenia) Hx Asthma: No Hx COPD: No Additional medical history: schizophrenia - Surgical History Additional Surgical History: y - Social History Smoking Status: Current Every Day Smoker Substance Use Type: None - Medications Home Medications: Home Medications Medication Instructions Recorded Confirmed Last Taken Type OLANzapine [ZyPREXA] 5 mg PO QDAY #30 tablet 02/10/20 04/04/20 Unknown Rx Lisinopril [Zestril] 5 mg PO QDAY #30 03/01/20 04/04/20 Unknown Rx Metoprolol Xl [Metoprolol 25 mg PO QDAY #30 tablet 03/01/20 04/04/20 Unknown Rx SUCCINATE ER TAB] Potassium Chloride 10 meq PO DAILY #30 tablet.er 03/01/20 04/04/20 Unknown Rx Furosemide [Lasix TAB] 40 mg PO QDAY 04/04/20 04/04/20 Unknown History carvediloL [Coreg] 6.25 mg PO BID 04/04/20 04/04/20 Unknown History risperiDONE [RisperDAL] 2 mg PO DAILY 04/04/20 04/04/[address] [DepAlicjaTE DR] 125 mg PO BID #60 tablet 04/06/20 Unknown Rx Melatonin [Melatonin 5MG CAP] 5 mg PO QHS PRN #30 capsule 04/06/20 Unknown Rx risperiDONE [RisperDAL] 1 mg PO BID #60 tablet 04/06/20 Unknown Rx traZODone [Desyrel] 50 mg PO QHS #30 tab 04/06/20 Unknown Rx ED Review of Systems ROS: Stated complaint: MENTAL HEALTH Other details as noted in HPI Comment: All other systems reviewed and negative Constitutional: chills. denies: fever Eyes: denies: eye pain, vision change ENT: denies: ear pain, throat pain Respiratory: denies: cough, shortness of breath Cardiovascular: denies: chest pain, palpitations Gastrointestinal: denies: abdominal pain, vomiting Genitourinary: denies: dysuria, discharge Musculoskeletal: denies: back pain, arthralgia Neurological: denies: headache, weakness Psychiatric: depression, auditory hallucinations, visual hallucinations Physical Exam - Physical Exam Vital Signs: Vital Signs 04/28/20 07:18 Temperature 98.5 F Pulse Rate 89 Respiratory 22 Rate Blood Pressure 145/99 O2 Sat by Pulse 99 Oximetry Physical Exam: GENERAL: The patient is well-developed well-nourished. HENT: Normocephalic. Atraumatic. Patient has moist mucous membranes. EYES: Extraocular motions are intact. NECK: Supple. Trachea is midline. CHEST/LUNGS: Mild expiratory wheezing. No tachypnea or accessory muscle use. There is no respiratory distress noted. HEART/CARDIOVASCULAR: Regular. There is no tachycardia. There is no murmur. ABDOMEN: Abdomen is soft, nontender. Patient has normal bowel sounds. SKIN: Skin is warm and dry. NEURO: The patient is awake, alert, and oriented. The patient is cooperative. The patient has no focal neurologic deficits. Normal speech. MUSCULOSKELETAL: There is no tenderness or deformity. There is no limitation range of motion. ED Course Vital Signs 04/28/20 07:18 Temperature 98.5 F Pulse Rate 89 Respiratory 22 Rate Blood Pressure 145/99 O2 Sat by Pulse 99 Oximetry ED Medical Decision Making - Lab Data Result diagrams: 04/28/20 08:23 04/28/20 08:23 - Medical Decision Making This patient, with history of schizophrenia, presents to the emergency department with complaint of auditory and visual hallucinations. While the patient does say that he has "given up", this is more a description of his depression and the patient denies any suicidal ideations. He also denies any homicidal ideations. He was seen by the psychiatric team who agrees that the patient does not appear to meet criteria to be a 1013 or require inpatient stab ilization at this time. He says that he has his psychiatric medication and has been compliant with taking it. He will be given multiple outpatient resources for behavioral health. He understands that he should return to the emergency department with any worsening of his symptoms, thoughts of harming himself or others, or with any acute distress. Critical Care Time: No Critical care attestation.: If time is entered above; I have spent that time in minutes in the direct care of this critically ill patient, excluding procedure time. ED Disposition Clinical Impression: Medical clearance for psychiatric admission Schizophrenia Qualifiers: Schizophrenia type: unspecified Qualified Code(s): F20.9 - Schizophrenia, unspecified Disposition: DC-01 TO HOME OR SELFCARE Is pt being admited?: No Condition: Stable Instructions: Schizophrenia, Managing Schizophrenia Additional Instructions: Please follow-up with a psychiatrist or at one of the referred behavioral health facilities. Take all of your medications as prescribed. Return to the emergency department with any worsening of your symptoms, thoughts of harming your self or others, new or concerning symptoms not addressed during this current emergency department visit, or with any acute distress. MENTAL HEALTH REFERRAL: [facility] BOARD: Centralized [phone], [id number] Behavioral Health - [facility] [address] [place] [address] CRISIS LINE NUMBER FOR MENTAL HEALTH: [phone] OUTPATIENT MENTAL HEALTH RESOURCES [facility], [facility] Carla Givens MD: [address] [place] [address] [place], [place] [id number] [facility]: [employer] [address] [place] [address] [place] [address] [phone] [facility]: [facility] Healthcare: [address] [place] [address] [address] [place] [address] [place] [place] [address] [place] [address] [facility]: Boris Greene MD: [address] [facility] [address] [facility] [address] [facility]: [address] [place] [phone] [place] CRISIS AND ACCESS LINE: Referrals: [facility] [Provider Group] - 2-[address] [facility] - [facility]-3 Days
[2020-04-28 08:48] LABS: Basophils # (Auto) 0.1 K/mm3 (0.0-0.1); Basophils % (Auto) 1.2 % (0.0-1.8); Eosinophils # (Auto) 0.1 K/mm3 (0.0-0.4); Eosinophils % (Auto) 2.4 % (0.0-4.3); Hematocrit 34.3 % (35.5-45.6); Hemoglobin 11.1 gm/dl (11.8-15.2); Lymphocytes % (Auto) 19.2 % (13.4-35.0); Mean Corpuscular HGB Conc 32 % (32-34); Mean Corpuscular Volume 86 fl (84-94); Monocytes # (Auto) 0.5 K/mm3 (0.0-0.8); Platelet Count 322 K/mm3 (140-440); Red Cell Distribution Width 19.4 % (13.2-15.2)
[2020-04-28 08:56] LABS: BUN/Creatinine Ratio 12; Blood Urea Nitrogen 11 mg/dL (9-20); Calcium 8.6 mg/dL (8.4-10.2); Hemolysis Index 1
--- NOTE | 2020-04-28 09:27 | Consultation ---
History of Present Illness - Reason for Consult Consult date: 04/28/20 Reason for consult: voices - History of Present Psychiatric Illness Per ED note: "This is a 49-year-old -[place] male presents to the emergency department with complaints of hypothermia and schizophrenia. Patient says that he feels hypothermic, because he feels very cold, as he is homeless and lives outside. The patient says that he is unable to stay at a assisted because he receives a Social Security check. Patient says that he has been having both auditory and visual hallucinations consistent with his history of schizophrenia. Although patient denies current suicidal ideations, he says that he has been having them intermittently and that he feels depressed and wants to "give up." Patient also has a past medical history of CHF and hypertension. The patient says he is compliant with his psychiatric medication, Risperdal. He denies having a primary care physician or psychiatrist, or a behavioral center, for follow-up." During my interview with the patient, he is sitting up in a chair. He is a/o x 3. The patient states he is "feeling hypothermic." He says "I have a cold and a cough." He says he "was hearing voices and seeing things when I came in." When asking the patient were the voices telling him anything negative, he replies "just my schizophrenia. They said give up." He denies SI/HI when asked, he says "naw I'm not. Just my schizophrenia." He denies any problems with his appetite or his sleep pattern. The patient says he was taking his medications but did not have a way for outpatient. PAST PSYCHIATRIC HISTORY Diagnoses: schizophrenia Suicide attempts or Self-harm behavior: Denies Prior psychiatric hospitalizations: Yes Substance Abuse history: Denies Previous psychiatric medications tried: Risperidone Outpatient treatment: Yes, but not at present PAST MEDICAL HISTORY: none reported Family Psychiatric History: None reported or documented SOCIAL HISTORY Marital Status: Single Living Arrangements: Hotel Employment Status: Disabled Access to guns/weapons: Denies Education: college History of Abuse: none reported Legal History: none reported REVIEW OF SYSTEMS Constitutional: Negative for weight loss ENT: Negative for stridor Respiratory: Negative for cough or hemoptysis All other systems reviewed and are negative MENTAL STATUS EXAMINATION General Appearance and Behavior: Age appropriate, good hygiene, wearing appropriate clothes, poor eye contact, cooperative polite with questioning. Cooperation: Participating/engaged Psychomotor Behavior: unremarkable and within normal limits Mood: "okay, cold" Affect and affective range: congruent with mood Thought Process: oriented Thought Content: hallucinations Speech: Normal volume, Regular rate and rhythm, Suicidal Ideation: Denies, but appears to be passive Homicidal Ideation: Denies Hallucinations: A/V Delusions: None elicited Impulse Control: Unimpaired Insight and Judgment: Limited insight and judgment, Memory: Normal, Attention: Normal Orientation: Alert, oriented Assessment and Plan (1) Hx of Schizophrenia Current Visit: Yes Status: Acute Treatment plan Continue previously prescribed medications Sitter: Defer to primary Medical: per primary Disposition: Do note Recommend acute psychiatric inpatient. The patient symptoms can be managed on outpatient basis. The patient should follow up with outpatient psych for med management He is to follow up with outpatient psych in 7 to 14 days upon discharge. The irrigation tax assessor collector to give the patient resources to assist him, outpatient psych, med assistance, assisted, transportation pass, CBT Will sign off. Thank you for this consult Case staffed with Dr. De La Garza Medications and Allergies Allergies Allergy/AdvReac Type Severity Reaction Status Date / Time egg Allergy Unknown Verified 04/28/20 07:14 mayonnaise Allergy Unknown Verified 04/28/20 07:14 Home Medications Medication Instructions Recorded Confirmed Last Taken Type OLANzapine [ZyPREXA] 5 mg PO QDAY #30 tablet 02/10/20 04/04/20 Unknown Rx Lisinopril [Zestril] 5 mg PO QDAY #30 03/01/20 04/04/20 Unknown Rx Metoprolol Xl [Metoprolol 25 mg PO QDAY #30 tablet 03/01/20 04/04/20 Unknown Rx SUCCINATE ER TAB] Potassium Chloride 10 meq PO DAILY #30 tablet.er 03/01/20 04/04/20 Unknown Rx Furosemide [Lasix TAB] 40 mg PO QDAY 04/04/20 04/04/20 Unknown History carvediloL [Coreg] 6.25 mg PO BID 04/04/20 04/04/20 Unknown History risperiDONE [RisperDAL] 2 mg PO DAILY 04/04/20 04/04/20 Unknown History Divalproex [Meghan IRAHETA] 125 mg PO BID #60 tablet 04/06/20 Unknown Rx Melatonin [Melatonin 5MG CAP] 5 mg PO QHS PRN #30 capsule 04/06/20 Unknown Rx risperiDONE [RisperDAL] 1 mg PO BID #60 tablet 04/06/20 Unknown Rx traZODone [Desyrel] 50 mg PO QHS #30 tab 04/06/20 Unknown Rx Mental Status Exam - Vital signs Last Vital Signs Temp 98.5 F 04/28/20 07:18 Pulse 89 04/28/20 07:18 Resp 22 04/28/20 07:18 BP 145/99 04/28/20 07:18 Pulse Ox 99 04/28/20 07:18 Results Result Diagrams: 04/28/20 08:23 04/28/20 08:23 Abnormal lab results 04/28/20 04/28/20 Range/Units 08:23 08:23 Hgb 11.1 L (11.8-15.2) gm/dl Hct 34.3 L (35.5-45.6) % RDW 19.4 H (13.2-15.2) % Kleberg % (Auto) 9.0 H (0.0-7.3) % Lymph # (Auto) 1.0 L (1.2-5.4) K/mm3 Sodium 133 L (137-145) mmol/L All other labs normal.
== END 2020-04-28 11:04 | disposition home or self-care (01) ==
LOC: ED 07:12
DX: F20.9 Schizophrenia, unspecified (principal); I50.9 Heart failure, unspecified; F17.200 Nicotine dependence, unspecified, uncomplicated; Z04.6 Encounter for general psychiatric examination, requested by authority; Z79.899 Other long term (current) drug therapy; Z91.012 Allergy to eggs; Z88.8 Allergy status to other drugs, medicaments and biological substances
CPT/HCPCS: 36415; 80048; 80320; 85025; 94640; G0480

== ENCOUNTER 2020-05-10 08:07 | Emergency (ER) | payer SELFPAY ==
--- NOTE | 2020-05-10 08:43 | Emergency Department Report ---
ED Psych HPI - General Chief Complaint: Upper Respiratory Infection Stated Complaint: SCIZOPHRENIA/COLD SYMPTOMS Time Seen by Provider: 05/10/20 08:25 Source: patient Mode of arrival: Ambulatory - History of Present Illness Initial Comments: 49-year-old -Nigerian male with past medical history of schizophrenia disorder currently taking Risperdal and Zyprexa reports being compliant with his current medical regimen presents emerged department today complaining of continu ed auditory and visual hallucinations. Auditory hallucinations going on for a month telling him to give up on life but he states that he does not want to do that. He is also seeing people in his car fighting but not causing harm to him. States he subsequently has been having a cough and some chest congestion for the last 2 months. Reports no fever, chills, sweats, no hemoptysis, hematemesis, no hematochezia. Reports no abdominal pain or dysuria. Associated Psychiatric Symptoms: racing thoughts, auditory hallucinations, visual hallucinations Improves With: none Worsens With: none Associated Symptoms: denies other symptoms - Related Data Home Medications Medication Instructions Recorded Confirmed Last Taken Furosemide [Lasix TAB] 40 mg PO QDAY 04/04/20 04/04/20 Unknown carvediloL [Coreg] 6.25 mg PO BID 04/04/20 04/04/20 Unknown risperiDONE [RisperDAL] 2 mg PO DAILY 04/04/20 04/04/20 Unknown Previous Rx's Medication Instructions Recorded Last Taken Type OLANzapine [ZyPREXA] 5 mg PO QDAY #30 tablet 02/10/20 Unknown Rx Lisinopril [Zestril] 5 mg PO QDAY #30 03/01/20 Unknown Rx Metoprolol Xl [Metoprolol 25 mg PO QDAY #30 tablet 03/01/20 Unknown Rx SUCCINATE ER TAB] Potassium Chloride 10 meq PO DAILY #30 tablet.er 03/01/20 Unknown Rx Melatonin [Melatonin 5MG CAP] 5 mg PO QHS PRN #30 capsule 04/06/20 Unknown Rx traZODone [Desyrel] 50 mg PO QHS #30 tab 04/06/20 Unknown Rx Divalproex [Meghan HAMILTON] 250 mg PO BID #60 tablet 05/10/20 Unknown Rx risperiDONE [RisperDAL] 2 mg PO BID #60 tablet 05/10/20 Unknown Rx Allergies Allergy/AdvReac Type Severity Reaction Status Date / Time egg Allergy Unknown Verified 05/10/20 08:14 mayonnaise Allergy Unknown Verified 05/10/20 08:14 ED Review of Systems ROS: Stated complaint: SCIZOPHRENIA/COLD SYMPTOMS Other details as noted in HPI Constitutional: denies: chills, fever Eyes: denies: eye pain, eye discharge, vision change ENT: congestion. denies: ear pain, throat pain Respiratory: denies: cough, shortness of breath, wheezing Cardiovascular: denies: chest pain, palpitations Endocrine: no symptoms reported Gastrointestinal: denies: abdominal pain, nausea, diarrhea Genitourinary: denies: urgency, dysuria Musculoskeletal: denies: back pain, joint swelling, arthralgia Skin: denies: rash, lesions Neurological: denies: headache, weakness, paresthesias Psychiatric: denies: anxiety, depression Hematological/Lymphatic: denies: easy bleeding, easy bruising ED Past Medical Hx - Past Medical History Hx Congestive Heart Failure: Yes Hx Diabetes: No Hx Arthritis: No Hx Psychiatric Treatment: Yes (schizophrenia) Hx Asthma: No Hx COPD: No Additional medical history: schizophrenia - Surgical History Additional Surgical History: y - Social History Smoking Status: Current Every Day Smoker Substance Use Type: None - Medications Home Medications: Home Medications Medication Instructions Recorded Confirmed Last Taken Type OLANzapine [ZyPREXA] 5 mg PO QDAY #30 tablet 02/10/20 04/04/20 Unknown Rx Lisinopril [Zestril] 5 mg PO QDAY #30 03/01/20 04/04/20 Unknown Rx Metoprolol Xl [Metoprolol 25 mg PO QDAY #30 tablet 03/01/20 04/04/20 Unknown Rx SUCCINATE ER TAB] Potassium Chloride 10 meq PO DAILY #30 tablet.er 03/01/20 04/04/20 Unknown Rx Furosemide [Lasix TAB] 40 mg PO QDAY 04/04/20 04/04/20 Unknown History carvediloL [Coreg] 6.25 mg PO BID 04/04/20 04/04/20 Unknown History risperiDONE [RisperDAL] 2 mg PO DAILY 04/04/20 04/04/20 Unknown History Melatonin [Melatonin 5MG CAP] 5 mg PO QHS PRN #30 capsule 04/06/20 Unknown Rx traZODone [Desyrel] 50 mg PO QHS #30 tab 04/06/[address] [DepaKOTE DR] 250 mg PO BID #60 tablet 05/10/20 Unknown Rx risperiDONE [RisperDAL] 2 mg PO BID #60 tablet 05/10/20 Unknown Rx ED Physical Exam - General Limitations: No Limitations General appearance: alert, in no apparent distress - Head Head exam: Present: atraumatic, normocephalic - Eye Eye exam: Present: normal appearance - ENT ENT exam: Present: mucous membranes moist, other (Nasal congestion with clear drainage.) - Neck Neck exam: Present: normal inspection. Absent: tenderness, meningismus, thyromegaly - Respiratory Respiratory exam: Present: normal lung sounds bilaterally. Absent: respiratory distress, wheezes, rales, chest wall tenderness, accessory muscle use, decreased breath sounds - Cardiovascular Cardiovascular Exam: Present: regular rate, normal rhythm, normal heart sounds. Absent: bradycardia, tachycardia, systolic murmur, diastolic murmur, rubs, gallop - GI/Abdominal GI/Abdominal exam: Present: soft, normal bowel sounds. Absent: distended, tenderness, guarding, rebound, hyperactive bowel sounds, hypoactive bowel sounds, organomegaly, mass - Rectal Rectal exam: Present: deferred - Extremities Exam Extremities exam: Present: normal inspection, normal capillary refill - Back Exam Back exam: Present: normal inspection. Absent: CVA tenderness (R), CVA tenderness (L), muscle spasm, paraspinal tenderness - Neurological Exam Neurological exam: Present: alert, oriented X3, CN II-XII intact, normal gait - Psychiatric Psychiatric exam: Present: other (Patient is cooperative no acute distress having sidebar conversations with himself and apparent persons, not present). Absent: depressed, agitated, flat affect, homicidal ideation, suicidal ideation - Skin Skin exam: Present: warm, dry, intact, normal color. Absent: rash ED Course Vital Signs 05/10/20 08:11 Temperature 97.5 F L Pulse Rate 92 H Respiratory 18 Rate Blood Pressure 157/105 O2 Sat by Pulse 99 Oximetry ED Medical Decision Making - Lab Data Result diagrams: 05/10/20 09:07 05/10/20 09:07 Lab Results 05/10/20 05/10/20 05/10/20 Range/Units 08:43 08:43 09:07 WBC 5.3 (4.5-11.0) K/mm3 RBC 3.99 (3.65-5.03) M/mm3 Hgb 11.3 L (11.8-15.2) gm/dl Hct 35.0 L (35.5-45.6) % MCV 88 (84-94) fl MCH 28 (28-32) pg MCHC 32 (32-34) % RDW 19.5 H (13.2-15.2) % Plt Count 242 (140-440) K/mm3 Lymph % (Auto) 13.0 L (13.4-35.0) % [place] % (Auto) 8.1 H (0.0-7.3) % Eos % (Auto) 2.5 (0.0-4.3) % Baso % (Auto) 0.7 (0.0-1.8) % Lymph # (Auto) 0.7 L (1.2-5.4) K/mm3 [place] # (Auto) 0.4 (0.0-0.8) K/mm3 Eos # (Auto) 0.1 (0.0-0.4) K/mm3 Baso # (Auto) 0.0 (0.0-0.1) K/mm3 Seg Neutrophils % 75.7 H (40.0-70.0) % Seg Neutrophils # 4.0 (1.8-7.7) K/mm3 Sodium (137-145) mmol/L Potassium (3.6-5.0) mmol/L Chloride (98-107) mmol/L Carbon Dioxide (22-30) mmol/L Anion Gap mmol/L BUN (9-20) mg/dL Creatinine (0.8-1.3) mg/dL Estimated GFR ml/min BUN/Creatinine Ratio % Glucose (75-100) mg/dL Calcium (8.4-10.2) mg/dL Urine Color Yellow (Yellow) Urine Turbidity Clear (Clear) Urine pH 6.0 (5.0-7.0) Ur Specific [place] 1.010 (1.003-1.030) Urine Protein 30 mg/dl (Negative) mg/dL Urine Glucose (UA) Neg (Negative) mg/dL Urine Ketones Neg (Negative) mg/dL Urine Blood Neg (Negative) Urine Nitrite Neg (Negative) Urine Bilirubin Neg (Negative) Urine Urobilinogen 4.0 (<2.0) mg/dL Ur Leukocyte Esterase Neg (Negative) Urine WBC (Auto) 1.0 (0.0-6.0) /HPF Urine RBC (Auto) < 1.0 (0.0-6.0) /HPF U Epithel Cells (Auto) 1.0 (0-13.0) /HPF Salicylates (2.8-20.0) mg/dL Urine Opiates Screen Negative Urine Methadone Screen Negative Acetaminophen (10.0-30.0) ug/mL Ur Barbiturates Screen Negative Ur Phencyclidine Scrn Negative Ur Amphetamines Screen Negative U Benzodiazepines Scrn Negative Urine Cocaine Screen Negative U Marijuana (THC) Screen Negative Drugs of Abuse Note Disclamer Plasma/Serum Alcohol (0-0.07) % 05/10/20 05/10/20 05/10/20 Range/Units 09:07 09:07 09:07 WBC (4.5-11.0) K/mm3 RBC (3.65-5.03) M/mm3 Hgb (11.8-15.2) gm/dl Hct (35.5-45.6) % MCV (84-94) fl MCH (28-32) pg MCHC (32-34) % RDW (13.2-15.2) % Plt Count (140-440) K/mm3 Lymph % (Auto) (13.4-35.0) % [place] % (Auto) (0.0-7.3) % Eos % (Auto) (0.0-4.3) % Baso % (Auto) (0.0-1.8) % Lymph # (Auto) (1.2-5.4) K/mm3 [place] # (Auto) (0.0-0.8) K/mm3 Eos # (Auto) (0.0-0.4) K/mm3 Baso # (Auto) (0.0-0.1) K/mm3 Seg Neutrophils % (40.0-70.0) % Seg Neutrophils # (1.8-7.7) K/mm3 Sodium 133 L (137-145) mmol/L Potassium 4.1 (3.6-5.0) mmol/L Chloride 99.3 (98-107) mmol/L Carbon Dioxide 27 (22-30) mmol/L Anion Gap 11 mmol/L BUN 11 (9-20) mg/dL Creatinine 0.9 (0.8-1.3) mg/dL Estimated GFR > 60 ml/min BUN/Creatinine Ratio 12 % Glucose 121 H (75-100) mg/dL Calcium 8.6 (8.4-10.2) mg/dL Urine Color (Yellow) Urine Turbidity (Clear) Urine pH (5.0-7.0) Ur Specific [place] (1.003-1.030) Urine Protein (Negative) mg/dL Urine Glucose (UA) (Negative) mg/dL Urine Ketones (Negative) mg/dL Urine Blood (Negative) Urine Nitrite (Negative) Urine Bilirubin (Negative) Urine Urobilinogen (<2.0) mg/dL Ur Leukocyte Esterase (Negative) Urine WBC (Auto) (0.0-6.0) /HPF Urine RBC (Auto) (0.0-6.0) /HPF U Epithel Cells (Auto) (0-13.0) /HPF Salicylates < 0.3 L (2.8-20.0) mg/dL Urine Opiates Screen Urine Methadone Screen Acetaminophen 5.0 L (10.0-30.0) ug/mL Ur Barbiturates Screen Ur Phencyclidine Scrn Ur Amphetamines Screen U Benzodiazepines Scrn Urine Cocaine Screen U Marijuana (THC) Screen Drugs of Abuse Note Plasma/Serum Alcohol (0-0.07) % 05/10/20 Range/Units 09:07 WBC (4.5-11.0) K/mm3 RBC (3.65-5.03) M/mm3 Hgb (11.8-15.2) gm/dl Hct (35.5-45.6) % MCV (84-94) fl MCH (28-32) pg MCHC (32-34) % RDW (13.2-15.2) % Plt Count (140-440) K/mm3 Lymph % (Auto) (13.4-35.0) % [place] % (Auto) (0.0-7.3) % Eos % (Auto) (0.0-4.3) % Baso % (Auto) (0.0-1.8) % Lymph # (Auto) (1.2-5.4) K/mm3 [place] # (Auto) (0.0-0.8) K/mm3 Eos # (Auto) (0.0-0.4) K/mm3 Baso # (Auto) (0.0-0.1) K/mm3 Seg Neutrophils % (40.0-70.0) % Seg Neutrophils # (1.8-7.7) K/mm3 Sodium (137-145) mmol/L Potassium (3.6-5.0) mmol/L Chloride (98-107) mmol/L Carbon Dioxide (22-30) mmol/L Anion Gap mmol/L BUN (9-20) mg/dL Creatinine (0.8-1.3) mg/dL Estimated GFR ml/min BUN/Creatinine Ratio % Glucose (75-100) mg/dL Calcium (8.4-10.2) mg/dL Urine Color (Yellow) Urine Turbidity (Clear) Urine pH (5.0-7.0) Ur Specific [place] (1.003-1.030) Urine Protein (Negative) mg/dL Urine Glucose (UA) (Negative) mg/dL Urine Ketones (Negative) mg/dL Urine Blood (Negative) Urine Nitrite (Negative) Urine Bilirubin (Negative) Urine Urobilinogen (<2.0) mg/dL Ur Leukocyte Esterase (Negative) Urine WBC (Auto) (0.0-6.0) /HPF Urine RBC (Auto) (0.0-6.0) /HPF U Epithel Cells (Auto) (0-13.0) /HPF Salicylates (2.8-20.0) mg/dL Urine Opiates Screen Urine Methadone Screen Acetaminophen (10.0-30.0) ug/mL Ur Barbiturates Screen Ur Phencyclidine Scrn Ur Amphetamines Screen U Benzodiazepines Scrn Urine Cocaine Screen U Marijuana (THC) Screen Drugs of Abuse Note Plasma/Serum Alcohol < 0.01 (0-0.07) % - Medical Decision Making 1: Schizophrenia-this 49-year-old F Nigerian male with past medical history of schizophrenia on Zyprexa and Risperdal presents emergency department seeking auditory and visual hallucinations. His symptoms are consistent with his underlying disorder of schizophrenia his presentation is not consistent with any acute organic causes to include delirium, dementia, drug-induced disorders. Given his his age [place] the patient is does not appear to be suicidal or homicidal suicidal. We did consult psychiatry he was evaluated by Moi who has cleared Mr. Rahul Gold for discharge home please see their note for more detail. He is remained episode free while in the emergency department he is tolerating oral intake been able to consume a male with no complications. After evaluation emergency department for psychiatric disease no findings exacerbated no causing the psychiatric complaint. This patient demonstrates no significant medical instability or condition facilitating his psychiatric presentation. Critical care attestation.: If time is entered above; I have spent that time in minutes in the direct care of this critically ill patient, excluding procedure time. ED Disposition Clinical Impression: Schizophrenia Qualifiers: Schizophrenia type: unspecified Qualified Code(s): F20.9 - Schizophrenia, unspecified Disposition: DC-01 TO HOME OR SELFCARE Is pt being admited?: No Does the pt Need Aspirin: No Condition: Stable Additional Instructions: Professional and Agency Contacts To help [facility](07/10) [place] Crisis Line: Suicide Prevention Line: Crisis Text Line: Text START to [phone] Emergency: 911 Outpatient COMMUNITY Behavioral Health Resources: [facility]: [facility] [address] [place], [place] [address] [facility] [address] [place] [address] [facility] - [address] [place] [address] Friday thru Friday - 8am - 5pm [place]: [facility] Service Address: [address] [place] [address] [place]: [facility] Address: [address] [place] [address] Friday thru Friday- 7am-2pm [facility] Address: [address] [place] [address] Friday thru Friday: 8:30AM-5PM Prescriptions: Divalproex [DepKatie HAMILTON] 250 mg PO BID #60 tablet risperiDONE [RisperDAL] 2 mg PO BID #60 tablet Referrals: PRIMARY CARE, [Primary Care Provider] - 3-5 Days [facility] [Provider Group] - 3-5 Days
[2020-05-10 08:56] LABS: Bilirubin,Urine NEG (Negative); Blood,Urine NEG (Negative); Color,Urine Yellow (Yellow); RBC,Urine < 1.0 /HPF (0.0-6.0)
[2020-05-10 09:05] LABS: Amphetamine Screen,Urine Negative; Benzodiazepines Screen,Urine Negative; Cannabinoid Screen,Urine Negative; Cocaine Screen,Urine Negative; Methadone Screen,Urine Negative; Opiate Screen,Urine Negative
--- NOTE | 2020-05-10 09:16 | XRay Report ---
CHEST PA AND LATERAL VIEWS INDICATION: cough and congestion. COMPARISON: 02/27/2020 FINDINGS: Support devices: None Heart: Moderately enlarged but stable Lungs/Pleura: Mild, chronic appearing interstitial disease. No convincing evidence of acute disease. IMPRESSION: 1. Stable cardiomegaly. No acute disease. Signer Name: Kayden Fields MD Signed: 05/10/2020 9:11 AM Workstation Name: [id number]
[2020-05-10 09:31] LABS: Basophils % (Auto) 0.7 % (0.0-1.8); Eosinophils # (Auto) 0.1 K/mm3 (0.0-0.4); Eosinophils % (Auto) 2.5 % (0.0-4.3); Hemoglobin 11.3 gm/dl (11.8-15.2); Lymphocytes # (Auto) 0.7 K/mm3 (1.2-5.4); Mean Corpuscular HGB Conc 32 % (32-34); Mean Corpuscular Volume 88 fl (84-94); Monocytes # (Auto) 0.4 K/mm3 (0.0-0.8); Monocytes % (Auto) 8.1 % (0.0-7.3); Platelet Count 242 K/mm3 (140-440); Red Blood Count 3.99 M/mm3 (3.65-5.03); Red Cell Distribution Width 19.5 % (13.2-15.2)
[2020-05-10 09:39] LABS: BUN/Creatinine Ratio 12; Blood Urea Nitrogen 11 mg/dL (9-20); Calcium 8.6 mg/dL (8.4-10.2); Hemolysis Index 0
--- NOTE | 2020-05-10 11:32 | Consultation ---
History of Present Illness - Reason for Consult Consult date: 05/10/20 Reason for consult: [facility] Requesting physician: MAX MUNSON - History of Present Psychiatric Illness ED Provider: 49-year-old -Brazilian male with past medical history of schizophrenia disorder currently taking Risperdal and Zyprexa reports being compliant with his current medical regimen presents emerged department today complaining of continued auditory and visual hallucinations. Auditory hallucinations going on for a month telling him to give up on life but he states that he does not want to do that. He is also seeing people in his car fighting but not causing harm to him. States he subsequently has been having a cough and some chest congestion for the last 2 months. Reports no fever, chills, sweats, no hemoptysis, hematemesis, no hematochezia. Reports no abdominal pain or dysuria. Psych HPI Patient is a 49-year-old unemployed currently homeless -Brazilian male past psychiatric history of schizophrenia and no other significant past medical history who presents to the ED with chief complaint of persistent auditory and visual hallucinations and also with complaints of chronic cough for over a month. Patient states she is not suicidal today reportedly supposed to be taken Risperdol but does not have any of his medication today, though endorses voices telling him to harm himself but states that he does not want to harm himself. PAST PSYCHIATRIC HISTORY Diagnoses: schizophrenia Suicide attempts or Self-harm behavior: Denies Prior psychiatric hospitalizations: Yes Substance Abuse history: Denies Previous psychiatric medications tried: Risperidone Outpatient treatment: Yes, but not at present PAST MEDICAL HISTORY: none reported Family Psychiatric History: None reported or documented SOCIAL HISTORY Marital Status: Single Living Arrangements: Hotel Employment Status: Disabled Access to guns/weapons: Denies Education: college History of Abuse: none reported Legal History: none reported REVIEW OF SYSTEMS Constitutional: Negative for weight loss ENT: Negative for stridor Respiratory: Negative for cough or hemoptysis All other systems reviewed and are negative MENTAL STATUS EXAMINATION General Appearance and Behavior: Age appropriate, good hygiene, wearing appropriate clothes, poor eye contact, cooperative polite with questioning. Cooperation: Participating/engaged Psychomotor Behavior: unremarkable and within normal limits Mood: "down" Affect and affective range: congruent with mood Thought Process: illogical Thought Content: responding to internal stimuli Speech: Normal volume, Regular rate and rhythm, Suicidal Ideation: Denies, Homicidal Ideation: Denies Hallucinations: A/V Delusions: None elicited Impulse Control: Unimpaired Insight and Judgment: Limited insight and judgment, Memory: Normal, Attention: Normal Orientation: Alert, oriented Assessment and Plan (1) Schizophrenia Current Visit: Yes Status: Acute Treatment Plan We will renew patient's outpatient medication MEDICATIONS: Risks, benefits and alternatives of medications discussed with the patient, questions answered and consent obtained from patient. PSYCHOTHERAPY: Supportive psychotherapy provided MEDICAL: Per primary team DELIRIUM PRECAUTIONS: Please re-orient patient frequently, keep lights on during the day, and minimize benzodiazepines and opiates as these medications could worsen patient's confusion. 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 Case discussed with Dr. De La Garza who agrees with current disposition LEGAL STATUS: Voluntary FOLLOW-UP: Will follow Thank you for the consult. Please contact with any questions and/or concerns. Medications and Allergies Allergies Allergy/AdvReac Type Severity Reaction Status Date / Time egg Allergy Unknown Verified 05/10/20 08:14 mayonnaise Allergy Unknown Verified 05/10/20 08:14 Home Medications Medication Instructions Recorded Confirmed Last Taken Type OLANzapine [ZyPREXA] 5 mg PO QDAY #30 tablet 02/10/20 04/04/20 Unknown Rx Lisinopril [Zestril] 5 mg PO QDAY #30 03/01/20 04/04/20 Unknown Rx Metoprolol Xl [Metoprolol 25 mg PO QDAY #30 tablet 03/01/20 04/04/20 Unknown Rx SUCCINATE ER TAB] Potassium Chloride 10 meq PO DAILY #30 tablet.er 03/01/20 04/04/20 Unknown Rx Furosemide [Lasix TAB] 40 mg PO QDAY 04/04/20 04/04/20 Unknown History carvediloL [Coreg] 6.25 mg PO BID 04/04/20 04/04/20 Unknown History risperiDONE [RisperDAL] 2 mg PO DAILY 04/04/20 04/04/20 Unknown History Melatonin [Melatonin 5MG CAP] 5 mg PO QHS PRN #30 capsule 04/06/20 Unknown Rx traZODone [Desyrel] 50 mg PO QHS #30 tab 04/06/20 Unknown Rx Divalproex [Meghan IRAHETA] 250 mg PO BID #60 tablet 05/10/20 Unknown Rx risperiDONE [RisperDAL] 2 mg PO BID #60 tablet 05/10/20 Unknown Rx Mental Status Exam - Vital signs Last Vital Signs Temp 97.5 F L 05/10/20 08:11 Pulse 92 H 05/10/20 08:11 Resp 18 05/10/20 08:11 BP 157/105 05/10/20 08:11 Pulse Ox 99 05/10/20 08:11 Results Result Diagrams: 05/10/20 09:07 05/10/20 09:07 Abnormal lab results 05/10/20 05/10/20 05/10/20 Range/Units 09:07 09:07 09:07 Hgb 11.3 L (11.8-15.2) gm/dl Hct 35.0 L (35.5-45.6) % RDW 19.5 H (13.2-15.2) % Lymph % (Auto) 13.0 L (13.4-35.0) % [place] % (Auto) 8.1 H (0.0-7.3) % Lymph # (Auto) 0.7 L (1.2-5.4) K/mm3 Seg Neutrophils % 75.7 H (40.0-70.0) % Sodium 133 L (137-145) mmol/L Glucose 121 H (75-100) mg/dL Salicylates < 0.3 L (2.8-20.0) mg/dL Acetaminophen (10.0-30.0) ug/mL 05/10/20 Range/Units 09:07 Hgb (11.8-15.2) gm/dl Hct (35.5-45.6) % RDW (13.2-15.2) % Lymph % (Auto) (13.4-35.0) % [place] % (Auto) (0.0-7.3) % Lymph # (Auto) (1.2-5.4) K/mm3 Seg Neutrophils % (40.0-70.0) % Sodium (137-145) mmol/L Glucose (75-100) mg/dL Salicylates (2.8-20.0) mg/dL Acetaminophen 5.0 L (10.0-30.0) ug/mL All other labs normal.
[2020-05-10 12:40] VITALS: BP 148/73
== END 2020-05-10 12:39 | disposition home or self-care (01) ==
LOC: ED 08:07
DX: F20.9 Schizophrenia, unspecified (principal); F17.200 Nicotine dependence, unspecified, uncomplicated; Z79.899 Other long term (current) drug therapy; Z91.012 Allergy to eggs; Z88.8 Allergy status to other drugs, medicaments and biological substances
CPT/HCPCS: 36415; 71046; 80048; 80307; 80320; 81001; 85025; G0480

== ENCOUNTER 2020-05-24 23:52 | Emergency (ER) | payer SELFPAY ==
--- NOTE | 2020-05-25 00:54 | Emergency Department Report ---
ED Psych HPI - General Chief Complaint: Psych Stated Complaint: MENTAL HEALTH Time Seen by Provider: 05/25/20 00:46 Source: patient Mode of arrival: Ambulatory - History of Present Illness Initial Comments: Patient is a 49-year-old F Uzbek male with past medical history of josiah izophrenia who is currently taking Risperdal who is presenting with auditory hallucinations. Patient states the voices been arguing with him about is poor quality of life and telling him he should give up hope. He himself does not feel suicidal or homicidal at this time. Patient denies any cough cold congestion fevers or chills nausea vomiting. - Related Data Home Medications Medication Instructions Recorded Confirmed Last Taken Furosemide [Lasix TAB] 40 mg PO QDAY 04/04/20 04/04/20 Unknown carvediloL [Coreg] 6.25 mg PO BID 04/04/20 04/04/20 Unknown risperiDONE [RisperDAL] 2 mg PO DAILY 04/04/20 04/04/20 Unknown Previous Rx's Medication Instructions Recorded Last Taken Type OLANzapine [ZyPREXA] 5 mg PO QDAY #30 tablet 02/10/20 Unknown Rx Lisinopril [Zestril] 5 mg PO QDAY #30 03/01/20 Unknown Rx Metoprolol Xl [Metoprolol 25 mg PO QDAY #30 tablet 03/01/20 Unknown Rx SUCCINATE ER TAB] Potassium Chloride 10 meq PO DAILY #30 tablet.er 03/01/20 Unknown Rx Melatonin [Melatonin 5MG CAP] 5 mg PO QHS PRN #30 capsule 04/06/20 Unknown Rx traZODone [Desyrel] 50 mg PO QHS #30 tab 04/06/20 Unknown Rx Divalproex [Meghan IRAHETA] 250 mg PO BID #60 tablet 05/10/20 Unknown Rx risperiDONE [RisperDAL] 2 mg PO BID #60 tablet 05/10/20 Unknown Rx Allergies Allergy/AdvReac Type Severity Reaction Status Date / Time egg Allergy Unknown Verified 05/10/20 08:14 mayonnaise Allergy Unknown Verified 05/10/20 08:14 ED Review of Systems ROS: Stated complaint: MENTAL HEALTH Other details as noted in HPI Comment: All other systems reviewed and negative ED Past Medical Hx - Past Medical History Hx Congestive Heart Failure: Yes Hx Diabetes: No Hx Arthritis: No Hx Psychiatric Treatment: Yes (schizophrenia) Hx Asthma: No Hx COPD: No Additional medical history: schizophrenia - Surgical History Additional Surgical History: y - Social History Smoking Status: Never Smoker - Medications Home Medications: Home Medications Medication Instructions Recorded Confirmed Last Taken Type OLANzapine [ZyPREXA] 5 mg PO QDAY #30 tablet 02/10/20 04/04/20 Unknown Rx Lisinopril [Zestril] 5 mg PO QDAY #30 03/01/20 04/04/20 Unknown Rx Metoprolol Xl [Metoprolol 25 mg PO QDAY #30 tablet 03/01/20 04/04/20 Unknown Rx SUCCINATE ER TAB] Potassium Chloride 10 meq PO DAILY #30 tablet.er 03/01/20 04/04/20 Unknown Rx Furosemide [Lasix TAB] 40 mg PO QDAY 04/04/20 04/04/20 Unknown History carvediloL [Coreg] 6.25 mg PO BID 04/04/20 04/04/20 Unknown History risperiDONE [RisperDAL] 2 mg PO DAILY 04/04/20 04/04/20 Unknown History Melatonin [Melatonin 5MG CAP] 5 mg PO QHS PRN #30 capsule 04/06/20 Unknown Rx traZODone [Desyrel] 50 mg PO QHS #30 tab 04/06/[address] [DepaKOTE DR] 250 mg PO BID #60 tablet 05/10/20 Unknown Rx risperiDONE [RisperDAL] 2 mg PO BID #60 tablet 05/10/20 Unknown Rx ED Physical Exam - General Limitations: No Limitations General appearance: alert, in no apparent distress - Head Head exam: Present: atraumatic, normocephalic - Eye Eye exam: Present: normal appearance - ENT ENT exam: Present: mucous membranes moist - Neck Neck exam: Present: normal inspection - Respiratory Respiratory exam: Present: normal lung sounds bilaterally. Absent: respiratory distress, wheezes, rales, rhonchi - Cardiovascular Cardiovascular Exam: Present: regular rate, normal rhythm. Absent: systolic murmur, diastolic murmur, rubs, gallop - GI/Abdominal GI/Abdominal exam: Present: soft, normal bowel sounds. Absent: distended, tenderness, guarding, rebound - Rectal Rectal exam: Present: deferred (Partner) - Extremities Exam Extremities exam: Present: normal inspection - Back Exam Back exam: Present: normal inspection - Neurological Exam Neurological exam: Present: alert, oriented X3 - Psychiatric Psychiatric exam: Present: normal mood, flat affect - Skin Skin exam: Present: warm, dry, intact, normal color. Absent: rash ED Course Vital Signs 05/25/20 00:18 Temperature 97.9 F Pulse Rate 94 H Respiratory 18 Rate Blood Pressure 165/94 O2 Sat by Pulse 99 Oximetry - Reevaluation(s) Reevaluation #1: 05/25/20 01:27 medically cleared for psych eval ED Medical Decision Making - Lab Data Result diagrams: 05/25/20 00:28 05/25/20 00:28 Lab Results 05/25/20 05/25/20 05/25/20 Range/Units 00:28 00:28 00:28 WBC 5.6 (4.5-11.0) K/mm3 RBC 3.77 (3.65-5.03) M/mm3 Hgb 10.8 L (11.8-15.2) gm/dl Hct 33.0 L (35.5-45.6) % MCV 88 (84-94) fl MCH 29 (28-32) pg MCHC 33 (32-34) % RDW 19.2 H (13.2-15.2) % Plt Count 257 (140-440) K/mm3 Lymph % (Auto) 15.6 (13.4-35.0) % [place] % (Auto) 9.7 H (0.0-7.3) % Eos % (Auto) 2.4 (0.0-4.3) % Baso % (Auto) 1.2 (0.0-1.8) % Lymph # (Auto) 0.9 L (1.2-5.4) K/mm3 [place] # (Auto) 0.5 (0.0-0.8) K/mm3 Eos # (Auto) 0.1 (0.0-0.4) K/mm3 Baso # (Auto) 0.1 (0.0-0.1) K/mm3 Seg Neutrophils % 71.1 H (40.0-70.0) % Seg Neutrophils # 4.0 (1.8-7.7) K/mm3 Sodium 135 L (137-145) mmol/L Potassium 3.6 (3.6-5.0) mmol/L Chloride 100.3 (98-107) mmol/L Carbon Dioxide 23 (22-30) mmol/L Anion Gap 15 mmol/L BUN 8 L (9-20) mg/dL Creatinine 1.0 (0.8-1.3) mg/dL Estimated GFR > 60 ml/min BUN/Creatinine Ratio 8 % Glucose 106 H (75-100) mg/dL Calcium 8.7 (8.4-10.2) mg/dL Total Bilirubin 1.30 H (0.1-1.2) mg/dL AST 20 (5-40) units/L ALT 13 (7-56) units/L Alkaline Phosphatase 150 H (35-129) units/L Total Protein 7.5 (6.3-8.2) g/dL Albumin 3.8 L (3.9-5) g/dL Albumin/Globulin Ratio 1.0 % Salicylates < 0.3 L (2.8-20.0) mg/dL Acetaminophen (10.0-30.0) ug/mL Plasma/Serum Alcohol (0-0.07) % 05/25/20 05/25/20 Range/Units 00:28 00:28 WBC (4.5-11.0) K/mm3 RBC (3.65-5.03) M/mm3 Hgb (11.8-15.2) gm/dl Hct (35.5-45.6) % MCV (84-94) fl MCH (28-32) pg MCHC (32-34) % RDW (13.2-15.2) % Plt Count (140-440) K/mm3 Lymph % (Auto) (13.4-35.0) % [place] % (Auto) (0.0-7.3) % Eos % (Auto) (0.0-4.3) % Baso % (Auto) (0.0-1.8) % Lymph # (Auto) (1.2-5.4) K/mm3 [place] # (Auto) (0.0-0.8) K/mm3 Eos # (Auto) (0.0-0.4) K/mm3 Baso # (Auto) (0.0-0.1) K/mm3 Seg Neutrophils % (40.0-70.0) % Seg Neutrophils # (1.8-7.7) K/mm3 Sodium (137-145) mmol/L Potassium (3.6-5.0) mmol/L Chloride (98-107) mmol/L Carbon Dioxide (22-30) mmol/L Anion Gap mmol/L BUN (9-20) mg/dL Creatinine (0.8-1.3) mg/dL Estimated GFR ml/min BUN/Creatinine Ratio % Glucose (75-100) mg/dL Calcium (8.4-10.2) mg/dL Total Bilirubin (0.1-1.2) mg/dL AST (5-40) units/L ALT (7-56) units/L Alkaline Phosphatase (35-129) units/L Total Protein (6.3-8.2) g/dL Albumin (3.9-5) g/dL Albumin/Globulin Ratio % Salicylates (2.8-20.0) mg/dL Acetaminophen 5.0 L (10.0-30.0) ug/mL Plasma/Serum Alcohol < 0.01 (0-0.07) % Critical care attestation.: If time is entered above; I have spent that time in minutes in the direct care of this critically ill patient, excluding procedure time. ED Disposition Condition: Stable
[2020-05-25 01:02] LABS: Alanine Aminotransferase 13 units/L (7-56); Albumin 3.8 g/dL (3.9-5); BUN/Creatinine Ratio 8; Blood Urea Nitrogen 8 mg/dL (9-20); Calcium 8.7 mg/dL (8.4-10.2); Hemolysis Index 0
[2020-05-25 01:06] LABS: Basophils # (Auto) 0.1 K/mm3 (0.0-0.1); Basophils % (Auto) 1.2 % (0.0-1.8); Eosinophils # (Auto) 0.1 K/mm3 (0.0-0.4); Eosinophils % (Auto) 2.4 % (0.0-4.3); Hemoglobin 10.8 gm/dl (11.8-15.2); Lymphocytes # (Auto) 0.9 K/mm3 (1.2-5.4); Lymphocytes % (Auto) 15.6 % (13.4-35.0); Mean Corpuscular HGB Conc 33 % (32-34); Mean Corpuscular Volume 88 fl (84-94); Monocytes # (Auto) 0.5 K/mm3 (0.0-0.8); Monocytes % (Auto) 9.7 % (0.0-7.3); Platelet Count 257 K/mm3 (140-440); Red Blood Count 3.77 M/mm3 (3.65-5.03); Red Cell Distribution Width 19.2 % (13.2-15.2)
[2020-05-25 01:31] LABS: Bilirubin,Urine NEG (Negative); Blood,Urine NEG (Negative); Color,Urine Yellow (Yellow)
[2020-05-25 01:39] LABS: Amphetamine Screen,Urine PRESUMPTIVE NEGATIVE; Benzodiazepines Screen,Urine PRESUMPTIVE NEGATIVE; Cannabinoid Screen,Urine PRESUMPTIVE NEGATIVE; Cocaine Screen,Urine PRESUMPTIVE NEGATIVE; Methadone Screen,Urine PRESUMPTIVE NEGATIVE; Opiate Screen,Urine PRESUMPTIVE NEGATIVE
[2020-05-25 08:06] VITALS: BP 143/98
--- NOTE | 2020-05-25 08:47 | Consultation ---
History of Present Illness - Reason for Consult Consult date: 05/25/20 Reason for consult: MHE Requesting physician: SHEY GOMES - History of Present Psychiatric Illness Per ED Provider: Patient is a 49-year-old F Jordanian male with past medical history of schizophrenia who is currently taking Risperdal who is presenting with auditory hallucinations. Patient states the voices been arguing with him about is poor quality of life and telling him he should give up hope. He himself does not feel suicidal or homicidal at this time. Patient denies any cough cold congestion fevers or chills nausea vomiting. Psych HPI Patient is a 49-year-old unemployed currently homeless -Jordanian male past psychiatric history of schizophrenia and no other significant past medical history who presents to the ED with chief complaint of persistent auditory and visual hallucinations. Patient reported that his hearing voices, states the voices are nonspecific sometimes he just want to argue with him about life sometimes they tell him if he needs to give up or not. Patient also reports seeing things in the [place] otherwise cannot describe much further. Patient known to me from prior encounter patient has had multiple encounters to this facility. During last patient encounter patient was currently residing at a hotel but now patient states that he is homeless PAST PSYCHIATRIC HISTORY Diagnoses: schizophrenia Suicide attempts or Self-harm behavior: Denies Prior psychiatric hospitalizations: Yes Substance Abuse history: Denies Previous psychiatric medications tried: Risperidone Outpatient treatment: Yes, but not at present PAST MEDICAL HISTORY: none reported Family Psychiatric History: None reported or documented SOCIAL HISTORY Marital Status: Single Living Arrangements: Homeless Employment Status: Disabled Access to guns/weapons: Denies Education: college History of Abuse: none reported Legal History: none reported REVIEW OF SYSTEMS Constitutional: Negative for weight loss ENT: Negative for stridor Respiratory: Negative for cough or hemoptysis All other systems reviewed and are negative MENTAL STATUS EXAMINATION General Appearance and Behavior: Age appropriate, good hygiene, wearing appropriate clothes, poor eye contact, cooperative polite with questioning. Cooperation: Participating/engaged Psychomotor Behavior: unremarkable and within normal limits Mood: "down" Affect and affective range: congruent with mood Thought Process: illogical Thought Content: responding to internal stimuli Speech: Normal volume, Regular rate and rhythm, Suicidal Ideation: Denies, Homicidal Ideation: Denies Hallucinations: A/V Delusions: None elicited Impulse Control: Unimpaired Insight and Judgment: Limited insight and judgment, Memory: Normal, Attention: Normal Orientation: Alert, oriented Assessment and Plan (1) Schizophrenia Current Visit: Yes Status: Acute Treatment Plan We will renew patient's outpatient medication MEDICATIONS: Risks, benefits and alternatives of medications discussed with the patient, questions answered and consent obtained from patient. PSYCHOTHERAPY: Supportive psychotherapy provided MEDICAL: Per primary team DELIRIUM PRECAUTIONS: Please re-orient patient frequently, keep lights on during the day, and minimize benzodiazepines and opiates as these medications could worsen patient's confusion. 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 Case discussed with Dr. De La Garza who agrees with current disposition LEGAL STATUS: 1013 rescinded FOLLOW-UP: Will sign off Thank you for the consult. Please contact with any questions and/or concerns. Medications and Allergies Allergies Allergy/AdvReac Type Severity Reaction Status Date / Time egg Allergy Unknown Verified 05/10/20 08:14 mayonnaise Allergy Unknown Verified 05/10/20 08:14 Home Medications Medication Instructions Recorded Confirmed Last Taken Type OLANzapine [ZyPREXA] 5 mg PO QDAY #30 tablet 02/10/20 05/25/20 Unknown Rx Metoprolol Xl [Metoprolol 25 mg PO QDAY #30 tablet 03/01/20 05/25/20 Unknown Rx SUCCINATE ER TAB] Potassium Chloride 10 meq PO DAILY #30 tablet.er 03/01/20 05/25/20 Unknown Rx Furosemide [Lasix TAB] 40 mg PO QDAY 04/04/20 05/25/20 Unknown History carvediloL [Coreg] 6.25 mg PO BID 04/04/20 05/25/20 Unknown History Melatonin [Melatonin 5MG CAP] 5 mg PO QHS PRN #30 capsule 04/06/20 05/25/20 Unknown Rx traZODone [Desyrel] 50 mg PO QHS #30 tab 04/06/20 05/25/20 Unknown Rx Divalproex [Meghan IRAHETA] 250 mg PO BID #60 tablet 05/10/20 05/25/20 Unknown Rx lisinopriL [Lisinopril] 10 mg PO DAILY 05/25/20 05/25/20 Unknown History risperiDONE [RisperDAL] 2 mg PO DAILY 05/25/20 05/25/20 Unknown History Mental Status Exam - Vital signs Last Vital Signs Temp 98.3 F 05/25/20 08:05 Pulse 79 05/25/20 08:05 Resp 18 05/25/20 08:43 BP 143/98 05/25/20 08:05 Pulse Ox 97 05/25/20 08:05 Results Result Diagrams: 05/25/20 00:28 05/25/20 00:28 Abnormal lab results 05/25/20 05/25/20 05/25/20 Range/Units 00:28 00:28 00:28 Hgb 10.8 L (11.8-15.2) gm/dl Hct 33.0 L (35.5-45.6) % RDW 19.2 H (13.2-15.2) % [place] % (Auto) 9.7 H (0.0-7.3) % Lymph # (Auto) 0.9 L (1.2-5.4) K/mm3 Seg Neutrophils % 71.1 H (40.0-70.0) % Sodium 135 L (137-145) mmol/L BUN 8 L (9-20) mg/dL Glucose 106 H (75-100) mg/dL Total Bilirubin 1.30 H (0.1-1.2) mg/dL Alkaline Phosphatase 150 H (35-129) units/L Albumin 3.8 L (3.9-5) g/dL Salicylates < 0.3 L (2.8-20.0) mg/dL Acetaminophen (10.0-30.0) ug/mL 05/25/20 Range/Units 00:28 Hgb (11.8-15.2) gm/dl Hct (35.5-45.6) % RDW (13.2-15.2) % [place] % (Auto) (0.0-7.3) % Lymph # (Auto) (1.2-5.4) K/mm3 Seg Neutrophils % (40.0-70.0) % Sodium (137-145) mmol/L BUN (9-20) mg/dL Glucose (75-100) mg/dL Total Bilirubin (0.1-1.2) mg/dL Alkaline Phosphatase (35-129) units/L Albumin (3.9-5) g/dL Salicylates (2.8-20.0) mg/dL Acetaminophen 5.0 L (10.0-30.0) ug/mL All other labs normal.
== END 2020-05-25 09:52 | disposition home or self-care (01) ==
LOC: ED 23:52
DX: F25.9 Schizoaffective disorder, unspecified (principal); Z79.899 Other long term (current) drug therapy; Z91.018 Allergy to other foods; Z91.012 Allergy to eggs
CPT/HCPCS: 36415; 80053; 80307; 80320; 81001; 85025; G0480

== ENCOUNTER 2020-06-02 22:11 | Emergency (ER) | payer SELFPAY ==
[2020-06-02 22:38] VITALS: BP 150/99
[2020-06-02] MEDS ORDERED: predniSONE 20 MG TAB PO ONE (23:04)
[2020-06-02] MEDS ORDERED: ALBUTEROL 2.5 MG/3 ML NEBU IH ONE (23:04)
--- NOTE | 2020-06-02 23:29 | XRay Report ---
CHEST 2 VIEWS INDICATION / CLINICAL INFORMATION: cough. COMPARISON: 05/10/2020 FINDINGS: SUPPORT DEVICES: None. HEART / MEDIASTINUM: Cardiac silhouette remains enlarged but unchanged. LUNGS / PLEURA: There is mild interstitial prominence not appreciably changed from the prior study. T his is more than likely mild interstitial pulmonary edema. Trace right pleural effusion is present. N o pneumothorax. ADDITIONAL FINDINGS: No significant additional findings. IMPRESSION: 1. Stable cardiomegaly with mild interstitial pulmonary edema and trace right pleural effusion. Signer Name: Jolanta Eller MD Signed: 06/02/2020 11:24 PM Workstation Name: [id number]
[2020-06-02] MEDS ORDERED: AZITHROMYCIN 250 MG TAB PO ONE (23:48)
--- NOTE | 2020-06-02 23:55 | Emergency Department Report ---
- General Chief Complaint: Upper Respiratory Infection Stated Complaint: SCHIZOPHRENIA Source: patient Mode of arrival: Ambulatory Limitations: No Limitations - History of Present Illness Initial Comments: Patient is a 49-year-old -Senegalese male with a history of paranoid schizophrenia and CHF who presents to the ED with complaint of acute onset persistent nasal and sinus congestion, frontal sinus pressure and persistent dry cough for the last 1 week, worse in the last 2 days. Patient states that the cough is worse with activity or at rest. Patient denies dizziness, syncope, chest pain, shortness of breath, abdominal pain, nausea, vomiting, diarrhea, dizziness, syncope, fever, chills, change in vision, suicidal or homicidal ideations. MD Complaint: cough, rhinorrhea, nasal congestion, sinus pain -: Sudden, week(s) (1) Severity: moderate Severity scale (0 -10): 4 Quality: aching Consistency: constant Improves With: nothing Worsens With: nothing, other (Smoking cigarettes) Context: other (chronic heavy tobacco abuse) Associated Symptoms: denies other symptoms, rhinorrhea, nasal congestion, cough. denies: fever, chills, myalgias, headache, sore throat, chest pain, shortness of breath, abdominal pain, nausea, vomiting, diarrhea, dysuria, rash, right sweats, weight loss, ear pain, other Treatments Prior to Arrival: none - Related Data Home Medications Medication Instructions Recorded Confirmed Last Taken Furosemide [Lasix TAB] 40 mg PO QDAY 04/04/20 05/25/20 Unknown carvediloL [Coreg] 6.25 mg PO BID 04/04/20 05/25/20 Unknown lisinopriL [Lisinopril] 10 mg PO DAILY 05/25/20 05/25/20 Unknown Previous Rx's Medication Instructions Recorded Last Taken Type OLANzapine [ZyPREXA] 5 mg PO QDAY #30 tablet 02/10/20 Unknown Rx Metoprolol Xl [Metoprolol 25 mg PO QDAY #30 tablet 03/01/20 Unknown Rx SUCCINATE ER TAB] Potassium Chloride 10 meq PO DAILY #30 tablet.er 03/01/20 Unknown Rx Melatonin [Melatonin 5MG CAP] 5 mg PO QHS PRN #30 capsule 04/06/20 Unknown Rx traZODone [Desyrel] 50 mg PO QHS #30 tab 04/06/[address] [DepaKOTE DR] 250 mg PO BID #60 tablet 05/25/20 Unknown Rx risperiDONE [RisperDAL] 2 mg PO BID #60 tab 05/25/20 Unknown Rx Albuterol Sulfate [Proventil Hfa] 1 - 2 puff IH Q6H PRN #1 hfa.aer.ad 06/02/20 Unknown Rx Azithromycin [Zithromax Z-LUNA] 250 mg PO DAILY #6 tablet 06/02/20 Unknown Rx Benzonatate [Tessalon Perles] 100 mg PO Q8HR #30 capsule 06/02/20 Unknown Rx Allergies Allergy/AdvReac Type Severity Reaction Status Date / Time egg Allergy Unknown Verified 05/10/20 08:14 mayonnaise Allergy Unknown Verified 05/10/20 08:14 ED Review of Systems ROS: Stated complaint: SCHIZOPHRENIA Other details as noted in HPI Constitutional: denies: chills, fever Eyes: denies: eye pain, eye discharge, vision change ENT: congestion. denies: ear pain, throat pain Respiratory: cough. denies: shortness of breath, wheezing Cardiovascular: denies: chest pain, palpitations Endocrine: no symptoms reported Gastrointestinal: denies: abdominal pain, nausea, vomiting, diarrhea Genitourinary: denies: urgency, dysuria Musculoskeletal: denies: back pain, joint swelling, arthralgia Skin: denies: rash, lesions Neurological: denies: headache, weakness, paresthesias Psychiatric: denies: anxiety, depression Hematological/Lymphatic: denies: easy bleeding, easy bruising ED Past Medical Hx - Past Medical History Previous Medical History?: Yes Hx Congestive Heart Failure: Yes Hx Diabetes: No Hx Arthritis: No Hx Psychiatric Treatment: Yes (schizophrenia) Hx Asthma: No Hx COPD: No Additional medical history: schizophrenia - Surgical History Past Surgical History?: No Additional Surgical History: y - Social History Smoking Status: Current Every Day Smoker Substance Use Type: None - Medications Home Medications: Home Medications Medication Instructions Recorded Confirmed Last Taken Type OLANzapine [ZyPREXA] 5 mg PO QDAY #30 tablet 02/10/20 05/25/20 Unknown Rx Metoprolol Xl [Metoprolol 25 mg PO QDAY #30 tablet 03/01/20 05/25/20 Unknown Rx SUCCINATE ER TAB] Potassium Chloride 10 meq PO DAILY #30 tablet.er 03/01/20 05/25/20 Unknown Rx Furosemide [Lasix TAB] 40 mg PO QDAY 04/04/20 05/25/20 Unknown History carvediloL [Coreg] 6.25 mg PO BID 04/04/20 05/25/20 Unknown History Melatonin [Melatonin 5MG CAP] 5 mg PO QHS PRN #30 capsule 04/06/20 05/25/20 Unknown Rx traZODone [Desyrel] 50 mg PO QHS #30 tab 04/06/20 05/25/[address] [DepaKOTE DR] 250 mg PO BID #60 tablet 05/25/20 Unknown Rx lisinopriL [Lisinopril] 10 mg PO DAILY 05/25/20 05/25/20 Unknown History risperiDONE [RisperDAL] 2 mg PO BID #60 tab 05/25/20 Unknown Rx Albuterol Sulfate [Proventil Hfa] 1 - 2 puff IH Q6H PRN #1 hfa.aer.ad 06/02/20 Unknown Rx Azithromycin [Zithromax Z-LUNA] 250 mg PO DAILY #6 tablet 06/02/20 Unknown Rx Benzonatate [Tessalon Perles] 100 mg PO Q8HR #30 capsule 06/02/20 Unknown Rx ED Physical Exam - General Limitations: No Limitations General appearance: alert, in no apparent distress - Head Head exam: Present: atraumatic, normocephalic, normal inspection - Eye Eye exam: Present: normal appearance, PERRL, EOMI Pupils: Present: normal accommodation - ENT ENT exam: Present: normal orophraynx, mucous membranes moist, TM's normal bilaterally, normal external ear exam, other (Grossly congested nasal passages) - Neck Neck exam: Present: normal inspection, full ROM - Respiratory Respiratory exam: Present: wheezes (Mildly diffuse coarse wheezes throughout). Absent: respiratory distress, rales, rhonchi, stridor, chest wall tenderness, accessory muscle use, decreased breath sounds - Cardiovascular Cardiovascular Exam: Present: normal rhythm, tachycardia, normal heart sounds. Absent: systolic murmur, diastolic murmur, rubs, gallop - GI/Abdominal GI/Abdominal exam: Present: soft, normal bowel sounds. Absent: tenderness, guarding, rebound, rigid, hyperactive bowel sounds, hypoactive bowel sounds, organomegaly, mass - Extremities Exam Extremities exam: Present: normal inspection, full ROM, normal capillary refill - Back Exam Back exam: Present: normal inspection, full ROM. Absent: tenderness, CVA tenderness (R), CVA tenderness (L), muscle spasm, paraspinal tenderness - Neurological Exam Neurological exam: Present: alert, oriented X3, CN II-XII intact, normal gait, reflexes normal - Psychiatric Psychiatric exam: Present: normal affect, normal mood - Skin Skin exam: Present: warm, dry, intact, normal color. Absent: rash ED Course Vital Signs 06/02/20 22:35 Temperature 98.0 F Pulse Rate 104 H Respiratory 18 Rate Blood Pressure 150/99 O2 Sat by Pulse 92 Oximetry ED Medical Decision Making - Radiology Data Radiology results: report reviewed, image reviewed [facility] [address] [place] [address] XRay Report Signed Patient: RAFIA LEONARD JR MR#: [id number] : 1970 Acct:[id number] Age/Sex: 49 / M ADM Date: 06/02/20 Loc: ED Attending Dr: Ordering Physician: RONY GALVIN MD Date of Service: 06/02/20 Procedure(s): XR chest routine 2V Accession Number(s): [id number] cc: RONY GALVIN MD Fluoro Time In Minutes: CHEST 2 VIEWS INDICATION / CLINICAL INFORMATION: cough. COMPARISON: 05/10/2020 FINDINGS: SUPPORT DEVICES: None. HEART / MEDIASTINUM: Cardiac silhouette remains enlarged but unchanged. LUNGS / PLEURA: There is mild interstitial prominence not appreciably changed from the prior study. This is more than likely mild interstitial pulmonary edema. Trace right pleural effusion is present. No pneumothorax. ADDITIONAL FINDINGS: No significant additional findings. IMPRESSION: 1. Stable cardiomegaly with mild interstitial pulmonary edema and trace right pleural effusion. Signer Name: Jolanta Eller MD Signed: 06/02/2020 11:24 PM Workstation Name: [id number] Transcribed By: Dictated By: Jolanta Eller MD Electronically Authenticated By: Jolanta Eller MD Signed Date/Time: 06/02/202323 DD/ 22 TD/TT: - Medical Decision Making This is a 49-year-old -Senegalese male with a history of paranoid schizophrenia and CHF who presents to the ED with complaint of acute onset persistent nasal and sinus congestion, frontal sinus pressure and persistent dry cough for the last 1 week, worse in the last 2 days. Patient states that the cough is worse with activity or at rest. In the ED, patient is alert and oriented x3 and is not in distress. Patient was treated in the ED with oral prednisone and albuterol nebulizer. On reevaluation, patient's cough resolved in the ED. Chest x-ray showed stable cardiomegaly with mild interstitial pulmonary edema and trace right pleural effusion. Patient symptoms are likely due to acute bronchitis worsened by persistent chronic heavy tobacco abuse as well as upper respiratory infection. Patient was therefore discharged home on medications and advised to follow-up with his primary care physician in 3 to 5 days for reevaluation. Patient was advised return to the ED immediately if symptoms get worse. - Differential Diagnosis Bronchitis; Asthma; COPD; CHF; URI Critical care attestation.: If time is entered above; I have spent that time in minutes in the direct care of this critically ill patient, excluding procedure time. ED Disposition Clinical Impression: Acute upper respiratory infection Acute bronchitis Qualifiers: Bronchitis organism: other organism Qualified Code(s): J20.8 - Acute bronchitis due to other specified organisms Acute exacerbation of CHF (congestive heart failure) Qualifiers: Heart failure type: unspecified Qualified Code(s): I50.9 - Heart failure, unspecified Disposition: DC-01 TO HOME OR SELFCARE Is pt being admited?: No Does the pt Need Aspirin: No Condition: Stable Instructions: Acute Bronchitis (ED), Upper Respiratory Infection, Adult, [id number], Cough, Adult, [id number], Acute Bronchitis, Adult, [id number] Additional Instructions: Take medication with food, drink plenty of fluids and follow-up with your primary care physician in 5 to 7 days for reevaluation. Return to the ED immediately if symptoms get worse. Prescriptions: Albuterol Sulfate [Proventil Hfa] 1 - 2 puff IH Q6H PRN #1 hfa.aer.ad PRN Reason: Dyspnea Benzonatate [Tessalon Perles] 100 mg PO Q8HR #30 capsule Azithromycin [Zithromax Z-LUNA] 250 mg PO DAILY #6 tablet Referrals: [facility] [Provider Group] - 3-5 Days Time of Disposition: 23:58 Print Language: [place] CITIZEN
== END 2020-06-03 00:37 | disposition home or self-care (01) ==
LOC: ED 22:11
DX: I50.9 Heart failure, unspecified (principal); J06.9 Acute upper respiratory infection, unspecified; J20.9 Acute bronchitis, unspecified; F20.9 Schizophrenia, unspecified; F17.200 Nicotine dependence, unspecified, uncomplicated; Z79.899 Other long term (current) drug therapy
CPT/HCPCS: 71046; 94640; 99283; J7512

== ENCOUNTER 2020-06-11 19:49 | Emergency (ER) | payer SELFPAY ==
--- NOTE | 2020-06-11 20:37 | Event Note ---
ED Screening Note ED Screening Note: 49-year-old F [place] male with a known mental health history of taking Risperdal reports being off of his medication for the past several days and seeks to be reestablished in the emergency department denies any suicidal or homicidal ideation. Wants to be admitted into the [facility] to be reestablished on his medications. Patient reports no hallucinations. This initial assessment/diagnostic orders/clinical plan/treatment(s) is/are subject to change based on patients health status, clinical progression and re- assessment by fellow clinical providers in the ED. Further treatment and workup at subsequent clinical providers discretion. Patient/guardian urged not to elope from the ED as their condition may be serious if not clinically assessed and managed. Initial orders include: Discussed the case further with supervising physician a evaluate further if necessary
[2020-06-11] MEDS ORDERED: risperiDONE 1 MG TAB PO ONE (22:51)
[2020-06-11] MEDS ORDERED: LISINOPRIL 10 MG TAB PO ONE (22:51)
--- NOTE | 2020-06-11 22:59 | Emergency Department Report ---
ED Psych HPI - General Chief Complaint: Medical Clearance Stated Complaint: MH Time Seen by Provider: 06/11/20 22:29 Source: patient Mode of arrival: Ambulatory - History of Present Illness Initial Comments: 49-year-old male with a past medical history of schizophrenia hypertension presents to the hospital complaining of auditory hallucinations and running out of his Risperdal for the last 3 to 4 days. Patient has been having auditory hallucinations for the last 3 weeks. They have been arguing with him about his poor quality of life and telling him to give up hope. Patient denies suicidal homicidal ideation at this time.Patient is requesting inpatient admission stating that he has insurance and therefore it should be covered. When questioned about his living status he states he was currently living at a hotel but has since run out of money until he gets paid again in 4 days. 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 Previous medical record review and patient had a similar presentation in May in which he did not meet 1013 criteria at that time. His psychosis/hallucinations appear to be chronic and have been present prior to running out of his medication. It appears that his recent homeless status has caused him to seek out inpatient psychiatric treatment. - Related Data Home Medications Medication Instructions Recorded Confirmed Last Taken Furosemide [Lasix TAB] 40 mg PO QDAY 04/04/20 05/25/20 Unknown carvediloL [Coreg] 6.25 mg PO BID 04/04/20 05/25/20 Unknown Previous Rx's Medication Instructions Recorded Last Taken Type OLANzapine [ZyPREXA] 5 mg PO QDAY #30 tablet 02/10/20 Unknown Rx Metoprolol Xl [Metoprolol 25 mg PO QDAY #30 tablet 03/01/20 Unknown Rx SUCCINATE ER TAB] Potassium Chloride 10 meq PO DAILY #30 tablet.er 03/01/20 Unknown Rx Melatonin [Melatonin 5MG CAP] 5 mg PO QHS PRN #30 capsule 04/06/20 Unknown Rx traZODone [Desyrel] 50 mg PO QHS #30 tab 04/06/20 Unknown Rx Divalproex [Meghan IRAHETA] 250 mg PO BID #60 tablet 05/25/20 Unknown Rx Albuterol Sulfate [Proventil Hfa] 1 - 2 puff IH Q6H PRN #1 hfa.aer.ad 06/02/20 Unknown Rx Azithromycin [Zithromax Z-LUNA] 250 mg PO DAILY #6 tablet 06/02/20 Unknown Rx Benzonatate [Tessalon Perles] 100 mg PO Q8HR #30 capsule 06/02/20 Unknown Rx lisinopriL [Lisinopril] 10 mg PO DAILY #30 06/11/20 Unknown Rx risperiDONE [RisperDAL] 2 mg PO BID #60 tab 06/11/20 Unknown Rx Allergies Allergy/AdvReac Type Severity Reaction Status Date / Time egg Allergy Unknown Verified 05/10/20 08:14 mayonnaise Allergy Unknown Verified 05/10/20 08:14 ED Review of Systems ROS: Stated complaint: MH Other details as noted in HPI Comment: All other systems reviewed and negative ED Past Medical Hx - Past Medical History Previous Medical History?: Yes Hx Congestive Heart Failure: Yes Hx Diabetes: No Hx Arthritis: No Hx Psychiatric Treatment: Yes (schizophrenia) Hx Asthma: No Hx COPD: No Additional medical history: schizophrenia - Surgical History Additional Surgical History: y - Social History Smoking Status: Never Smoker Substance Use Type: None - Medications Home Medications: Home Medications Medication Instructions Recorded Confirmed Last Taken Type OLANzapine [ZyPREXA] 5 mg PO QDAY #30 tablet 02/10/20 05/25/20 Unknown Rx Metoprolol Xl [Metoprolol 25 mg PO QDAY #30 tablet 03/01/20 05/25/20 Unknown Rx SUCCINATE ER TAB] Potassium Chloride 10 meq PO DAILY #30 tablet.er 03/01/20 05/25/20 Unknown Rx Furosemide [Lasix TAB] 40 mg PO QDAY 04/04/20 05/25/20 Unknown History carvediloL [Coreg] 6.25 mg PO BID 04/04/20 05/25/20 Unknown History Melatonin [Melatonin 5MG CAP] 5 mg PO QHS PRN #30 capsule 04/06/20 05/25/20 Unknown Rx traZODone [Desyrel] 50 mg PO QHS #30 tab 04/06/20 05/25/20 Unknown Rx Divalproex [Meghan IRAHETA] 250 mg PO BID #60 tablet 05/25/20 Unknown Rx Albuterol Sulfate [Proventil Hfa] 1 - 2 puff IH Q6H PRN #1 hfa.aer.ad 06/02/20 Unknown Rx Azithromycin [Zithromax Z-LUNA] 250 mg PO DAILY #6 tablet 06/02/20 Unknown Rx Benzonatate [Tessalon Perles] 100 mg PO Q8HR #30 capsule 06/02/20 Unknown Rx lisinopriL [Lisinopril] 10 mg PO DAILY #30 06/11/20 Unknown Rx risperiDONE [RisperDAL] 2 mg PO BID #60 tab 06/11/20 Unknown Rx ED Physical Exam - General Limitations: No Limitations - Other Other exam information: General: No acute distress Head: Atraumatic Eyes: normal appearance ENT: Moist mucous membranes Neck: Normal appearance, no midline tenderness Chest: Clear to auscultation bilaterally CV: Regular rate and rhythm Abdomen: Soft, normal bowel sounds, nontender, nondistended, no rebound or guarding Back: Normal inspection Extremity: Normal inspection, full range of motion Neuro: Alert O x 3, no facial asymmetry, speech clear, no gross motor sensory deficit Psych: Appropriate behavior Skin: No rash ED Course Vital Signs 06/11/20 20:31 Temperature 99.1 F Pulse Rate 89 Respiratory 20 Rate Blood Pressure 151/100 O2 Sat by Pulse 100 Oximetry ED Medical Decision Making - Medical Decision Making 49-year-old male presents to the hospital course of inpatient treatment for ongoing auditory hallucinations and for running out of his Risperdal. He is recently homeless and unlikely to be able to afford a hotel until he receives his check in 4 days. Patient does not meet 1013 criteria at this time. He received a dose of his Risperdal and lisinopril in the ED. He received a 1 month supply be discharged for outpatient psychiatric follow-up and provided outpatient homeless resources Critical Care Time: No Critical care attestation.: If time is entered above; I have spent that time in minutes in the direct care of this critically ill patient, excluding procedure time. ED Disposition Clinical Impression: Schizophrenia, Noncompliance with medication regimen, Homelessness Disposition: DC-01 TO HOME OR SELFCARE Is pt being admited?: No Does the pt Need Aspirin: No Condition: Stable Instructions: Schizophrenia Additional Instructions: Take the medication as prescribed. Follow-up with your doctor or doctor/clinic provided. Return if symptoms worsen as indicated by your discharge instructions. Professional and Agency Contacts To help [facility] (07/10) [place] Crisis Line: Suicide Prevention Line: Crisis Text Line: Text ``START to 798110 Emergency: 911 Outpatient COMMUNITY Behavioral Health Resources: VEROB: [facility] [address], [place] [address] DECLO: [facility] [address] [place] [address] Friday thru Friday - 8am - 5pm Call to schedule an assessment for mental health and substance abuse programs MICHELLE: [facility] Address: [address] [place] [id number] Friday thru Friday- 7am-2pm [facility] Address: [address] [place] [address] Friday thru Friday: 8:30AM-5PM Prescriptions: lisinopriL [Lisinopril] 10 mg PO DAILY #30 risperiDONE [RisperDAL] 2 mg PO BID #60 tab Referrals: PRIMARY CARE, [Primary Care Provider] - 3-5 Days [facility] [Provider Group] - 3-5 Days Time of Disposition: 23:10
[2020-06-11 23:05] VITALS: BP 149/101
== END 2020-06-11 23:50 | disposition home or self-care (01) ==
LOC: ED 19:49
DX: F25.9 Schizoaffective disorder, unspecified (principal); I10 Essential (primary) hypertension; Z59.0 Homelessness; Z91.14 Patient's other noncompliance with medication regimen; Z91.012 Allergy to eggs; Z91.018 Allergy to other foods; Z79.899 Other long term (current) drug therapy
CPT/HCPCS: 99282

== ENCOUNTER 2020-06-23 21:40 | Emergency (ER) | payer SELFPAY | END 2020-06-24 | disposition left against medical advice (07) | LOC: ED 21:40 | DX: Z53.21 Procedure and treatment not carried out due to patient leaving prior to being seen by health care provider (principal) ==

== ENCOUNTER 2020-06-24 20:43 | Emergency (ER) | payer SELFPAY ==
--- NOTE | 2020-06-25 00:26 | Event Note ---
ED Screening Note Date of service: 06/25/20 Time: 00:24 ED Screening Note: Patient is a 49-year-old -Serbian male with a history of paranoid schizophrenia, anxiety and depression who presents to the ED with complaint of visual and auditory hallucinations persistently for the last 1 week. Patient states that this symptoms have been persistent and constant and that he is unable to sleep despite taking his medications including Risperdal. Patient had presented to the ED 24 hours ago with similar symptoms but eloped from the ED prior to being evaluated by mental health although labs were drawn. Patient denies suicidal or homicidal ideations, chest pain, shortness of breath, nausea, vomiting, dizziness, syncope, abdominal pain, dysuria, urinary frequency and urgency, head or neck injuries and change in vision. This initial assessment/diagnostic orders/clinical plan/treatment(s) is/are subject to change based on patients health status, clinical progression and re- assessment by fellow clinical providers in the ED. Further treatment and workup at subsequent clinical providers discretion. Patient/guardian urged not to elope from the ED as their condition may be serious if not clinically assessed and managed. Initial orders include: CBC, CMP, UA, urine drug screen, blood alcohol level
[2020-06-25 00:35] VITALS: BP 131/92
[2020-06-25 01:10] LABS: Basophils # (Auto) 0.1 K/mm3 (0.0-0.1); Basophils % (Auto) 1.3 % (0.0-1.8); Eosinophils # (Auto) 0.3 K/mm3 (0.0-0.4); Eosinophils % (Auto) 5.2 % (0.0-4.3); Hematocrit 36.2 % (35.5-45.6); Hemoglobin 11.7 gm/dl (11.8-15.2); Lymphocytes % (Auto) 18.9 % (13.4-35.0); Mean Corpuscular HGB Conc 32 % (32-34); Mean Corpuscular Volume 87 fl (84-94); Monocytes # (Auto) 0.6 K/mm3 (0.0-0.8); Monocytes % (Auto) 11.3 % (0.0-7.3); Platelet Count 280 K/mm3 (140-440); Red Blood Count 4.15 M/mm3 (3.65-5.03); Red Cell Distribution Width 18.3 % (13.2-15.2)
[2020-06-25 01:21] LABS: Amphetamine Screen,Urine PRESUMPTIVE NEGATIVE; Benzodiazepines Screen,Urine PRESUMPTIVE NEGATIVE; Cannabinoid Screen,Urine PRESUMPTIVE NEGATIVE; Cocaine Screen,Urine PRESUMPTIVE NEGATIVE; Methadone Screen,Urine PRESUMPTIVE NEGATIVE; Opiate Screen,Urine PRESUMPTIVE NEGATIVE
[2020-06-25 01:24] LABS: Bilirubin,Urine NEG (Negative); Blood,Urine NEG (Negative); Color,Urine Yellow (Yellow); Protein,Urine <15 mg/dL mg/dL (Negative); RBC,Urine < 1.0 /HPF (0.0-6.0)
--- NOTE | 2020-06-25 01:29 | Emergency Department Report ---
ED Psych HPI - General Chief Complaint: Psych Stated Complaint: MH Source: patient Mode of arrival: Ambulatory - History of Present Illness Initial Comments: 49-year-old male with history of schizophrenia presents to ED for mental health evaluation. Patient states he has been hearing voices arguing with him about his quality of life. Patient reported that he has been hearing these voices every day of his life. He denies that the voices are commanding him to do anything or hurt himself. Patient denies any SI or HI. Patient was recently seen for same twice last month. Outpatient follow-up was recommended by the psychiatry team. -: unknown Associated Psychiatric Symptoms: auditory hallucinations History of same: Yes Quality: constant Improves With: none Worsens With: none Associated Symptoms: denies other symptoms Treatments Prior to Arrival: none - Related Data Home Medications Medication Instructions Recorded Confirmed Last Taken Furosemide [Lasix TAB] 40 mg PO QDAY 04/04/20 05/25/20 Unknown carvediloL [Coreg] 6.25 mg PO BID 04/04/20 05/25/20 Unknown Previous Rx's Medication Instructions Recorded Last Taken Type OLANzapine [ZyPREXA] 5 mg PO QDAY #30 tablet 02/10/20 Unknown Rx Metoprolol Xl [Metoprolol 25 mg PO QDAY #30 tablet 03/01/20 Unknown Rx SUCCINATE ER TAB] Potassium Chloride 10 meq PO DAILY #30 tablet.er 03/01/20 Unknown Rx Melatonin [Melatonin 5MG CAP] 5 mg PO QHS PRN #30 capsule 04/06/20 Unknown Rx traZODone [Desyrel] 50 mg PO QHS #30 tab 04/06/20 Unknown Rx Divalproex [Meghan IRAHETA] 250 mg PO BID #60 tablet 05/25/20 Unknown Rx Albuterol Sulfate [Proventil Hfa] 1 - 2 puff IH Q6H PRN #1 hfa.aer.ad 06/02/20 Unknown Rx Azithromycin [Zithromax Z-LUNA] 250 mg PO DAILY #6 tablet 06/02/20 Unknown Rx Benzonatate [Tessalon Perles] 100 mg PO Q8HR #30 capsule 06/02/20 Unknown Rx lisinopriL [Lisinopril] 10 mg PO DAILY #30 06/11/20 Unknown Rx risperiDONE [RisperDAL] 2 mg PO BID #60 tab 06/11/20 Unknown Rx Allergies Allergy/AdvReac Type Severity Reaction Status Date / Time egg Allergy Unknown Verified 05/10/20 08:14 mayonnaise Allergy Unknown Verified 05/10/20 08:14 ED Review of Systems ROS: Stated complaint: MH Other details as noted in HPI Comment: All other systems reviewed and negative Psychiatric: auditory hallucinations. denies: visual hallucinations, homicidal thoughts, suicidal thoughts ED Past Medical Hx - Past Medical History Previous Medical History?: Yes Hx Congestive Heart Failure: Yes Hx Diabetes: No Hx Arthritis: No Hx Psychiatric Treatment: Yes (schizophrenia) Hx Asthma: No Hx COPD: No Additional medical history: schizophrenia - Surgical History Past Surgical History?: No Additional Surgical History: y - Social History Smoking Status: Never Smoker Substance Use Type: None - Medications Home Medications: Home Medications Medication Instructions Recorded Confirmed Last Taken Type OLANzapine [ZyPREXA] 5 mg PO QDAY #30 tablet 02/10/20 05/25/20 Unknown Rx Metoprolol Xl [Metoprolol 25 mg PO QDAY #30 tablet 03/01/20 05/25/20 Unknown Rx SUCCINATE ER TAB] Potassium Chloride 10 meq PO DAILY #30 tablet.er 03/01/20 05/25/20 Unknown Rx Furosemide [Lasix TAB] 40 mg PO QDAY 04/04/20 05/25/20 Unknown History carvediloL [Coreg] 6.25 mg PO BID 04/04/20 05/25/20 Unknown History Melatonin [Melatonin 5MG CAP] 5 mg PO QHS PRN #30 capsule 04/06/20 05/25/20 Unknown Rx traZODone [Desyrel] 50 mg PO QHS #30 tab 04/06/20 05/25/20 Unknown Rx Divalproex [Meghan IRAHETA] 250 mg PO BID #60 tablet 05/25/20 Unknown Rx Albuterol Sulfate [Proventil Hfa] 1 - 2 puff IH Q6H PRN #1 hfa.aer.ad 06/02/20 Unknown Rx Azithromycin [Zithromax Z-LUNA] 250 mg PO DAILY #6 tablet 06/02/20 Unknown Rx Benzonatate [Tessalon Perles] 100 mg PO Q8HR #30 capsule 06/02/20 Unknown Rx lisinopriL [Lisinopril] 10 mg PO DAILY #30 06/11/20 Unknown Rx risperiDONE [RisperDAL] 2 mg PO BID #60 tab 06/11/20 Unknown Rx ED Physical Exam - General Limitations: No Limitations General appearance: alert, in no apparent distress, other (Appears unkempt) - Head Head exam: Present: atraumatic, normocephalic - Eye Eye exam: Present: normal appearance, EOMI - ENT ENT exam: Present: mucous membranes moist - Neck Neck exam: Present: normal inspection - Respiratory Respiratory exam: Absent: respiratory distress - Cardiovascular Cardiovascular Exam: Present: regular rate, normal rhythm - GI/Abdominal GI/Abdominal exam: Absent: distended - Extremities Exam Extremities exam: Present: normal inspection - Neurological Exam Neurological exam: Present: alert, oriented X3 - Psychiatric Psychiatric exam: Present: normal affect, normal mood. Absent: homicidal ideation, suicidal ideation - Skin Skin exam: Present: warm, dry, intact, normal color ED Course Vital Signs 06/25/20 00:16 Temperature 98.3 F Pulse Rate 84 Respiratory 18 Rate Blood Pressure 131/92 O2 Sat by Pulse 96 Oximetry ED Medical Decision Making - Lab Data Result diagrams: 06/25/20 00:36 06/25/20 00:36 Critical care attestation.: If time is entered above; I have spent that time in minutes in the direct care of this critically ill patient, excluding procedure time. ED Disposition Clinical Impression: Schizophrenia Disposition: DC-01 TO HOME OR SELFCARE Is pt being admited?: No Condition: Stable Instructions: Managing Schizophrenia Referrals: PRIMARY CARE, [Primary Care Provider] - 3-5 Days [facility] [Outside] - 3-5 Days Time of Disposition: 01:50
[2020-06-25 01:37] LABS: Alanine Aminotransferase 14 units/L (7-56); BUN/Creatinine Ratio 10; Blood Urea Nitrogen 12 mg/dL (9-20); Calcium 8.9 mg/dL (8.4-10.2); Hemolysis Index 0
== END 2020-06-25 02:30 | disposition home or self-care (01) ==
LOC: ED 20:43
DX: F20.9 Schizophrenia, unspecified (principal); I50.9 Heart failure, unspecified; Z79.899 Other long term (current) drug therapy; Z91.012 Allergy to eggs; Z88.8 Allergy status to other drugs, medicaments and biological substances
CPT/HCPCS: 36415; 80053; 80307; 80320; 81001; 85025; G0480

== ENCOUNTER 2020-06-25 20:30 | Emergency (ER) | payer SELFPAY ==
[2020-06-25 23:40] VITALS: BP 140/93
--- NOTE | 2020-06-26 00:03 | XRay Report ---
CHEST 1 VIEW INDICATION: cough. COMPARISON: 06/02/2020 FINDINGS: Support devices: None. Heart: Enlarged, unchanged. Lungs/Pleura: Mild interstitial prominence is again noted. IMPRESSION: 1. Cardiomegaly with increased interstitial markings, similar to the prior. Signer Name: Norberto Simmons MD Signed: 06/25/2020 11:59 PM Workstation Name: [id number]
[2020-06-26 00:45] LABS: Basophils # (Auto) 0.1 K/mm3 (0.0-0.1); Basophils % (Auto) 1.1 % (0.0-1.8); Eosinophils # (Auto) 0.3 K/mm3 (0.0-0.4); Hematocrit 33.9 % (35.5-45.6); Hemoglobin 11.2 gm/dl (11.8-15.2); Lymphocytes # (Auto) 1.2 K/mm3 (1.2-5.4); Lymphocytes % (Auto) 20.7 % (13.4-35.0); Mean Corpuscular HGB Conc 33 % (32-34); Mean Corpuscular Volume 87 fl (84-94); Monocytes # (Auto) 0.8 K/mm3 (0.0-0.8); Monocytes % (Auto) 13.8 % (0.0-7.3); Platelet Count 274 K/mm3 (140-440); Red Cell Distribution Width 18.3 % (13.2-15.2)
[2020-06-26 01:13] LABS: Alanine Aminotransferase 14 units/L (7-56); Albumin 3.9 g/dL (3.9-5); BUN/Creatinine Ratio 9; Blood Urea Nitrogen 9 mg/dL (9-20); Calcium 8.9 mg/dL (8.4-10.2); Hemolysis Index 1
[2020-06-26 01:22] LABS: Bilirubin,Urine NEG (Negative); Blood,Urine NEG (Negative); Color,Urine Yellow (Yellow); Protein,Urine <15 mg/dL mg/dL (Negative); RBC,Urine < 1.0 /HPF (0.0-6.0); Urobilinogen,Urine < 2.0 mg/dL (<2.0); WBC,Urine < 1.0 /HPF (0.0-6.0)
[2020-06-26 01:30] LABS: Amphetamine Screen,Urine PRESUMPTIVE NEGATIVE; Benzodiazepines Screen,Urine PRESUMPTIVE NEGATIVE; Cannabinoid Screen,Urine PRESUMPTIVE NEGATIVE; Cocaine Screen,Urine PRESUMPTIVE NEGATIVE; Methadone Screen,Urine PRESUMPTIVE NEGATIVE; Opiate Screen,Urine PRESUMPTIVE NEGATIVE
--- NOTE | 2020-06-26 03:48 | Event Note ---
ED Screening Note Date of service: 06/25/20 Time: 23:50 ED Screening Note: Patient is a 49-year-old -Palest[place] male with a history of paranoid schizophrenia, anxiety, bipolar disorder and depression who presents to the ED with complaints of persistent visual and auditory hallucinations for the last 1 week, worse in the last 2 days. Patient also complains of persistent dry cough for the last 1 week and would like to be evaluated for the same. Patient denies suicidal or homicidal ideations, chest pain, shortness of breath, abdominal pain, nausea, vomiting, diarrhea, fever, chills, change in vision, traumatic injury or back pain. This initial assessment/diagnostic orders/clinical plan/treatment(s) is/are subject to change based on patients health status, clinical progression and re- assessment by fellow clinical providers in the ED. Further treatment and workup at subsequent clinical providers discretion. Patient/guardian urged not to elope from the ED as their condition may be serious if not clinically assessed and managed. Initial orders include: CBC, CMP, UA, UDS, chest x-ray,
== END 2020-06-26 23:21 | disposition left against medical advice (07) ==
LOC: ED 20:30
DX: F20.9 Schizophrenia, unspecified (principal); Z53.21 Procedure and treatment not carried out due to patient leaving prior to being seen by health care provider
CPT/HCPCS: 36415; 71045; 80053; 80307; 80320; 81001; 85025; G0480

== ENCOUNTER 2020-08-07 04:27 | Emergency (ER) | payer SELFPAY ==
[2020-08-07 05:01] VITALS: BP 151/89
[2020-08-07 05:49] LABS: Basophils % (Auto) 0.7 % (0.0-1.8); Eosinophils # (Auto) 0.3 K/mm3 (0.0-0.4); Eosinophils % (Auto) 4.5 % (0.0-4.3); Hemoglobin 13.2 gm/dl (11.8-15.2); Lymphocytes # (Auto) 1.4 K/mm3 (1.2-5.4); Lymphocytes % (Auto) 21.9 % (13.4-35.0); Mean Corpuscular HGB Conc 34 % (32-34); Mean Corpuscular Volume 90 fl (84-94); Monocytes # (Auto) 0.9 K/mm3 (0.0-0.8); Monocytes % (Auto) 13.4 % (0.0-7.3); Platelet Count 272 K/mm3 (140-440); Red Blood Count 4.33 M/mm3 (3.65-5.03); Red Cell Distribution Width 21.6 % (13.2-15.2)
[2020-08-07 05:53] LABS: BUN/Creatinine Ratio 9; Blood Urea Nitrogen 12 mg/dL (9-20); Calcium 9.1 mg/dL (8.4-10.2); Hemolysis Index 1
[2020-08-07 08:15] LABS: Amphetamine Screen,Urine Negative; Benzodiazepines Screen,Urine Negative; Cannabinoid Screen,Urine Negative; Cocaine Screen,Urine Negative; Methadone Screen,Urine Negative; Opiate Screen,Urine Negative
[2020-08-07 08:27] LABS: Bilirubin,Urine NEG (Negative); Blood,Urine NEG (Negative); Color,Urine Yellow (Yellow); Mucus,Urine FEW /HPF; Protein,Urine <15 mg/dL mg/dL (Negative)
== END 2020-08-07 05:30 | disposition left against medical advice (07) ==
LOC: ED 04:27
DX: F20.9 Schizophrenia, unspecified (principal); Z53.21 Procedure and treatment not carried out due to patient leaving prior to being seen by health care provider
CPT/HCPCS: 36415; 80048; 80307; 80320; 81001; 85025; G0480

== ENCOUNTER 2020-08-07 21:55 | Emergency (ER) | payer MEDICARE, OTHER ==
--- NOTE | 2020-08-08 07:38 | Emergency Department Report ---
ED Psych HPI - General Chief Complaint: Psych Stated Complaint: PSYCH EVALUATION Time Seen by Provider: 08/08/20 07:29 Source: patient Mode of arrival: Ambulatory - History of Present Illness Initial Comments: 49-year-old male, history of schizophrenia, presents to ED for mental health evaluation. Patient reports he is having auditory and visual hallucinations for the last 3 months. Patient states he is noncompliant with his Risperdal. Patient states voices are "arguing [id number] about my quality of life." He is also seeing "people fighting in the [place]." States the hallucinations have been ongoing x3 months. Patient is homeless. Patient denies any SI or HI. He denies any drug use. MD Complaint: other -: month(s) (3) Associated Psychiatric Symptoms: auditory hallucinations, visual hallucinations History of same: Yes Quality: constant Improves With: medication Worsens With: other (Being off medication) Context: not taking psychiatric Associated Symptoms: denies other symptoms Treatments Prior to Arrival: none - Related Data Previous Rx's Medication Instructions Recorded Last Taken Type risperiDONE [RisperDAL] 2 mg PO BID #60 tab 06/11/20 Unknown Rx risperiDONE [RisperDAL] 2 mg PO BID #60 tablet 08/08/20 Unknown Rx Allergies Allergy/AdvReac Type Severity Reaction Status Date / Time egg Allergy Unknown Verified 05/10/20 08:14 mayonnaise Allergy Unknown Verified 05/10/20 08:14 ED Review of Systems ROS: Stated complaint: PSYCH EVALUATION Other details as noted in HPI Comment: All other systems reviewed and negative Psychiatric: auditory hallucinations, visual hallucinations. denies: homicidal thoughts, suicidal thoughts ED Past Medical Hx - Past Medical History Hx Congestive Heart Failure: Yes Hx Diabetes: No Hx Arthritis: No Hx Psychiatric Treatment: Yes (schizophrenia) Hx Asthma: No Hx COPD: No Additional medical history: schizophrenia - Surgical History Additional Surgical History: y - Social History Smoking Status: Never Smoker Substance Use Type: None - Medications Home Medications: Home Medications Medication Instructions Recorded Confirmed Last Taken Type risperiDONE [RisperDAL] 2 mg PO BID #60 tab 06/11/20 08/08/20 Unknown Rx risperiDONE [RisperDAL] 2 mg PO BID #60 tablet 08/08/20 Unknown Rx ED Physical Exam - General Limitations: No Limitations General appearance: alert, in no apparent distress, other (Appears unkempt) - Head Head exam: Present: atraumatic, normocephalic - Eye Eye exam: Present: normal appearance, EOMI - ENT ENT exam: Present: mucous membranes moist - Neck Neck exam: Present: normal inspection - Respiratory Respiratory exam: Present: normal lung sounds bilaterally. Absent: respiratory distress - Cardiovascular Cardiovascular Exam: Present: regular rate, normal rhythm - GI/Abdominal GI/Abdominal exam: Absent: distended - Extremities Exam Extremities exam: Present: normal inspection - Neurological Exam Neurological exam: Present: alert, oriented X3 - Psychiatric Psychiatric exam: Present: normal affect, normal mood. Absent: homicidal ideation, suicidal ideation - Skin Skin exam: Present: warm, dry, intact, normal color ED Course Vital Signs 08/07/20 08/08/20 23:51 07:59 Temperature 99.2 F 98 F Pulse Rate 86 68 Respiratory 18 20 Rate Blood Pressure 117/77 Blood Pressure 130/86 [Right] O2 Sat by Pulse 100 98 Oximetry ED Medical Decision Making - Lab Data Result diagrams: 08/08/20 07:59 08/08/20 07:59 - Medical Decision Making Patient seen and evaluated by psychiatry. No inpatient recommendations at this time. Patient will be given prescription for his Risperdal. Outpatient follow- up advised. Patient given behavioral health resources for outpatient follow-up. - Differential Diagnosis Schizophrenia Critical care attestation.: If time is entered above; I have spent that time in minutes in the direct care of this critically ill patient, excluding procedure time. ED Disposition Clinical Impression: Schizophrenia Disposition: DC-01 TO HOME OR SELFCARE Is pt being admited?: No Condition: Stable Instructions: Managing Schizophrenia Prescriptions: risperiDONE [RisperDAL] 2 mg PO BID #60 tablet Referrals: PRIMARY CARE, [Primary Care Provider] - 3-5 Days [facility] [Outside] - 3-5 Days
[2020-08-08 08:00] VITALS: BP 130/86
[2020-08-08 08:05] LABS: Bilirubin,Urine NEG (Negative); Blood,Urine NEG (Negative); Color,Urine Yellow (Yellow); Mucus,Urine FEW /HPF; Protein,Urine <15 mg/dL mg/dL (Negative)
[2020-08-08 08:10] LABS: Amphetamine Screen,Urine Negative; Benzodiazepines Screen,Urine Negative; Cannabinoid Screen,Urine Negative; Cocaine Screen,Urine Negative; Methadone Screen,Urine Negative; Opiate Screen,Urine Negative
[2020-08-08 08:29] LABS: Basophils # (Auto) 0.1 K/mm3 (0.0-0.1); Basophils % (Auto) 1.3 % (0.0-1.8); Eosinophils # (Auto) 0.5 K/mm3 (0.0-0.4); Eosinophils % (Auto) 10.2 % (0.0-4.3); Hematocrit 39.8 % (35.5-45.6); Hemoglobin 13.4 gm/dl (11.8-15.2); Lymphocytes # (Auto) 1.2 K/mm3 (1.2-5.4); Lymphocytes % (Auto) 26.9 % (13.4-35.0); Mean Corpuscular HGB Conc 34 % (32-34); Mean Corpuscular Volume 90 fl (84-94); Monocytes # (Auto) 0.7 K/mm3 (0.0-0.8); Monocytes % (Auto) 15.4 % (0.0-7.3); Platelet Count 268 K/mm3 (140-440); Red Blood Count 4.41 M/mm3 (3.65-5.03)
[2020-08-08 08:38] LABS: Red Cell Distribution Width 21.8 % (13.2-15.2)
[2020-08-08 08:46] LABS: BUN/Creatinine Ratio 10; Blood Urea Nitrogen 12 mg/dL (9-20); Calcium 8.9 mg/dL (8.4-10.2); Hemolysis Index 3
--- NOTE | 2020-08-08 09:56 | Consultation ---
History of Present Illness - Reason for Consult Consult date: 08/08/20 Reason for consult: hallucinations - History of Present Psychiatric Illness Per ED Note: 49-year-old male, history of schizophrenia, presents to ED for mental health evaluation. Patient reports he is having auditory and visual hallucinations for the last 3 months. Patient states he is noncompliant with his Risperdal. Patient states voices are "arguing [id number] about my quali ty of life." He is also seeing "people fighting in the [place]." States the hallucinations have been ongoing x3 months. Patient is homeless. Patient denies any SI or HI. He denies any drug use. The patient was seen today, he is a/o x 3. He is calm and cooperative. He has history of schizophrenia. He says he's been off his meds for about "a month or two." When asking the patient was he off them, he says "I ran out. I only take meds when I come to the hospital." He denies any illicit drug use. He also denies SI/HI. When asking the patient about hallucinations, he says "just a bunch of voices." He denies them telling him to hurt himself or anyone else. The patient says he's been hearing the voices about "two months." The patient could not remember what meds he were on. He says "risperidone or zyprexa." PAST PSYCHIATRIC HISTORY Diagnoses: schizophrenia Suicide attempts or Self-harm behavior: Denies Prior psychiatric hospitalizations: Yes Substance Abuse history: Denies Previous psychiatric medications tried: Risperidone, zyprexa Outpatient treatment: Yes, but not at present PAST MEDICAL HISTORY: none reported Family Psychiatric History: None reported or documented SOCIAL HISTORY Marital Status: Single Living Arrangements: [employer] Employment Status: Disabled Access to guns/weapons: Denies Education: college History of Abuse: none reported Legal History: none reported REVIEW OF SYSTEMS Constitutional: Negative for weight loss ENT: Negative for stridor Respiratory: Negative for cough or hemoptysis All other systems reviewed and are negative MENTAL STATUS EXAMINATION General Appearance and Behavior: Age appropriate, good hygiene, wearing appropriate clothes, poor eye contact, cooperative polite with questioning. Cooperation: Participating/engaged Psychomotor Behavior: unremarkable and within normal limits Mood: okay Affect and affective range: congruent with mood Thought Process: goal directed Thought Content: hallucinations Speech: Normal volume, Regular rate and rhythm, Suicidal Ideation: Denies, Homicidal Ideation: Denies Hallucinations: auditory, onset "about two months" Delusions: None elicited Impulse Control: Unimpaired Insight and Judgment: Limited insight and judgment, Memory: Normal Attention: Normal Orientation: Alert, oriented Assessment and Plan (1) Schizophrenia Current Visit: Yes Status: Acute Treatment Plan will renew Risperidone 2mg po BID Give first dose prior to d/c Risks, benefits and alternatives of medications discussed with the patient, questions answered and consent obtained from patient. PSYCHOTHERAPY: Supportive psychotherapy provided MEDICAL: Per primary team DELIRIUM PRECAUTIONS: Please re-orient patient frequently, keep lights on during the day, and minimize benzodiazepines and opiates as these medications could worsen patient's confusion. BELLOWS TESTER: DISPOSITION: Do Not Recommend acute inpatient psychiatric hospitalization at this time. The patient understands that if any SI/HI or fear of endangerment arise he is to seek immediate assistance. FOLLOW-UP: Will sign off. Thank you for the consult. Please contact with any questions and/or concerns. Case staffed with Dr. De La Garza Medications and Allergies Allergies Allergy/AdvReac Type Severity Reaction Status Date / Time egg Allergy Unknown Verified 05/10/20 08:14 mayonnaise Allergy Unknown Verified 05/10/20 08:14 Home Medications Medication Instructions Recorded Confirmed Last Taken Type risperiDONE [RisperDAL] 2 mg PO BID #60 tab 06/11/20 08/08/20 Unknown Rx risperiDONE [RisperDAL] 2 mg PO BID #60 tablet 08/08/20 Unknown Rx Mental Status Exam - Vital signs Last Vital Signs Temp 98 F 08/08/20 07:59 Pulse 68 08/08/20 07:59 Resp 20 08/08/20 07:59 BP 130/86 08/08/20 07:59 Pulse Ox 98 08/08/20 07:59 Results Result Diagrams: 08/08/20 07:59 08/08/20 07:59 Abnormal lab results 08/08/20 08/08/20 08/08/20 Range/Units 07:59 07:59 07:59 RDW (13.2-15.2) % [place] % (Auto) (0.0-7.3) % Eos % (Auto) (0.0-4.3) % Eos # (Auto) (0.0-0.4) K/mm3 Sodium 134 L (137-145) mmol/L Glucose 133 H (75-100) mg/dL Salicylates < 0.3 L (2.8-20.0) mg/dL Acetaminophen 5.0 L (10.0-30.0) ug/mL 08/08/20 Range/Units 07:59 RDW 21.8 H (13.2-15.2) % [place] % (Auto) 15.4 H (0.0-7.3) % Eos % (Auto) 10.2 H (0.0-4.3) % Eos # (Auto) 0.5 H (0.0-0.4) K/mm3 Sodium (137-145) mmol/L Glucose (75-100) mg/dL Salicylates (2.8-20.0) mg/dL Acetaminophen (10.0-30.0) ug/mL All other labs normal.
[2020-08-08] MEDS ORDERED: risperiDONE 1 MG TAB PO NR (10:05)
== END 2020-08-08 13:53 | disposition home or self-care (01) ==
LOC: ED 21:55
DX: F20.9 Schizophrenia, unspecified (principal); I50.9 Heart failure, unspecified; Z79.899 Other long term (current) drug therapy; Z91.012 Allergy to eggs
CPT/HCPCS: 36415; 80048; 80307; 80320; 81001; 85025; G0480

== ENCOUNTER 2020-08-10 06:38 | Emergency (ER) | payer MEDICARE | END 2020-08-10 06:42 | LOC: ED 06:38 | DX: F20.9 Schizophrenia, unspecified (principal); Z53.21 Procedure and treatment not carried out due to patient leaving prior to being seen by health care provider ==

== ENCOUNTER 2020-08-11 21:39 | Emergency (ER) | payer SELFPAY | END 2020-08-11 21:44 | disposition left against medical advice (07) | LOC: ED 21:39 | DX: F20.9 Schizophrenia, unspecified (principal); Z53.21 Procedure and treatment not carried out due to patient leaving prior to being seen by health care provider ==

== ENCOUNTER 2020-08-18 00:52 | Emergency (ER) | payer SELFPAY ==
[2020-08-18] MEDS ORDERED: risperiDONE 1 MG TAB PO STA (06:35)
--- NOTE | 2020-08-18 06:40 | Emergency Department Report ---
ED General Adult HPI - General Chief complaint: Psych Stated complaint: Hallucinations for 4 months Time Seen by Provider: 08/18/20 06:20 Source: patient Mode of arrival: Ambulatory Limitations: No Limitations - History of Present Illness Initial comments: The patient was evaluated in the emergency department for symptoms described in the history of present illness. He/she was evaluated in the context of the global COVID-19 pandemic, which necessitated consideration that the patient might be at risk for infection with the virus that causes COVID-19. Institutional protocols and algorithms that pertain to the evaluation of patients at risk for COVID-19 are in a state of rapid change based on information released by regulatory bodies including the CDC and federal and state organizations. These policies and algorithms were followed during the patient's care in the emergency department. Please note that these policies, procedures and recommendations changed on a rapid basis. The patient is a 49-year-old gentleman. He presents to the ER today with a complaint of hallucinations for 3 to 4 months. He was recently seen in this department on August 08 for similar symptoms. He was cleared by the psychiatry team, and prescribed 1 month of Risperdal. He has a history of documented noncompliance with Risperdal. The patient to me denies physical pain, Covid symptomatology, intentional overdose, loss of taste and smell. The patient is asking for something to drink. He complains of persistent hallucinations. The patient tells me that he lives in a hotel, and he gets his Social Security check once a month. He tells me that he goes to the bank to catch the check. -: Gradual, month(s) Consistency: constant Improves with: none Worsens with: none Associated Symptoms: denies other symptoms - Related Data Previous Rx's Medication Instructions Recorded Last Taken Type risperiDONE [RisperDAL] 2 mg PO BID #60 tab 06/11/20 Unknown Rx risperiDONE [RisperDAL] 2 mg PO BID #14 tablet 08/18/20 Unknown Rx Allergies Allergy/AdvReac Type Severity Reaction Status Date / Time egg Allergy Unknown Verified 05/10/20 08:14 mayonnaise Allergy Unknown Verified 05/10/20 08:14 ED Review of Systems ROS: Stated complaint: MH Other details as noted in HPI Constitutional: denies: fever Eyes: denies: eye discharge ENT: denies: epistaxis Respiratory: denies: cough Cardiovascular: denies: chest pain Gastrointestinal: denies: abdominal pain Neurological: denies: headache Psychiatric: denies: homicidal thoughts, suicidal thoughts ED Past Medical Hx - Past Medical History Previous Medical History?: Yes Hx Congestive Heart Failure: Yes Hx Diabetes: No Hx Arthritis: No Hx Psychiatric Treatment: Yes (schizophrenia) Hx Asthma: No Hx COPD: No Additional medical history: schizophrenia - Surgical History Past Surgical History?: No Additional Surgical History: y - Social History Smoking Status: Never Smoker Substance Use Type: None - Medications Home Medications: Home Medications Medication Instructions Recorded Confirmed Last Taken Type risperiDONE [RisperDAL] 2 mg PO BID #60 tab 06/11/20 08/08/20 Unknown Rx risperiDONE [RisperDAL] 2 mg PO BID #14 tablet 08/18/20 Unknown Rx ED Physical Exam - General Limitations: No Limitations General appearance: alert, in no apparent distress - Head Head exam: Present: atraumatic, normocephalic - Eye Eye exam: Present: normal appearance, EOMI. Absent: nystagmus - ENT ENT exam: Present: normal exam, normal orophraynx, mucous membranes moist, normal external ear exam - Neck Neck exam: Present: normal inspection, full ROM. Absent: tenderness, meningismus - Respiratory Respiratory exam: Present: normal lung sounds bilaterally. Absent: respiratory distress, wheezes, rales, rhonchi, stridor, decreased breath sounds - Cardiovascular Cardiovascular Exam: Present: regular rate, normal rhythm, normal heart sounds. Absent: bradycardia, tachycardia, irregular rhythm, systolic murmur, diastolic murmur, rubs, gallop - GI/Abdominal GI/Abdominal exam: Present: soft. Absent: distended, tenderness, guarding, rebound, rigid, pulsatile mass - Rectal Rectal exam: Present: deferred - Extremities Exam Extremities exam: Present: normal inspection, full ROM, other (2+ pulses noted in the bilateral upper and lower extremities. There is no palpable cord. negative Homans sign. Muscular compartments are soft. The pelvis is stable.). Absent: pedal edema, calf tenderness - Back Exam Back exam: Present: normal inspection, full ROM. Absent: tenderness, CVA tenderness (R), CVA tenderness (L), paraspinal tenderness, vertebral tenderness - Neurological Exam Neurological exam: Present: alert, oriented X3 (Patient is alert to name, month, location.), normal gait, other (No facial droop. Tongue midline. Extraocular movements intact bilaterally. Facial sensation intact to light touch in V1, V2, V3 distribution bilaterally. 5 and a 5 strength in 4 extremities. Sensation intact to light touch in 4 extremities.). Absent: motor sensory deficit - Psychiatric Psychiatric exam: Present: flat affect. Absent: homicidal ideation, suicidal ideation - Skin Skin exam: Present: warm, dry, intact, normal color. Absent: rash ED Course Vital Signs 08/18/20 08/18/20 01:38 07:01 Temperature 98.6 F 97.8 F Pulse Rate 87 75 Respiratory 18 18 Rate Blood Pressure 166/94 Blood Pressure 108/61 [Right] O2 Sat by Pulse 93 97 Oximetry - Reevaluation(s) Reevaluation #1: 08/18/20 07:04 Repeat vital signs: 108/61 Heart rate 75 O2 sat 97% on room air Repeat temperature 97.8 F. ED Medical Decision Making - Lab Data Vital Signs 08/18/20 01:38 Temperature 98.6 F Pulse Rate 87 Respiratory 18 Rate Blood Pressure 166/94 O2 Sat by Pulse 93 Oximetry - Medical Decision Making Differential diagnosis, including but not limited to: Schizophrenia, medication refill, encounter for behavioral health screening examination Assessment and plan: 49-year-old gentleman, who is cooperative, not agitated belligerent, not homicidal, not suicidal, alert and oriented to name, place, location and month, who demonstrates rational and lucid thought process, is demonstrated by his ability to bead picker his Social Security checks at the bank, and pay for lodging at a hotel, with hallucinations which have been present for months. He does not appear to be acutely decompensated at this time. He denies physical pain and acute medical complaints. He does not meet criteria for 1013 hold or involuntary hold. He has a history of noncompliance with Risperdal. He will be given 2 mg of Risperdal here in the emergency room, and a 1 week prescription. He may follow-up electively as an outpatient with the [facility] health department, [facility], or the psychiatric facility of his choosing. He does not appear to have an emergent medical condition present at this time. Elevated blood pressure reviewed and appreciated, this is asymptomatic, please reference the [employer] clinical policy on asymptomatic hypertension. Critical care attestation.: If time is entered above; I have spent that time in minutes in the direct care of this critically ill patient, excluding procedure time. ED Disposition Clinical Impression: Encounter for behavioral health screening, History of schizophrenia, Elevated blood pressure reading Disposition: -01 TO HOME OR SELFCARE Is pt being admited?: No Does the pt Need Aspirin: No Condition: Good Instructions: Schizophrenia, Managing Your Hypertension Additional Instructions: Recommend that patient follow-up with a primary care doctor and/or mental health provider within the next 7 days. Patient will be given a 1 week refill on his Risperdal, and he was recently given a 1 month prescription for Risperdal, on August 08. Patient should take 2 mg, 1 tablet, every 12 hours. Please follow-up with your primary care doctor or mental health provider as recommended within the previously described timeframe. Patient was found to have elevated blood pressure today, and this should be followed up by primary medical doctor within the next 2 months. Long-term complications of elevated blood pressure include heart attack, stroke, disability, loss of quality of life. Patient may consider diet, exercise, and avoidance of tobacco, alcohol. Please return to the emergency room right away with new pain, worsened pain, migration of pain, projectile vomiting, change in mental status, confusion, inability to tolerate liquid feeds, new, worsened or different symptoms not present on the initial emergency room evaluation. Prescriptions: risperiDONE [RisperDAL] 2 mg PO BID #14 tablet Referrals: [facility] [Provider Group] - 3-5 Days [facility] [Outside] - 3-5 Days [facility] [Outside] - 3-5 Days
[2020-08-18 07:02] VITALS: BP 108/61
== END 2020-08-18 07:30 | disposition home or self-care (01) ==
LOC: ED 00:52
DX: Z13.30 Encounter for screening examination for mental health and behavioral disorders, unspecified (principal); F20.9 Schizophrenia, unspecified; R03.0 Elevated blood-pressure reading, without diagnosis of hypertension; I50.9 Heart failure, unspecified; Z91.012 Allergy to eggs; Z88.8 Allergy status to other drugs, medicaments and biological substances; Z79.899 Other long term (current) drug therapy
CPT/HCPCS: 99282

== ENCOUNTER 2020-09-02 22:38 | Emergency (ER) | payer SELFPAY ==
[2020-09-03 03:00] LABS: Basophils # (Auto) 0.1 K/mm3 (0.0-0.1); Eosinophils # (Auto) 0.4 K/mm3 (0.0-0.4); Eosinophils % (Auto) 5.3 % (0.0-4.3); Hematocrit 37.5 % (35.5-45.6); Hemoglobin 12.7 gm/dl (11.8-15.2); Lymphocytes # (Auto) 1.7 K/mm3 (1.2-5.4); Lymphocytes % (Auto) 22.6 % (13.4-35.0); Mean Corpuscular HGB Conc 34 % (32-34); Mean Corpuscular Volume 92 fl (84-94); Monocytes # (Auto) 0.7 K/mm3 (0.0-0.8); Monocytes % (Auto) 8.8 % (0.0-7.3); Platelet Count 268 K/mm3 (140-440); Red Blood Count 4.07 M/mm3 (3.65-5.03); Red Cell Distribution Width 18.6 % (13.2-15.2)
[2020-09-03 03:11] LABS: BUN/Creatinine Ratio 12; Blood Urea Nitrogen 11 mg/dL (9-20); Calcium 9.3 mg/dL (8.4-10.2); Hemolysis Index 3
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
[2020-09-03] MEDS ORDERED: cloNIDine 0.2 MG TAB PO ONE (04:08)
[2020-09-03 04:31] LABS: Bilirubin,Urine NEG (Negative); Blood,Urine NEG (Negative); Color,Urine Yellow (Yellow); Hyaline Casts,Urine 1 /LPF; Mucus,Urine FEW /HPF
[2020-09-03 04:38] LABS: Amphetamine Screen,Urine PRESUMPTIVE NEGATIVE; Benzodiazepines Screen,Urine PRESUMPTIVE NEGATIVE; Cannabinoid Screen,Urine PRESUMPTIVE NEGATIVE; Cocaine Screen,Urine PRESUMPTIVE NEGATIVE; Methadone Screen,Urine PRESUMPTIVE NEGATIVE; Opiate Screen,Urine PRESUMPTIVE NEGATIVE
[2020-09-03 08:32] VITALS: BP 110/78
--- NOTE | 2020-09-03 10:37 | Event Note ---
Date: 09/03/20 49-year-old male with history of schizophrenia who presented during the early hours of 09/03/2020 reporting that he has run out of his psychiatric medications. Denied SI/HI. He was seen by my colleague and was medically cleared and is currently awaiting psychiatric recommendations regarding disposition. There were no acute events overnight. His vital signs have been stable and blood pressure has been well controlled. We will reconcile and restart home medications. Disposition will dependent on psychiatric recommendations.
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
--- NOTE | 2020-09-03 13:48 | Event Note ---
Date: 09/03/20 The patient was seen by the psychiatry team today and they did not feel that he meets criteria of for inpatient psychiatric treatment. They have provided prescriptions and outpatient resources and recommend discharge home with these new medications.
== END 2020-09-03 14:51 | disposition home or self-care (01) ==
LOC: ED 22:38
DX: F25.9 Schizoaffective disorder, unspecified (principal); I10 Essential (primary) hypertension; Z79.899 Other long term (current) drug therapy; Z91.012 Allergy to eggs; Z91.018 Allergy to other foods
CPT/HCPCS: 36415; 80048; 80307; 80320; 81001; 85025; G0480

== ENCOUNTER 2020-09-22 00:43 | Emergency (ER) | payer SELFPAY | END 2020-09-22 00:48 | disposition left against medical advice (07) | LOC: ED 00:43 | DX: Z00.8 Encounter for other general examination (principal); Z53.21 Procedure and treatment not carried out due to patient leaving prior to being seen by health care provider ==

== ENCOUNTER 2020-09-23 01:00 | Emergency (ER) | payer SELFPAY | END 2020-09-23 01:05 | disposition left against medical advice (07) | LOC: ED 01:00 | DX: F20.9 Schizophrenia, unspecified (principal); Z53.21 Procedure and treatment not carried out due to patient leaving prior to being seen by health care provider ==

== ENCOUNTER 2020-09-23 20:35 | Emergency (ER) | payer SELFPAY | END 2020-09-23 22:00 | LOC: ED 20:35 | DX: Z00.8 Encounter for other general examination (principal); Z53.21 Procedure and treatment not carried out due to patient leaving prior to being seen by health care provider ==

== ENCOUNTER 2020-09-24 23:04 | Emergency (ER) | payer SELFPAY | END 2020-09-25 07:32 | LOC: ED 23:04 | DX: Z00.8 Encounter for other general examination (principal); Z53.21 Procedure and treatment not carried out due to patient leaving prior to being seen by health care provider ==

== ENCOUNTER 2020-09-25 18:12 | Emergency (ER) | payer SELFPAY | END 2020-09-25 19:00 | disposition left against medical advice (07) | LOC: ED 18:12 | DX: Z00.8 Encounter for other general examination (principal); Z53.21 Procedure and treatment not carried out due to patient leaving prior to being seen by health care provider ==

== ENCOUNTER 2020-09-27 02:39 | Emergency (ER) | payer SELFPAY ==
[2020-09-27 03:02] VITALS: BP 133/88
[2020-09-27 03:23] LABS: Basophils % (Auto) 0.8 % (0.0-1.8); Eosinophils # (Auto) 0.3 K/mm3 (0.0-0.4); Eosinophils % (Auto) 4.9 % (0.0-4.3); Hematocrit 31.1 % (35.5-45.6); Lymphocytes # (Auto) 0.9 K/mm3 (1.2-5.4); Lymphocytes % (Auto) 14.8 % (13.4-35.0); Mean Corpuscular HGB Conc 35 % (32-34); Mean Corpuscular Volume 93 fl (84-94); Monocytes # (Auto) 0.5 K/mm3 (0.0-0.8); Monocytes % (Auto) 8.4 % (0.0-7.3); Platelet Count 237 K/mm3 (140-440); Red Blood Count 3.36 M/mm3 (3.65-5.03)
[2020-09-27 03:43] LABS: BUN/Creatinine Ratio 8; Blood Urea Nitrogen 8 mg/dL (9-20); Calcium 8.6 mg/dL (8.4-10.2); Hemolysis Index 1
== END 2020-09-27 04:00 | disposition left against medical advice (07) ==
LOC: ED 02:39
DX: R11.0 Nausea (principal); Z53.21 Procedure and treatment not carried out due to patient leaving prior to being seen by health care provider
CPT/HCPCS: 36415; 80048; 80320; 85025; G0480

== ENCOUNTER 2020-09-30 23:39 | Emergency (ER) | payer SELFPAY ==
[2020-10-01 00:03] VITALS: BP 126/81
== END 2020-10-01 05:29 | disposition left against medical advice (07) ==
LOC: ED 23:39
DX: Z00.8 Encounter for other general examination (principal); Z53.21 Procedure and treatment not carried out due to patient leaving prior to being seen by health care provider

== ENCOUNTER 2020-10-01 08:11 | Emergency (ER) | payer SELFPAY ==
[2020-10-01 08:30] VITALS: BP 117/83
--- NOTE | 2020-10-01 09:11 | Emergency Department Report ---
ED Psych HPI - General Chief Complaint: Psych Stated Complaint: SCHIZOPHRENIA Time Seen by Provider: 10/01/20 08:56 Source: patient Mode of arrival: Ambulatory - History of Present Illness Initial Comments: CC: " I would like to be placed at a facility. I have insurance." HPI: This is a 50-year-old male with history of bipolar disorder, schizophrenia, cardiomyopathy, heart failure, depression homelessness who requests placement to mental health facility. He states that he is "hearing voices." He does not endorse suicidal homicidal ideation. The gentleman was just discharged from [facility]. According to electronic medical record, patient was admitted to this hospital February 2020. Ejection fraction 30 to 35% on echocardiogram. This gentleman has been evaluated by our psychiatric team numerous times since 2017. MD Complaint: feels depressed, other (Auditory hallucinations) -: Gradual Associated Psychiatric Symptoms: depression, auditory hallucinations History of same: Yes Quality: constant Improves With: none Worsens With: none Context: not taking psychiatric, significant life stressor (Homelessness) Treatments Prior to Arrival: none - Related Data Previous Rx's Medication Instructions Recorded Last Taken Type amLODIPine 10 mg PO DAILY #30 tab 09/03/20 Unknown Rx risperiDONE [RisperDAL] 2 mg PO BID #60 tablet 09/03/20 Unknown Rx Allergies Allergy/AdvReac Type Severity Reaction Status Date / Time egg Allergy Unknown Verified 09/03/20 08:34 mayonnaise Allergy Unknown Verified 09/03/20 08:34 ED Review of Systems ROS: Stated complaint: SCHIZOPHRENIA Other details as noted in HPI Comment: All other systems reviewed and negative Constitutional: denies: fever, malaise Respiratory: denies: cough, shortness of breath Gastrointestinal: denies: abdominal pain, nausea, vomiting Psychiatric: depression, auditory hallucinations. denies: visual hallucination s, homicidal thoughts, suicidal thoughts ED Past Medical Hx - Past Medical History Previous Medical History?: Yes Hx Congestive Heart Failure: Yes Hx Diabetes: No Hx Arthritis: No Hx Psychiatric Treatment: Yes (schizophrenia) Hx Asthma: No Hx COPD: No Additional medical history: schizophrenia - Surgical History Past Surgical History?: No Additional Surgical History: y - Social History Smoking Status: Current Every Day Smoker Substance Use Type: Prescribed - Medications Home Medications: Home Medications Medication Instructions Recorded Confirmed Last Taken Type amLODIPine 10 mg PO DAILY #30 tab 09/03/20 Unknown Rx risperiDONE [RisperDAL] 2 mg PO BID #60 tablet 09/03/20 Unknown Rx ED Physical Exam - General Limitations: No Limitations General appearance: alert, in no apparent distress, other (Disheveled dirty clothing, cooperative) - Head Head exam: Present: atraumatic, normocephalic - Eye Eye exam: Present: normal appearance - ENT ENT exam: Present: mucous membranes moist - Neck Neck exam: Present: normal inspection - Respiratory Respiratory exam: Present: rhonchi. Absent: respiratory distress - Cardiovascular Cardiovascular Exam: Absent: gallop - GI/Abdominal GI/Abdominal exam: Present: soft - Rectal Rectal exam: Present: deferred - Extremities Exam Extremities exam: Present: normal inspection - Back Exam Back exam: Present: normal inspection - Neurological Exam Neurological exam: Present: alert, oriented X3 - Psychiatric Psychiatric exam: Present: depressed, flat affect. Absent: manic, homicidal ideation, suicidal ideation - Skin Skin exam: Present: warm, dry, intact, normal color. Absent: rash ED Course Vital Signs 10/01/20 08:26 Temperature 98.6 F Pulse Rate 64 Respiratory 20 Rate Blood Pressure 117/83 O2 Sat by Pulse 100 Oximetry ED Medical Decision Making - Medical Decision Making Mr. Seaman is a 50-year-old male with history of homelessness, bipolar disorder and schizophrenia who presents with request for placement to mental health facility. I explained that he does not meet criteria for inpatient stabilization. He agreed to be discharged. He is discharged to self-care. Patient left without receiving discharge instructions. Critical care attestation.: If time is entered above; I have spent that time in minutes in the direct care of this critically ill patient, excluding procedure time. ED Disposition Clinical Impression: Schizophrenia, Homelessness, Bipolar disorder Disposition: DC-01 TO HOME OR SELFCARE Is pt being admited?: No Does the pt Need Aspirin: No Condition: Stable
== END 2020-10-01 09:56 | disposition home or self-care (01) ==
LOC: ED 08:11
DX: F20.9 Schizophrenia, unspecified (principal); F31.9 Bipolar disorder, unspecified; Z59.0 Homelessness; I50.9 Heart failure, unspecified; F17.200 Nicotine dependence, unspecified, uncomplicated; Z98.890 Other specified postprocedural states; Z79.899 Other long term (current) drug therapy; Z91.012 Allergy to eggs; Z88.8 Allergy status to other drugs, medicaments and biological substances
CPT/HCPCS: 99282

== ENCOUNTER 2020-10-01 19:27 | Emergency (ER) | payer SELFPAY ==
[2020-10-01] MEDS ORDERED: LORazepam 2 MG/ML VIAL ONE (20:38)
[2020-10-02 05:43] VITALS: BP 123/78
== END 2020-10-02 07:52 ==
LOC: ED 19:27
DX: F25.9 Schizoaffective disorder, unspecified (principal); Z53.21 Procedure and treatment not carried out due to patient leaving prior to being seen by health care provider
CPT/HCPCS: J2060

== ENCOUNTER 2020-10-02 20:51 | Emergency (ER) | payer OTHER, SELFPAY ==
[2020-10-02 21:41] LABS: BUN/Creatinine Ratio 12; Blood Urea Nitrogen 12 mg/dL (9-20); Calcium 9.5 mg/dL (8.4-10.2); Hemolysis Index 10
[2020-10-02 21:45] LABS: Basophils # (Auto) 0.1 K/mm3 (0.0-0.1); Basophils % (Auto) 0.9 % (0.0-1.8); Eosinophils # (Auto) 0.4 K/mm3 (0.0-0.4); Eosinophils % (Auto) 6.3 % (0.0-4.3); Hematocrit 37.6 % (35.5-45.6); Hemoglobin 12.8 gm/dl (11.8-15.2); Lymphocytes # (Auto) 1.2 K/mm3 (1.2-5.4); Lymphocytes % (Auto) 22.1 % (13.4-35.0); Mean Corpuscular HGB Conc 34 % (32-34); Mean Corpuscular Volume 95 fl (84-94); Monocytes # (Auto) 0.7 K/mm3 (0.0-0.8); Monocytes % (Auto) 11.8 % (0.0-7.3); Platelet Count 259 K/mm3 (140-440); Red Blood Count 3.96 M/mm3 (3.65-5.03); Red Cell Distribution Width 15.9 % (13.2-15.2)
--- NOTE | 2020-10-02 22:55 | Emergency Department Report ---
ED Psych HPI - General Chief Complaint: Psych Stated Complaint: MH EVAL Time Seen by Provider: 10/02/20 22:35 Source: patient Mode of arrival: Ambulatory - History of Present Illness Initial Comments: [age]-year-old male with past medical history of CHF schizophrenia presents to the emergency department today with complaint of homicidal and suicidal ideation as well as visual auditory hallucinations. Patient reports the auditory hallucinations want him to harm himself. He denies fevers chills but state he had a cough and some chest pain. Currently CP free. MD Complaint: suicidal ideation - Related Data Previous Rx's Medication Instructions Recorded Last Taken Type amLODIPine 10 mg PO DAILY #30 tab 09/03/20 Unknown Rx risperiDONE [RisperDAL] 2 mg PO BID #60 tablet 09/03/20 Unknown Rx risperiDONE [RisperDAL] 2 mg PO QHS 30 Days #30 tablet 10/08/20 Unknown Rx Allergies Allergy/AdvReac Type Severity Reaction Status Date / Time egg Allergy Unknown Verified 10/11/20 07:11 mayonnaise Allergy Unknown Verified 10/11/20 07:11 ED Review of Systems ROS: Stated complaint: MH EVAL Other details as noted in HPI Constitutional: denies: chills, fever Eyes: denies: eye discharge ENT: denies: dental pain Respiratory: cough, shortness of breath Cardiovascular: chest pain Endocrine: denies: increased hunger, increased thirst, increased urine Gastrointestinal: denies: abdominal pain, nausea, vomiting Genitourinary: denies: dysuria Musculoskeletal: denies: back pain Skin: denies: rash Neurological: denies: headache, weakness Psychiatric: auditory hallucinations, visual hallucinations, homicidal thoughts, suicidal thoughts Hematological/Lymphatic: denies: easy bleeding ED Past Medical Hx - Past Medical History Previous Medical History?: Yes Hx Congestive Heart Failure: Yes Hx Diabetes: No Hx Arthritis: No Hx Psychiatric Treatment: Yes (schizophrenia) Hx Asthma: No Hx COPD: No Additional medical history: schizophrenia - Surgical History Past Surgical History?: No Additional Surgical History: y - Social History Smoking Status: Current Every Day Smoker Substance Use Type: Prescribed - Medications Home Medications: Home Medications Medication Instructions Recorded Confirmed Last Taken Type amLODIPine 10 mg PO DAILY #30 tab 09/03/20 10/07/20 Unknown Rx risperiDONE [RisperDAL] 2 mg PO BID #60 tablet 09/03/20 10/07/20 Unknown Rx risperiDONE [RisperDAL] 2 mg PO QHS 30 Days #30 tablet 10/08/20 Unknown Rx ED Physical Exam - General Limitations: Altered Mental Status General appearance: alert, in no apparent distress - Head Head exam: Present: atraumatic, normocephalic - Eye Eye exam: Present: normal appearance - ENT ENT exam: Present: mucous membranes moist - Neck Neck exam: Present: normal inspection - Respiratory Respiratory exam: Present: normal lung sounds bilaterally. Absent: respiratory distress - Cardiovascular Cardiovascular Exam: Present: regular rate, normal rhythm. Absent: systolic murmur, diastolic murmur, rubs, gallop - GI/Abdominal GI/Abdominal exam: Present: soft, normal bowel sounds - Rectal Rectal exam: Present: deferred - Extremities Exam Extremities exam: Present: normal inspection. Absent: pedal edema, joint swelling - Back Exam Back exam: Present: normal inspection - Neurological Exam Neurological exam: Present: alert, oriented X3 - Psychiatric Psychiatric exam: Present: homicidal ideation, suicidal ideation - Skin Skin exam: Present: warm, dry, intact ED Course Vital Signs 10/02/20 10/03/20 21:08 09:48 Temperature 97.6 F 98.8 F Pulse Rate 88 69 Respiratory 20 18 Rate Blood Pressure 147/86 Blood Pressure 136/86 [Left] O2 Sat by Pulse 99 100 Oximetry - Reevaluation(s) Reevaluation #1: 10/03/20 01:27 Patient's troponin is negative. I have reviewed patient's EKG and chest x-ray both appear unchanged from previous. I will give patient a dose of his home Lasix and patient is now medically clear. ED Medical Decision Making - Lab Data Result diagrams: 10/02/20 21:05 10/02/20 21:05 - EKG Data -: EKG Interpreted by Me EKG shows normal: sinus rhythm Rate: normal - EKG Data Interpretation: unchanged when compared t, nonspecific ST-T wave temo - Medical Decision Making 50-year-old male here with complaint of auditory and visual hallucination homicidal suicidal ideation. He also states he has had some chest pain shortness of breath. Patient has a history of CHF. States he is currently on risperidone and Lasix. Plan to restart patient's medications and place patient on 1013. After patient's EKG and troponin resulted as well as patient's chest x-ray will likely medically clear. Critical care attestation.: If time is entered above; I have spent that time in minutes in the direct care of this critically ill patient, excluding procedure time. ED Disposition Clinical Impression: Schizophrenia Disposition: DC-01 TO HOME OR SELFCARE Is pt being admited?: No Condition: Stable Instructions: Schizophrenia Additional Instructions: Professional and Agency Contacts To help Resolve Crises(07/10) [place] Crisis Line: Suicide Prevention Line: Crisis Text Line: Text START to [phone] Emergency: 911 Outpatient [facility] Behavioral Health Resources: [facility]: [facility] [address] [place], [place] [address] MARINE: [facility] [address] [place] [address] MEDINA: [facility] [address] [place] [address] Friday thru Friday - 8am - 5pm [facility] Address: [address] [place] [address] MICHELLE: [facility] Address: [address] [place] [address] Friday thru Friday- 7am-2pm [facility] Address: [address] [place] [address] Friday thru Friday: 8:30AM-5PM OUTPATIENT MENTAL HEALTH RESOURCES [facility], [address] [place] [address] [facility] Carla Givens MD: [address] [facility] [address] [place], [place] [id number] [facility]: [address], [place] [id number] [facility] [place] [address] [phone] [facility]: [address] [facility] [address] [place], [place] [id number] [facility]: [address] [place] [address] [facility]: [address] [place] [address] Boris Greene MD: [address] [facility] [address] [facility]: [address] [place] [address] [phone] [place] CRISIS AND ACCESS LINE: * Referrals: PRIMARY CARE, [Primary Care Provider] - 3-5 Days
[2020-10-03 00:09] LABS: Bilirubin,Urine NEG (Negative); Blood,Urine NEG (Negative); Color,Urine Yellow (Yellow); Protein,Urine <15 mg/dL mg/dL (Negative)
[2020-10-03 00:14] LABS: Amphetamine Screen,Urine Negative; Benzodiazepines Screen,Urine Negative; Cannabinoid Screen,Urine Negative; Cocaine Screen,Urine Negative; Methadone Screen,Urine Negative; Opiate Screen,Urine Negative
[2020-10-03] MEDS: risperiDONE 1 MG TAB PO SCH ×2 (00:35→11:00)
--- NOTE | 2020-10-03 00:52 | XRay Report ---
CHEST 1 VIEW 10/02/2020 11:45 PM INDICATION / CLINICAL INFORMATION: sob; cp. COMPARISON: 06/25/2020 FINDINGS: SUPPORT DEVICES: None. HEART / MEDIASTINUM: There is prominence of the cardiac silhouette which appears unchanged LUNGS / PLEURA: There is increase in interstitial prominence which appears similar to the prior study No pneumothorax. ADDITIONAL FINDINGS: No significant additional findings. IMPRESSION: 1. No significant change. There is enlargement of the cardiac silhouette with increase in interstitia l markings suggesting congestive heart failure Signer Name: Jose Perry MD Signed: 10/03/2020 12:48 AM Workstation Name: [id number]
[2020-10-03] MEDS: FUROSEMIDE 20 MG TAB PO SCH ×2 (04:43→11:00)
[2020-10-03 09:55] VITALS: BP 136/86
--- NOTE | 2020-10-03 10:23 | Electrocardiograph Report ---
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
--- NOTE | 2020-10-03 12:01 | Consultation ---
History of Present Illness - Reason for Consult Consult date: 10/03/20 Reason for consult: schizophrenia - History of Present Psychiatric Illness Adiel Seaman is a 50y/o male patient who was seen today. He says he's here for "schizophrenia." He is vague with his complaints. He is sleeping, and drifts off on and off during evaluation. The patient says he "sees things and hears things." When asking the patient what was he hearing and seeing, he replies "just different stuff." When asked were they threatening, he replies "I don't think so." He denies SI/HI. He says he has not been taking his meds because he "can't afford it." He denies illicit drug use. The patient also states he has not seen an outpatient provider PAST PSYCHIATRIC HISTORY Diagnoses: schizophrenia Suicide attempts or Self-harm behavior: Denies Prior psychiatric hospitalizations: Yes Substance Abuse history: Denies Previous psychiatric medications tried: Risperidone Outpatient treatment: Denies PAST MEDICAL HISTORY: none reported Family Psychiatric History: None reported or documented SOCIAL HISTORY Marital Status: Single Living Arrangements: [employer] Employment Status: Disabled Access to guns/weapons: Denies Education: college History of Abuse: none reported Legal History: none reported REVIEW OF SYSTEMS Constitutional: Negative for weight loss ENT: Negative for stridor Respiratory: Negative for cough or hemoptysis All other systems reviewed and are negative MENTAL STATUS EXAMINATION General Appearance and Behavior: Age appropriate, good hygiene, wearing appropriate clothes, sleeping, cooperative Cooperation: Participating/engaged Psychomotor Behavior: unremarkable and within normal limits Mood: "okay, just sleepy" Affect and affective range: congruent with mood Thought Process: goal directed Thought Content: hallucinations Speech: Normal volume, Regular rate and rhythm, Suicidal Ideation: Denies, Homicidal Ideation: Denies Hallucinations: A/V Delusions: None elicited Impulse Control: Unimpaired Insight and Judgment: Limited insight and judgment, Memory: Normal, Attention: Normal Orientation: Alert, oriented Assessment and Plan (1) Schizophrenia Current Visit: Yes Status: Acute Treatment Plan The patient to comply with previously prescribed medications Risks, benefits and alternatives of medications discussed with the patient, questions answered and consent obtained from patient. PSYCHOTHERAPY: Supportive psychotherapy provided MEDICAL: Per primary team DELIRIUM PRECAUTIONS: Please re-orient patient frequently, keep lights on during the day, and minimize benzodiazepines and opiates as these medications could worsen patient's confusion. OVEN TENDER BAGELS: Defer to primary DISPOSITION: Do Not Recommend acute inpatient psychiatric hospitalization at this time. Case discussed with Dr. De La Garza who agrees with current disposition The supervisor firearms to give the patient resources to help assist with medication expense, and outpatient CBT, and med management He is to follow up with outpatient psych in 7 to 14 days upon discharge FOLLOW-UP: Will sign off Thank you for the consult. Please contact with any questions and/or concerns. Medications and Allergies Allergies Allergy/AdvReac Type Severity Reaction Status Date / Time egg Allergy Unknown Verified 09/03/20 08:34 mayonnaise Allergy Unknown Verified 09/03/20 08:34 Home Medications Medication Instructions Recorded Confirmed Last Taken Type amLODIPine 10 mg PO DAILY #30 tab 09/03/20 Unknown Rx risperiDONE [RisperDAL] 2 mg PO BID #60 tablet 09/03/20 Unknown Rx Active Meds: Active Medications Furosemide (Furosemide 20 Mg Tab) 20 mg PO BID [facility] Last Admin: 10/03/20 11:00 Dose: 20 mg Documented by: Risperidone (Risperidone 1 Mg Tab) 2 mg PO BID [facility] Last Admin: 10/03/20 11:00 Dose: 2 mg Documented by: Mental Status Exam - Vital signs Last Vital Signs Temp 98.8 F 10/03/20 09:48 Pulse 69 10/03/20 09:48 Resp 18 10/03/20 09:48 BP 136/86 10/03/20 09:48 Pulse Ox 100 10/03/20 09:48 Results Result Diagrams: 10/02/20 21:05 10/02/20 21:05 Abnormal lab results 10/02/20 10/02/20 10/02/20 Range/Units 21:05 21:05 21:05 MCV 95 H (84-94) fl RDW 15.9 H (13.2-15.2) % [place] % (Auto) 11.8 H (0.0-7.3) % Eos % (Auto) 6.3 H (0.0-4.3) % Salicylates < 0.3 L (2.8-20.0) mg/dL Acetaminophen 5.0 L (10.0-30.0) ug/mL All other labs normal.
== END 2020-10-03 13:37 | disposition home or self-care (01) ==
LOC: ED 20:51 → EEVIPCON 20:51 → ED 10-03 13:37
DX: R45.851 Suicidal ideations (principal); R45.850 Homicidal ideations; Z20.822 Contact with and (suspected) exposure to COVID-19; I50.9 Heart failure, unspecified; F20.9 Schizophrenia, unspecified; F17.200 Nicotine dependence, unspecified, uncomplicated; Z91.012 Allergy to eggs; Z88.8 Allergy status to other drugs, medicaments and biological substances; Z79.899 Other long term (current) drug therapy
CPT/HCPCS: 36415; 71045; 80048; 80307; 81001; 83735; 84484; 85025; 93005; 99284; U0003; 80320; 99283; G0480

== ENCOUNTER 2020-10-05 00:03 | Emergency (ER) | payer SELFPAY | END 2020-10-05 02:44 | disposition left against medical advice (07) | LOC: ED 00:03 | DX: Z53.21 Procedure and treatment not carried out due to patient leaving prior to being seen by health care provider (principal) ==

== ENCOUNTER 2020-10-05 22:17 | Emergency (ER) | payer SELFPAY ==
[2020-10-05 23:51] LABS: Basophils # (Auto) 0.1 K/mm3 (0.0-0.1); Basophils % (Auto) 1.4 % (0.0-1.8); Eosinophils # (Auto) 0.3 K/mm3 (0.0-0.4); Eosinophils % (Auto) 5.3 % (0.0-4.3); Hematocrit 35.3 % (35.5-45.6); Hemoglobin 12.1 gm/dl (11.8-15.2); Lymphocytes # (Auto) 1.3 K/mm3 (1.2-5.4); Lymphocytes % (Auto) 24.7 % (13.4-35.0); Mean Corpuscular HGB Conc 34 % (32-34); Mean Corpuscular Volume 95 fl (84-94); Monocytes # (Auto) 0.5 K/mm3 (0.0-0.8); Monocytes % (Auto) 10.1 % (0.0-7.3); Platelet Count 259 K/mm3 (140-440); Red Blood Count 3.73 M/mm3 (3.65-5.03); Red Cell Distribution Width 15.9 % (13.2-15.2)
[2020-10-05 23:55] LABS: Bilirubin,Urine NEG (Negative); Blood,Urine NEG (Negative); Color,Urine Yellow (Yellow); Mucus,Urine FEW /HPF; Protein,Urine <15 mg/dL mg/dL (Negative)
[2020-10-06 00:02] LABS: Amphetamine Screen,Urine PRESUMPTIVE NEGATIVE; Benzodiazepines Screen,Urine PRESUMPTIVE NEGATIVE; Cannabinoid Screen,Urine PRESUMPTIVE NEGATIVE; Cocaine Screen,Urine PRESUMPTIVE NEGATIVE; Methadone Screen,Urine PRESUMPTIVE NEGATIVE; Opiate Screen,Urine PRESUMPTIVE NEGATIVE
[2020-10-06 00:04] LABS: BUN/Creatinine Ratio 11; Blood Urea Nitrogen 11 mg/dL (9-20); Calcium 8.6 mg/dL (8.4-10.2); Hemolysis Index 0
--- NOTE | 2020-10-06 03:48 | Emergency Department Report ---
ED Psych HPI - General Chief Complaint: Psych Stated Complaint: MH EVAL Time Seen by Provider: 10/06/20 03:41 Source: patient Mode of arrival: Ambulatory - History of Present Illness Initial Comments: Patient is a 50-year-old male who presents emergency room with complaints of machado llucinations. Patient dates she is having audiovisual hallucinations. Patient states they started 3 days ago. Patient states he is has homicidal and suicidal homicidal ideations at times. Patient does not have any homicidal or suicidal ideations at this time. Patient states he is off his meds. Patient states he been using a lot of drugs and alcohol lately. Patient denies recent travel. Patient denies recent international travel. Patient denies exposure to the novel coronavirus. Patient denies sick contacts. Patient denies fever and chills. Patient denies cough. Patient denies lindsey rrhea. Patient denies coming in contact with anybody with symptoms of the novel coronavirus. MD Complaint: suicidal ideation, feels depressed -: Sudden Associated Psychiatric Symptoms: depression, suicidal ideation, homicidal ideation, racing thoughts, auditory hallucinations, visual hallucinations Quality: constant Improves With: none Worsens With: none Context: recent alcohol abuse, recent drug abuse, not taking psychiatric, significant life stressor Associated Symptoms: denies other symptoms. denies: confusion, headache, shortness of breath, nausea, vomiting, syncope, insomnia Treatments Prior to Arrival: none If Self Harm: admits thoughts of - Related Data Previous Rx's Medication Instructions Recorded Last Taken Type amLODIPine 10 mg PO DAILY #30 tab 09/03/20 Unknown Rx risperiDONE [RisperDAL] 2 mg PO BID #60 tablet 09/03/20 Unknown Rx risperiDONE [RisperDAL] 2 mg PO QHS 30 Days #30 tablet 10/06/20 Unknown Rx Allergies Allergy/AdvReac Type Severity Reaction Status Date / Time egg Allergy Unknown Verified 09/03/20 08:34 mayonnaise Allergy Unknown Verified 09/03/20 08:34 ED Review of Systems ROS: Stated complaint: MH EVAL Other details as noted in HPI Constitutional: denies: chills, fever Eyes: denies: eye pain, eye discharge, vision change ENT: denies: ear pain, throat pain Respiratory: denies: cough, shortness of breath, wheezing Cardiovascular: denies: chest pain, palpitations Endocrine: no symptoms reported Gastrointestinal: denies: abdominal pain, nausea, diarrhea Genitourinary: denies: urgency, dysuria Musculoskeletal: denies: back pain, joint swelling, arthralgia Skin: denies: rash, lesions Neurological: denies: headache, weakness, paresthesias Psychiatric: depression, auditory hallucinations, visual hallucinations, homicidal thoughts, suicidal thoughts. denies: anxiety Hematological/Lymphatic: denies: easy bleeding, easy bruising ED Past Medical Hx - Past Medical History Previous Medical History?: Yes Hx Congestive Heart Failure: Yes Hx Diabetes: No Hx Arthritis: No Hx Psychiatric Treatment: Yes (schizophrenia) Hx Asthma: No Hx COPD: No Additional medical history: schizophrenia - Surgical History Past Surgical History?: No Additional Surgical History: y - Family History Family history: no significant - Social History Smoking Status: Current Every Day Smoker Substance Use Type: Alcohol, Cocaine, Prescribed - Medications Home Medications: Home Medications Medication Instructions Recorded Confirmed Last Taken Type amLODIPine 10 mg PO DAILY #30 tab 09/03/20 Unknown Rx risperiDONE [RisperDAL] 2 mg PO BID #60 tablet 09/03/20 Unknown Rx risperiDONE [RisperDAL] 2 mg PO QHS 30 Days #30 tablet 10/06/20 Unknown Rx ED Physical Exam - General Limitations: No Limitations General appearance: alert, in no apparent distress - Head Head exam: Present: atraumatic, normocephalic - Eye Eye exam: Present: normal appearance - ENT ENT exam: Present: mucous membranes moist - Neck Neck exam: Present: normal inspection - Respiratory Respiratory exam: Present: normal lung sounds bilaterally. Absent: respiratory distress - Cardiovascular Cardiovascular Exam: Present: regular rate, normal rhythm. Absent: systolic murmur, diastolic murmur, rubs, gallop - GI/Abdominal GI/Abdominal exam: Present: soft, normal bowel sounds - Rectal Rectal exam: Present: deferred - Extremities Exam Extremities exam: Present: normal inspection - Back Exam Back exam: Present: normal inspection - Neurological Exam Neurological exam: Present: alert, oriented X3 - Psychiatric Psychiatric exam: Present: depressed, flat affect - Expanded Psychiatric Exam Expanded Focused psych exam: Present: pressured speech, loose associations - Skin Skin exam: Present: warm, dry, intact, normal color. Absent: rash ED Course Vital Signs 10/05/20 10/06/20 23:09 08:07 Temperature 98.2 F 97.8 F Pulse Rate 89 74 Respiratory 20 18 Rate Blood Pressure 129/80 117/81 [Right] O2 Sat by Pulse 99 98 Oximetry - Reevaluation(s) Reevaluation #1: Patient is medically cleared. Patient remained in the ER as an ER hold until the patient is cleared by psychiatry team. Patient's final disposition will come from our psychiatry and mental health team. 10/06/20 04:51 ED Medical Decision Making - Lab Data Result diagrams: 10/05/20 23:13 10/05/20 23:13 - Medical Decision Making Patient is a 50-year-old male presents emergency room with complaints of audio and visual hallucinations. Patient states he also has sporadic thoughts of homicidal and suicidal ideations. Patient is not having any homicidal or suicidal ideations at this time. Patient is only complaining of hallucination. Patient states he is off his psychiatry medication. Patient states been using drugs and alcohol lately. Patient placed on a ER hold. Patient had labs done. Patient's labs were essentially unremarkable. Patient is medically cleared. Patient will remain in the ER until the patient is cleared by our mental health and psychiatry team. Patient's final disposition will come from our mental health and psychiatry team. - Differential Diagnosis Homicidal ideations, suicidal ideation, hallucinations, acute psychosis Critical care attestation.: If time is entered above; I have spent that time in minutes in the direct care of this critically ill patient, excluding procedure time. ED Disposition Clinical Impression: Hallucination, visual, Auditory hallucinations, Noncompliance, Acute psychosis Disposition: DC-01 TO HOME OR SELFCARE Is pt being admited?: No Does the pt Need Aspirin: No Condition: Stable Additional Instructions: Professional and Agency Contacts To help Resolve Crises (07/10) [place] Crisis Line: Suicide Prevention Line: Crisis Text Line: Text START to 953529 Emergency: 911 Outpatient COMMUNITY Behavioral Health Resources: [facility]: [facility] [address], [place] [address] [facility] [address] [place] [address] Friday thru Friday - 8am - 5pm Call to schedule an assessment for mental health and substance abuse programs [facility] Address: [address], [place], [place] Friday thru Friday- 7am-2pm [facility] Address: [address], [place] [address] Friday thru Friday: 8:30AM-5PM Prescriptions: risperiDONE [RisperDAL] 2 mg PO QHS 30 Days #30 tablet Referrals: PRIMARY CARE, [Primary Care Provider] - 3-5 Days Time of Disposition: 04:53
[2020-10-06 08:20] VITALS: BP 117/81
--- NOTE | 2020-10-06 10:31 | Consultation ---
History of Present Illness - Reason for Consult Consult date: 10/06/20 Reason for consult: Mental health Evaluation - History of Present Psychiatric Illness ED Note: Patient is a 50-year-old male who presents emergency room with c omplaints of hallucinations. Patient dates she is having audiovisual hallucinations. Patient states they started 3 days ago. Patient states he is has homicidal and suicidal homicidal ideations at times. Patient does not have any homicidal or suicidal ideations at this time. Patient states he is off his meds. Patient states he been using a lot of drugs and alcohol lately. Adiel Seaman is a 50 year old male with a history of Schizophrenia who presents to the ED for hallucinations. In my interview with the patient, He reports being non compliant with psychotropic medications. The patient endorses auditory and visual hallucinations which he states is chronic. He denies any current suicidal/homicidal ideation. Diagnoses: schizophrenia Suicide attempts or Self-harm behavior: Denies Prior psychiatric hospitalizations: Yes Substance Abuse history: Denies Previous psychiatric medications tried: Risperidone Outpatient treatment: Denies PAST MEDICAL HISTORY: none reported Family Psychiatric History: None reported or documented SOCIAL HISTORY Marital Status: Single Living Arrangements: Homeless Employment Status: Disabled Access to guns/weapons: Denies Education: college History of Abuse: none reported Legal History: none reported REVIEW OF SYSTEMS Constitutional: Negative for weight loss ENT: Negative for stridor Respiratory: Negative for cough or hemoptysis All other systems reviewed and are negative MENTAL STATUS EXAMINATION General Appearance and Behavior: Age appropriate, good hygiene, wearing appropri ate clothes, sleeping, cooperative Cooperation: Participating/engaged Psychomotor Behavior: unremarkable and within normal limits Mood: "okay" Affect and affective range: congruent with mood Thought Process: goal directed Thought Content: hallucinations Speech: Normal volume, Regular rate and rhythm, Suicidal Ideation: Denies, Homicidal Ideation: Denies Hallucinations: A/V Delusions: None elicited Impulse Control: Unimpaired Insight and Judgment: Limited insight and judgment, Memory: Normal, Attention: Normal Orientation: Alert, oriented Assessment and Plan (1) Schizophrenia Current Visit: Yes Status: Acute Treatment Plan Start Risperidone 2mg po QHS The patient to comply with previously prescribed medications Risks, benefits and alternatives of medications discussed with the patient, questions answered and consent obtained from patient. PSYCHOTHERAPY: Supportive psychotherapy provided MEDICAL: Per primary team DELIRIUM PRECAUTIONS: Please re-orient patient frequently, keep lights on during the day, and minimize benzodiazepines and opiates as these medications could wor sen patient's confusion. REFUND SPECIALIST: Defer to primary DISPOSITION: Do Not Recommend acute inpatient psychiatric hospitalization at this time. Case discussed with Dr. De La Garza who agrees with current disposition The weaving professor to give the patient resources to help assist with medication expense, and outpatient CBT, and med management He is to follow up with outpatient psych in 7 to 14 days upon discharge FOLLOW-UP: Will sign off Thank you for the consult. Please contact with any questions and/or concerns. Medications and Allergies Allergies Allergy/AdvReac Type Severity Reaction Status Date / Time egg Allergy Unknown Verified 09/03/20 08:34 mayonnaise Allergy Unknown Verified 09/03/20 08:34 Home Medications Medication Instructions Recorded Confirmed Last Taken Type amLODIPine 10 mg PO DAILY #30 tab 09/03/20 Unknown Rx risperiDONE [RisperDAL] 2 mg PO BID #60 tablet 09/03/20 Unknown Rx risperiDONE [RisperDAL] 2 mg PO QHS 30 Days #30 tablet 10/06/20 Unknown Rx Mental Status Exam - Vital signs Last Vital Signs Temp 97.8 F 10/06/20 08:07 Pulse 74 10/06/20 08:07 Resp 18 10/06/20 08:07 BP 117/81 10/06/20 08:07 Pulse Ox 98 10/06/20 08:07 Results Result Diagrams: 10/05/20 23:13 10/05/20 23:13 Abnormal lab results 10/05/20 10/05/20 10/05/20 Range/Units 23:13 23:13 23:13 Hct (35.5-45.6) % MCV (84-94) fl MCH (28-32) pg RDW (13.2-15.2) % [place] % (Auto) (0.0-7.3) % Eos % (Auto) (0.0-4.3) % Potassium 3.5 L (3.6-5.0) mmol/L Carbon Dioxide 21 L (22-30) mmol/L Glucose 114 H (75-100) mg/dL Salicylates < 0.3 L (2.8-20.0) mg/dL Acetaminophen 5.0 L (10.0-30.0) ug/mL 10/05/20 Range/Units 23:13 Hct 35.3 L (35.5-45.6) % MCV 95 H (84-94) fl MCH 33 H (28-32) pg RDW 15.9 H (13.2-15.2) % [place] % (Auto) 10.1 H (0.0-7.3) % Eos % (Auto) 5.3 H (0.0-4.3) % Potassium (3.6-5.0) mmol/L Carbon Dioxide (22-30) mmol/L Glucose (75-100) mg/dL Salicylates (2.8-20.0) mg/dL Acetaminophen (10.0-30.0) ug/mL All other labs normal.
== END 2020-10-06 12:00 | disposition home or self-care (01) ==
LOC: ED 22:17
DX: F23 Brief psychotic disorder (principal); I50.9 Heart failure, unspecified; F25.9 Schizoaffective disorder, unspecified; F17.200 Nicotine dependence, unspecified, uncomplicated; F14.90 Cocaine use, unspecified, uncomplicated; Z91.19 Patient's noncompliance with other medical treatment and regimen; Z79.899 Other long term (current) drug therapy; Z91.012 Allergy to eggs; Z91.018 Allergy to other foods
CPT/HCPCS: 36415; 80048; 80307; 80320; 81001; 85025; G0480

== ENCOUNTER 2020-10-07 02:34 | Emergency (ER) | payer SELFPAY ==
--- NOTE | 2020-10-07 02:44 | Emergency Department Report ---
<SHEY GOMES - Last Filed: 10/08/20 10:22> ED Psych HPI - General Chief Complaint: Psych Stated Complaint: MH Time Seen by Provider: 10/07/20 02:41 - Related Data Previous Rx's Medication Instructions Recorded Last Taken Type amLODIPine 10 mg PO DAILY #30 tab 09/03/20 Unknown Rx risperiDONE [RisperDAL] 2 mg PO BID #60 tablet 09/03/20 Unknown Rx risperiDONE [RisperDAL] 2 mg PO QHS 30 Days #30 tablet 10/08/20 Unknown Rx Allergies Allergy/AdvReac Type Severity Reaction Status Date / Time egg Allergy Unknown Verified 10/11/20 07:11 mayonnaise Allergy Unknown Verified 10/11/20 07:11 ED Past Medical Hx - Medications Home Medications: Home Medications Medication Instructions Recorded Confirmed Last Taken Type amLODIPine 10 mg PO DAILY #30 tab 09/03/20 10/07/20 Unknown Rx risperiDONE [RisperDAL] 2 mg PO BID #60 tablet 09/03/20 10/07/20 Unknown Rx risperiDONE [RisperDAL] 2 mg PO QHS 30 Days #30 tablet 10/08/20 Unknown Rx ED Course - Reevaluation(s) Reevaluation #2: 10/08/20 10:22 Psychiatry Progress Note Patient Name: RAFIA LEONARD JR Date of : 1970 Patient Status: Emergency Emergency Provider: NIKKI VALLADARES III Date: 10/08/20 10:06 Initialization Date: 10/08/20 10:06 Subjective - Reason for Consult Consult date: 10/08/20 Reason for consult: suicidal ideation - Chief Complaint Chief complaint: The patient was seen eating breakfast. He reports doing well. States sleep and appetite as good. The patient denies any current suicidal/homicidal ideation and denied hallucinations. REVIEW OF SYSTEMS Constitutional: Negative for weight loss ENT: Negative for stridor Respiratory: Negative for cough or hemoptysis All other systems reviewed and are negative MENTAL STATUS EXAMINATION General Appearance and Behavior: Age appropriate, good hygiene, wearing appropriate clothes, sleeping, cooperative Cooperation: Participating/engaged Psychomotor Behavior: unremarkable and within normal limits Mood: good Affect and affective range: congruent with mood Thought Process: goal directed Thought Content: Denies Speech: Normal volume, Regular rate and rhythm, Suicidal Ideation: Denies Homicidal Ideation: Denies Hallucinations: Denies Delusions: None elicited Impulse Control: Unimpaired Insight and Judgment: Limited insight and judgment, Memory: Normal, Attention: Normal Orientation: Alert, oriented Assessment and Plan (1) Schizophrenia Current Visit: Yes Status: Acute Treatment Plan Continue Risperidone 2mg po QHS The patient to comply with previously prescribed medications Risks, benefits and alternatives of medications discussed with the patient, questions answered and consent obtained from patient. PSYCHOTHERAPY: Supportive psychotherapy provided MEDICAL: Per primary team DELIRIUM PRECAUTIONS: Please re-orient patient frequently, keep lights on during the day, and minimize benzodiazepines and opiates as these medications could worsen patient's confusion. CLINICAL PRODUCT MANAGER: Defer to primary DISPOSITION: Do not recommend acute inpatient psychiatric hospitalization at this time. FOLLOW-UP: Will sign off Please contact with any questions and/or concerns. Reevaluation #3: 10/08/20 10:23 Patient was here several days and expressing suicidal thoughts. Started on respite all and currently states he feels much improved and is no longer feeling suicidal. Patient has been cleared by mental health assessment team. 1013 is been rescinded. Patient is been medically cleared and appears stable for discharge. ED Medical Decision Making - Lab Data Result diagrams: 10/07/20 02:55 10/07/20 02:55 ED Disposition Clinical Impression: Hallucination, visual, Auditory hallucinations, Acute psychosis, Suicidal ideations Disposition: DC-01 TO HOME OR SELFCARE Is pt being admited?: No Does the pt Need Aspirin: No Condition: Stable Instructions: Suicidal Feelings: How to Help Yourself Prescriptions: risperiDONE [RisperDAL] 2 mg PO QHS 30 Days #30 tablet Referrals: HERNAN WEISSCREOLA MD ESTEBAN [Primary Care Provider] - 3-5 Days Time of Disposition: 10:24 <NIKKI VALLADARES III - Last Filed: 10/11/20 22:38> ED Psych HPI - General Source: patient Mode of arrival: Ambulatory Limitations: No Limitations - History of Present Illness Initial Comments: Patient is a 50-year-old male who presents emergency room with complaints of hallucinations, paranoia, delusions, schizophrenia. Patient states he has been here multiple times this week and he wants to be transferred to a psychiatric facility. Patient states he will keep coming back to the actually honor his request. Patient was discharged this morning. Patient denies suicidal homicida l ideations. Patient states he is on his medications. Patient denies recent travel. Patient denies recent international travel. Patient denies exposure to the novel coronavirus. Patient denies sick contacts. Patient denies fever and chills. Patient denies cough. Patient denies diarrhea. Patient denies coming in contact with anybody with symptoms of the novel coronavirus. Complaint: feels depressed -: Sudden Associated Psychiatric Symptoms: racing thoughts, auditory hallucinations, visual hallucinations, delusions History of same: Yes Quality: constant Improves With: none Worsens With: none Associated Symptoms: denies: confusion, headache, shortness of breath, nausea, vomiting, syncope, insomnia ED Review of Systems ROS: Stated complaint: MH Other details as noted in HPI Constitutional: denies: chills, fever Eyes: denies: eye pain, eye discharge, vision change ENT: denies: ear pain, throat pain Respiratory: denies: cough, shortness of breath, wheezing Cardiovascular: denies: chest pain, palpitations Endocrine: no symptoms reported Gastrointestinal: denies: abdominal pain, nausea, diarrhea Genitourinary: denies: urgency, dysuria Musculoskeletal: denies: back pain, joint swelling, arthralgia Skin: denies: rash, lesions Neurological: denies: headache, weakness, paresthesias Psychiatric: as per HPI, depression, auditory hallucinations, visual hallucinations. denies: anxiety, homicidal thoughts, suicidal thoughts Hematological/Lymphatic: denies: easy bleeding, easy bruising ED Past Medical Hx - Past Medical History Previous Medical History?: Yes Hx Congestive Heart Failure: Yes Hx Diabetes: No Hx Arthritis: No Hx Psychiatric Treatment: Yes (schizophrenia) Hx Asthma: No Hx COPD: No Additional medical history: schizophrenia - Surgical History Past Surgical History?: No Additional Surgical History: y - Family History Family history: no significant - Social History Smoking Status: Current Every Day Smoker Substance Use Type: Alcohol, Cocaine, Prescribed ED Physical Exam - General General appearance: alert, in no apparent distress - Head Head exam: Present: atraumatic, normocephalic - Eye Eye exam: Present: normal appearance - ENT ENT exam: Present: mucous membranes moist - Neck Neck exam: Present: normal inspection - Respiratory Respiratory exam: Present: normal lung sounds bilaterally. Absent: respiratory distress - Cardiovascular Cardiovascular Exam: Present: regular rate, normal rhythm. Absent: systolic murmur, diastolic murmur, rubs, gallop - GI/Abdominal GI/Abdominal exam: Present: soft, normal bowel sounds - Rectal Rectal exam: Present: deferred - Extremities Exam Extremities exam: Present: normal inspection - Back Exam Back exam: Present: normal inspection - Neurological Exam Neurological exam: Present: alert, oriented X3 - Psychiatric Psychiatric exam: Present: flat affect - Expanded Psychiatric Exam Expanded Focused psych exam: Present: delusional, paranoid, loose associations - Skin Skin exam: Present: warm, dry, intact, normal color. Absent: rash ED Course Vital Signs 10/07/20 10/07/20 10/07/20 03:08 11:24 20:12 Temperature 97.5 F L 97.6 F 97.9 F Pulse Rate 81 72 66 Respiratory 18 20 18 Rate Blood Pressure 132/92 118/79 135/83 [Left] O2 Sat by Pulse 97 98 97 Oximetry 10/07/20 10/08/20 10/08/20 21:00 02:25 08:00 Temperature 98.1 F 98.1 F Pulse Rate 57 L 72 Respiratory 18 16 18 Rate Blood Pressure 107/57 127/84 [Left] O2 Sat by Pulse 96 98 Oximetry - Reevaluation(s) Reevaluation #1: Patient is medically cleared. Patient's final disposition will come from our psychiatry team. Patient will remain in the ER until patient is cleared by our psychiatry team. 10/07/20 04:37 ED Medical Decision Making - Lab Data Result diagrams: 10/07/20 02:55 10/07/20 02:55 - Medical Decision Making Patient is a 50-year-old male who presents emergency room for hallucinations, paranoid delusions. Patient had labs done which were essentially unremarkable. Patient is medically cleared. Patient remained in the ER as an ER hold until patient is cleared by psychiatry team. Patient's final disposition will come from our psychiatry team. - Differential Diagnosis Hallucinations, psychosis, paranoia, delusions, Critical care attestation.: If time is entered above; I have spent that time in minutes in the direct care of this critically ill patient, excluding procedure time. ED Disposition Is pt being admited?: No Does the pt Need Aspirin: No Time of Disposition: 04:39
[2020-10-07 03:45] LABS: Basophils # (Auto) 0.1 K/mm3 (0.0-0.1); Eosinophils # (Auto) 0.3 K/mm3 (0.0-0.4); Eosinophils % (Auto) 4.3 % (0.0-4.3); Hematocrit 34.2 % (35.5-45.6); Hemoglobin 11.7 gm/dl (11.8-15.2); Lymphocytes # (Auto) 1.3 K/mm3 (1.2-5.4); Lymphocytes % (Auto) 18.9 % (13.4-35.0); Mean Corpuscular HGB Conc 34 % (32-34); Mean Corpuscular Volume 95 fl (84-94); Monocytes # (Auto) 0.6 K/mm3 (0.0-0.8); Monocytes % (Auto) 8.8 % (0.0-7.3); Platelet Count 255 K/mm3 (140-440); Red Blood Count 3.59 M/mm3 (3.65-5.03); Red Cell Distribution Width 15.3 % (13.2-15.2)
[2020-10-07 03:47] LABS: BUN/Creatinine Ratio 12; Blood Urea Nitrogen 12 mg/dL (9-20); Calcium 9.2 mg/dL (8.4-10.2); Hemolysis Index 8
--- NOTE | 2020-10-07 13:31 | Consultation ---
History of Present Illness - Reason for Consult Consult date: 10/07/20 Reason for consult: suicidal ideation - History of Present Psychiatric Illness Adiel Seaman is a 50 year old male with history of schizophrenia presents to the ED with suicidal thoughts. The patient was discharged yesterday and has has multiple psychiatric admissions. In my interview with the patient, he states " I am trying to get to a mental health facility." The patient endorses suicidal humberto ation without a plan and auditory/visual hallucinations. Diagnoses: schizophrenia Suicide attempts or Self-harm behavior: Denies Prior psychiatric hospitalizations: Yes Substance Abuse history: Denies Previous psychiatric medications tried: Risperidone Outpatient treatment: Denies PAST MEDICAL HISTORY: none reported Family Psychiatric History: None reported or documented SOCIAL HISTORY Marital Status: Single Living Arrangements: Homeless Employment Status: Disabled Access to guns/weapons: Denies Education: college History of Abuse: none reported Legal History: none reported REVIEW OF SYSTEMS Constitutional: Negative for weight loss ENT: Negative for stridor Respiratory: Negative for cough or hemoptysis All other systems reviewed and are negative MENTAL STATUS EXAMINATION General Appearance and Behavior: Age appropriate, good hygiene, wearing appropriate clothes, sleeping, cooperative Cooperation: Participating/engaged Psychomotor Behavior: unremarkable and within normal limits Mood: "okay" Affect and affective range: congruent with mood Thought Process: goal directed Thought Content: hallucinations Speech: Normal volume, Regular rate and rhythm, Suicidal Ideation: Yes Homicidal Ideation: Denies Hallucinations: A/V Delusions: None elicited Impulse Control: Unimpaired Insight and Judgment: Limited insight and judgment, Memory: Normal, Attention: Normal Orientation: Alert, oriented Assessment and Plan (1) Schizophrenia Current Visit: Yes Status: Acute Treatment Plan Start Risperidone 2mg po QHS The patient to comply with previously prescribed medications Risks, benefits and alternatives of medications discussed with the patient, questions answered and consent obtained from patient. PSYCHOTHERAPY: Supportive psychotherapy provided MEDICAL: Per primary team DELIRIUM PRECAUTIONS: Please re-orient patient frequently, keep lights on during the day, and minimize benzodiazepines and opiates as these medications could worsen patient's confusion. SASH ASSEMBLER: Defer to primary DISPOSITION: Recommend acute inpatient psychiatric hospitalization at this time. FOLLOW-UP: Will follow Thank you for the consult. Please contact with any questions and/or concerns. Medications and Allergies Allergies Allergy/AdvReac Type Severity Reaction Status Date / Time egg Allergy Unknown Verified 09/03/20 08:34 mayonnaise Allergy Unknown Verified 09/03/20 08:34 Home Medications Medication Instructions Recorded Confirmed Last Taken Type amLODIPine 10 mg PO DAILY #30 tab 09/03/20 10/07/20 Unknown Rx risperiDONE [RisperDAL] 2 mg PO BID #60 tablet 09/03/20 10/07/20 Unknown Rx risperiDONE [RisperDAL] 2 mg PO QHS 30 Days #30 tablet 10/06/20 10/07/20 Unknown Rx Mental Status Exam - Vital signs Last Vital Signs Temp 97.6 F 10/07/20 11:24 Pulse 72 10/07/20 11:24 Resp 20 10/07/20 11:24 BP 118/79 10/07/20 11:24 Pulse Ox 98 10/07/20 11:24 Results Result Diagrams: 10/07/20 02:55 10/07/20 02:55 Abnormal lab results 10/07/20 10/07/20 10/07/20 Range/Units 02:55 02:55 02:55 RBC 3.59 L (3.65-5.03) M/mm3 Hgb 11.7 L (11.8-15.2) gm/dl Hct 34.2 L (35.5-45.6) % MCV 95 H (84-94) fl MCH 33 H (28-32) pg RDW 15.3 H (13.2-15.2) % Tama % (Auto) 8.8 H (0.0-7.3) % Glucose 106 H (75-100) mg/dL Salicylates < 0.3 L (2.8-20.0) mg/dL Acetaminophen (10.0-30.0) ug/mL 10/07/20 Range/Units 02:55 RBC (3.65-5.03) M/mm3 Hgb (11.8-15.2) gm/dl Hct (35.5-45.6) % MCV (84-94) fl MCH (28-32) pg RDW (13.2-15.2) % Tama % (Auto) (0.0-7.3) % Glucose (75-100) mg/dL Salicylates (2.8-20.0) mg/dL Acetaminophen 5.0 L (10.0-30.0) ug/mL All other labs normal.
[2020-10-07 13:46] LABS: Bilirubin,Urine NEG (Negative); Blood,Urine NEG (Negative); Color,Urine Yellow (Yellow); Protein,Urine <15 mg/dL mg/dL (Negative)
--- NOTE | 2020-10-07 13:47 | Event Note ---
Date: 10/07/20 Patient continue to endorse suicidal thoughts. Is calm and cooperative. Please see mental health assessment note below. Patient still 1013 at this time. Psychiatric Consult Note Patient Name: RAFIA SEAMAN JR Date of : 1970 Patient Status: Emergency Emergency Provider: NIKKI VALLADARES III Date: 10/07/20 13:22 Initialization Date: 10/07/20 13:22 History of Present Illness - Reason for Consult Consult date: 10/07/20 Reason for consult: suicidal ideation - History of Present Psychiatric Illness Rafia Seaman is a 50 year old male with history of schizophrenia presents to the ED with suicidal thoughts. The patient was discharged yesterday and has has multiple psychiatric admissions. In my interview with the patient, he states " I am trying to get to a mental health facility." The patient endorses suicidal ideation without a plan and auditory/visual hallucinations. Diagnoses: schizophrenia Suicide attempts or Self-harm behavior: Denies Prior psychiatric hospitalizations: Yes Substance Abuse history: Denies Previous psychiatric medications tried: Risperidone Outpatient treatment: Denies PAST MEDICAL HISTORY: none reported Family Psychiatric History: None reported or documented SOCIAL HISTORY Marital Status: Single Living Arrangements: Homeless Employment Status: Disabled Access to guns/weapons: Denies Education: college History of Abuse: none reported Legal History: none reported REVIEW OF SYSTEMS Constitutional: Negative for weight loss ENT: Negative for stridor Respiratory: Negative for cough or hemoptysis All other systems reviewed and are negative MENTAL STATUS EXAMINATION General Appearance and Behavior: Age appropriate, good hygiene, wearing appropriate clothes, sleeping, cooperative Cooperation: Participating/engaged Psychomotor Behavior: unremarkable and within normal limits Mood: "okay" Affect and affective range: congruent with mood Thought Process: goal directed Thought Content: hallucinations Speech: Normal volume, Regular rate and rhythm, Suicidal Ideation: Yes Homicidal Ideation: Denies Hallucinations: A/V Delusions: None elicited Impulse Control: Unimpaired Insight and Judgment: Limited insight and judgment, Memory: Normal, Attention: Normal Orientation: Alert, oriented Assessment and Plan (1) Schizophrenia Current Visit: Yes Status: Acute Treatment Plan Start Risperidone 2mg po QHS The patient to comply with previously prescribed medications Risks, benefits and alternatives of medications discussed with the patient, questions answered and consent obtained from patient. PSYCHOTHERAPY: Supportive psychotherapy provided MEDICAL: Per primary team DELIRIUM PRECAUTIONS: Please re-orient patient frequently, keep lights on during the day, and minimize benzodiazepines and opiates as these medications could worsen patient's confusion. OUT PATIENT THERAPIST: Defer to primary DISPOSITION: Recommend acute inpatient psychiatric hospitalization at this time. FOLLOW-UP: Will follow Thank you for the consult. Please contact with any questions and/or concerns.
[2020-10-07 13:54] LABS: Amphetamine Screen,Urine Negative; Benzodiazepines Screen,Urine Negative; Cannabinoid Screen,Urine Negative; Cocaine Screen,Urine Negative; Methadone Screen,Urine Negative; Opiate Screen,Urine Negative
[2020-10-07] MEDS ORDERED: risperiDONE 1 MG TAB PO SCH (22:00)
[2020-10-08 10:05] VITALS: BP 127/84
--- NOTE | 2020-10-08 10:07 | Progress Note ---
Subjective - Reason for Consult Consult date: 10/08/20 Reason for consult: suicidal ideation - Chief Complaint Chief complaint: The patient was seen eating breakfast. He reports doing well. States sleep and appetite as good. The patient denies any current suicidal/homicidal ideation and denied hallucinations. REVIEW OF SYSTEMS Constitutional: Negative for weight loss ENT: Negative for stridor Respiratory: Negative for cough or hemoptysis All other systems reviewed and are negative MENTAL STATUS EXAMINATION General Appearance and Behavior: Age appropriate, good hygiene, wearing appropriate clothes, sleeping, cooperative Cooperation: Participating/engaged Psychomotor Behavior: unremarkable and within normal limits Mood: good Affect and affective range: congruent with mood Thought Process: goal directed Thought Content: Denies Speech: Normal volume, Regular rate and rhythm, Suicidal Ideation: Denies Homicidal Ideation: Denies Hallucinations: Denies Delusions: None elicited Impulse Control: Unimpaired Insight and Judgment: Limited insight and judgment, Memory: Normal, Attention: Normal Orientation: Alert, oriented Assessment and Plan (1) Schizophrenia Current Visit: Yes Status: Acute Treatment Plan Continue Risperidone 2mg po QHS The patient to comply with previously prescribed medications Risks, benefits and alternatives of medications discussed with the patient, questions answered and consent obtained from patient. PSYCHOTHERAPY: Supportive psychotherapy provided MEDICAL: Per primary team DELIRIUM PRECAUTIONS: Please re-orient patient frequently, keep lights on during the day, and minimize benzodiazepines and opiates as these medications could worsen patient's confusion. LINING MAKER HAND: Defer to primary DISPOSITION: Do not recommend acute inpatient psychiatric hospitalization at this time. FOLLOW-UP: Will sign off Please contact with any questions and/or concerns. Medications and Allergies Mental Status Exam - Vital signs Last Vital Signs Temp 98.1 F 10/08/20 08:00 Pulse 72 10/08/20 08:00 Resp 18 10/08/20 08:00 BP 127/84 10/08/20 08:00 Pulse Ox 98 10/08/20 08:00
== END 2020-10-08 12:00 | disposition home or self-care (01) ==
LOC: ED 02:34
DX: F23 Brief psychotic disorder (principal); R45.851 Suicidal ideations; I50.9 Heart failure, unspecified; F17.200 Nicotine dependence, unspecified, uncomplicated; Z91.012 Allergy to eggs
CPT/HCPCS: 36415; 80048; 80307; 80320; 81001; 85025; 99284; G0480

== ENCOUNTER 2020-10-09 23:20 | Emergency (ER) | payer SELFPAY | END 2020-10-11 01:00 | disposition left against medical advice (07) | LOC: ED 23:20 | DX: Z00.8 Encounter for other general examination (principal); Z53.21 Procedure and treatment not carried out due to patient leaving prior to being seen by health care provider ==

== ENCOUNTER 2020-10-11 00:21 | Emergency (ER) | payer SELFPAY ==
[2020-10-11 07:15] VITALS: BP 146/85
== END 2020-10-11 10:00 ==
LOC: ED 00:21
DX: Z00.8 Encounter for other general examination (principal); Z53.21 Procedure and treatment not carried out due to patient leaving prior to being seen by health care provider

== ENCOUNTER 2020-10-11 23:22 | Emergency (ER) | payer SELFPAY ==
[2020-10-12 00:13] VITALS: BP 147/84
[2020-10-12 00:43] LABS: Basophils # (Auto) 0.1 K/mm3 (0.0-0.1); Eosinophils # (Auto) 0.3 K/mm3 (0.0-0.4); Eosinophils % (Auto) 4.6 % (0.0-4.3); Hematocrit 33.9 % (35.5-45.6); Hemoglobin 11.7 gm/dl (11.8-15.2); Lymphocytes # (Auto) 1.3 K/mm3 (1.2-5.4); Lymphocytes % (Auto) 20.8 % (13.4-35.0); Mean Corpuscular HGB Conc 34 % (32-34); Mean Corpuscular Volume 95 fl (84-94); Monocytes # (Auto) 0.6 K/mm3 (0.0-0.8); Monocytes % (Auto) 9.4 % (0.0-7.3); Platelet Count 265 K/mm3 (140-440); Red Blood Count 3.57 M/mm3 (3.65-5.03); Red Cell Distribution Width 14.5 % (13.2-15.2)
[2020-10-12 01:04] LABS: BUN/Creatinine Ratio 9; Blood Urea Nitrogen 9 mg/dL (9-20); Calcium 8.8 mg/dL (8.4-10.2); Hemolysis Index 10
== END 2020-10-12 03:00 | disposition left against medical advice (07) ==
LOC: ED 23:22
DX: Z00.8 Encounter for other general examination (principal); Z53.21 Procedure and treatment not carried out due to patient leaving prior to being seen by health care provider
CPT/HCPCS: 36415; 80048; 80320; 85025; G0480

== ENCOUNTER 2020-10-24 01:06 | Emergency (ER) | payer OTHER ==
[2020-10-24 03:46] LABS: Basophils # (Auto) 0.1 K/mm3 (0.0-0.1); Basophils % (Auto) 1.1 % (0.0-1.8); Eosinophils # (Auto) 0.3 K/mm3 (0.0-0.4); Eosinophils % (Auto) 5.5 % (0.0-4.3); Hematocrit 38.3 % (35.5-45.6); Hemoglobin 13.2 gm/dl (11.8-15.2); Lymphocytes # (Auto) 1.4 K/mm3 (1.2-5.4); Lymphocytes % (Auto) 21.4 % (13.4-35.0); Mean Corpuscular HGB Conc 35 % (32-34); Mean Corpuscular Volume 96 fl (84-94); Monocytes # (Auto) 0.9 K/mm3 (0.0-0.8); Platelet Count 291 K/mm3 (140-440); Red Blood Count 4.01 M/mm3 (3.65-5.03); Red Cell Distribution Width 14.2 % (13.2-15.2)
[2020-10-24 04:03] LABS: BUN/Creatinine Ratio 13; Blood Urea Nitrogen 13 mg/dL (9-20); Calcium 9.7 mg/dL (8.4-10.2); Hemolysis Index 2
[2020-10-24 05:17] VITALS: BP 133/89
== END 2020-10-24 12:02 | disposition left against medical advice (07) ==
LOC: ED 01:06
DX: R44.0 Auditory hallucinations (principal); Z53.21 Procedure and treatment not carried out due to patient leaving prior to being seen by health care provider
CPT/HCPCS: 36415; 80048; 80320; 85025; G0480

== ENCOUNTER 2020-10-24 23:48 | Emergency (ER) | payer OTHER ==
[2020-10-25 22:24] VITALS: BP 130/84
== END 2020-10-26 08:04 ==
LOC: ED 23:48 → EEVIPCON 23:48 → ED 10-26 08:04
DX: F20.9 Schizophrenia, unspecified (principal); Z03.818 Encounter for observation for suspected exposure to other biological agents ruled out; F17.200 Nicotine dependence, unspecified, uncomplicated
CPT/HCPCS: 36415; 80048; 80307; 81001; 85025; 99284; U0003; 80320; G0480

== ENCOUNTER 2020-11-04 00:18 | Emergency (ER) | payer SELFPAY | END 2020-11-04 00:23 | disposition left against medical advice (07) | LOC: ED 00:18 | DX: Z00.8 Encounter for other general examination (principal); Z53.21 Procedure and treatment not carried out due to patient leaving prior to being seen by health care provider ==

== ENCOUNTER 2020-11-04 18:40 | Emergency (ER) | payer SELFPAY | END 2020-11-04 19:00 | disposition left against medical advice (07) | LOC: ED 18:40 | DX: F25.9 Schizoaffective disorder, unspecified (principal); Z53.21 Procedure and treatment not carried out due to patient leaving prior to being seen by health care provider ==

== ENCOUNTER 2020-11-05 14:14 | Emergency (ER) | payer OTHER ==
[2020-11-05 16:23] LABS: Bilirubin,Urine NEG (Negative); Blood,Urine NEG (Negative); Color,Urine Yellow (Yellow); Mucus,Urine FEW /HPF
[2020-11-05 16:30] LABS: Amphetamine Screen,Urine Negative; Benzodiazepines Screen,Urine Negative; Cannabinoid Screen,Urine Negative; Cocaine Screen,Urine Negative; Methadone Screen,Urine Negative; Opiate Screen,Urine Negative
--- NOTE | 2020-11-05 16:31 | Emergency Department Report ---
HPI - General Chief Complaint: Psych Time Seen by Provider: 11/05/20 16:06 - HPI HPI: 50-year-old male with history of CHF, HANSA, and schizophrenia presents complaining of auditory and visual hallucinations. The patient states that he has been unable to afford his psychiatric medications and has been off of them for an unknown amount of time. He says that he is hearing voices in his head which are arguing with him about his quality of life. He denies command auditory hallucinations. He also says he is seeing images of people in the [place]. He denies SI or HI. He says he has had these exact same symptoms before when off of his medications. He denies physical symptoms of any kind including fever/chills, headache, vision change, chest pain, shortness of breath, cough, back pain, abdominal pain, dysuria, focal weakness, sensory changes, or any other complaints. ED Past Medical Hx - Past Medical History Hx Congestive Heart Failure: Yes Hx Diabetes: No Hx Arthritis: No Hx Psychiatric Treatment: Yes (schizophrenia) Hx Asthma: No Hx COPD: No Additional medical history: schizophrenia - Surgical History Additional Surgical History: y - Medications Home Medications: Home Medications Medication Instructions Recorded Confirmed Last Taken Type amLODIPine 10 mg PO DAILY #30 tab 09/03/20 10/25/20 Unknown Rx risperiDONE [RisperDAL] 2 mg PO BID #60 tablet 09/03/20 10/25/20 Unknown Rx risperiDONE [RisperDAL] 2 mg PO BID #14 tablet 11/05/20 Unknown Rx ED Review of Systems ROS: Stated complaint: PSYCH Other details as noted in HPI Constitutional: denies: chills, fever Eyes: denies: eye pain, vision change ENT: denies: throat pain, congestion Respiratory: denies: cough, shortness of breath Cardiovascular: denies: chest pain, palpitations, syncope Gastrointestinal: denies: abdominal pain, nausea, vomiting Genitourinary: denies: dysuria, frequency Musculoskeletal: denies: back pain, arthralgia Skin: denies: rash, lesions Neurological: denies: headache, weakness, numbness Psychiatric: auditory hallucinations, visual hallucinations. denies: depression, homicidal thoughts, suicidal thoughts Physical Exam - Physical Exam Physical Exam: GENERAL: Well developed and well nourished. Disheveled. no acute distress HEAD: Normocephalic. No obvious signs of trauma. ENT: Moist mucous membranes. Poor dentition EYES: Extraocular movements are intact. Pupils are equal round and reactive to light bilaterally NECK: Supple. Full ROM is intact. Trachea is midline. LUNGS: Nonlabored breathing. Equal chest rise bilaterally. Clear to auscultation bilaterally. CARDIOVASCULAR: Regular rate and rhythm. No murmurs or rubs. VASCULAR: Cap refill < 2 seconds. 2+ pitting edema of the bilateral lower extremities ABDOMEN: Abdomen is soft and nondistended. There is no significant tenderness, guarding or rebound. SKIN: Skin is warm and dry NEURO: Patient is awake, alert, and oriented. 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 No focal deficits. Normal motor and sensory exam throughout. Normal speech. MUSCULOSKELETAL: No obvious deformities. No significant tenderness. Normal ROM throughout. ED Medical Decision Making - Lab Data Result diagrams: 11/05/20 16:34 11/05/20 16:34 Lab Results 11/05/20 11/05/20 11/05/20 Range/Units 16:10 16:10 16:34 WBC 5.5 (4.5-11.0) K/mm3 RBC 3.95 (3.65-5.03) M/mm3 Hgb 13.0 (11.8-15.2) gm/dl Hct 37.3 (35.5-45.6) % MCV 95 H (84-94) fl MCH 33 H (28-32) pg MCHC 35 H (32-34) % RDW 14.0 (13.2-15.2) % Plt Count 232 (140-440) K/mm3 Lymph % (Auto) 23.7 (13.4-35.0) % Lynn % (Auto) 10.7 H (0.0-7.3) % Eos % (Auto) 5.6 H (0.0-4.3) % Baso % (Auto) 0.7 (0.0-1.8) % Lymph # (Auto) 1.3 (1.2-5.4) K/mm3 Lynn # (Auto) 0.6 (0.0-0.8) K/mm3 Eos # (Auto) 0.3 (0.0-0.4) K/mm3 Baso # (Auto) 0.0 (0.0-0.1) K/mm3 Seg Neutrophils % 59.3 (40.0-70.0) % Seg Neutrophils # 3.3 (1.8-7.7) K/mm3 Sodium (137-145) mmol/L Potassium (3.6-5.0) mmol/L Chloride (98-107) mmol/L Carbon Dioxide (22-30) mmol/L Anion Gap mmol/L BUN (9-20) mg/dL Creatinine (0.8-1.3) mg/dL Estimated GFR ml/min BUN/Creatinine Ratio % Glucose (75-100) mg/dL Calcium (8.4-10.2) mg/dL Urine Color Yellow (Yellow) Urine Turbidity Clear (Clear) Urine pH 7.0 (5.0-7.0) Ur Specific Almond 1.018 (1.003-1.030) Urine Protein 30 mg/dl (Negative) mg/dL Urine Glucose (UA) Neg (Negative) mg/dL Urine Ketones Neg (Negative) mg/dL Urine Blood Neg (Negative) Urine Nitrite Neg (Negative) Urine Bilirubin Neg (Negative) Urine Urobilinogen 4.0 (<2.0) mg/dL Ur Leukocyte Esterase Neg (Negative) Urine WBC (Auto) 1.0 (0.0-6.0) /HPF Urine RBC (Auto) 1.0 (0.0-6.0) /HPF U Epithel Cells (Auto) 1.0 (0-13.0) /HPF Urine Mucus Few /HPF Salicylates (2.8-20.0) mg/dL Urine Opiates Screen Negative Urine Methadone Screen Negative Acetaminophen (10.0-30.0) ug/mL Ur Barbiturates Screen Negative Ur Phencyclidine Scrn Negative Ur Amphetamines Screen Negative U Benzodiazepines Scrn Negative Urine Cocaine Screen Negative U Marijuana (THC) Screen Negative Drugs of Abuse Note Disclamer Plasma/Serum Alcohol (0-0.07) % 11/05/20 11/05/20 11/05/20 Range/Units 16:34 16:34 16:34 WBC (4.5-11.0) K/mm3 RBC (3.65-5.03) M/mm3 Hgb (11.8-15.2) gm/dl Hct (35.5-45.6) % MCV (84-94) fl MCH (28-32) pg MCHC (32-34) % RDW (13.2-15.2) % Plt Count (140-440) K/mm3 Lymph % (Auto) (13.4-35.0) % Lynn % (Auto) (0.0-7.3) % Eos % (Auto) (0.0-4.3) % Baso % (Auto) (0.0-1.8) % Lymph # (Auto) (1.2-5.4) K/mm3 Lynn # (Auto) (0.0-0.8) K/mm3 Eos # (Auto) (0.0-0.4) K/mm3 Baso # (Auto) (0.0-0.1) K/mm3 Seg Neutrophils % (40.0-70.0) % Seg Neutrophils # (1.8-7.7) K/mm3 Sodium 139 (137-145) mmol/L Potassium 3.9 (3.6-5.0) mmol/L Chloride 105.3 (98-107) mmol/L Carbon Dioxide 23 (22-30) mmol/L Anion Gap 15 mmol/L BUN 14 (9-20) mg/dL Creatinine 1.1 (0.8-1.3) mg/dL Estimated GFR > 60 ml/min BUN/Creatinine Ratio 13 % Glucose 104 H (75-100) mg/dL Calcium 8.9 (8.4-10.2) mg/dL Urine Color (Yellow) Urine Turbidity (Clear) Urine pH (5.0-7.0) Ur Specific Almond (1.003-1.030) Urine Protein (Negative) mg/dL Urine Glucose (UA) (Negative) mg/dL Urine Ketones (Negative) mg/dL Urine Blood (Negative) Urine Nitrite (Negative) Urine Bilirubin (Negative) Urine Urobilinogen (<2.0) mg/dL Ur Leukocyte Esterase (Negative) Urine WBC (Auto) (0.0-6.0) /HPF Urine RBC (Auto) (0.0-6.0) /HPF U Epithel Cells (Auto) (0-13.0) /HPF Urine Mucus /HPF Salicylates < 0.3 L (2.8-20.0) mg/dL Urine Opiates Screen Urine Methadone Screen Acetaminophen 5.0 L (10.0-30.0) ug/mL Ur Barbiturates Screen Ur Phencyclidine Scrn Ur Amphetamines Screen U Benzodiazepines Scrn Urine Cocaine Screen U Marijuana (THC) Screen Drugs of Abuse Note Plasma/Serum Alcohol (0-0.07) % 11/05/20 Range/Units 16:34 WBC (4.5-11.0) K/mm3 RBC (3.65-5.03) M/mm3 Hgb (11.8-15.2) gm/dl Hct (35.5-45.6) % MCV (84-94) fl MCH (28-32) pg MCHC (32-34) % RDW (13.2-15.2) % Plt Count (140-440) K/mm3 Lymph % (Auto) (13.4-35.0) % Lynn % (Auto) (0.0-7.3) % Eos % (Auto) (0.0-4.3) % Baso % (Auto) (0.0-1.8) % Lymph # (Auto) (1.2-5.4) K/mm3 Lynn # (Auto) (0.0-0.8) K/mm3 Eos # (Auto) (0.0-0.4) K/mm3 Baso # (Auto) (0.0-0.1) K/mm3 Seg Neutrophils % (40.0-70.0) % Seg Neutrophils # (1.8-7.7) K/mm3 Sodium (137-145) mmol/L Potassium (3.6-5.0) mmol/L Chloride (98-107) mmol/L Carbon Dioxide (22-30) mmol/L Anion Gap mmol/L BUN (9-20) mg/dL Creatinine (0.8-1.3) mg/dL Estimated GFR ml/min BUN/Creatinine Ratio % Glucose (75-100) mg/dL Calcium (8.4-10.2) mg/dL Urine Color (Yellow) Urine Turbidity (Clear) Urine pH (5.0-7.0) Ur Specific Almond (1.003-1.030) Urine Protein (Negative) mg/dL Urine Glucose (UA) (Negative) mg/dL Urine Ketones (Negative) mg/dL Urine Blood (Negative) Urine Nitrite (Negative) Urine Bilirubin (Negative) Urine Urobilinogen (<2.0) mg/dL Ur Leukocyte Esterase (Negative) Urine WBC (Auto) (0.0-6.0) /HPF Urine RBC (Auto) (0.0-6.0) /HPF U Epithel Cells (Auto) (0-13.0) /HPF Urine Mucus /HPF Salicylates (2.8-20.0) mg/dL Urine Opiates Screen Urine Methadone Screen Acetaminophen (10.0-30.0) ug/mL Ur Barbiturates Screen Ur Phencyclidine Scrn Ur Amphetamines Screen U Benzodiazepines Scrn Urine Cocaine Screen U Marijuana (THC) Screen Drugs of Abuse Note Plasma/Serum Alcohol < 0.01 (0-0.07) % - Medical Decision Making 50-year-old male with history of CHF, HANSA, and schizophrenia presents complaining of auditory and visual hallucinations. The patient states that he has been unable to afford his psychiatric medications and has been off of them for an unknown amount of time. He denies command auditory hallucinations and denies SI/HI. He is afebrile and with normal vitals other than heart rate charted in the 90s although when I examined the patient and listen to his heart he was not tachycardic. Physical examination is grossly within normal limits. We will send set of medical clearance labs and have the patient evaluated by the mental health die sinker/psychiatry team. Labs have resulted and reveal no significant leukocytosis or anemia. Creatinine is within normal range and there are no significant electrolyte abnormalities. He is medically cleared for psychiatric treatment and placement if necessary. The patient was seen by the mental health die sinker who recommended that the patient be discharge and given instructions to go to the [facility] tomorrow to get his risperidone. When I spoke to the patient he told me that he gets paid tomorrow on Friday and will be able to afford his medications. He says he has gone to the [facility] several times to get his medications before. I will prescribe him 1 week worth of his risperidone and discussed with him the fact that he needs to go to the behavioral health clinic to get more of his medication. The patient does not meet criteria for 1013 at this time. The patient expressed understanding and agreement with the plan of care. Critical care attestation.: If time is entered above; I have spent that time in minutes in the direct care of this critically ill patient, excluding procedure time. ED Disposition Clinical Impression: Schizophrenia, Auditory hallucinations, Hallucination, visual Disposition: 01 HOME / SELF CARE / HOMELESS Is pt being admited?: No Condition: Stable Instructions: Schizophrenia, Managing Schizophrenia Additional Instructions: You have been prescribed 1 weeks worth of your risperidone. However, you will need to go to the [facility] to get further prescription for your medication. Return to the emergency department should you develop significantly worsening symptoms, thoughts of hurting yourself or others, or any other new health concerns. You may use the following outpatient resources. Professional and Agency Contacts To help [facility](07/10) [place] Crisis Line: Suicide Prevention Line: Crisis Text Line: Text START to 139961 Emergency: 911 Outpatient COMMUNITY Behavioral Health Resources: [facility]: [facility] [address] [place], [place] [address] [facility] - [address] [address] [facility] - [address] [place] [id number] Friday thru Friday - 8am - 5pm [facility] Address: [address] [place] [address] [facility] Address: [address] [place] [address] Friday thru Friday- 7am-2pm [facility] Address: [address] [place] [address] Friday thrfriday: 8:30AM-5PM Prescriptions: risperiDONE [RisperDAL] 2 mg PO BID #14 tablet Referrals: [facility] [Provider Group] - 3-5 Days
[2020-11-05 16:32] VITALS: BP 144/76
[2020-11-05 17:21] LABS: Basophils % (Auto) 0.7 % (0.0-1.8); Eosinophils # (Auto) 0.3 K/mm3 (0.0-0.4); Eosinophils % (Auto) 5.6 % (0.0-4.3); Hematocrit 37.3 % (35.5-45.6); Lymphocytes # (Auto) 1.3 K/mm3 (1.2-5.4); Lymphocytes % (Auto) 23.7 % (13.4-35.0); Mean Corpuscular HGB Conc 35 % (32-34); Mean Corpuscular Volume 95 fl (84-94); Monocytes # (Auto) 0.6 K/mm3 (0.0-0.8); Monocytes % (Auto) 10.7 % (0.0-7.3); Platelet Count 232 K/mm3 (140-440); Red Blood Count 3.95 M/mm3 (3.65-5.03)
[2020-11-05 17:31] LABS: BUN/Creatinine Ratio 13; Blood Urea Nitrogen 14 mg/dL (9-20); Calcium 8.9 mg/dL (8.4-10.2); Hemolysis Index 4
== END 2020-11-05 18:20 | disposition home or self-care (01) ==
LOC: ED 14:14
DX: F25.9 Schizoaffective disorder, unspecified (principal); Z79.899 Other long term (current) drug therapy; Z91.012 Allergy to eggs
CPT/HCPCS: 36415; 80048; 80307; 80320; 81001; 85025; G0480

== ENCOUNTER 2020-11-08 00:49 | Emergency (ER) | payer SELFPAY | END 2020-11-08 02:00 | disposition left against medical advice (07) | LOC: ED 00:49 | DX: Z00.00 Encounter for general adult medical examination without abnormal findings (principal); Z53.21 Procedure and treatment not carried out due to patient leaving prior to being seen by health care provider ==

== ENCOUNTER 2020-11-08 23:00 | Emergency (ER) | payer SELFPAY ==
[2020-11-09 01:34] VITALS: BP 152/98
== END 2020-11-09 05:15 | disposition left against medical advice (07) ==
LOC: ED 23:00
DX: F20.9 Schizophrenia, unspecified (principal); Z53.21 Procedure and treatment not carried out due to patient leaving prior to being seen by health care provider

== ENCOUNTER 2020-11-13 02:48 | Emergency (ER) | payer OTHER ==
--- NOTE | 2020-11-13 09:44 | Emergency Department Report ---
HPI - General Chief Complaint: Psych Time Seen by Provider: 11/13/20 09:26 - HPI HPI: Room 12 The patient is a 50-year-old male present with a chief complaint of auditory hallucinations. Patient has history of schizophrenia states for the past 2 weeks she has had auditory hallucinations. When asked what the voices are saying the patient does not respond. The patient acknowledges the voices are not saying anything in particular. Patient denies suicidal homicidal ideation ED Past Medical Hx - Past Medical History Hx Congestive Heart Failure: Yes Hx Arthritis: No Hx Psychiatric Treatment: Yes (schizophrenia) Additional medical history: schizophrenia - Surgical History Past Surgical History?: No Additional Surgical History: y - Family History Family history: no significant - Social History Smoking Status: Current Every Day Smoker (1 pack/day) Substance Use Type: None (Denies illicit drug use), Alcohol (Occasional) - Medications Home Medications: Home Medications Medication Instructions Recorded Confirmed Last Taken Type amLODIPine 10 mg PO DAILY #30 tab 09/03/20 10/25/20 Unknown Rx risperiDONE [RisperDAL] 2 mg PO BID #60 tablet 09/03/20 10/25/20 Unknown Rx risperiDONE [RisperDAL] 2 mg PO BID #14 tablet 11/05/20 Unknown Rx ED Review of Systems ROS: Stated complaint: MH EVAL Other details as noted in HPI Constitutional: no symptoms reported Eyes: denies: eye pain ENT: denies: throat pain Respiratory: no symptoms reported Cardiovascular: denies: chest pain Endocrine: no symptoms reported Gastrointestinal: denies: abdominal pain Genitourinary: denies: dysuria Musculoskeletal: denies: back pain Neurological: denies: headache Psychiatric: auditory hallucinations. denies: homicidal thoughts, suicidal thoughts Physical Exam - Physical Exam Vital Signs: Vital Signs 11/13/20 03:45 Temperature 98.9 F Pulse Rate 86 Respiratory 16 Rate Blood Pressure 147/81 [Left] O2 Sat by Pulse 98 Oximetry Physical Exam: GENERAL: The patient is well-developed well-nourished male lying on chair not appearing to be in acute distress. [] HEENT: Normocephalic. Atraumatic. Extraocular motions are intact. Patient has moist mucous membranes. NECK: Supple. Trachea midline CHEST/LUNGS: Clear to auscultation. There is no respiratory distress noted. HEART/CARDIOVASCULAR: Regular. There is no tachycardia. There is no gallop rub or murmur. ABDOMEN: Abdomen is soft, nontender. Patient has normal bowel sounds. There is no abdominal distention. SKIN: There is no rash. There is no edema. There is no diaphoresis. NEURO: The patient is awake, alert, and oriented. The patient is cooperative. The patient has no focal neurologic deficits. The patient has normal speech. GCS 15 MUSCULOSKELETAL: There is no evidence of acute injury. ED Course Vital Signs 11/13/20 03:45 Temperature 98.9 F Pulse Rate 86 Respiratory 16 Rate Blood Pressure 147/81 [Left] O2 Sat by Pulse 98 Oximetry ED Medical Decision Making - Lab Data Result diagrams: 11/13/20 10:00 11/13/20 10:00 Laboratory Tests 11/13/20 11/13/20 11/13/20 10:00 10:00 10:00 WBC 4.8 RBC 3.71 Hgb 12.0 Hct 34.5 L MCV 93 MCH 32 MCHC 35 H RDW 13.8 Plt Count 242 Lymph % (Auto) 22.4 Story % (Auto) 9.9 H Eos % (Auto) 6.1 H Baso % (Auto) 1.0 Lymph # (Auto) 1.1 L Story # (Auto) 0.5 Eos # (Auto) 0.3 Baso # (Auto) 0.0 Seg Neutrophils % 60.6 Seg Neutrophils # 2.9 Sodium 137 Potassium 3.3 L Chloride 103.8 Carbon Dioxide 27 Anion Gap 10 BUN 7 L Creatinine 0.9 Estimated GFR > 60 BUN/Creatinine Ratio 8 Glucose 96 Calcium 9.2 Salicylates < 0.3 L Acetaminophen 11/13/20 10:00 WBC RBC Hgb Hct MCV MCH MCHC RDW Plt Count Lymph % (Auto) Story % (Auto) Eos % (Auto) Baso % (Auto) Lymph # (Auto) Story # (Auto) Eos # (Auto) Baso # (Auto) Seg Neutrophils % Seg Neutrophils # Sodium Potassium Chloride Carbon Dioxide Anion Gap BUN Creatinine Estimated GFR BUN/Creatinine Ratio Glucose Calcium Salicylates Acetaminophen 5.0 L - Differential Diagnosis Schizophrenia Critical care attestation.: If time is entered above; I have spent that time in minutes in the direct care of this critically ill patient, excluding procedure time. ED Disposition Clinical Impression: Schizophrenia, Auditory hallucinations Disposition: HOME / SELF CARE / HOMELESS Is pt being admited?: No Does the pt Need Aspirin: No Condition: Stable Instructions: Schizophrenia Additional Instructions: Professional and Agency Contacts To help [facility](07/10) [place] Crisis Line: Suicide Prevention Line: Crisis Text Line: Text START to 973585 Emergency: 911 Outpatient COMMUNITY Behavioral Health Resources: DEKALB: [facility] [address] [place], [place] [address] [facility] [address] [place] [address] [facility] [address] [place] [address] Friday thru Friday - 8am - 5pm [facility] Address: [address] [place] [address] [facility] Address: [address] [place] [address] Friday thru Friday- 7am-2pm [facility] Address: [address] [place] [address] Friday thru Friday: 8:30AM-5PM Referrals: PRIMARY CAREMD [Primary Care Provider] - 3-5 Days [facility] [Outside] - 3-5 Days Time of Disposition: 12:59
[2020-11-13 10:59] LABS: Eosinophils # (Auto) 0.3 K/mm3 (0.0-0.4); Eosinophils % (Auto) 6.1 % (0.0-4.3); Hematocrit 34.5 % (35.5-45.6); Lymphocytes # (Auto) 1.1 K/mm3 (1.2-5.4); Lymphocytes % (Auto) 22.4 % (13.4-35.0); Mean Corpuscular HGB Conc 35 % (32-34); Mean Corpuscular Volume 93 fl (84-94); Monocytes # (Auto) 0.5 K/mm3 (0.0-0.8); Monocytes % (Auto) 9.9 % (0.0-7.3); Platelet Count 242 K/mm3 (140-440); Red Blood Count 3.71 M/mm3 (3.65-5.03); Red Cell Distribution Width 13.8 % (13.2-15.2)
--- NOTE | 2020-11-13 11:05 | Consultation ---
History of Present Illness - Reason for Consult Consult date: 11/13/20 Reason for consult: MHE - History of Present Psychiatric Illness Per ER Note: The patient is a 50-year-old male present with a chief complaint of auditory hallucinations. Patient has history of schizophrenia states for the past 2 weeks she has had auditory hallucinations. When asked what the voices are saying the patient does not respond. The patient acknowledges the voices are not saying anything in particular. Patient denies suicidal homicidal ideation Adiel Seaman was evaluated today. He is sleeping. He arouses but drifts back off during evaluation. He asks me if I can come back later to talk with him. The patient says "I'm very tired, feels dizzy and hurting." He says he came to the ER for "schizoprenia." He says he's "been off of his meds because he can't afford them." He says "my check hasn't hit the bank yet." He denies SI/HI. He states he hears voices. When asking the patient how long has he been hearing the voices he says "for a long time." Psych History Diagnoses: schizophrenia Suicide attempts or Self-harm behavior: Denies Prior psychiatric hospitalizations: Yes Substance Abuse history: Denies Previous psychiatric medications tried: Risperidone Outpatient treatment: Denies PAST MEDICAL HISTORY: none reported Family Psychiatric History: None reported or documented SOCIAL HISTORY Marital Status: Single Living Arrangements: Homeless Employment Status: Disabled Access to guns/weapons: Denies Education: college History of Abuse: none reported Legal History: none reported REVIEW OF SYSTEMS Constitutional: Negative for weight loss ENT: Negative for stridor Respiratory: Negative for cough or hemoptysis All other systems reviewed and are negative MENTAL STATUS EXAMINATION General Appearance and Behavior: Age appropriate, good hygiene, wearing appropriate clothes, sleeping, cooperative Cooperation: Participating but drowsy Psychomotor Behavior: unremarkable and within normal limits Mood: tired, hurting Affect and affective range: congruent with mood Thought Process: goal directed Thought Content: hallucinations Speech: Normal volume, Regular rate and rhythm, Suicidal Ideation: Denies Homicidal Ideation: Denies Hallucinations: Denies Delusions: None elicited Impulse Control: Unimpaired Insight and Judgment: Limited insight and judgment, Memory: Normal, Attention: Normal Orientation: Alert, oriented Assessment and Plan (1) Hx of Szhizophrenia (2) Noncompliance with medical regimen and other treatments Treatment Plan Continue previously prescribed medications The patient to comply with previously prescribed medications Risks, benefits and alternatives of medications discussed with the patient, questions answered and consent obtained from patient. PSYCHOTHERAPY: Supportive psychotherapy provided MEDICAL: Per primary team DELIRIUM PRECAUTIONS: Please re-orient patient frequently, keep lights on during the day, and minimize benzodiazepines and opiates as these medications could worsen patient's confusion. WATERWORKS SUPERVISOR: Defer to primary DISPOSITION: Do not recommend acute psychiatric inpatient treatment. The patient needs to follow up and comply with medical regimen The treasury management sales consultant to give the patient outpatient resources Will sign off Thank you for the consult. Please contact with any questions and/or concerns. Case staffed with Dr. De La Garza Medications and Allergies Allergies Allergy/AdvReac Type Severity Reaction Status Date / Time egg Allergy Unknown Verified 11/09/20 01:34 mayonnaise Allergy Unknown Verified 11/09/20 01:34 Home Medications Medication Instructions Recorded Confirmed Last Taken Type amLODIPine 10 mg PO DAILY #30 tab 09/03/20 10/25/20 Unknown Rx risperiDONE [RisperDAL] 2 mg PO BID #60 tablet 09/03/20 10/25/20 Unknown Rx risperiDONE [RisperDAL] 2 mg PO BID #14 tablet 11/05/20 Unknown Rx Mental Status Exam - Vital signs Last Vital Signs Temp 98.9 F 11/13/20 03:45 Pulse 86 11/13/20 03:45 Resp 16 11/13/20 03:45 BP 147/81 11/13/20 03:45 Pulse Ox 98 11/13/20 03:45 Results Result Diagrams: 11/13/20 10:00 Abnormal lab results 11/13/20 Range/Units 10:00 Hct 34.5 L (35.5-45.6) % MCHC 35 H (32-34) % [place]ickman % (Auto) 9.9 H (0.0-7.3) % Eos % (Auto) 6.1 H (0.0-4.3) % Lymph # (Auto) 1.1 L (1.2-5.4) K/mm3 All other labs normal.
[2020-11-13 11:18] LABS: BUN/Creatinine Ratio 8; Blood Urea Nitrogen 7 mg/dL (9-20); Calcium 9.2 mg/dL (8.4-10.2); Hemolysis Index 4
[2020-11-13] MEDS ORDERED: POTASSIUM CHLORIDE ER 20 MEQ TAB PO ONE (11:27)
[2020-11-13 13:27] VITALS: BP 135/89
== END 2020-11-13 13:48 | disposition home or self-care (01) ==
LOC: ED 02:48
DX: F25.9 Schizoaffective disorder, unspecified (principal); I50.9 Heart failure, unspecified; F17.200 Nicotine dependence, unspecified, uncomplicated; Z79.899 Other long term (current) drug therapy; Z91.012 Allergy to eggs; Z91.018 Allergy to other foods
CPT/HCPCS: 36415; 80048; 80320; 85025; G0480

== ENCOUNTER 2020-12-01 01:27 | Emergency (ER) | payer SELFPAY ==
[2020-12-01 01:49] VITALS: BP 150/95
--- NOTE | 2020-12-01 02:32 | Emergency Department Report ---
<NIKKI VALLADARES III - Last Filed: 12/01/20 04:21> ED Psych HPI - General Chief Complaint: Psych Stated Complaint: SCIZOPHRENIA Time Seen by Provider: 12/01/20 02:06 Source: patient Mode of arrival: Ambulatory - History of Present Illness Initial Comments: Patient is a 50-year-old male who presents emergency room with complaints of audiovisual hallucinations. Patient states he like to be checked out for his mental health disorder. Patient states he has history of schizophrenia. Patient states he is not taking his medications. Patient denies suicidal homicidal ideations. Patient states he is not feeling well. Patient denies chest pain. Patient denies physical complaints. Patient states he is not vaccinated against COVID-19. Patient denies recent travel. Patient denies recent international travel. Patient denies exposure to the novel coronavirus. Patient denies sick contacts. Patient denies fever and chills. Patient denies cough. Patient denies diarrhea. Patient denies coming in contact with anybody with symptoms of the n ovel coronavirus. MD Complaint: other -: Sudden Associated Psychiatric Symptoms: racing thoughts, auditory hallucinations, visual hallucinations History of same: Yes Quality: constant Improves With: none Worsens With: none Context: not taking psychiatric Associated Symptoms: denies other symptoms. denies: confusion, headache, shortness of breath, nausea, vomiting, syncope, insomnia - Related Data Previous Rx's Medication Instructions Recorded Last Taken Type amLODIPine 10 mg PO DAILY #30 tab 09/03/20 Unknown Rx risperiDONE [RisperDAL] 2 mg PO BID #60 tablet 09/03/20 Unknown Rx risperiDONE [RisperDAL] 2 mg PO BID #14 tablet 11/05/20 Unknown Rx risperiDONE [RisperDAL] 1 mg PO BID 30 Days #60 tablet 12/01/20 Unknown Rx Allergies Allergy/AdvReac Type Severity Reaction Status Date / Time egg Allergy Unknown Verified 11/09/20 01:34 mayonnaise Allergy Unknown Verified 11/09/20 01:34 ED Review of Systems Constitutional: denies: chills, fever Eyes: denies: eye pain, eye discharge, vision change ENT: denies: ear pain, throat pain Respiratory: denies: cough, shortness of breath, wheezing Cardiovascular: denies: chest pain, palpitations Endocrine: no symptoms reported Gastrointestinal: denies: abdominal pain, nausea, diarrhea Genitourinary: denies: urgency, dysuria Musculoskeletal: denies: back pain, joint swelling, arthralgia Skin: denies: rash, lesions Neurological: denies: headache, weakness, paresthesias Psychiatric: auditory hallucinations, visual hallucinations. denies: anxiety, depression, homicidal thoughts, suicidal thoughts Hematological/Lymphatic: denies: easy bleeding, easy bruising ED Past Medical Hx - Past Medical History Previous Medical History?: Yes Hx Congestive Heart Failure: Yes Hx Arthritis: No Hx Psychiatric Treatment: Yes (schizophrenia) Additional medical history: schizophrenia - Surgical History Past Surgical History?: No Additional Surgical History: y - Family History Family history: no significant - Social History Smoking Status: Current Every Day Smoker (1 pack/day) Substance Use Type: None (Denies illicit drug use), Alcohol (Occasional) - Medications Home Medications: Home Medications Medication Instructions Recorded Confirmed Last Taken Type amLODIPine 10 mg PO DAILY #30 tab 09/03/20 10/25/20 Unknown Rx risperiDONE [RisperDAL] 2 mg PO BID #60 tablet 09/03/20 10/25/20 Unknown Rx risperiDONE [RisperDAL] 2 mg PO BID #14 tablet 11/05/20 Unknown Rx risperiDONE [RisperDAL] 1 mg PO BID 30 Days #60 tablet 12/01/20 Unknown Rx ED Physical Exam - General Limitations: No Limitations General appearance: alert, in no apparent distress - Head Head exam: Present: atraumatic, normocephalic - Eye Eye exam: Present: normal appearance - ENT ENT exam: Present: mucous membranes moist - Neck Neck exam: Present: normal inspection - Respiratory Respiratory exam: Present: normal lung sounds bilaterally. Absent: respiratory distress - Cardiovascular Cardiovascular Exam: Present: regular rate, normal rhythm. Absent: systolic murmur, diastolic murmur, rubs, gallop - GI/Abdominal GI/Abdominal exam: Present: soft, normal bowel sounds - Rectal Rectal exam: Present: deferred - Extremities Exam Extremities exam: Present: normal inspection - Back Exam Back exam: Present: normal inspection - Neurological Exam Neurological exam: Present: alert, oriented X3 - Psychiatric Psychiatric exam: Present: flat affect - Skin Skin exam: Present: warm, dry, intact, normal color. Absent: rash ED Course - Reevaluation(s) Reevaluation #1: Patient is medically cleared. Patient will remain in the ER until as an ER hold until the patient is cleared by psychiatry team. Patient's final disposition will come from our psychiatry team. 12/01/20 04:22 ED Medical Decision Making - Lab Data Result diagrams: 12/01/20 02:57 12/01/20 02:57 - Medical Decision Making Patient is a 50-year-old male who presents emergency room for hallucinations and needing a mental health evaluation. Patient states he is currently off his medications. Patient denies suicidal homicidal ideation. Patient had labs done which were essentially unremarkable. Patient is medically cleared. Patient remained in the ER as an ER hold until the patient is evaluated by our psychiatry mental health team. Patient final disposition and clearance will come from our psychiatry and mental health team. - Differential Diagnosis Hallucinations, acute psychosis, noncompliance. ED Disposition Clinical Impression: Schizophrenia Disposition: 01 HOME / SELF CARE / HOMELESS Is pt being admited?: No Does the pt Need Aspirin: No Condition: Stable Additional Instructions: OUTPATIENT MENTAL HEALTH RESOURCES [facility], [facility] Carla Givens MD: [address] [facility] [address] [place] [address] [place] [address] [facility]: [employer] [address] [place] [address] [place] [address] [phone] [facility]: [address] [place] [address] [address] [place] [address] [address] [place] [address] [facility] [id number] [facility]: Boris Greene MD: [address] [facility] [address] [facility] [id number] [facility]: [address] [facility] [place], [place] [id number] [phone] CRISIS AND ACCESS LINE: Prescriptions: risperiDONE [RisperDAL] 1 mg PO BID 30 Days #60 tablet Referrals: PRIMARY CARE, [Primary Care Provider] - 3-5 Days Time of Disposition: 04:24 <AGUSTINA GOMES - Last Filed: 12/01/20 14:42> ED Review of Systems ROS: Stated complaint: SCIZOPHRENIA Other details as noted in HPI ED Course Vital Signs 12/01/20 12/01/20 01:47 03:33 Temperature 97.4 F L Pulse Rate 74 Respiratory 18 Rate Blood Pressure 150/95 [Right] O2 Sat by Pulse 99 99 Oximetry ED Medical Decision Making - Lab Data Result diagrams: 12/01/20 02:57 12/01/20 02:57 - Medical Decision Making Patient cleared for psychiatric care. I provided discharge documentation disposition. Critical care attestation.: If time is entered above; I have spent that time in minutes in the direct care of this critically ill patient, excluding procedure time.
[2020-12-01 03:20] LABS: Basophils # (Auto) 0.1 K/mm3 (0.0-0.1); Basophils % (Auto) 1.1 % (0.0-1.8); Eosinophils # (Auto) 0.4 K/mm3 (0.0-0.4); Eosinophils % (Auto) 5.3 % (0.0-4.3); Hematocrit 34.9 % (35.5-45.6); Hemoglobin 12.3 gm/dl (11.8-15.2); Lymphocytes # (Auto) 1.2 K/mm3 (1.2-5.4); Lymphocytes % (Auto) 18.3 % (13.4-35.0); Mean Corpuscular HGB Conc 35 % (32-34); Mean Corpuscular Volume 94 fl (84-94); Monocytes # (Auto) 0.5 K/mm3 (0.0-0.8); Monocytes % (Auto) 7.9 % (0.0-7.3); Platelet Count 215 K/mm3 (140-440); Red Blood Count 3.71 M/mm3 (3.65-5.03); Red Cell Distribution Width 14.1 % (13.2-15.2)
[2020-12-01 03:33] LABS: BUN/Creatinine Ratio 9; Blood Urea Nitrogen 9 mg/dL (9-20); Calcium 8.7 mg/dL (8.4-10.2); Hemolysis Index 2
--- NOTE | 2020-12-01 10:15 | Consultation ---
History of Present Illness - Reason for Consult Consult date: 12/01/20 Reason for consult: hallucinations - History of Present Psychiatric Illness Per ED Note: Patient is a 50-year-old male who presents emergency room with complaints of audiovisual hallucinations. Patient states he like to be checked out for his mental health disorder. Patient states he has history of schizophrenia. Patient states he is not taking his medications. Patient denies suicidal homicidal ideations. Patient states he is not feeling well. Patient denies chest pain. Patient denies physical complaints. Patient states he is not vaccinated against COVID-19. Adiel Seaman is a 50 year old male with history of schizophrenia and noncompliant with psychotropic medications who presents to the ED with complaints of audiovisual hallucinations. In my interview with the patient, he reports hearing voices stating " they are arguing with me about how i"m living my life." The patient denies any current suicidal/homicidal ideation. Psych History Diagnoses: schizophrenia Suicide attempts or Self-harm behavior: Denies Prior psychiatric hospitalizations: Yes Substance Abuse history: Denies Previous psychiatric medications tried: Risperidone Outpatient treatment: Denies PAST MEDICAL HISTORY: none reported Family Psychiatric History: None reported or documented SOCIAL HISTORY Marital Status: Single Living Arrangements: Homeless Employment Status: Disabled Access to guns/weapons: Denies Education: college History of Abuse: none reported Legal History: none reported REVIEW OF SYSTEMS Constitutional: Negative for weight loss ENT: Negative for stridor Respiratory: Negative for cough or hemoptysis All other systems reviewed and are negative MENTAL STATUS EXAMINATION General Appearance and Behavior: Age appropriate, good hygiene, wearing appropriate clothes, sleeping, cooperative Cooperation: Participating but drowsy Psychomotor Behavior: unremarkable and within normal limits Mood: ok Affect and affective range: congruent with mood Thought Process: goal directed Thought Content: hallucinations Speech: Normal volume, Regular rate and rhythm, Suicidal Ideation: Denies Homicidal Ideation: Denies Hallucinations: Denies Delusions: None elicited Impulse Control: Unimpaired Insight and Judgment: Limited insight and judgment, Memory: Normal, Attention: Normal Orientation: Alert, oriented Assessment and Plan (1) Hx of Szhizophrenia (2) Noncompliance with medical regimen and other treatments Start Risperidone 1mg po BID Treatment Plan Continue previously prescribed medications The patient to comply with previously prescribed medications Risks, benefits and alternatives of medications discussed with the patient, questions answered and consent obtained from patient. PSYCHOTHERAPY: Supportive psychotherapy provided MEDICAL: Per primary team DELIRIUM PRECAUTIONS: Please re-orient patient frequently, keep lights on during the day, and minimize benzodiazepines and opiates as these medications could worsen patient's confusion. BURGLAR ALARM OPERATOR: Defer to primary DISPOSITION: Do not recommend acute psychiatric inpatient treatment. The patient needs to follow up and comply with medical regimen The mica miner to give the patient outpatient resources Will sign off Thank you for the consult. Please contact with any questions and/or concerns. Case staffed with Dr. De La Garza Medications and Allergies Allergies Allergy/AdvReac Type Severity Reaction Status Date / Time egg Allergy Unknown Verified 11/09/20 01:34 mayonnaise Allergy Unknown Verified 11/09/20 01:34 Home Medications Medication Instructions Recorded Confirmed Last Taken Type amLODIPine 10 mg PO DAILY #30 tab 09/03/20 10/25/20 Unknown Rx risperiDONE [RisperDAL] 2 mg PO BID #60 tablet 09/03/20 10/25/20 Unknown Rx risperiDONE [RisperDAL] 2 mg PO BID #14 tablet 11/05/20 Unknown Rx risperiDONE [RisperDAL] 1 mg PO BID 30 Days #60 tablet 12/01/20 Unknown Rx Mental Status Exam - Vital signs Last Vital Signs Temp 97.4 F L 12/01/20 01:47 Pulse 74 12/01/20 01:47 Resp 18 12/01/20 01:47 BP 150/95 12/01/20 01:47 Pulse Ox 99 12/01/20 03:33 Results Result Diagrams: 12/01/20 02:57 12/01/20 02:57 Abnormal lab results 12/01/20 12/01/20 12/01/20 Range/Units 02:57 02:57 02:57 Hct 34.9 L (35.5-45.6) % MCH 33 H (28-32) pg MCHC 35 H (32-34) % [place] % (Auto) 7.9 H (0.0-7.3) % Eos % (Auto) 5.3 H (0.0-4.3) % Glucose 151 H (75-100) mg/dL Salicylates < 0.3 L (2.8-20.0) mg/dL Acetaminophen (10.0-30.0) ug/mL 12/01/20 Range/Units 02:57 Hct (35.5-45.6) % MCH (28-32) pg MCHC (32-34) % [place]rie % (Auto) (0.0-7.3) % Eos % (Auto) (0.0-4.3) % Glucose (75-100) mg/dL Salicylates (2.8-20.0) mg/dL Acetaminophen 5.0 L (10.0-30.0) ug/mL All other labs normal.
== END 2020-12-01 14:55 | disposition home or self-care (01) ==
LOC: ED 01:27
DX: F20.9 Schizophrenia, unspecified (principal); I50.9 Heart failure, unspecified; F17.200 Nicotine dependence, unspecified, uncomplicated; Z72.89 Other problems related to lifestyle; Z91.012 Allergy to eggs; Z88.8 Allergy status to other drugs, medicaments and biological substances; Z79.899 Other long term (current) drug therapy
CPT/HCPCS: 36415; 80048; 80320; 85025; 99284; G0480

== ENCOUNTER 2020-12-02 23:34 | Emergency (ER) | payer SELFPAY ==
[2020-12-03 01:44] LABS: Basophils # (Auto) 0.1 K/mm3 (0.0-0.1); Basophils % (Auto) 0.7 % (0.0-1.8); Eosinophils # (Auto) 0.4 K/mm3 (0.0-0.4); Eosinophils % (Auto) 5.3 % (0.0-4.3); Hematocrit 34.5 % (35.5-45.6); Hemoglobin 12.2 gm/dl (11.8-15.2); Lymphocytes # (Auto) 1.5 K/mm3 (1.2-5.4); Mean Corpuscular HGB Conc 36 % (32-34); Mean Corpuscular Volume 93 fl (84-94); Monocytes # (Auto) 0.6 K/mm3 (0.0-0.8); Monocytes % (Auto) 7.9 % (0.0-7.3); Platelet Count 269 K/mm3 (140-440); Red Cell Distribution Width 14.2 % (13.2-15.2)
[2020-12-03 01:55] LABS: Bilirubin,Urine NEG (Negative); Blood,Urine NEG (Negative); Color,Urine Yellow (Yellow); Mucus,Urine FEW /HPF
[2020-12-03 02:02] LABS: Amphetamine Screen,Urine Negative; Benzodiazepines Screen,Urine Negative; Cannabinoid Screen,Urine Negative; Cocaine Screen,Urine Negative; Methadone Screen,Urine Negative; Opiate Screen,Urine Negative
[2020-12-03 02:02] LABS: BUN/Creatinine Ratio 8; Blood Urea Nitrogen 8 mg/dL (9-20); Calcium 9.5 mg/dL (8.4-10.2); Hemolysis Index 6
[2020-12-03 03:20] VITALS: BP 138/86
--- NOTE | 2020-12-03 03:34 | Emergency Department Report ---
HPI - General Chief Complaint: Psych Time Seen by Provider: 12/03/20 02:45 - HPI HPI: This is a 50-year-old -Indian male presents to the emergency department for a mental health evaluation. The patient says that he has having auditory hallucinations, suicidal ideations and homicidal ideations. He has a history of schizophrenia for which he is supposed to be on Risperdal but says that he is not compliant with medication due to "I do not have the money." The suicidal and homicidal ideations are nonspecific and he does not have any particular plan. Patient has a medical history of CHF, cardiomyopathy, hypertension. He denies any illicit drug use or any alcohol intoxication. ED Past Medical Hx - Past Medical History Previous Medical History?: Yes Hx Congestive Heart Failure: Yes Hx Arthritis: No Hx Psychiatric Treatment: Yes (schizophrenia) Additional medical history: schizophrenia - Surgical History Past Surgical History?: No Additional Surgical History: y - Social History Smoking Status: Current Every Day Smoker Substance Use Type: None - Medications Home Medications: Home Medications Medication Instructions Recorded Confirmed Last Taken Type amLODIPine 10 mg PO DAILY #30 tab 09/03/20 10/25/20 Unknown Rx risperiDONE [RisperDAL] 2 mg PO BID #60 tablet 09/03/20 10/25/20 Unknown Rx risperiDONE [RisperDAL] 2 mg PO BID #14 tablet 11/05/20 Unknown Rx risperiDONE [RisperDAL] 1 mg PO BID 30 Days #60 tablet 12/01/20 Unknown Rx ED Review of Systems ROS: Stated complaint: MH Other details as noted in HPI Comment: All other systems reviewed and negative Constitutional: denies: chills, fever Eyes: denies: eye pain, vision change ENT: denies: ear pain, throat pain Respiratory: denies: cough, shortness of breath Cardiovascular: denies: chest pain, palpitations Gastrointestinal: denies: abdominal pain, vomiting Musculoskeletal: denies: back pain, arthralgia Skin: denies: rash, lesions Neurological: denies: headache, weakness Psychiatric: auditory hallucinations, homicidal thoughts, suicidal thoughts Physical Exam - Physical Exam Vital Signs: Vital Signs 12/03/20 12/03/20 01:08 03:12 Temperature 97.6 F 97.9 F Pulse Rate 86 82 Respiratory 18 18 Rate Blood Pressure 154/91 Blood Pressure 138/86 [Right] O2 Sat by Pulse 95 100 Oximetry Physical Exam: GENERAL: The patient is well-developed well-nourished. HENT: Normocephalic. Atraumatic. Patient has moist mucous membranes. EYES: Extraocular motions are intact. NECK: Supple. Trachea is midline. CHEST/LUNGS: Clear to auscultation. There is no respiratory distress noted. HEART/CARDIOVASCULAR: Regular. There is no tachycardia. There is no murmur. ABDOMEN: Abdomen is soft, nontender. Patient has normal bowel sounds. There is no abdominal distention. SKIN: Skin is warm and dry. NEURO: The patient is awake, alert, and oriented. The patient is cooperative. Normal speech. MUSCULOSKELETAL: There is no tenderness or deformity. There is no limitation range of motion. ED Course Vital Signs 12/03/20 12/03/20 01:08 03:12 Temperature 97.6 F 97.9 F Pulse Rate 86 82 Respiratory 18 18 Rate Blood Pressure 154/91 Blood Pressure 138/86 [Right] O2 Sat by Pulse 95 100 Oximetry ED Medical Decision Making - Lab Data Result diagrams: 12/03/20 01:21 12/03/20 01:21 - Medical Decision Making This patient presents to the emergency department with a complaint of auditory hallucinations that sound like command hallucinations, causing the patient to have suicidal ideations. The patient also complains of homicidal ideations. Both the SI and HI are nonspecific without a particular plan. The patient has a history of schizophrenia and admits to medication noncompliance due to finances. He has been placed on a ED hold and a 1013. Labs have been unremarkable including CBC, metabolic panel, blood alcohol level, urinalysis and UDS. Vital signs have been reassuring throughout his ED course thus far including being afebrile. The patient will be seen by the psychiatric team in the morning to assist with disposition. If the decide the patient does require inpatient stabilization, this patient is medically cleared for psychiatric placement. Critical Care Time: No Critical care attestation.: If time is entered above; I have spent that time in minutes in the direct care of this critically ill patient, excluding procedure time. ED Disposition Clinical Impression: Schizophrenia, Suicidal ideations, History of command hallucinations, Auditory hallucinations Disposition: 01 HOME / SELF CARE / HOMELESS Is pt being admited?: No Condition: Stable Instructions: Suicidal Feelings: How to Help Yourself, Schizophrenia, Managing Schizophrenia Additional Instructions: Continue to take your medications as prescribed and suggested by behavioral health. Drink plenty water. Return for problems or concerns. Follow-up with your regular doctor for recheck. Professional and Agency Contacts To help [facility](07/10) [place] Crisis Line: Suicide Prevention Line: Crisis Text Line: Text START to [phone] Emergency: 911 Outpatient COMMUNITY Behavioral Health Resources: [facility]: [facility] [address] [place], [place] [address] [place]: [facility] [address] [place] [address] [place]: [facility] - [address] [place] [id number] Friday thru Friday - 8am - 5pm [place]: [facility] Service Address: [address] [place] [address] [place]: [facility] Address: [address] [place] [address] Friday thru Friday- 7am-2pm [facility] Address: [address] [place] [address] Friday thru Friday: 8:30AM-5PM Referrals: PRIMARY CAREMD [Primary Care Provider] - 3-5 Days Time of Disposition: 05:01
--- NOTE | 2020-12-03 09:38 | Consultation ---
History of Present Illness - Reason for Consult Consult date: 12/03/20 Reason for consult: Mental health evaluation - History of Present Psychiatric Illness ED Note: This is a 50-year-old -[place]gent[place] male presents to the emergency department for a mental health evaluation. The patient says that he has having auditory hallucinations, suicidal ideations and homicidal ideations. He has a history of schizophrenia for which he is supposed to be on Risperdal but says that he is not compliant with medication due to "I do not have the money." The suicidal and homicidal ideations are nonspecific and he does not have any particular plan. Patient has a medical history of CHF, cardiomyopathy, hypertension. He denies any illicit drug use or any alcohol intoxication. Adiel Seaman is a 50 year old male with history of Schizophrenia and none compliant with psychotropic medications. The patient reports having non commanding auditory hallucinations and denies suicidal/homicidal ideation. The patient is homeless but states he gets a monthly check. Psych History Diagnoses: schizophrenia Suicide attempts or Self-harm behavior: Denies Prior psychiatric hospitalizations: Yes Substance Abuse history: Denies Previous psychiatric medications tried: Risperidone Outpatient treatment: Denies PAST MEDICAL HISTORY: none reported Family Psychiatric History: None reported or documented SOCIAL HISTORY Marital Status: Single Living Arrangements: Homeless Employment Status: Disabled Access to guns/weapons: Denies Education: college History of Abuse: none reported Legal History: none reported REVIEW OF SYSTEMS Constitutional: Negative for weight loss ENT: Negative for stridor Respiratory: Negative for cough or hemoptysis All other systems reviewed and are negative MENTAL STATUS EXAMINATION General Appearance and Behavior: Age appropriate, good hygiene, wearing ap propriate clothes, sleeping, cooperative Cooperation: Participating but drowsy Psychomotor Behavior: unremarkable and within normal limits Mood: ok Affect and affective range: congruent with mood Thought Process: goal directed Thought Content: hallucinations Speech: Normal volume, Regular rate and rhythm, Suicidal Ideation: Denies Homicidal Ideation: Denies Hallucinations: Denies Delusions: None elicited Impulse Control: Unimpaired Insight and Judgment: Limited insight and judgment, Memory: Normal, Attention: Normal Orientation: Alert, oriented Assessment and Plan (1) Hx of Szhizophrenia (2) Noncompliance with medical regimen and other treatments Start Risperidone 1 mg po BID Treatment Plan Continue previously prescribed medications The patient to comply with previously prescribed medications Risks, benefits and alternatives of medications discussed with the patient, questions answered and consent obtained from patient. PSYCHOTHERAPY: Supportive psychotherapy provided MEDICAL: Per primary team DELIRIUM PRECAUTIONS: Please re-orient patient frequently, keep lights on during the day, and minimize benzodiazepines and opiates as these medications could worsen patient's confusion. DEVULCANIZER OPERATOR: Defer to primary DISPOSITION: Do not recommend acute psychiatric inpatient treatment. The patient needs to follow up and comply with medical regimen The flooring installer to give the patient outpatient resources Will sign off Thank you for the consult. Please contact with any questions and/or concerns. Case staffed with Dr. De La Garza Medications and Allergies Medications and Allergies Allergies Allergy/AdvReac Type Severity Reaction Status Date / Time egg Allergy Unknown Verified 11/09/20 01:34 mayonnaise Allergy Unknown Verified 11/09/20 01:34 Home Medications Medication Instructions Recorded Confirmed Last Taken Type amLODIPine 10 mg PO DAILY #30 tab 09/03/20 10/25/20 Unknown Rx risperiDONE [RisperDAL] 2 mg PO BID #60 tablet 09/03/20 10/25/20 Unknown Rx risperiDONE [RisperDAL] 2 mg PO BID #14 tablet 11/05/20 Unknown Rx risperiDONE [RisperDAL] 1 mg PO BID 30 Days #60 tablet 12/01/20 Unknown Rx Mental Status Exam - Vital signs Last Vital Signs Temp 98.2 F 12/03/20 08:43 Pulse 82 12/03/20 08:43 Resp 18 12/03/20 08:43 BP 138/86 12/03/20 08:43 Pulse Ox 100 12/03/20 09:10 Results Result Diagrams: 12/03/20 01:21 12/03/20 01:21 Abnormal lab results 12/03/20 12/03/20 12/03/20 Range/Units 01:21 01:21 01:21 Hct (35.5-45.6) % MCH (28-32) pg MCHC (32-34) % Greer % (Auto) (0.0-7.3) % Eos % (Auto) (0.0-4.3) % Potassium 3.5 L (3.6-5.0) mmol/L BUN 8 L (9-20) mg/dL Glucose 118 H (75-100) mg/dL Salicylates < 0.3 L (2.8-20.0) mg/dL Acetaminophen 5.0 L (10.0-30.0) ug/mL 12/03/20 Range/Units 01:21 Hct 34.5 L (35.5-45.6) % MCH 33 H (28-32) pg MCHC 36 H (32-34) % Greer % (Auto) 7.9 H (0.0-7.3) % Eos % (Auto) 5.3 H (0.0-4.3) % Potassium (3.6-5.0) mmol/L BUN (9-20) mg/dL Glucose (75-100) mg/dL Salicylates (2.8-20.0) mg/dL Acetaminophen (10.0-30.0) ug/mL All other labs normal.
--- NOTE | 2020-12-03 10:01 | Emergency Department Report ---
Blank Doc - Documentation Documentation: Patient has been seen and cleared by psychiatric services. It was not felt that the patient represented an imminent threat. Patient was discharged as suggested.
== END 2020-12-03 12:06 | disposition home or self-care (01) ==
LOC: ED 23:34 → EEVIPCON 23:34 → ED 12-03 12:06
DX: F20.9 Schizophrenia, unspecified (principal); F17.210 Nicotine dependence, cigarettes, uncomplicated
CPT/HCPCS: 36415; 80048; 80307; 80320; 81001; 85025; 99284; G0480

== ENCOUNTER 2020-12-08 22:43 | Emergency (ER) | payer SELFPAY | END 2020-12-09 10:10 | disposition left against medical advice (07) | LOC: ED 22:43 | DX: F20.9 Schizophrenia, unspecified (principal); Z53.21 Procedure and treatment not carried out due to patient leaving prior to being seen by health care provider ==

== ENCOUNTER 2020-12-21 00:22 | Emergency (ER) | payer SELFPAY | END 2020-12-21 00:27 | disposition left against medical advice (07) | LOC: ED 00:22 | DX: Z00.8 Encounter for other general examination (principal); Z53.21 Procedure and treatment not carried out due to patient leaving prior to being seen by health care provider ==

== ENCOUNTER 2020-12-21 02:48 | Emergency (ER) | payer SELFPAY ==
[2020-12-21 02:59] VITALS: BP 121/96
--- NOTE | 2020-12-21 08:26 | Event Note ---
Date: 12/21/20 When I went to see the patient in his assigned room, room was empty and a mask was seen lying on the ground. The nurse and tech say that they believe the patient might have left to go to the store. I have asked that they alert me if they discover that the patient has not in fact eloped and the nurse agreed
== END 2020-12-21 08:15 | disposition left against medical advice (07) ==
LOC: ED 02:48
DX: R05.9 Cough, unspecified (principal); Z53.21 Procedure and treatment not carried out due to patient leaving prior to being seen by health care provider

== ENCOUNTER 2021-06-27 22:32 | Emergency (ER) | payer MEDICARE ==
[2021-06-28 01:24] LABS: Basophils # (Auto) 0.1 K/mm3 (0.0-0.1); Basophils % (Auto) 0.9 % (0.0-1.8); Eosinophils # (Auto) 0.4 K/mm3 (0.0-0.4); Eosinophils % (Auto) 5.3 % (0.0-4.3); Hematocrit 37.9 % (35.5-45.6); Hemoglobin 12.6 gm/dl (11.8-15.2); Lymphocytes # (Auto) 1.5 K/mm3 (1.2-5.4); Lymphocytes % (Auto) 20.2 % (13.4-35.0); Mean Corpuscular HGB Conc 33 % (32-34); Mean Corpuscular Volume 94 fl (84-94); Monocytes # (Auto) 0.7 K/mm3 (0.0-0.8); Monocytes % (Auto) 9.6 % (0.0-7.3); Platelet Count 265 K/mm3 (140-440); Red Blood Count 4.03 M/mm3 (3.65-5.03); Red Cell Distribution Width 14.5 % (13.2-15.2)
--- NOTE | 2021-06-28 01:34 | Emergency Department Report ---
<TODD KHOURYPola - Last Filed: 06/28/21 01:31> ED Psych HPI - General Chief Complaint: Psych Stated Complaint: MH/SCHIZOPHRENIA Time Seen by Provider: 06/28/21 00:12 Source: patient Mode of arrival: Ambulatory - History of Present Illness Initial Comments: Patient is a 50-year-old male with history of schizophrenia presenting to ED with complaint of auditory and visual hallucinations for the past several days. States the voices are arguing with him about his life decisions. States he also sees people fighting each other. He denies any SI or HI. Treatments Prior to Arrival: none - Related Data Previous Rx's Medication Instructions Recorded Last Taken Type amLODIPine 10 mg PO DAILY #30 tab 09/03/20 Unknown Rx risperiDONE [RisperDAL] 2 mg PO BID #60 tablet 09/03/20 Unknown Rx risperiDONE [RisperDAL] 2 mg PO BID #14 tablet 11/05/20 Unknown Rx risperiDONE [RisperDAL] 1 mg PO BID 30 Days #60 tablet 06/28/21 Unknown Rx Allergies Allergy/AdvReac Type Severity Reaction Status Date / Time egg Allergy Unknown Verified 11/09/20 01:34 mayonnaise Allergy Unknown Verified 11/09/20 01:34 ED Review of Systems Comment: All other systems reviewed and negative Constitutional: denies: chills, fever Respiratory: denies: cough, shortness of breath, wheezing Cardiovascular: denies: chest pain, palpitations Endocrine: no symptoms reported Gastrointestinal: denies: abdominal pain, nausea, diarrhea Genitourinary: denies: urgency, dysuria Musculoskeletal: denies: back pain, joint swelling, arthralgia Skin: denies: rash, lesions Neurological: denies: headache, weakness, paresthesias Psychiatric: auditory hallucinations, visual hallucinations Hematological/Lymphatic: denies: easy bleeding, easy bruising ED Past Medical Hx - Past Medical History Hx Congestive Heart Failure: Yes Hx Arthritis: No Hx Psychiatric Treatment: Yes (schizophrenia) Additional medical history: schizophrenia - Surgical History Additional Surgical History: y - Social History Smoking Status: Current Every Day Smoker Substance Use Type: None - Medications Home Medications: Home Medications Medication Instructions Recorded Confirmed Last Taken Type amLODIPine 10 mg PO DAILY #30 tab 09/03/20 10/25/20 Unknown Rx risperiDONE [RisperDAL] 2 mg PO BID #60 tablet 09/03/20 10/25/20 Unknown Rx risperiDONE [RisperDAL] 2 mg PO BID #14 tablet 11/05/20 Unknown Rx risperiDONE [RisperDAL] 1 mg PO BID 30 Days #60 tablet 06/28/21 Unknown Rx ED Physical Exam - General Limitations: No Limitations General appearance: alert, in no apparent distress - Head Head exam: Present: atraumatic, normocephalic - Eye Eye exam: Present: normal appearance, EOMI - Respiratory Respiratory exam: Present: normal lung sounds bilaterally. Absent: respiratory distress - Cardiovascular Cardiovascular Exam: Present: regular rate, normal rhythm. Absent: systolic murmur, diastolic murmur, rubs, gallop - GI/Abdominal GI/Abdominal exam: Present: soft, normal bowel sounds - Rectal Rectal exam: Present: deferred - Neurological Exam Neurological exam: Present: alert, oriented X3, CN II-XII intact - Psychiatric Psychiatric exam: Present: normal affect, normal mood - Skin Skin exam: Present: warm, dry, intact, normal color. Absent: rash ED Medical Decision Making - Lab Data Result diagrams: 06/28/21 01:07 ED Disposition Clinical Impression: Non compliance with medical treatment Schizophrenia Qualifiers: Schizophrenia type: unspecified Qualified Code(s): F20.9 - Schizophrenia, unspecified Disposition: 01 HOME / SELF CARE / HOMELESS Condition: Stable Instructions: Schizophrenia, Managing Schizophrenia Additional Instructions: OUTPATIENT MENTAL HEALTH RESOURCES [facility], [facility] Carla Givens MD: [address] [place] [address] [place], [place] [id number] [facility]: [facility] [address] [place] [address] [place] [address] [phone] [facility]: [facility]: [address] [facility] [address] [facility] [address] [place] [address] [facility] [id number] [facility]: Boris Greene MD: [address] [facility] [address] [facility] [id number] [facility]: [address] [place] [address] [phone] [place] CRISIS AND ACCESS LINE: Prescriptions: risperiDONE [RisperDAL] 1 mg PO BID 30 Days #60 tablet Referrals: PRIMARY CARE, [Primary Care Provider] - 3-5 Days <JONI GIRON - Last Filed: 06/30/21 21:31> ED Review of Systems ROS: Stated complaint: MH/SCHIZOPHRENIA Other details as noted in HPI ED Course Vital Signs 06/27/21 06/28/21 22:59 10:04 Temperature 98.5 F Pulse Rate 83 87 Respiratory 18 Rate Blood Pressure 150/93 Blood Pressure 144/89 [Left] O2 Sat by Pulse 95 98 Oximetry - Reevaluation(s) Reevaluation #1: 06/28/21 15:41 This patient seen by the psychiatrist and evaluated today and deemed to be discharged home to continue and comply with home medication. Also was recommended risperidone 1 mg twice daily. ED Medical Decision Making - Lab Data Result diagrams: 06/28/21 01:07 06/28/21 01:07 Critical care attestation.: If time is entered above; I have spent that time in minutes in the direct care of this critically ill patient, excluding procedure time. ED Disposition Is pt being admited?: No Does the pt Need Aspirin: No
[2021-06-28 01:41] LABS: Alanine Aminotransferase 12 units/L (7-56); Albumin 4.4 g/dL (3.9-5); BUN/Creatinine Ratio 15; Blood Urea Nitrogen 18 mg/dL (9-20); Calcium 9.1 mg/dL (8.4-10.2); Hemolysis Index 1
--- NOTE | 2021-06-28 11:23 | Consultation ---
History of Present Illness - Reason for Consult Consult date: 06/28/21 Reason for consult: hallucinations - History of Present Psychiatric Illness The patient was seen today. He is sleeping but easily arouses. He says he's here for schizophrenia and been off his meds. The patient says "I can't afford them." He denies any illicit drug use, alcohol or nicotine. He denies SI/HI. He also denies hallucinations of any kind. He says "I was, but not now. Been sleep." Psych History Diagnoses: schizophrenia Suicide attempts or Self-harm behavior: Denies Prior psychiatric hospitalizations: Yes Substance Abuse history: Denies Previous psychiatric medications tried: Risperidone Outpatient treatment: Denies PAST MEDICAL HISTORY: none reported Family Psychiatric History: None reported or documented SOCIAL HISTORY Marital Status: Single Living Arrangements: Homeless Employment Status: Disabled Access to guns/weapons: Denies Education: college History of Abuse: none reported Legal History: none reported REVIEW OF SYSTEMS Constitutional: Negative for weight loss ENT: Negative for stridor Respiratory: Negative for cough or hemoptysis All other systems reviewed and are negative MENTAL STATUS EXAMINATION General Appearance and Behavior: Age appropriate, good hygiene, wearing appropriate clothes, sleeping, cooperative Cooperation: Participating but drowsy Psychomotor Behavior: unremarkable and within normal limits Mood: ok Affect and affective range: congruent with mood Thought Process: goal directed Thought Content: hallucinations Speech: Normal volume, Regular rate and rhythm, Suicidal Ideation: Denies Homicidal Ideation: Denies Hallucinations: Denies Delusions: None elicited Impulse Control: Unimpaired Insight and Judgment: Limited insight and judgment, Memory: Normal, Attention: Normal Orientation: Alert, oriented Assessment and Plan (1) Hx of Szhizophrenia (2) Noncompliance with medical regimen and other treatments Treatment Plan Risperidone 1mg po BID The patient to comply with previously prescribed medications Risks, benefits and alternatives of medications discussed with the patient, questions answered and consent obtained from patient. PSYCHOTHERAPY: Supportive psychotherapy provided MEDICAL: Per primary team DELIRIUM PRECAUTIONS: Please re-orient patient frequently, keep lights on during the day, and minimize benzodiazepines and opiates as these medications could worsen patient's confusion. CONCRETE PRODUCTS DISPATCHER: Defer to primary DISPOSITION: Do not recommend acute psychiatric inpatient treatment. The patient needs to follow up and comply with medical regimen The care associate to give the patient outpatient resources Will sign off Thank you for the consult. Please contact with any questions and/or concerns. Case staffed with Dr. De La Garza Medications and Allergies Allergies Allergy/AdvReac Type Severity Reaction Status Date / Time egg Allergy Unknown Verified 11/09/20 01:34 mayonnaise Allergy Unknown Verified 11/09/20 01:34 Home Medications Medication Instructions Recorded Confirmed Last Taken Type amLODIPine 10 mg PO DAILY #30 tab 09/03/20 10/25/20 Unknown Rx risperiDONE [RisperDAL] 2 mg PO BID #60 tablet 09/03/20 10/25/20 Unknown Rx risperiDONE [RisperDAL] 2 mg PO BID #14 tablet 11/05/20 Unknown Rx risperiDONE [RisperDAL] 1 mg PO BID 30 Days #60 tablet 06/28/21 Unknown Rx Mental Status Exam - Vital signs Last Vital Signs Temp 98.5 F 06/27/21 22:59 Pulse 83 06/27/21 22:59 Resp 18 06/27/21 22:59 BP 150/93 06/27/21 22:59 Pulse Ox 95 06/27/21 22:59 Results Result Diagrams: 06/28/21 01:07 06/28/21 01:07 Abnormal lab results 06/28/21 06/28/21 06/28/21 Range/Units 01:07 01:07 01:07 Luna % (Auto) 9.6 H (0.0-7.3) % Eos % (Auto) 5.3 H (0.0-4.3) % Sodium 136 L (137-145) mmol/L Salicylates < 0.3 L (2.8-20.0) mg/dL Acetaminophen (10.0-30.0) ug/mL 06/28/21 Range/Units 01:07 Luna % (Auto) (0.0-7.3) % Eos % (Auto) (0.0-4.3) % Sodium (137-145) mmol/L Salicylates (2.8-20.0) mg/dL Acetaminophen 5.0 L (10.0-30.0) ug/mL All other labs normal.
[2021-06-28 19:05] VITALS: BP 144/89
== END 2021-06-28 19:06 | disposition home or self-care (01) ==
LOC: ED 22:32 → EEVIPCON 22:32 → ED 06-28 19:06
DX: U07.1 COVID-19 (principal); F20.9 Schizophrenia, unspecified; Z91.14 Patient's other noncompliance with medication regimen; F17.200 Nicotine dependence, unspecified, uncomplicated; Z91.018 Allergy to other foods; Z91.012 Allergy to eggs; Z79.899 Other long term (current) drug therapy
CPT/HCPCS: 36415; 80053; 84443; 85025; 99283; U0003; 80320; G0480

== ENCOUNTER 2021-06-29 02:04 | Emergency (ER) | payer MEDICARE | END 2021-06-29 02:50 | disposition left against medical advice (07) | LOC: ED 02:04 | DX: Z00.00 Encounter for general adult medical examination without abnormal findings (principal); Z53.21 Procedure and treatment not carried out due to patient leaving prior to being seen by health care provider ==

== ENCOUNTER 2021-07-03 22:33 | Emergency (ER) | payer MEDICARE ==
[2021-07-04 00:12] LABS: Bilirubin,Urine NEG (Negative); Blood,Urine NEG (Negative); Color,Urine Straw (Yellow); Protein,Urine <15 mg/dL mg/dL (Negative); Urobilinogen,Urine < 2.0 mg/dL (<2.0)
[2021-07-04 00:48] VITALS: BP 130/70
--- NOTE | 2021-07-04 01:11 | Emergency Department Report ---
ED General Adult HPI - General Chief complaint: Psych Stated complaint: Can I have something to eat and drink Time Seen by Provider: 07/04/21 00:08 Source: patient, EMS ( EMS documentation not available at time of chart dictation ), RN notes reviewed, old records reviewed Mode of arrival: Ambulatory Limitations: No Limitations - History of Present Illness Initial comments: This patient is a 50-year-old gentleman who is a frequent utilizer of this emergency room, who presents to the ER today with a chief complaint of painless request for something to eat and to drink. He was seen in this department a few days ago by one of my colleagues, medically cleared with unremarkable laboratory studies, seen by psychiatry, who also cleared him from their perspective, and did not recommend 1013. The patient denies physical pain at this time. The patient denies overdose, homicidality, suicidality, hallucinations, and intention to self-harm. Severity scale (0 -10): 0 - Related Data Previous Rx's Medication Instructions Recorded Last Taken Type amLODIPine 10 mg PO DAILY #30 tab 09/03/20 Unknown Rx risperiDONE [RisperDAL] 2 mg PO BID #60 tablet 09/03/20 Unknown Rx risperiDONE [RisperDAL] 2 mg PO BID #14 tablet 11/05/20 Unknown Rx risperiDONE [RisperDAL] 1 mg PO BID 30 Days #60 tablet 06/28/21 Unknown Rx Allergies Allergy/AdvReac Type Severity Reaction Status Date / Time egg Allergy Unknown Verified 07/04/21 00:50 mayonnaise Allergy Unknown Verified 07/04/21 00:50 ED Review of Systems ROS: Stated complaint: MH EVAL Other details as noted in HPI Constitutional: denies: fever Eyes: denies: vision change Respiratory: denies: cough Cardiovascular: denies: chest pain Gastrointestinal: denies: abdominal pain Musculoskeletal: denies: back pain Psychiatric: denies: auditory hallucinations, visual hallucinations, homicidal thoughts, suicidal thoughts ED Past Medical Hx - Past Medical History Hx Congestive Heart Failure: Yes Hx Arthritis: No Hx Psychiatric Treatment: Yes (schizophrenia) Additional medical history: schizophrenia - Surgical History Additional Surgical History: y - Social History Smoking Status: Never Smoker - Medications Home Medications: Home Medications Medication Instructions Recorded Confirmed Last Taken Type amLODIPine 10 mg PO DAILY #30 tab 21 10/25/20 Unknown Rx risperiDONE [RisperDAL] 2 mg PO BID #60 tablet 09/03/20 10/25/20 Unknown Rx risperiDONE [RisperDAL] 2 mg PO BID #14 tablet 11/05/20 Unknown Rx risperiDONE [RisperDAL] 1 mg PO BID 30 Days #60 tablet 06/28/21 Unknown Rx ED Physical Exam - General Limitations: No Limitations General appearance: alert, in no apparent distress, obese - Head Head exam: Present: atraumatic, normocephalic - Eye Eye exam: Present: normal appearance, EOMI - ENT ENT exam: Present: normal exam, normal orophraynx, mucous membranes moist, normal external ear exam - Neck Neck exam: Present: normal inspection, full ROM. Absent: tenderness, meningismus - Respiratory Respiratory exam: Present: normal lung sounds bilaterally. Absent: respiratory distress, wheezes, rales, rhonchi, stridor, decreased breath sounds - Cardiovascular Cardiovascular Exam: Present: regular rate, normal rhythm, normal heart sounds. Absent: bradycardia, tachycardia, irregular rhythm, systolic murmur, diastolic murmur, rubs, gallop - GI/Abdominal GI/Abdominal exam: Present: soft. Absent: distended, tenderness, guarding, rebound, rigid, pulsatile mass - Rectal Rectal exam: Present: deferred - Extremities Exam Extremities exam: Present: normal inspection, full ROM, other (2+ pulses noted in the bilateral upper and lower extremities. There is no palpable cord. negative Homans sign. Muscular compartments are soft. The pelvis is stable.). Absent: pedal edema, calf tenderness - Back Exam Back exam: Present: normal inspection. Absent: tenderness, CVA tenderness (R), CVA tenderness (L), paraspinal tenderness, vertebral tenderness - Neurological Exam Neurological exam: Present: alert, oriented X3, normal gait, other (No facial droop. Tongue midline. Extraocular movements intact bilaterally. Facial sensation intact to light touch in V1, V2, V3 distribution bilaterally. 5 and a 5 strength in 4 extremities. Sensation intact to light touch in 4 extremities.). Absent: motor sensory deficit - Psychiatric Psychiatric exam: Present: flat affect. Absent: homicidal ideation, suicidal ideation - Skin Skin exam: Present: warm, dry, intact, normal color. Absent: rash ED Course Vital Signs 07/04/21 07/04/21 00:43 00:48 Temperature 98.2 F Pulse Rate 77 Respiratory 16 Rate Blood Pressure 130/70 [Right] O2 Sat by Pulse 98 98 Oximetry ED Medical Decision Making - Lab Data Vital Signs 07/04/21 07/04/21 00:43 00:48 Temperature 98.2 F Pulse Rate 77 Respiratory 16 Rate Blood Pressure 130/70 [Right] O2 Sat by Pulse 98 98 Oximetry Lab Results 07/03/21 Range/Units Unknown Urine Color Straw (Yellow) Urine Turbidity Clear (Clear) Urine pH 7.0 (5.0-7.0) Ur Specific [place] 1.009 (1.003-1.030) Urine Protein <15 mg/dl (Negative) mg/dL Urine Glucose (UA) Neg (Negative) mg/dL Urine Ketones Neg (Negative) mg/dL Urine Blood Neg (Negative) Urine Nitrite Neg (Negative) Urine Bilirubin Neg (Negative) Urine Urobilinogen < 2.0 (<2.0) mg/dL Ur Leukocyte Esterase Neg (Negative) Urine WBC (Auto) 1.0 (0.0-6.0) /HPF Urine RBC (Auto) 1.0 (0.0-6.0) /HPF U Epithel Cells (Auto) < 1.0 (0-13.0) /HPF - Medical Decision Making Differential diagnosis, including but not limited to: Encounter for medical screening examination, encounter for behavioral health screening examination Assessment and plan: 50-year-old gentleman, who was afebrile, with reassuring vital signs, clinically sober, with a GCS of 15, medically cleared in this institution a few days ago, had unremarkable laboratory studies a few days ago presenting to the ER today with a chief complaint of request for something to eat or drink. His physical exam is unremarkable. He does not meet criteria for 1013 hold or involuntary confinement. He was provided prescriptions and resources by psychiatry at this facility a few days ago. The patient does not appear to have an emergent medical or psychiatric condition present at this time Critical care attestation.: If time is entered above; I have spent that time in minutes in the direct care of this critically ill patient, excluding procedure time. ED Disposition Clinical Impression: Encounter for medical screening examination, Encounter for behavioral health screening Disposition: 01 HOME / SELF CARE / HOMELESS Is pt being admited?: No Does the pt Need Aspirin: No Condition: Good Additional Instructions: Please continue current outpatient medications. Please follow-up with the outpatient resources that were provided to the patient during his recent ER evaluation. Please avoid consumption of alcohol, tobacco, smoke products, and recreational drugs. Please follow-up with a primary care doctor within the next month. Please follow-up with a psychiatrist within the next week. Please return to the emergency room right away with new pain, worsened pain, migration of pain, projectile vomiting, change in mental status, confusion, inability tolerate liquid feeds, new, worsened or different symptoms not present on the initial emergency room evaluation Referrals: [facility] [Outside] - 3-5 Days [facility] [Outside] - 3-5 Days
== END 2021-07-04 03:08 | disposition home or self-care (01) ==
LOC: ED 22:33 → EEVIPCON 22:33 → ED 07-04 03:08
DX: Z00.00 Encounter for general adult medical examination without abnormal findings (principal); Z13.30 Encounter for screening examination for mental health and behavioral disorders, unspecified
CPT/HCPCS: 81001; 99284

== ENCOUNTER 2021-07-07 01:18 | Emergency (ER) | payer SELFPAY | END 2021-07-07 02:45 | disposition left against medical advice (07) | LOC: ED 01:18 | DX: F20.9 Schizophrenia, unspecified (principal); Z53.21 Procedure and treatment not carried out due to patient leaving prior to being seen by health care provider ==

== ENCOUNTER 2021-10-24 21:02 | Emergency (ER) | payer SELFPAY ==
[2021-10-24 22:00] LABS: Basophils # (Auto) 0.1 K/mm3 (0.0-0.1); Eosinophils # (Auto) 0.3 K/mm3 (0.0-0.4); Eosinophils % (Auto) 4.3 % (0.0-4.3); Hematocrit 34.9 % (35.5-45.6); Hemoglobin 11.8 gm/dl (11.8-15.2); Lymphocytes % (Auto) 17.3 % (13.4-35.0); Mean Corpuscular HGB Conc 34 % (32-34); Mean Corpuscular Volume 93 fl (84-94); Monocytes # (Auto) 0.5 K/mm3 (0.0-0.8); Monocytes % (Auto) 8.2 % (0.0-7.3); Platelet Count 249 K/mm3 (140-440); Red Blood Count 3.75 M/mm3 (3.65-5.03); Red Cell Distribution Width 14.9 % (13.2-15.2)
[2021-10-24 22:17] LABS: BUN/Creatinine Ratio 10; Blood Urea Nitrogen 9 mg/dL (9-20); Calcium 8.6 mg/dL (8.4-10.2); Hemolysis Index 3
== END 2021-10-25 13:45 | disposition left against medical advice (07) ==
LOC: ED 21:02
DX: Z13.30 Encounter for screening examination for mental health and behavioral disorders, unspecified (principal); Z53.21 Procedure and treatment not carried out due to patient leaving prior to being seen by health care provider
CPT/HCPCS: 36415; 80048; 80320; 85025; G0480

== ENCOUNTER 2021-11-04 06:57 | Emergency (ER) | payer MEDICAID ==
[2021-11-04 07:28] VITALS: BP 149/103
--- NOTE | 2021-11-04 09:37 | Emergency Department Report ---
ED Psych HPI - General Chief Complaint: Psych Stated Complaint: MH Time Seen by Provider: 11/04/21 08:49 Source: patient Mode of arrival: Ambulatory Limitations: No Limitations - History of Present Illness Initial Comments: 51-year-old male with a past medical history of schizophrenia presents to the hospital planing of hearing voices. Patient denies suicidal homicidal ideation. He is chronically noncompliant with medications and states he has not taken any outpatient medications in at least a year. Patient was prescribed medications during ED visit in June but states he never got them filled. He has not followed up as outpatient. No physical complaints reported - Related Data Previous Rx's Medication Instructions Recorded Last Taken Type amLODIPine 10 mg PO DAILY #30 tab 09/03/20 Unknown Rx risperiDONE [RisperDAL] 2 mg PO BID #60 tablet 09/03/20 Unknown Rx risperiDONE [RisperDAL] 2 mg PO BID #14 tablet 11/05/20 Unknown Rx risperiDONE [RisperDAL] 1 mg PO BID 30 Days #60 tablet 06/28/21 Unknown Rx Allergies Allergy/AdvReac Type Severity Reaction Status Date / Time egg Allergy Unknown Verified 07/04/21 00:50 mayonnaise Allergy Unknown Verified 07/04/21 00:50 ED Review of Systems ROS: Stated complaint: MH Other details as noted in HPI Comment: All other systems reviewed and negative ED Past Medical Hx - Past Medical History Hx Congestive Heart Failure: Yes Hx Arthritis: No Hx Psychiatric Treatment: Yes (schizophrenia) Additional medical history: schizophrenia - Surgical History Additional Surgical History: y - Social History Smoking Status: Never Smoker - Medications Home Medications: Home Medications Medication Instructions Recorded Confirmed Last Taken Type amLODIPine 10 mg PO DAILY #30 tab 09/03/20 10/25/20 Unknown Rx risperiDONE [RisperDAL] 2 mg PO BID #60 tablet 09/03/20 10/25/20 Unknown Rx risperiDONE [RisperDAL] 2 mg PO BID #14 tablet 11/05/20 Unknown Rx risperiDONE [RisperDAL] 1 mg PO BID 30 Days #60 tablet 06/28/21 Unknown Rx ED Physical Exam - General Limitations: No Limitations - Other Other exam information: General: No acute distress, eating a food tray Head: Atraumatic Eyes: normal appearance ENT: Moist mucous membranes Neck: Normal appearance, no midline tenderness Chest: Clear to auscultation bilaterally CV: Regular rate and rhythm Abdomen: Soft, normal bowel sounds, nontender, nondistended, no rebound or guarding Back: Normal inspection Extremity: Normal inspection, full range of motion Neuro: Alert O x 3, no facial asymmetry, speech clear, no gross motor sensory deficit Psych: Appropriate behavior Skin: No rash ED Course Vital Signs 11/04/21 07:27 Temperature 98.5 F Pulse Rate 71 Respiratory 16 Rate Blood Pressure 149/103 [Right] O2 Sat by Pulse 98 Oximetry - Reevaluation(s) Reevaluation #1: 11/04/21 09:53 Patient eloped after completing his breakfast ED Medical Decision Making - Medical Decision Making 51-year-old male with chronic schizophrenia presents to the hospital complaining of psychosis. Patient endorses hearing voices but is calm and cooperative in the ED. Denies suicidal or homicidal ideation. He does not meet 1013 criteria. I requested mental health evaluation and provider does not come to the ED until 10 AM. Patient eloped after completing his breakfast. Patient is a frequent utilizer of the ED Critical Care Time: No Critical care attestation.: If time is entered above; I have spent that time in minutes in the direct care of this critically ill patient, excluding procedure time. ED Disposition Clinical Impression: Schizophrenia, Noncompliance with medication regimen Disposition: LEFT AWOL/ELOPED Is pt being admited?: No Does the pt Need Aspirin: No Condition: Stable Time of Disposition: 10:08
== END 2021-11-06 15:20 | disposition left against medical advice (07) ==
LOC: ED 06:57
DX: F20.9 Schizophrenia, unspecified (principal); Z91.19 Patient's noncompliance with other medical treatment and regimen; Z91.012 Allergy to eggs; Z88.8 Allergy status to other drugs, medicaments and biological substances; Z79.899 Other long term (current) drug therapy
CPT/HCPCS: 99281

== ENCOUNTER 2021-11-04 22:44 | Emergency (ER) | payer MEDICAID ==
[2021-11-04 23:25] VITALS: BP 148/86
== END 2021-11-06 17:07 | disposition left against medical advice (07) ==
LOC: ED 22:44
DX: Z13.30 Encounter for screening examination for mental health and behavioral disorders, unspecified (principal); Z53.21 Procedure and treatment not carried out due to patient leaving prior to being seen by health care provider

== ENCOUNTER 2021-11-05 22:21 | Emergency (ER) | payer MEDICARE ==
[2021-11-06 04:20] VITALS: BP 131/78
== END 2021-11-06 17:42 | disposition left against medical advice (07) ==
LOC: ED 22:21
DX: Z13.30 Encounter for screening examination for mental health and behavioral disorders, unspecified (principal); Z53.21 Procedure and treatment not carried out due to patient leaving prior to being seen by health care provider